=== PATIENT | male | born 1940 | race Caucasian/White ===

== ENCOUNTER 2019-06-24 10:58 | Day surgery (SDC) | payer MEDICARE, SELFPAY ==
--- NOTE | 2019-06-23 17:00 | PCM.HP.BLA ---
History and Physical Date of Admission: 06/24/19 [place] Yousif Jr 1940 ? ? REFERRING PHYSICIAN: Dustin Romeo (Cn* ? CHIEF COMPLAINT: Consult (Consult Inguinal hernia) ? HPI: The patient is a 78 year old male presents with complaint of right groin pain. He has a known right inguinal hernia for years. It has been uncomfortable for the past several months. However, his family has noted increasing complaint of pain in the past several days. He was seen in the urgent care clinic and referred to this office. Patient denies nausea/emesis. He does urination problems, able to urinate, however has frequency and urgency. He was prescribed flomax in past but never obtained prescription. Patient's states that he had a left inguinal hernia repair in the 70s. Patient is a poor historian and non compliant (was scheduled for colonoscopy but did not follow through, has elevated PSA but did not follow up with urology) and much of his past medical history was obtained via telephone from his and daughter. ? ? PAST MEDICAL HISTORY COPD - quit smoking years ago, also a pipe smoker Prostatism Elevated PSA ? ? PAST SURGICAL HISTORY ? INGUINAL HERNIA REPAIR HX Left 1969 ? Hernia repair ? REMV CATARACT EXTRACAP,INSERT LENS Left 07/11/2016 ? Cataract Extraction with Toric IOL ? ? Current Outpatient Medications ? tamsulosin ER (FLOMAX) 0.4 mg Take 1 capsule by mouth once daily. ? tiotropium (SPIRIVA) 18 mcg inhalation capsule Inhale 1 capsule as instructed once daily. ? Calcium-Cholecalciferol, D3, (CALCIUM 500 WITH D) 500 mg(1,250mg) -400 unit per tablet Take 1 tablet by mouth once daily. ? ? ALLERGIES: Patient has no known allergies. ? PERSONAL HISTORY: Social History Tobacco Use ? Smoking status: Former Smoker ? ? Types: Cigars ? ? Last attempt to quit: 04/21/1969 ? ? Years since quittin.2 ? Smokeless tobacco: Current User ? ? Types: Chew Substance Use Topics ? Alcohol use: No ? Drug use: No ? FAMILY HISTORY ? No Ocular Disease Father ? ? No Ocular Disease Mother ? ? No Ocular Disease Sister ? ? No Ocular Disease Brother ? ? Cancer Brother ? ? No Ocular Disease Maternal Grandmother ? ? No Ocular Disease Maternal Grandfather ? ? No Ocular Disease Paternal Grandmother ? ? No Ocular Disease Paternal Grandfather ? ? No Ocular Disease Other ? ? ? REVIEW OF SYSTEMS: General - denies fevers, 20 # weight loss noted by Cardiovascular - denies chest pain, denies history of [place] Pulmonary - denies shortness of breath, denies coughing up blood Gastrointestinal - see HPI, complaint of abdominal pain mostly lower related to hernia, denies emesis, no previous colonoscopy Neurological - denies seizures Genitourinary - see HPI, wears depends for dribbling Hematological - denies spontaneous/prolonged bleeding Skin - denies nonhealing skin wounds Musculoskeletal - has some back pain, hospitalized in past for back traction Endocrine - denies diabetes, no thyroid problems Psychological ? denies hallucinations ? PHYSICAL EXAMINATION: General: The patient is 78 year old male, well nourished, well hydrated in no acute distress. The patient is oriented to time, place, and person. VITALS: Ht: 6' Wt: 154# BP 138/89 RR 16 HR 82 Head ? Normocephalic. EOM intact with sclera clear and no icterus noted. Wearing glasses. Mouth with mucus membranes moist. Neck - supple with no jugular venous distention noted. Trachea is midline. No carotid bruits noted. No masses noted. Lungs ? normal breath sounds in all lung roberts. No rales/rhonchi/wheezing noted. No labored breathing noted, such as retractions. No cough heard. Heart ? normal S1 and S2 auscultated. No rubs/clicks/murmurs noted. Regular rate. .Abdomen ? soft and benign. Normal bowel sounds. Extremities ? no calf tenderness noted. No pitting edema noted. Genitalia ? normal male phallus, testes in normal anatomical position, right inguinal hernia - not reducible and tender, left inguinal hernia - reducible Skin ? normal skin integrity. Neurological ? normal gait, no focal deficits noted. Psych ? calm and appropriate ? ? IMPRESSION: right inguinal hernia - not reducible ? PLAN: I have discussed the above with the patient (and with daughter [phone] and via telephone) I have offered right inguinal hernia repair with use of mesh. I have explained the procedure to the patient. I have counseled the patient as to the risks of the procedure, including but not limited to: infection, bleeding, injury to any blood vessels/nerves, scar tissue, injury to the spermatic cord and/or testicle, injury to bowel/bladder, injury to the groin nerves causing chronic groin pain, recurrence of hernia, wound infections, complications of anesthesia, etc. ? the patient understands. The patient wishes to proceed. Will be done at [facility] as per patient's wishes. Schedule for tomorrow. Will start patient on Flomax, to avoid urinary retention after surgery. Since left inguinal hernia is non tender and reducible, will defer repair. I have answered all questions to the patient?s satisfaction and the patient has no further questions. . Diagnoses: (K40.30) Irreducible right inguinal hernia (primary encounter diagnosis) (R10.31) Right groin pain (K40.90) Reducible left inguinal hernia (N40.0) Prostate hypertrophy Return to Clinic: The patient is instructed to follow-up with me after the procedure. ?
[2019-06-24] VITALS (9 sets, daily range): BP systolic 87–129; BP diastolic 47–72; PULSE 71–82; RESP 16–20; TEMP 36.6–37.2; O2SAT 93–99; BMI 19.2
--- NOTE | 2019-06-24 11:27 | EKG12_ITS ---
Test Reason : PRE OP Blood Pressure : / mmHG Vent. Rate : 082 BPM Atrial Rate : 082 BPM P-R Int : 226 ms QRS Dur : 086 ms QT Int : 370 ms P-R-T Axes : 067 -23 055 degrees QTc Int : 432 ms Sinus rhythm with 1st degree A-V block Inferior infarct , age undetermined Abnormal ECG No previous ECGs available Confirmed by BETH SOLOMON ([id number]), industrial editor BYRON NICHOLAS ([id number]) on 06/25/2019 7:51:23 AM Referred By: Maliha Galvan Confirmed By:BETH SOLOMON
[2019-06-24] MEDS: Lactated Ringers 1,000 ML 75 ML IV ×2 (12:51→16:30)
--- NOTE | 2019-06-24 13:00 | HERN_PTH ---
PATIENT: CHINTAN SEPULVEDA LOC: [facility] – [place] U#:[id number] AGE/SX: 78/M ROOM: RE06/24/[address]: Dr. Maliha Galvan MD : 1940 BED: DIS: 06/24/2019 SPEC #: [id number] RECD: 06/25/19 08:52 STATUS: THAO SPIKE #: [id number] ALEE: 06/24/19 13:[address]: Maliha Galvan DEPT: SURGICAL PATHOLOGY RECD BY: Ta Ramirez ENTERED: 06/25/19 10:14 SP TYPE: Hernia OTHR DR: No Primary Care Phys Tissues: HERNIA Procedures: Surgery Specimen Level II HEADER OPERATION: Inguinal hernia with mesh PRE-OP DIAGNOSIS: Right inguinal hernia, not reducible TISSUE SUBMITTED: Incarcerated right inguinal hernia sac MICROSCOPIC DIAGNOSIS Soft tissue of right inguinal region, excision: Hernia sac with fibrosis and mild chronic inflammation. Mature adipose tissue with hemorrhage consistent with incarcerated hernia contents. AM:vanessa 06/26/19 MICROSCOPIC DESCRIPTION Slides are reviewed. GROSS DESCRIPTION Received in fixative is one container labeled with the patient's name and designated right hernia sac. The specimen consists of two irregular fragments of pink-rios and yellow tissue that in aggregate measure 7 x 5 x 1 cm. Serial sections do not reveal mass lesions. Cathode Ray Tube Assembler sections are submitted in one cassette. / AM:vanessa 06/25/19 TC:5 CPT: 07490
[2019-06-24] MEDS: Cefazolin 2 GM in 0.9% Normal Saline 100 ML IV (14:12)
[2019-06-24] MEDS: Bupivacaine 0.25% 30 ML Vial (14:29)
--- NOTE | 2019-06-24 16:09 | PCM.OPRPT ---
Report of Operation Date of Procedure: 06/24/19 Pre-Operative Diagnosis: incarcerated right inguinal hernia Post-Operative Diagnosis: same as above Surgery/Procedure Performed:: incarcerated right inguinal hernia repair Description of Surgical Findings:: incarcerated right inguinal hernia with omentum, large right hydrocoele Type of Anesthesia:: Local MAC Anesthesiologist: Meghan Claire Specimen's removed: hydrocoele sac and indirect inguinal hernia sac and incarcerated omentum Estimated Blood Loss (mL): 20 ml Fluids Replaced: 900 ml Description of Procedure: After informed consent was obtained, the patient was brought to the Operating Room. Appropriate time out protocol was followed. He was then placed in the supine position. The patient was then placed under anesthesia. The right groin area and lower torso and genitalia were then prepped with a sterile surgical skin preparation. Sterile surgical drapes were placed. This skin and subcutaneous tissues were then widely infiltrated with the local anesthetic. A skin incision was then made with a 15 blade scalpel over the hernia site in a transverse oblique fashion and carried down to the subcutaneous tissues using sharp dissection. Any hemorrhage was adequately controlled with electrocautery. Division of the tissues along the incision line continued down to the external oblique fascia was identified. It was then divided along its fibers using sharp dissection carefully avoiding any injury to any blood vessels/nerves. The spermatic cord was then isolated using blunt dissection. There was a large direct hernia defected noted in Hasselbach's triangle, and patient also had a large indirect inguinal hernia sac with hydrocoele. This was reduced. The sac was opened. There was blue discolored fatty tissue noted, this was resected. The hernia sac was also largely resected and the hydrocoele sac was opened. The proximal portion of the indirect sac was sutured closed with 3-0 vicryl suture. The hydrocoele sac was left open and the inside tissue was cauterized with electrocautery. The tissues were bluntly from the spermatic cord. This dissection took some time as there were dense adhesions all throughout. The repair of the hernia was then done in the Viola fashion. The confluence of the internal oblique and transversalis fascia was sutured to Keaton's ligament using interrupted 0 prolene suture. This was done from the pubic tubercle to the level of overlying the femoral vessels and the internal ring was re-created and just large enough for the tip of my finger. The spermatic cord was then replaced in its proper anatomical position. The external oblique fascia was then reapproximated over the spermatic cord to close the roof of the inguinal canal with a running 3-0 vicryl suture. Fito's fascia was reapproximated with interrupted 3-0 vicryl sutures. The skin incision was reapproximated with a running 4-0 Monocryl suture. Cavilon and steristrips were placed to reinforce the skin closure and a sterile opsite dressing was applied. The patient was brought from to the Recovery Room in stable condition. - Complications none noted - Admit VTE Documentation VTE Present on Admission: Yes VTE Mechan Device Prophylaxis: SCD's
--- NOTE | 2019-06-24 16:40 | PCM.DC.HER ---
Discharge Diet: No Restrictions - drink plenty of fluids Discharge Activity: Return to Normal Activity, May not drive while taking narcotic pain medications. Lifting Restrictions: no lifting greater than 10 pounds for 6-8 weeks Call your doctor if your incision/area has: Continuous Slow Oozing, Foul Smelling Discharge Call your doctor if you observe: Fever of 101 or Higher Additional Dressing/Incision Instructions:: Leave dressing in place. May get wet in shower. Do not soak - no tub baths/swimming. Apply ice packs to area for comfort as often as tolerated Additional Instructions: Due to the hernia being present for years, there will be a lot of swelling in the area after this surgery. Recommend ice packs to the area for comfort and place in the area as long as tolerated (this will also help with pain) Recommended pain medication regimen - take 650 mg acetaminophen (Tylenol), then in 3-4 hours take 600 mg ibuprofen (Motrin), then in 3-4 hours take 650 mg acetaminophen, then in 3-4 hours take 600 mg ibuprofen, and so on for the next 2-3 days take the prescribed narcotic pain medication for pain beyond that which is controlled by the acetaminophen and/or ibuprofen and at night to help you sleep Rather than sitting, it would be more comfortable for you to recline in a Lazy-boy type chair with your legs elevated You will have swelling of your scrotum and also a lot of bruising - this will be normal With scrotal swelling, reclining with your legs elevated, you can place a towel across the upper thighs and rest your scrotum on top of the towel - this will help the fluid in your scrotum return back to your torso Allergies/Adverse Reactions: Allergies No Known Allergies Allergy (Verified 06/24/19 11:11) Medications to take at Discharge Aspirin [[place]hel Aspirin EC] 81 mg PO DAILY 06/24/19 Eye Cap 1 tab PO DAILY 06/24/19 Hydrocodone/Acetaminophen [[place] 5-325 Tablet] 1 each PO Q8H PRN PRN 5 Days #15 tablet 06/24/19 Tamsulosin HCl [Flomax] 0.4 mg PO DAILY 06/24/19 The following prescriptions were given: Hydrocodone/Acetaminophen [[place] 5-325 Tablet] 1 each PO Q8H PRN PRN 5 Days #15 tablet PRN Reason: Pain Score 4-10/10 Transmission Status: Sent to [id number] Primary Care Physician: Care Physician,No Primary [Primary Care Provider] - Test Results: Test results from this visit will be discussed in further detail at your follow-up appointment, if applicable. Please Follow Up With: Maliha Galvan MD - When: we will contact you to set up a televisit appointment
== END 2019-06-24 17:30 | disposition home or self-care (01) ==
LOC: SDC 11:02 → AC 11:05
PROVIDERS: Referring Provider Surgery; Visit Provider Surgery
PROC: (CPT 49507; principal; 2019-06-24 12:45)
DX: K40.30 Unilateral inguinal hernia, with obstruction, without gangrene, not specified as recurrent (principal); N40.0 Benign prostatic hyperplasia without lower urinary tract symptoms; I44.0 Atrioventricular block, first degree; J44.9 Chronic obstructive pulmonary disease, unspecified; F17.220 Nicotine dependence, chewing tobacco, uncomplicated; Z91.19 Patient's noncompliance with other medical treatment and regimen
CPT/HCPCS: 49507; 88302; 93005; J7120; J2405

== ENCOUNTER 2021-07-19 14:27 | Emergency (ER) | payer MEDICARE, SELFPAY ==
[2021-07-19 14:28] VITALS: BP 181/90; PULSE 85; RESP 13; TEMP 36.4; O2SAT 97; BMI 18.3
--- NOTE | 2021-07-19 14:46 | EX.ED.DYSGE1 ---
HPI History of Present Illness Chief Complaint: Head Injury Informant: patient Onset/Context/Timing Onset: Today Context: Sudden Onset Timing: Continuous Quality: Dull and aching Location: Neck and bilateral feet Worsened by: Movement Relieved by: Nothing Narrative Narrative: Patient presents with syncopal episode and head injury that occurred today. Patient states he felt lightheaded prior to the syncopal episode. Patient states he fell forward and hit his head. Patient complains of pain in the right side of his neck as well. Patient states it is worse with certain movements. Patient denies any paresthesias or weakness. Patient also complains of pain in both feet. Patient denies any other injuries. Patient denies any palpitations. Patient denies any chest pain. PFSH PFSH Home Medications Eye Cap 1 tab PO DAILY 06/24/19 [History Last Taken Unknown] aspirin 81 mg PO DAILY 06/24/19 [History Last Taken 06/23/19 08:00] tamsulosin 0.4 mg PO DAILY 06/24/19 [History Last Taken Unknown] Allergy/AdvReac Type Severity Reaction Status Date / Time No Known Allergies Allergy Verified 07/19/21 14:35 Surgical History Hx of inguinal herniorrhaphy Social History Smoking Status: Never smoker ROS ROS ED Constitutional Constitutional ED: Reports chills, fever(s) and subjective Eyes Eyes: Reports blurry vision and diplopia ENT ENT ED: Denies rhinorrhea or sore throat Cardiovascular Cardiovascular: Denies chest pain or palpitations Respiratory/Chest Respiratory/Chest: Reports dyspnea; Denies cough Gastrointestinal Gastrointestinal: Denies nausea or vomiting Genitourinary Genitourinary ED: Reports dysuria; Denies hematuria Musculoskeletal Musculoskeletal: Reports neck pain; Denies back pain Integumentary Denies abscess or rash Neurologic Neurologic: Denies headache(s) or weakness Allergic/Immunologic Allergic/Immunologic ED: Denies mouth swelling or urticaria EXAM Physical Exam Const Vital Signs: 07/19/21 14:28 07/19/21 14:37 07/19/21 15:10 Temperature 97.6 F L Temperature Source Temporal Pulse Rate 85 83 Pulse Rate [Lying] Pulse Rate [Sitting (for 1 minute prior to obtaining)] Pulse Rate [Standing (for 1 minute prior to obtaining)] Respiratory Rate 13 18 Respiratory Effort Normal Non-Labored Respiratory Pattern Normal Blood Pressure 181/90 H 158/86 H Blood Pressure [Lying] Blood Pressure [Sitting (for 1 minute prior to obtaining)] Blood Pressure [Standing (for 1 minute prior to obtaining)] Blood Pressure Mean 120 110 Blood Pressure Mean [Lying] Blood Pressure Mean [Sitting (for 1 minute prior to obtaining)] Blood Pressure Mean [Standing (for 1 minute prior to obtaining)] Pulse Ox 97 100 Oxygen Delivery Method Room Air Room Air 07/19/21 15:41 Temperature Temperature Source Pulse Rate Pulse Rate [Lying] 87 Pulse Rate [Sitting (for 1 minute prior to obtaining)] 99 Pulse Rate [Standing (for 1 minute prior to obtaining)] 118 H Respiratory Rate Respiratory Effort Respiratory Pattern Blood Pressure Blood Pressure [Lying] 148/87 H Blood Pressure [Sitting (for 1 minute prior to obtaining)] 170/97 H Blood Pressure [Standing (for 1 minute prior to obtaining)] 192/125 H Blood Pressure Mean Blood Pressure Mean [Lying] 107 Blood Pressure Mean [Sitting (for 1 minute prior to obtaining)] 121 Blood Pressure Mean [Standing (for 1 minute prior to obtaining)] 147 Pulse Ox Oxygen Delivery Method Positive well nourished and well developed General Appearance ED: well developed and NAD HEENT Reports moist mucous membranes Neck supple and no JVD Neck Narrative: There is areas of the right cervical paraspinal muscles. There is no midline tenderness. There is no bony crepitance or step-off. General: tenderness Resp normal respiratory effort and clear to auscultation bilaterally Cardio regular rate, regular rhythm and no murmurs GI normal to inspection, nondistended, normoactive bowel sounds and non-tender Palpation: soft Extremity normal to inspection General Extremety ED: Negative for edema or tenderness General Extremity: Negative for edema Neuro oriented x3, CN's II-XII intact bilaterally and no sensory deficits noted Sensorium / Orientation: alert Motor Exam: strength 5/5 throughout Psych mental status grossly normal Skin no rashes or lesions noted MDM MDM MDM Narrative Medical decision making narrative: EKG was obtained. On my interpretation it shows normal sinus rhythm with a rate of 100. There is a first-degree AV block with a CA interval of 218 ms. QRS interval was normal. QTc interval was normal. There is left axis deviation at -58. There are no acute ST or T wave changes. CBC was within normal limits. Comprehensive metabolic profile was normal. High-sensitivity troponin was normal. CT scan of the brain was obtained. There is no acute intracranial abnormality. This was interpreted by the radiologist and reviewed by myself. CT scan of the cervical spine was obtained. There is no acute fracture or spondylolisthesis. There are some degenerative changes noted. This was also interpreted by the radiologist and reviewed by myself. Orthostatic vital signs were obtained. Patient did get tachycardic with standing. Patient was given IV fluids. Patient was advised of his findings. Patient was instructed to follow-up with his primary care physician in 5 to 7 days. Patient understood and was agreeable with the plan. All questions were answered. Lab Data Labs: Laboratory Results - last 24 hr 07/19/21 07/19/21 15:00 15:00 WBC 4.4 RBC 4.52 L Hgb 14.0 Hct 40.8 MCV 90.3 MCH 31.0 MCHC 34.3 RDW Std Deviation 39.7 RDW Coeff of Vee 11.9 Plt Count 205 MPV 10.1 Immature Gran % (Auto) 0.200 Neut % (Auto) 63.9 Lymph % (Auto) 23.4 [place] % (Auto) 8.6 Eos % (Auto) 3.0 Baso % (Auto) 0.9 Absolute Neuts (auto) 2.8 Absolute Lymphs (auto) 1.03 Nucleated RBC % 0 Sodium 142 Potassium 4.0 Chloride 107 Carbon Dioxide 29.0 Anion Gap 6 BUN 31 H Creatinine 1.01 Estim Creat Clear Calc 49.82 Est GFR (MDRD) Af Amer 91 Est GFR (MDRD) Non-Af 75 BUN/Creatinine Ratio 30.7 H Glucose 105 Calcium 9.1 Total Bilirubin 1.00 AST 20 ALT 21 Alkaline Phosphatase 79 Troponin I High Sens 7 Total Protein 7.3 Albumin 3.9 Globulin 3.4 Albumin/Globulin Ratio 1.1 Radiography Diagnostic Testing: Clinical Impression(s) from Imaging Studies Brain CT 07/19/21 14:53 IMPRESSION: No evidence of acute intracranial pathology is seen. Electronically Signed: Davide Becerril MD at 15:42 EDT , Cervical Spine CT 07/19/21 14:55 IMPRESSION: Degenerative changes of the cervical spine, no evidence of acute osseous abnormality is seen. Electronically Signed: Davide Becerril MD at 15:47 EDT , EKG Initial EKG: Interpretation: Sinus Rhythm (100 with first-degree AV block), No Acute Injury Pattern, LAFB and Non-Specific ST Changes Prior EKG tracings: available for review Prior: Unchanged (06/24/2019) Discharge Plan Triage Chief Complaint: Head Injury ED Provider: Elton Nguyen Dx/Rx/DC Orders Clinical Impression: Syncope, Closed head injury, Acute cervical myofascial strain Instructions: ED Head Injury (Adult), ED Fainting, Uncertain Cause Prescriptions: No Action aspirin 81 MG tablet,delayed release (DR/EC) 81 mg PO DAILY RF: 0 tamsulosin 0.4 MG capsule 0.4 mg PO DAILY RF: 0 Eye Cap 1 tab PO DAILY RF: 0 Primary Care Provider: Care Physician,No Primary Referrals: Can De MD [STAFF PHYSICIAN] - 5-7 Days Care Physician,No Primary [Primary Care Provider] - Disposition Disposition: Home, Self Care
--- NOTE | 2021-07-19 14:53 | CT_ITS ---
INDICATION: Syncope EXAMINATION: CT BRAIN - CT Head or Brain W/O Contrast Injection TECHNIQUE: Multiple axial images were obtained of the head without intravenous contrast. A radiation dose optimization technique was used for this scan. IV Contrast dosage and agent: None. COMPARISON: None FINDINGS: BRAIN PARENCHYMA: No intra- or extra-axial hemorrhage. No evidence of acute infarct. No intracranial mass or mass effect. There is preservation of the pavon/white matter interface. Posterior fossa structures are unremarkable. CSF SPACES: Appropriate for age. No hydrocephalus. Basal cisterns are patent. CALVARIUM, SKULL BASE, PARANASAL SINUSES AND MASTOID AIR CELLS: Clear. No discrete lytic or blastic abnormalities. ORBITS: Both globes, extraocular muscles, optic nerves and retrobulbar fat appear unremarkable. ASPECTS Score for Acute Strokes: 10 CT/Brain/Head without Contrast IMPRESSION: No evidence of acute intracranial pathology is seen. Electronically Signed: Davide Becerril MD at 15:42 EDT ,
--- NOTE | 2021-07-19 14:54 | EKG12_ITS ---
Test Reason : HEAD INJURY Blood Pressure : / mmHG Vent. Rate : 100 BPM Atrial Rate : 100 BPM P-R Int : 218 ms QRS Dur : 112 ms QT Int : 348 ms P-R-T Axes : 078 -58 014 degrees QTc Int : 448 ms Sinus rhythm with 1st degree A-V block Left anterior fascicular block Leftward axis Incomplete right bundle branch block Abnormal ECG Confirmed by TUAN HOWE, RICHY ([id number]), web content editor ISA MAI ([id number]) on 07/24/2021 11:42:39 AM Referred By: REAL Confirmed By:RICHY DICKERSON MD
--- NOTE | 2021-07-19 14:55 | CT_ITS ---
INDICATION: Injury/Pain EXAMINATION: CT CERVICAL SPINE - CT Spine Cervical W/O Contrast Injection TECHNIQUE: Helically acquired images were obtained of the cervical spine. 2D reformatted images were reviewed. A radiation dose optimization technique was used for this scan. IV Contrast dosage and agent: None. COMPARISON: None. FINDINGS: Mild lordosis of the columns of the cervical spine is visualized. Grade 1 retrolisthesis of C3 over C4 and to a lesser extent C4 over C5 and C5 over C6. Decreased intervertebral disc had visualized most prominent at C3-C4, C4-5 and to lesser extent C5-C6 and C6-C7. Multilevel degenerative disc osteophyte complex, uncovertebral disease and hypertrophic changes in the facet joints is seen. C3-C4 demonstrates moderate narrowing of bilateral neuroforamina. C4-C5 Severe narrowing of the right C4-5 neural foramina, moderate narrowing of the left neuroforamina. C5-C6 demonstrates moderate narrowing of the right and severe narrowing of the left neuroforamina. C6-C7 demonstrates mild/moderate narrowing of the right neural foramina and severe narrowing of the left neuroforamina. C7-T1 demonstrates severe degenerative changes with moderate narrowing of the left neuroforamina No prevertebral soft tissue swelling. There is no cervical adenopathy. Limited evaluation of the upper lung roberts demonstrates the biapical pleural reaction. CT/Spine Cervical without Contras IMPRESSION: Degenerative changes of the cervical spine, no evidence of acute osseous abnormality is seen. Electronically Signed: Davide Becerril MD at 15:47 EDT Reading Location ID and State: [facility] / [place] Tel , Service support ,
[2021-07-19 15:10] VITALS: BP 158/86; PULSE 83; RESP 18; O2SAT 100
[2021-07-19 15:12] LABS: Absolute Lymphocyte Count 1.03 X10^3/uL (0.83-4.51); Absolute Neutrophil Count 2.8 X10^3/uL (2.0-7.7); Basophil# 0.04 X10^3/uL; Basophil% 0.9 % (0-1); Eosinophil# 0.13 X10^3/uL; Hematocrit 40.8 % (40-54); Lymphocyte # 1.03 X10^3/ul (0.83-4.51); Lymphocyte % 23.4 % (19-41); Mean Corp Hgb Conc 34.3 g/dL (32-36); Mean Corpuscular Volume 90.3 fL (80-94); Mean Platelet Vol. 10.1 fl (6.2-12.0); Monocyte# 0.38 X10^3/uL; Monocyte% 8.6 % (0-10); NRBC Flagged by Analyzer 0 % (0-5); Neutrophil # 2.81 X10^3/uL (2.7-7.7); Neutrophil % 63.9 % (47-70); Platelet Count 205 K/mm3 (150-450); RBC Distribution Width CV 11.9 % (11.6-14.6); RBC Distribution Width SD 39.7 fl (35.1-43.9); Red Blood Count 4.52 M/mm3 (4.6-6.2); White Blood Count 4.4 K/mm3 (4.4-11.0)
[2021-07-19 15:39] LABS: ALB/GLOB Ratio 1.1 RATIO (0.9-2.4); AST(SGOT) 20 U/L (15-37); Alanine Aminotransfer ALT/SGPT 21 U/L (16-61); Albumin, Serum 3.9 g/dL (3.2-5.0); Alkaline Phosphatase 79 U/L (45-117); Anion Gap 6 (5-15); BUN 31 mg/dL (7-18); BUN/Creat Ratio 30.7 RATIO (10-20); Calcium,Total 9.1 mg/dL (8.5-10.1); Chloride 107 mmol/L (98-107); Creatinine, Serum 1.01 mg/dL (0.70-1.30); EST Glomerular Filtration Rate 75 mL/min (>60); Est Glom Filt Rate - Afr Amer 91 mL/min (>60); Estimated Creatinine Clearance 49.82 ml/min; Globulin 3.4 g/dL (2.2-4.2); Glucose 105 mg/dL (74-106); Protein, Total 7.3 g/dL (6.4-8.2); Sodium Level 142 mmol/L (136-145); Troponin-I HS 7 pg/mL (3.0-78.0)
[2021-07-19 15:41] VITALS: BP 148/87; BP 170/97; BP 192/125; PULSE 118; PULSE 87; PULSE 99
--- NOTE | 2021-07-19 15:43 | CM.ED ---
Social Work Consult: No PCP Referral source: Self referral due to above. This social studies department chair met with patient in room. Introduced self and social studies department chair role. Patient agreeable to speak with this social studies department chair. Patient confirms to not have a PCP. Patient is agreeable to this social studies department chair providing patient with list of PCP's that are local to patient geographical region. Patient states to have had a PCP a few years ago but that this PCP retired and I never got another one. Patient states to be able to take care of self in the home and to have no concerns on returning to the community. No further services requested or indicated. Vito FINE, FRANCESCO
[2021-07-19] MEDS: 0.9% Normal Saline 1,000 ML 1000 ML IV (16:02)
[2021-07-19 16:30] VITALS: BP 154/89; PULSE 85; RESP 16; O2SAT 100
== END 2021-07-19 17:28 | disposition home or self-care (01) ==
PROVIDERS: Emergency Provider Emergency Medicine; Visit Provider Emergency Medicine
DX: S16.1XXA Strain of muscle, fascia and tendon at neck level, initial encounter (principal); I44.0 Atrioventricular block, first degree; W19.XXXA Unspecified fall, initial encounter; R55 Syncope and collapse
CPT/HCPCS: 70450; 72125; 80053; 84484; 85025; 93005; 96360; 99285; J7030; A4216

== ENCOUNTER → 2021-08-11 | Outpatient (CLI) | payer MEDICARE, SELFPAY ==
--- NOTE | 2021-08-11 10:50 | ART_ITS ---
Reason For Study: Cyanosis Procedure A bilateral lower extremity continuous wave Doppler with analog waveform analysis and ankle brachial indexes. Left Segmental Pressures Left brachial= 159mmHg. Left posterior tibial artery = >254mmHg. Left dorsalis pedis artery = >254mmHg. Left digit = 163 mmHg. The left dorsalis pedis waveforms are triphasic. The left posterior tibial artery waveforms are triphasic. Right Segmental Pressures Right brachial= 161mmHg. Right posterior tibial artery = 190mmHg. Right dorsalis pedis artery = 199mmHg. Right digit = 169 mmHg. The right dorsalis pedis waveforms are triphasic. The right posterior tibial artery waveforms are triphasic. Indices The right ankle brachial index by the dorsalis pedis is 1.24. The right ankle brachial index by the posterior tibial artery is 1.18. The left ankle brachial index by the dorsalis pedis is N/C. The left ankle brachial index by the posterior tibial artery is N/C. VL/Ankle Brachial Index Interpretation Summary Triphasic Doppler waveforms are noted at ankle level bilaterally. Pulse-volume recordings appear satisfactory at ankle level bilaterally. The resting right ankle-brachial index is normal. The resting left ankle-brachial index could not be determined due to the non-compre ssibility of the vasculature at ankle level on the left. Digital-brachial indices are normal donna aterally. There is evidence of arterial calcification at ankle level on the left. There i s no evidence of significant arterial occlusive disease in the lower extremities bilaterally. Ordering Physician: Can De Performed By: Anup Flores
== END | disposition home or self-care (01) ==
LOC: CVS 10:34
PROVIDERS: Visit Provider Family Medicine
DX: R23.0 Cyanosis (principal); I70.202 Unspecified atherosclerosis of native arteries of extremities, left leg; R39.15 Urgency of urination
CPT/HCPCS: 36415; 84153; 93922

== ENCOUNTER → 2021-10-19 | Outpatient (CLI) | payer MEDICARE, SELFPAY ==
[2021-10-19 10:34] LABS: Hematocrit 40.3 % (40-54); Hemoglobin 13.5 g/dL (13.0-16.5); Mean Corp Hgb Conc 33.5 g/dL (32-36); Mean Corpuscular Hgb 30.3 pg (27.0-32.0); Mean Corpuscular Volume 90.4 fL (80-94); Mean Platelet Vol. 10.4 fl (6.2-12.0); Platelet Count 226 K/mm3 (150-450); RBC Distribution Width CV 12.2 % (11.6-14.6); RBC Distribution Width SD 40.3 fl (35.1-43.9); Red Blood Count 4.46 M/mm3 (4.6-6.2); White Blood Count 4.3 K/mm3 (4.4-11.0)
[2021-10-19 11:22] LABS: Anion Gap 6 (5-15); BUN 15 mg/dL (7-18); BUN/Creat Ratio 17.5 RATIO (10-20); Calcium,Total 9.4 mg/dL (8.5-10.1); Chloride 104 mmol/L (98-107); Creatinine, Serum 0.86 mg/dL (0.70-1.30); EST Glomerular Filtration Rate 91 mL/min (>60); Est Glom Filt Rate - Afr Amer 110 mL/min (>60); Glucose 87 mg/dL (74-106); Potassium 3.9 mmol/L (3.5-5.1); Sodium Level 140 mmol/L (136-145)
[2021-10-21 08:19] LABS: PSA, Free 1.42 ng/mL; PSA, Total 4.3 ng/mL (0.0-4.0)
== END | disposition home or self-care (01) ==
PROVIDERS: PCP Family Medicine; Referring Provider Surgery; Visit Provider Surgery
DX: Z01.812 Encounter for preprocedural laboratory examination (principal); J44.9 Chronic obstructive pulmonary disease, unspecified; N40.0 Benign prostatic hyperplasia without lower urinary tract symptoms
CPT/HCPCS: 36415; 80048; 84153; 85027

== ENCOUNTER → 2021-10-25 | Outpatient (CLI) | payer MEDICARE, SELFPAY ==
--- NOTE | 2021-10-25 07:43 | EKG12_ITS ---
Test Reason : PREOP Blood Pressure : / mmHG Vent. Rate : 072 BPM Atrial Rate : 072 BPM P-R Int : 216 ms QRS Dur : 088 ms QT Int : 392 ms P-R-T Axes : 058 -38 067 degrees QTc Int : 429 ms Sinus rhythm with 1st degree A-V block Left axis deviation Low voltage QRS (Limb Leads) Inferior infarct , age undetermined Anterior IL, age undetermined Abnormal ECG Confirmed by TUAN HOWE, RICHY ([id number]), editorial intern ISA MAI ([id number]) on 10/26/2021 12:52:20 PM Referred By: Anup Cruz Confirmed By:RICHY DICKERSON MD
--- NOTE | 2021-10-25 07:43 | CT_ITS ---
STUDY: CT ABDOMEN AND PELVIS WITH CONTRAST REASON FOR EXAM: Male, 81 years old. Hernia, complicated-INGUINAL LEFT RADIATION DOSAGE (If Supplied By Facility): CTDIvol = ( 17.36 ) mGy, DLP = ( 438.71 ) mGycm TECHNIQUE: Transaxial images were obtained from the dome of the diaphragm to the symphysis pubis with oral contrast. Oral and amp;amp; IV Readi-CAT and amp;amp; 100mL Isovue-300 was administered. Sagittal and coronal images were reconstructed. Individualized dose optimization techniques were used for this CT. COMPARISON: None. FINDINGS: Linear atelectasis and/or scarring at the left lung base. Coronary artery calcification. Normal liver. Normal gallbladder and extrahepatic biliary system. Normal spleen. Normal pancreas. Normal bilateral adrenal glands. There is a 2.7 cm cyst in the posterior lateral aspect of the right kidney. 1 cm cyst in the anterior midportion of the right kidney. Normal left kidney. Normal visualized stomach. Normal small intestine. There are multiple colonic diverticula consistent with diverticulosis. The appendix is visualized and appears normal. There is diffuse atherosclerotic calcification of the abdominal aorta and its major visceral branches, without a demonstrated aneurysm. Normal inferior vena cava. There is borderline retroperitoneal lymphadenopathy with enlarged nodes no greater than 10mm in the short axis diameter. Distended urinary bladder. Mild degree of diffuse prostatic enlargement with indentation at the bladder base. The prostate measures 4.6 cm x 6.2 cm. It is of heterogeneous density. There is a moderate size left inguinal hernia containing fat and vessels. Normal abdominal wall. There are diffuse degenerative changes of the visualized lumbar spine. CT/Abdomen/Pelvis WITH Contrast IMPRESSION: Right renal cysts. Heterogeneous enlargement of the prostate with indentation of the bladder base. Distended urinary bladder. Thickened urinary bladder wall. Moderate size left inguinal hernia containing fat and blood vessels. Electronically Signed: Gage Quinones MD at 14:50 EDT ,
--- NOTE | 2021-10-25 08:24 | RAD_ITS ---
STUDY: X-RAY CHEST REASON FOR EXAM: Male, 81 years old. Preop testing TECHNIQUE: PA and lateral views of the chest. COMPARISON: March 16, 2014 chest x-ray FINDINGS: The lungs are clear and expanded. There is no demonstrated pleural abnormality. Normal size heart. Normal mediastinum and vasyl. Normal visualized pulmonary arteries. There is atherosclerotic tortuosity of the aortic arch and descending thoracic aorta. There are diffuse degenerative changes of the visualized thoracic spine. Normal visualized ribs, clavicles, and shoulders. There is no demonstrated abnormality of the visualized soft tissue structures of the upper abdomen. RAD/Chest PA and Lateral IMPRESSION: No demonstrated acute cardiopulmonary process. Electronically Signed: Kayce Can MD at 5:35 EDT ,
== END | disposition home or self-care (01) ==
PROVIDERS: PCP Family Medicine; Referring Provider Surgery; Visit Provider Surgery
DX: Z01.810 Encounter for preprocedural cardiovascular examination (principal); K40.90 Unilateral inguinal hernia, without obstruction or gangrene, not specified as recurrent
CPT/HCPCS: 71046; 74177; 93005; Q9967

== ENCOUNTER → 2021-10-27 | Outpatient (CLI) | payer MEDICARE, SELFPAY | END | disposition home or self-care (01) | PROVIDERS: PCP Family Medicine; Referring Provider Surgery; Visit Provider Surgery | DX: K92.1 Melena (principal) | CPT/HCPCS: 82274 ==

== ENCOUNTER → 2021-11-06 | Outpatient (CLI) | payer MEDICARE, SELFPAY | END | disposition home or self-care (01) | LOC: LABSPEC 12:01 | PROVIDERS: PCP Family Medicine; Referring Provider Family Medicine; Visit Provider Family Medicine | DX: R35.0 Frequency of micturition (principal) | CPT/HCPCS: 87086; 87088 ==

== ENCOUNTER → 2021-11-17 | Outpatient (CLI) | payer MEDICARE, SELFPAY ==
--- NOTE | 2021-11-17 06:01 | ECHOCS_ITS ---
Reason For Study: Murmur Procedure This was a 2D Doppler, Color Flow transthoracic echocardiogram. The study was technically difficult. Contrast injection was performed. Exam performed in department. Left Ventricle Normal LV size. Left ventricular systolic function is hyperdynamic. The estimated ejection fraction is 75 %. No evidence for diastolic dysfunction. No regional wall motion abnormalities noted. Right Ventricle Normal RV size. Normal systolic function. Atria Normal left atrium. Normal right atrium. No doppler evidence for ASD. Mitral Valve There is no mitral annular calcification. Normal mitral valve. Trivial mitral valve insufficiency. Tricuspid Valve Normal tricuspid valve. Trivial tricuspid valve insufficiency. Right ventricular systolic pressure estimated to be 33 mmHg. Aortic Valve Trisinus/trileaflet aortic valve. Moderate diffuse aortic valve calcification. Aortic valve sclerosis/mild aortic valve stenosis. Pulmonic Valve The pulmonic valve is not well visualized. Great Vessels The aortic root is not well visualized. Pericardium/Pleural Trivial pericardial effusion. There are no echocardiographic indications of cardiac tamponade. Medication 20 gauge I.V. with prn adaptor inserted into right arm. Diluted definity 1ml given slow IV push to enhance endocardial definition. MMode/2D Measurements & Calculations LVIDd: 3.1 cm IVSd: 1.2 cm LVOT diam: 2.0 cm LVIDs: 2.0 cm LVPWd: 0.86 cm RVDd: 3.0 cm FS: 37.8 % LVOT area: 3.1 cm2 ACS: 0.89 cm LAV(MOD-bp): 56.4 ml LVAd ap4: 27.4 cm2 LAV(MOD-bp) Indexed: 31.1 ml/m2 LVLd ap4: 8.7 cm LAV(MOD-sp2): 61.8 ml EDV(MOD-sp4): 69.0 ml LAV(MOD-sp4): 45.9 ml EDV(sp4-el): 72.7 ml LVAs ap4: 12.2 cm2 LVLs ap4: 7.7 cm ESV(MOD-sp4): 15.7 ml ESV(sp4-el): 16.5 ml EF(MOD-sp4): 77.3 % EF(sp4-el): 77.3 % SV(MOD-sp4): 53.3 ml SV(sp4-el): 56.2 ml Aortic Valve Planimetry: 1.2 cm2 LA A4 area: 16.8 cm2 RA A4 area: 17.5 cm2 Doppler Measurements & Calculations MV E max miguel: 54.8 cm/sec Lat Peak E' Miguel: 5.6 cm/sec Med Peak E' Miguel: 5.3 cm/sec MV A max miguel: 122.5 cm/sec E/E' lat: 9.8 E/E' med: 10.4 MV E/A: 0.45 MV V2 max: 228.3 cm/sec MV P1/2t max miguel: 108.4 cm/sec Ao V2 max: 247.6 cm/sec MV max P.8 mmHg MV P1/2t: 82.3 msec Ao max P.5 mmHg MV V2 mean: 116.3 cm/sec Ao V2 mean: 169.9 cm/sec MV mean P.7 mmHg MV dec slope: 385.9 cm/sec2 Ao mean P.0 mmHg MV V2 VTI: 35.6 cm MVA(P1/2t): 2.7 cm2 Ao V2 VTI: 50.7 cm MVA(VTI): 3.5 cm2 MOE(I,D): 2.5 cm2 MOE(V,D): 2.2 cm2 LV V1 max: 177.0 cm/sec SV(LVOT): 125.7 ml PA V2 max: 109.7 cm/sec LV V1 max P.5 mmHg PA V2 mean: 76.2 cm/sec LV V1 mean P.5 mmHg LV V1 mean: 139.0 cm/sec LV V1 VTI: 41.2 cm TR max miguel: 275.7 cm/sec TR max P.4 mmHg ECHO/Echo Complete W/ Contrast Interpretation Summary The study was technically difficult. Contrast injection was performed. Left ventricular systolic function is hyperdynamic. The estimated ejection fraction is 75 %. Trivial mitral valve insufficiency. Trivial tricuspid valve insufficiency. Aortic valve sclerosis/mild aortic valve stenosis Trivial pericardial effusion. There are no echocardiographic indications of cardiac tamponade. Right ventricular systolic pressure estimated to be 33 mmHg. No evidence for diastolic dysfunction. Comment: Late peaking spectral Doppler pattern near the LVOT area approaching 3 m/s (peak gradient 36 mmHg) appearing compatible with a hyperdynamic state. Ordering Physician: Can Robert Referring Physician: Carmen Alvarez Performed By: Angus Carvajal RCS
--- NOTE | 2021-11-17 08:37 | STRESSREP_ITS ---
Stress Test Report Date: 11-17-2021 Procedure: Pharmacologic stress nuclear imaging study Indications: Dyspnea on exertion; cardiac murmur; abnormal ECG; preoperative cardiovascular evaluation Consent: Per the patient Procedure: The patient underwent pharmacologic (Regadenoson 0.4mg ) evaluation with a peak heart rate of 93 beats per minute (67%predicted maximal heart rate) and a peak blood pressure of 140/98 mmHg. The baseline ECG demonstrated normal sinus rhythm; right bundle branch block. The peak pharmacologic ECG demonstrated no obvious ECG change. There was a rare PVC during recovery. There was no complaint of chest discomfort during pharmacologic infusion or recovery. The examination was discontinued secondary to completion of protocol. Impression: 1. Pharmacologic (Regadenoson) evaluation 2. Peak pharmacologic ECG with continued right bundle branch block with no obvious ECG changes. 3. There was a rare PVC during recovery. 4. Nuclear images pending Myocardial perfusion imaging study: Technique: The patient was injected with 10.9 millicuries of technetium 99m Cardiolite and subsequently rest SPECT Cardiolite nuclear imaging was obtained in the horizontal long, vertical long, and short axis views. The patient underwent pharmacologic (Regadenoson) evaluation with a peak heart rate of 93 beats per minute (67% percent predicted maximal heart rate) and a peak blood pressure of 140/98 mmHg. The patient was injected with 33.6 millicuries of technetium 99m Cardiolite and subsequently stress SPECT Cardiolite nuclear imaging was obtained in the horizontal long, vertical long, and short axis views. A gated Cardiolite study at peak stress was obtained. Interpretation: Rest and stress SPECT Cardiolite nuclear imaging status post realignment, normalization, and attenuation correction demonstrate relative uniform tracer uptake and myocardial perfusion appearing within normal limits. There is end systolic thickening and brightening. The gated Cardiolite study demonstrates myocardial thickening and inward wall motion. The reported LVEF is 89%. Impression: 1. Rest and stress SPECT Cardiolite nuclear imaging demonstrate relative uniform tracer uptake and myocardial perfusion appearing within normal limits. 2. The gated Cardiolite study reports an LVEF of 89%. This note was generated with [employer] software. It may contain incorrect words, spelling, and punctuation that were not noted in checking the note before signing.
== END | disposition home or self-care (01) ==
PROVIDERS: PCP Family Medicine; Referring Provider Internal Medicine Cardiovascular Disease; Visit Provider Internal Medicine Cardiovascular Disease
DX: Z01.810 Encounter for preprocedural cardiovascular examination (principal); R94.31 Abnormal electrocardiogram [ECG] [EKG]; R55 Syncope and collapse; R01.1 Cardiac murmur, unspecified; I10 Essential (primary) hypertension
CPT/HCPCS: 78452; 93017; 93306; A9500; Q9957; A4216; C8929; J2785

== ENCOUNTER 2022-02-19 12:39 | Outpatient (CLI) | payer MEDICARE, SELFPAY ==
[2022-02-28 07:07] LABS: Hematocrit 40.9 % (40-54); Hemoglobin 13.3 g/dL (13.0-16.5); Mean Corp Hgb Conc 32.5 g/dL (32-36); Mean Corpuscular Hgb 29.8 pg (27.0-32.0); Mean Corpuscular Volume 91.7 fL (80-94); Mean Platelet Vol. 9.6 fl (6.2-12.0); Platelet Count 248 K/mm3 (150-450); RBC Distribution Width CV 12.8 % (11.6-14.6); RBC Distribution Width SD 43.3 fl (35.1-43.9); Red Blood Count 4.46 M/mm3 (4.6-6.2)
[2022-02-28 07:33] LABS: Anion Gap 3 (5-15); BUN 23 mg/dL (7-18); BUN/Creat Ratio 26.1 RATIO (10-20); Calcium,Total 10.3 mg/dL (8.5-10.1); Chloride 103 mmol/L (98-107); Creatinine, Serum 0.88 mg/dL (0.70-1.30); EST Glomerular Filtration Rate 88 mL/min (>60); Est Glom Filt Rate - Afr Amer 107 mL/min (>60); Glucose 105 mg/dL (74-106); Potassium 4.1 mmol/L (3.5-5.1); Sodium Level 139 mmol/L (136-145)
[2022-03-01 07:03] VITALS: BP 152/93; PULSE 90; RESP 18; TEMP 37.1; O2SAT 98
[2022-03-01] MEDS: Lactated Ringers 1,000 ML 15 ML IV (07:03)
== END 2022-02-19 23:59 | disposition home or self-care (01) ==
LOC: PAT 03-19 12:39
PROVIDERS: Anesthesiology; PCP Family Medicine; Referring Provider Surgery; Visit Provider Surgery
DX: Z01.812 Encounter for preprocedural laboratory examination (principal)
CPT/HCPCS: 36415; 80048; 85027; J7120

== ENCOUNTER 2022-03-30 08:15 | Outpatient (RCR) | payer MEDICARE, SELFPAY ==
[2022-03-06 08:09] VITALS: BP 176/94; PULSE 78; RESP 18; TEMP 35.7; BMI 20.7
--- NOTE | 2022-03-06 16:55 | HP.PCM_ITS ---
History of Present Illness Date of Service: 03/06/22 Chief Complaint: Ulceration, left posterior calf History of Wound: This is an 81-year-old male with a longstanding history of swelling and edema in his lower extremities. He has been referred for evaluation regarding an ulceration on his left posterior calf. According the patient, the ulceration has been present for approximately 3 weeks. The patient admits to a lack of activity. He sits idly a great deal of each day. Furthermore, he sleeps in a recliner with his legs in a dependent position. He indicates that his lack of activity is due to a balance disturbance. He denies a history of thrombophlebitis. A noninvasive lower extremity arterial study was performed on August 11, 2021, which revealed the presence of atherosclerosis, but no evidence of significant arterial occlusive disease. [facility] Medical History Ambulates with cane Atherosclerosis of arteries Cardiology follow-up encounter Trejo phlebectatica paraplantaris Dependent edema Difficulty chewing Essential hypertension History of echocardiogram History of edema History of irregular heartbeat History of stress test Hypertension Inactivity Left inguinal hernia Left leg swelling Leg edema, left Leg edema, right Non-pressure chronic ulcer of left calf with fat layer exposed Non-smoker Prostate disease Right leg swelling Wears dentures Wears glasses Home Medications aspirin 81 mg tablet,delayed release (Adult Low Dose Aspirin) 81 mg PO DAILY 12/26/21 [History Last Taken 02/28/22] omega-3 fatty acids 1,000 mg capsule (Super [place]-3) 1,000 mg PO DAILY 12/26/21 [History Last Taken 02/28/22] Allergy/AdvReac Type Severity Reaction Status Date / Time No Known Allergies Allergy Verified 01/17/22 13:55 Surgical History History of cataract extraction History of right inguinal hernia repair Hx of inguinal herniorrhaphy S/P cataract extraction S/P inguinal hernia repair Social History Smoking Status: Former smoker alcohol intake: never substance use type: does not use caffeine: Yes Type: tea Vital Signs Vital Signs Vital Signs: 03/06/22 08:09 Temperature 96.3 F L Temperature Source Temporal Pulse Rate 78 Respiratory Rate 18 Blood Pressure 176/94 H Blood Pressure Mean 121 Blood Pressure Source Monitor Blood Pressure Position Sitting Blood Pressure Location Right Arm Oxygen Delivery Method Room Air Weight Weight: 140 lb Body Mass Index (BMI) 20.7 Physical Exam Const alert, oriented x3, no apparent distress, average body habitus and well nourished Constitutional Narrative: The patient is of relatively normal body habitus. General Appearance: cooperative, comfortable and well developed Orientation / Consciousness: awake, oriented to person, oriented to place and oriented to time HEENT normocephalic and head/scalp atraumatic Head and Scalp: normal to inspection, normocephalic and atraumatic External Ear: external ears normal Eyes PERRL and EOMs intact bilaterally General Eye: normal appearance of both eyes Resp normal respiratory effort, normal air movement, no retractions and no use of accessory muscles Effort and Inspection: able to speak in complete sentences Extremity no calf tenderness General Extremity: Negative for clubbing or cyanosis Skin Wound Narrative: Swelling and edema are noted in the patient's lower extremities bilaterally. Mild erythema is noted in the left gaiter area, appearing to be inflammatory in nature rather than infectious. Several small, clustered, superficial excoriations are noted on the left pretibial area. An ulceration is noted on th e left posterior calf, just above the ankle, which appears to represent a recent blister, which has unroofed spontaneously. There is no sign of infection or cellulitis. Dimensions are documented elsewhere. There is a moderate amount of bioburden. Trejo phlebectasia Is noted about the left ankle. Neuro oriented x3, CN's II-XII intact bilaterally and moves all extremities Sensorium / Orientation: awake, alert, oriented to person, oriented to place and oriented to time Psych Appearance: grossly normal and appropriate Attitude: calm Activity / Motor Behavior: appropriate eye contact Speech: normal speech Mood & Affect: euthymic mood Thought Process: normal thought process Thought Content: normal thought content Attention / Concentration: attention grossly intact Debridement Note Debridement Note Wound debrided: Distal, left posterior calf Laterality: Left Type of Debridement: Excisional debridement Anesthesia Used: 5% Lidocaine Gel Depth: Down to and including healthy tissue and in the subcutaneous layer Percentage of wound debrided: 100 Instrument Used: 5mm curette Tissue Removed: Bioburden and sloughed epithelium Severity: Fat Layer Exposed Amount of bleeding with debridement: Mild Bleeding Controlled with: Compression and gauze Patient tolerated procedure: Patient tolerated procedure well Post-Debridement Measurements and Additional Note: Post-Debridement Measurements/Treatment - Nurse 1 - General Ulcer Assessment Start: 03/06/22 08:09 Freq: Status: Active Protocol: MARY JANE Activity Type Activity Date Activity User E-sign Co-sign Detail Recorded Client Recorded Date Recorded By Document 03/06/22 08:09 [id number] 03/06/22 08:22 03/06/22 08:09 - Today's Visit Information Type of service Initial Visit Arrival Mode Ambulatory,Cane Transfer Assistance None Accompanied by son Patient Identification Verified (Name & Yes ) Patient Requires Transmission-Based No Precautions Safety Precautions Fall Prevention Height and Weight Height 5 ft 9 in Weight 140 lb Weight in Pounds 140.0 lbs Body Mass Index (BMI) 20.7 BMI Classification Normal BSA - Charan 1.78 Vital Signs Temperature (97.8 F-99.1 F) 96.3 F L Temperature Source Temporal Pulse Rate (60-100) 78 Pulse Location Monitor Respiratory Rate (12-18) 18 Respiratory rate source Observation Oxygen Delivery Method Room Air Blood Pressure (90/60-120/80) 176/94 H Blood Pressure Mean 121 Source Monitor Position Sitting Blood Pressure Location Right Arm History Since Last Visit- (Skip if this is Patient's initial visit) Left Footwear Regular Shoe Right Footwear Regular Shoe Pain Scale: 0-10 Numeric Is Patient Pain Free? Yes Lower Extremity Assessment/ Foot Assessment/ Toe Nail Assessment Right -Posterior Tibial Palpable No -Posterior Tibial Doppler Inaudible -Dorsalis Pedis Palpable No -Dorsalis Pedis Doppler Inaudible -Extremity Color Hemosiderin -Hair Growth on Legs No -Hair Growth on Toes No -Temperature of Extremity Cold -Capillary Refill Greater than 3 Seconds -Dependent Rubor No -Lipodermatosclerosis No -Other Deformity No -Prior Foot Ulcer No -Charcot Joint No -Prior Amputation No -Thick Yes -Discolored Yes -Deformed Yes -Improper Length & Hygeine Yes Left -Posterior Tibial Palpable No -Posterior Tibial Doppler Monophasic -Dorsalis Pedis Palpable No -Dorsalis Pedis Doppler Monophasic -Extremity Color Hyperpigmented -Hair Growth on Legs No -Hair Growth on Toes No -Temperature of Extremity Cold -Capillary Refill Greater than 3 Seconds -Dependent Rubor No -Lipodermatosclerosis No -Other Deformity No -Prior Foot Ulcer No -Charcot Joint No -Prior Amputation No -Thick Yes -Discolored Yes -Deformed Yes -Improper Length & Hygeine Yes Neuropathy Assessment Feet - Top Side and Bottom <Entered> (a) Communication Assessment Preferred language Khmer Cross 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 Saw 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 Required No Able to Read Yes Able to Write Yes Communication Tools None Caregiver Communication Skills No Impairment Impairment Right Hearing Abillity Hard of Hearing Left Hearing Abillity Hard of Hearing Visual Assistive Devices Glasses Teaching Assessment Smoking Status Former smoker Functional Assessment Assistive Device With Patient Yes List Device(s) with Patient cane Culture/Buddhism/Supervisor Malted Milk Cultural/Buddhism Needs that may affect Yes Treatment Plan Would you allow our hospital continuous improvement facilitator to Yes meet you for the purpose of spiritual/ emotional support? Supervisor Malted Milk to contact place of judaism Yes (a) 1 - + WC - Nurse 1 - General Ulcer Measurement Start: 03/06/22 08:09 Freq: Status: Active Protocol: Activity Type Activity Date Activity User E-sign Co-sign Detail Recorded Client Recorded Date Recorded By Document 03/06/22 08:09 [id number] 03/06/22 08:22 03/06/22 08:09 Wound Center Nurse 1 #1 Left posterior LE -Combined with other wound No -Current Size (cm) - Length 2.8 -Current Size (cm) - Width 4.0 -Current Size (cm) - Depth 0.1 -Total Square Cm 11.20 -Date of Last Picture (Recall this 03/06/22 field) -Photo Taken Yes -Epithelialization None Present -Tunneling No -Undermining/Tunneling No -Circular Undermining No -Wound Margin Flat & Intact -Granulation Amt Large (67-100%) -Granulation Quality Marrowbone -Slough/Fibrin Yes -Necrosis Amt Small (1-33%) -Necrotic Tissue Type Adherent Slough -Structure Exposed N/A -Texture (Yun-wound Skin Appearance) Assessed, Localized Edema ,Scarring -Moisture (Yun-wound Skin Appearance) Assessed,Dry/ Scaly -Color (Yun-wound Skin Appearance) Assessed, Hemosiderin Staining -Temperature (Yun-wound Skin No Abnormality Appearance) (Pt Warm) -Tenderness on Palpation (Yun-wound No Skin Appearance) -Ulcer Cleansing Rinsed/ Irrigated with Saline -Foul Odor after Cleansing No -Anesthetic Used 5% Lidocaine Gel Lower Limb Edema Present Yes Right Calf (cm) 35.0 Right Ankle (cm) 26.0 Left Calf (cm) 36.0 Left Ankle (cm) 28.0 MISA - Nurse 2 - General Ulcer CM Notes Start: 03/06/22 08:09 Freq: Status: Active Protocol: Activity Type Activity Date Activity User E-sign Co-sign Detail Recorded Client Recorded Date Recorded By Document 03/06/22 12:16 PL [id number] 03/06/22 12:18 PL 03/06/22 12:16 Wound Center Nurse 2 #1 Left posterior LE -Time 08:34 -Correct Patient Yes -Correct Side, Site, Position Yes -Correct Procedure Yes -Procedure Performed Yes -Type of Procedure Debridement -Clinical Debridement Subcutaneous -Tissue Removed Subcutaneous -Post Debridement (cm) - Length 2.8 -Post Debridement (cm) - Width 4.0 -Post Debridement (cm) - Depth 0.1 -Total Square (Post) (cm) 11.20 -Area of Debridement (cm) - Length 2.8 -Area of Debridement (cm) - Width 4.0 -Total Square (Area) (cm) 11.20 -Tunneling No -Undermining/Tunneling No -Circular Undermining No -Wound/Ulcer Outcome Not Healed -Ulcer Cleansing Rinsed/ Irrigated with Saline -Foul Odor after Cleansing No -Bioengineered Tissue No -Bleeding Controlled with Pressure -Treatment Response Procedure Tolerated Well -Debridement - Subq, 1st 20sq cm Yes Pain Scale: 0-10 Numeric Is Patient Pain Free? Yes - Nurse 3 - General Ulcer D/C NN Start: 03/06/22 08:09 Freq: Status: Active Protocol: Activity Type Activity Date Activity User E-sign Co-sign Detail Recorded Client Recorded Date Recorded By Document 03/06/22 08:49 MW [id number] 03/06/22 08:50 MW 03/06/22 08:49 Wound Care Nurse 3 #1 Left posterior LE -Ulcer Cleansing Rinsed/ Irrigated with Saline -Foul Odor after Cleansing No -Negative Pressure Wound Therapy N/A -Primary Dressing Applied Promogran -Other Covering unna boot -Promogran 1 Right -Lotion applied to leg before No compression wrap -Tubular Bandage Single Layer -Size of Tubigrip Used Size D -Size D ($) 1 Left -Lotion applied to leg before No compression wrap -Multi-Layered Wrap Application Unna Boot - Left ($) Treatment Response Procedure Tolerated Well Pain Scale: 0-10 Numeric Is Patient Pain Free? Yes Teaching: Wound Center Dressing Your Wound -Person Taught Patient -Teaching Method Discussion -Response to teaching Verbalize understanding WC - Visit Discharge Discharge Condition Stable Ambulatory Status Ambulatory,Cane Transportation Private Auto Accompanied by son Medication Reconcilliation completed & No provided to patient/care provider Clinical Summary of Care Provided Yes Notes: Dressing and Unna boot applied per Lon Gustafson LPN Assessment/Plan Assessment/Plan (1) Non-pressure chronic ulcer of left calf with fat layer exposed: CODE(S): L97.222 - Non-pressure chronic ulcer of left calf with fat layer exposed (2) Dependent edema: CODE(S): R60.9 - Edema, unspecified (3) Leg edema, left: CODE(S): R60.0 - Localized edema (4) Leg edema, right: CODE(S): R60.0 - Localized edema (5) Left leg swelling: CODE(S): M79.89 - Other specified soft tissue disorders (6) Right leg swelling: CODE(S): M79.89 - Other specified soft tissue disorders (7) Atherosclerosis of arteries: CODE(S): I70.90 - Unspecified atherosclerosis (8) Wound of lower extremity: CODE(S): S81.809A - Unspecified open wound, unspecified lower leg, initial encounter (9) COPD (chronic obstructive pulmonary disease): CODE(S): J44.9 - Chronic obstructive pulmonary disease, unspecified (10) Gout: CODE(S): M10.9 - Gout, unspecified (11) Hemorrhoids: CODE(S): K64.9 - Unspecified hemorrhoids (12) Cardiac murmur: CODE(S): R01.1 - Cardiac murmur, unspecified (13) BPH (benign prostatic hyperplasia): CODE(S): N40.0 - Benign prostatic hyperplasia without lower urinary tract symptoms (14) Essential hypertension: CODE(S): I10 - Essential (primary) hypertension (15) History of right inguinal hernia repair: CODE(S): Z98.890 - Other specified postprocedural states; Z87.19 - Personal history of other diseases of the digestive system (16) Left inguinal hernia: CODE(S): K40.90 - Unilateral inguinal hernia, without obstruction or gangrene, not specified as recurrent (17) Inactivity: CODE(S): Z72.3 - Lack of physical exercise (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 He presents with an ulceration on the left distal posterior calf, appearing to represent a blister, which has spontaneously unroofed. Based upon the patient's habits and lifestyle, it appears as though the swelling and edema and presenting manifestations are due to the patient's lifestyle and habits. He is idle most of each day, with very little activity. He also sleeps in a recliner, with his lower extremities in a dependent position. The patient has been advised to elevate his lower extremities is much as possible. This is to be accomplished both during nighttime and daytime hours. He has been encouraged to sleep on a flat mattress, with legs level with his heart, or higher. Leg elevation to heart level, or higher, has been encouraged during daytime hours as well. Prolonged idle sitting has been discouraged. Activity has been encouraged. We are to implement the use of Tubigrip's in the right lower extremity, of 20 to 30 mmHg compression. These will be worn during daytime hours. They will be donned in the morning, and doffed at bedtime. We are to implement the use of an Unna boot to the left lower extremity, which will be applied today, and changed twice weekly. Patient is to return in 1 week for reassessment. Nutritional optimization has been recommended. Total time: 55 minutes
[2022-03-09 08:11] VITALS: BP 136/77; PULSE 82; RESP 18; TEMP 36.4; BMI 20.7
[2022-03-13 08:16] VITALS: BP 154/112; PULSE 80; RESP 16; TEMP 35.7; BMI 20.7
--- NOTE | 2022-03-13 12:18 | PCM.WC.HP ---
History of Present Illness Date of Service: 03/13/22 Chief Complaint: Ulceration, left posterior calf History of Wound: This is an 81-year-old male with a longstanding history of swelling and edema in his lower extremities. He was referred for evaluation regarding an ulceration on his left posterior calf. According the patient, the ulceration has been present for approximately 3 weeks. The patient admits to a lack of activity. He sits idly a great deal of each day. Furthermore, he sleeps in a recliner with his legs in a dependent position. He indicates that his lack of activity is due to a balance disturbance. He denies a history of thrombophlebitis. A noninvasive lower extremity arterial study was performed on August 11, 2021, which revealed the presence of atherosclerosis, but no evidence of significant arterial occlusive disease. [facility] Medical History Ambulates with cane Atherosclerosis of arteries Cardiology follow-up encounter Trejo phlebectatica paraplantaris Dependent edema Difficulty chewing Essential hypertension History of echocardiogram History of edema History of irregular heartbeat History of stress test Hypertension Inactivity Left inguinal hernia Left leg swelling Leg edema, left Leg edema, right Non-pressure chronic ulcer of left calf with fat layer exposed Non-smoker Prostate disease Right leg swelling Wears dentures Wears glasses Home Medications aspirin 81 mg tablet,delayed release (Adult Low Dose Aspirin) 81 mg PO DAILY 12/26/21 [History Last Taken 02/28/22] omega-3 fatty acids 1,000 mg capsule (Super [place]-3) 1,000 mg PO DAILY 12/26/21 [History Last Taken 02/28/22] Allergy/AdvReac Type Severity Reaction Status Date / Time No Known Allergies Allergy Verified 01/17/22 13:55 Surgical History History of cataract extraction History of right inguinal hernia repair Hx of inguinal herniorrhaphy S/P cataract extraction S/P inguinal hernia repair Social History Smoking Status: Former smoker alcohol intake: never substance use type: does not use caffeine: Yes Type: tea Vital Signs Vital Signs Vital Signs: 03/13/22 08:16 Temperature 96.2 F L Temperature Source Temporal Pulse Rate 80 Respiratory Rate 16 Blood Pressure 154/112 H Blood Pressure Mean 126 Blood Pressure Source Monitor Blood Pressure Position Sitting Blood Pressure Location Left Arm Weight Weight: 140 lb Body Mass Index (BMI) 20.7 Physical Exam Const alert, oriented x3, no apparent distress, average body habitus and well nourished Constitutional Narrative: The patient is of relatively normal body habitus. General Appearance: cooperative, comfortable and well developed Orientation / Consciousness: awake, oriented to person, oriented to place and oriented to time HEENT normocephalic and head/scalp atraumatic Head and Scalp: normal to inspection, normocephalic and atraumatic External Ear: external ears normal Eyes PERRL and EOMs intact bilaterally General Eye: normal appearance of both eyes Resp normal respiratory effort, normal air movement, no retractions and no use of accessory muscles Effort and Inspection: able to speak in complete sentences Extremity no calf tenderness General Extremity: Negative for clubbing or cyanosis Skin Wound Narrative: Swelling and edema are noted in the patient's lower extremities bilaterally, though improving. Mild erythema is noted in the left gaiter area, appearing to be inflammatory in nature rather than infectious. An ulceration is noted on the left posterior calf, just above the ankle, which appears to represent a recent blister, which has unroofed spontaneously. There is no sign of infection or cellulitis. Dimensions are documented elsewhere. It appears smaller in size than noted last week. There is a moderate amount of bioburden. Trejo phlebectatica Is noted about the left ankle. Neuro oriented x3, CN's II-XII intact bilaterally and moves all extremities Sensorium / Orientation: awake, alert, oriented to person, oriented to place and oriented to time Psych Appearance: grossly normal and appropriate Attitude: calm Activity / Motor Behavior: appropriate eye contact Speech: normal speech Mood & Affect: euthymic mood Thought Process: normal thought process Thought Content: normal thought content Attention / Concentration: attention grossly intact Debridement Note Debridement Note Wound debrided: Distal, left posterior calf Laterality: Left Type of Debridement: Excisional debridement Anesthesia Used: 5% Lidocaine Gel Depth: Down to and including healthy tissue and in the subcutaneous layer Percentage of wound debrided: 100 Instrument Used: 5mm curette Tissue Removed: Bioburden and sloughed epithelium Severity: Fat Layer Exposed Amount of bleeding with debridement: Mild Bleeding Controlled with: Compression and gauze Patient tolerated procedure: Patient tolerated procedure well Post-Debridement Measurements and Additional Note: Post-Debridement Measurements/Treatment WC - Nurse 1 - General Ulcer Assessment Start: 03/06/22 08:09 Freq: Status: Active Protocol: MARY JANE Activity Type Activity Date Activity User E-sign Co-sign Detail Recorded Client Recorded Date Recorded By Document 03/06/22 08:09 MW [id number] 03/06/22 08:22 MW Document 03/09/22 08:11 DL [id number] 03/09/22 08:27 DL Document 03/13/22 08:16 ML [id number] 03/13/22 08:21 ML 03/06/22 03/09/22 03/13/22 08:09 08:11 08:16 WC - Today's Visit Information Type of service Initial Visit Nurse-only Follow-up Visit Visit (Physician/[employer]PER[employer] ) Arrival Mode Ambulatory,Cane Ambulatory Ambulatory,Cane Transfer Assistance None None None Accompanied by son Patient Identification Verified (Name & Yes Yes Yes ) Patient Requires Transmission-Based No No No Precautions Safety Precautions Fall Prevention NA Height and Weight Height 5 ft 9 in Weight 140 lb Weight in Pounds 140.0 lbs Body Mass Index (BMI) 20.7 20.7 20.7 BMI Classification Normal Normal Normal BSA - Charan 1.78 Vital Signs Temperature (97.8 F-99.1 F) 96.3 F L 97.5 F L 96.2 F L Temperature Source Temporal Temporal Temporal Pulse Rate (60-100) 78 82 80 Pulse Location Monitor Monitor Monitor Respiratory Rate (12-18) 18 18 16 Respiratory rate source Observation Observation Observation Oxygen Delivery Method Room Air Blood Pressure (90/60-120/80) 176/94 H 136/77 H 154/112 H Blood Pressure Mean 121 96 126 Source Monitor Monitor Monitor Position Sitting Sitting Blood Pressure Location Right Arm Left Arm History Since Last Visit- (Skip if this is Patient's initial visit) Have you changed medications since your No No last visit? Any new allergies or adverse reactions No No Had a fall/change in ADL's that may No No increase risk of falls Signs or symptoms of abuse and/or No No neglect since last visit Have you been in the hospital since your No No last visit? Has dressing in place as prescribed Yes Yes Has compression in place as prescribed Yes Yes Has offloadiing in place as prescribed N/A N/A Experienced any changes in pain level or Yes No management Left Footwear Regular Shoe Regular Shoe Right Footwear Regular Shoe Regular Shoe Pain Scale: 0-10 Numeric Is Patient Pain Free? Yes Yes Yes Lower Extremity Assessment/ Foot Assessment/ Toe Nail Assessment Right -Posterior Tibial Palpable No -Posterior Tibial Doppler Inaudible -Dorsalis Pedis Palpable No -Dorsalis Pedis Doppler Inaudible -Extremity Color Hemosiderin -Hair Growth on Legs No -Hair Growth on Toes No -Temperature of Extremity Cold -Capillary Refill Greater than 3 Seconds -Dependent Rubor No -Lipodermatosclerosis No -Other Deformity No -Prior Foot Ulcer No -Charcot Joint No -Prior Amputation No -Thick Yes -Discolored Yes -Deformed Yes -Improper Length & Hygeine Yes Left -Posterior Tibial Palpable No -Posterior Tibial Doppler Monophasic -Dorsalis Pedis Palpable No -Dorsalis Pedis Doppler Monophasic -Extremity Color Hyperpigmented -Hair Growth on Legs No -Hair Growth on Toes No -Temperature of Extremity Cold -Capillary Refill Greater than 3 Seconds -Dependent Rubor No -Lipodermatosclerosis No -Other Deformity No -Prior Foot Ulcer No -Charcot Joint No -Prior Amputation No -Thick Yes -Discolored Yes -Deformed Yes -Improper Length & Hygeine Yes Neuropathy Assessment Feet - Top Side and Bottom <Entered> (a) Communication Assessment Preferred language Wolof Almond Blancher Operator Required No Able to Read Yes Able to Write Yes Communication Tools None Caregiver Communication Skills No Impairment Impairment Right Hearing Abillity Hard of Hearing Left Hearing Abillity Hard of Hearing Visual Assistive Devices Glasses Teaching Assessment Smoking Status Former smoker Functional Assessment Assistive Device With Patient Yes List Device(s) with Patient cane Culture/Mormonism/Air Saw Operator Cultural/Mormonism Needs that may affect Yes Treatment Plan Would you allow our hospital electrophysiology nurse practitioner to Yes meet you for the purpose of spiritual/ emotional support? Air Saw Operator to contact place of anabaptism Yes (a) 1 - + WC - Nurse 1 - General Ulcer Measurement Start: 03/06/22 08:09 Freq: Status: Active Protocol: Activity Type Activity Date Activity User E-sign Co-sign Detail Recorded Client Recorded Date Recorded By Document 03/06/22 08:09 [id number] 03/06/22 08:22 MW Document 03/09/22 08:11 DL [id number] 03/09/22 08:27 DL Document 03/13/22 08:16 ML [id number] 03/13/22 08:21 ML 03/06/22 03/09/22 03/13/22 08:09 08:11 08:16 Wound Center Nurse 1 #1 Left posterior LE -Combined with other wound No -Current Size (cm) - Length 2.8 2.2 -Current Size (cm) - Width 4.0 2 -Current Size (cm) - Depth 0.1 0.1 -Total Square Cm 11.20 4.4 -Date of Last Picture (Recall this 03/06/22 field) -Photo Taken Yes No -Epithelialization None Present -Tunneling No -Undermining/Tunneling No -Circular Undermining No -Exudate Amt Small Medium -Exudate Type Serosanguineous Serosanguineous -Wound Margin Flat & Intact Distinct, Distinct, Outline Outline Attached Attached -Granulation Amt Large (67-100%) Large (67-100%) Medium (34-66%) -Granulation Quality [place] -Slough/Fibrin Yes Yes -Necrosis Amt Small (1-33%) Small (1-33%) Medium (34-66%) -Necrotic Tissue Type Adherent Slough Adherent Slough Adherent Slough -Structure Exposed N/A -Texture (Yun-wound Skin Appearance) Assessed, Scarring Assessed Localized Edema ,Scarring -Moisture (Yun-wound Skin Appearance) Assessed,Dry/ No Abnormality Assessed Scaly -Color (Yun-wound Skin Appearance) Assessed, Hemosiderin Assessed Hemosiderin Staining Staining -Temperature (Yun-wound Skin No Abnormality No Abnormality No Abnormality Appearance) (Pt Warm) (Pt Warm) (Pt Warm) -Tenderness on Palpation (Yun-wound No No No Skin Appearance) -Ulcer Cleansing Rinsed/ Soap and Water Soap and Water Irrigated with Saline -Foul Odor after Cleansing No No -Anesthetic Used 5% Lidocaine 5% Lidocaine Gel Gel Lower Limb Edema Present Yes Right Calf (cm) 35.0 Right Ankle (cm) 26.0 Left Calf (cm) 36.0 36 Left Ankle (cm) 28.0 25 WC - Nurse 2 - General Ulcer CM Notes Start: 03/06/22 08:09 Freq: Status: Active Protocol: Activity Type Activity Date Activity User E-sign Co-sign Detail Recorded Client Recorded Date Recorded By Document 03/06/22 12:16 PL [id number] 03/06/22 12:18 PL Document 03/13/22 11:26 PL [id number] 03/13/22 11:27 PL 03/06/22 03/13/22 12:16 11:26 Wound Center Nurse 2 #1 Left posterior LE -Time 08:34 08:34 -Correct Patient Yes Yes -Correct Side, Site, Position Yes Yes -Correct Procedure Yes Yes -Procedure Performed Yes Yes -Type of Procedure Debridement Debridement -Clinical Debridement Subcutaneous Subcutaneous -Tissue Removed Subcutaneous Subcutaneous -Post Debridement (cm) - Length 2.8 2.2 -Post Debridement (cm) - Width 4.0 2.0 -Post Debridement (cm) - Depth 0.1 0.1 -Total Square (Post) (cm) 11.20 4.40 -Area of Debridement (cm) - Length 2.8 2.2 -Area of Debridement (cm) - Width 4.0 2.0 -Total Square (Area) (cm) 11.20 4.40 -Tunneling No No -Undermining/Tunneling No No -Circular Undermining No No -Wound/Ulcer Outcome Not Healed Not Healed -Ulcer Cleansing Rinsed/ Rinsed/ Irrigated with Irrigated with Saline Saline -Foul Odor after Cleansing No No -Bioengineered Tissue No No -Bleeding Controlled with Pressure Pressure -Treatment Response Procedure Procedure Tolerated Well Tolerated Well -Debridement - Subq, 1st 20sq cm Yes Yes Pain Scale: 0-10 Numeric Is Patient Pain Free? Yes Yes WC - Nurse 3 - General Ulcer D/C NN Start: 03/06/22 08:09 Freq: Status: Active Protocol: Activity Type Activity Date Activity User E-sign Co-sign Detail Recorded Client Recorded Date Recorded By Document 03/06/22 08:49 MW [id number] 03/06/22 08:50 MW Document 03/09/22 08:11 DL [id number] 03/09/22 08:27 DL Document 03/13/22 09:19 AK [id number] 03/13/22 09:21 AK 03/06/22 03/09/22 03/13/22 08:49 08:11 09:19 Wound Care Nurse 3 #1 Left posterior LE -Ulcer Cleansing Rinsed/ Soap and Water Rinsed/ Irrigated with Irrigated with Saline Saline -Foul Odor after Cleansing No No No -Negative Pressure Wound Therapy N/A N/A -Primary Dressing Applied Promogran Promogran -Other Dressing promogran/ unna boot -Other Covering unna boot -Promogran 1 1 Right -Lotion applied to leg before No compression wrap -Tubular Bandage Single Layer -Size of Tubigrip Used Size D -Size D ($) 1 Left -Lotion applied to leg before No No compression wrap -Multi-Layered Wrap Application Unna Boot - Unna Boot - Multi-Layer Left ($) Left ($) Comp - Left ($) Treatment Response Procedure Procedure Tolerated Well Tolerated Well Vital Signs Temperature (97.8 F-99.1 F) 97.5 F L Temperature Source Temporal Pulse Rate (60-100) 82 Pulse Location Monitor Respiratory Rate (12-18) 18 Respiratory rate source Observation Blood Pressure (90/60-120/80) 136/77 H Blood Pressure Mean 96 Source Monitor Pain Scale: 0-10 Numeric Is Patient Pain Free? Yes Yes Yes Teaching: Wound Center Dressing Your Wound -Person Taught Patient -Teaching Method Discussion -Response to teaching Verbalize understanding WC - Visit Discharge Discharge Condition Stable Stable Ambulatory Status Ambulatory,Cane Ambulatory,Cane Ambulatory,Cane Transportation Private Auto Private Auto Private Auto Accompanied by son family Medication Reconcilliation completed & No Yes provided to patient/care provider Clinical Summary of Care Provided Yes Yes Notes: Dressing and Unna boot applied per Lon Gustafson LPN Assessment/Plan Assessment/Plan (1) Non-pressure chronic ulcer of left calf with fat layer exposed: CODE(S): L97.222 - Non-pressure chronic ulcer of left calf with fat layer exposed (2) Dependent edema: CODE(S): R60.9 - Edema, unspecified (3) Leg edema, left: CODE(S): R60.0 - Localized edema (4) Leg edema, right: CODE(S): R60.0 - Localized edema (5) Left leg swelling: CODE(S): M79.89 - Other specified soft tissue disorders (6) Right leg swelling: CODE(S): M79.89 - Other specified soft tissue disorders (7) Atherosclerosis of arteries: CODE(S): I70.90 - Unspecified atherosclerosis (8) Wound of lower extremity: CODE(S): S81.809A - Unspecified open wound, unspecified lower leg, initial encounter (9) COPD (chronic obstructive pulmonary disease): CODE(S): J44.9 - Chronic obstructive pulmonary disease, unspecified (10) Gout: CODE(S): M10.9 - Gout, unspecified (11) Hemorrhoids: CODE(S): K64.9 - Unspecified hemorrhoids (12) Cardiac murmur: CODE(S): R01.1 - Cardiac murmur, unspecified (13) BPH (benign prostatic hyperplasia): CODE(S): N40.0 - Benign prostatic hyperplasia without lower urinary tract symptoms (14) Essential hypertension: CODE(S): I10 - Essential (primary) hypertension (15) History of right inguinal hernia repair: CODE(S): Z98.890 - Other specified postprocedural states; Z87.19 - Personal history of other diseases of the digestive system (16) Left inguinal hernia: CODE(S): K40.90 - Unilateral inguinal hernia, without obstruction or gangrene, not specified as recurrent (17) Inactivity: CODE(S): Z72.3 - Lack of physical exercise (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 He presented with an ulceration on the left distal posterior calf, appearing to represent a blister, which had spontaneously unroofed. Based upon the patient's habits and lifestyle, it appears as though the swelling and edema and presenting manifestations were due to the patient's lifestyle and habits. He is idle most of each day, with very little activity. He also sleeps in a recliner, with his lower extremities in a dependent position. The patient has been advised to elevate his lower extremities is much as possible. This is to be accomplished both during nighttime and daytime hours. He has been encouraged to sleep on a flat mattress, with legs level with his heart, or higher. Leg elevation to heart level, or higher, has been encouraged during daytime hours as well. Prolonged idle sitting has been discouraged. Activity has been encouraged. We are to implement the use of Tubigrip's in the right lower extremity, of 20 to 30 mmHg compression. These will be worn during daytime hours. They will be donned in the morning, and doffed at bedtime. We are to implement the use of Promogran topically to the ulceration on the left distal, posterior calf, with a 3M 2-layer compression wrap applied topically, and changed twice weekly. The patient is to return in 1 week for reassessment. Nutritional optimization has been recommended. Total time: 28 minutes
[2022-03-16 08:24] VITALS: BP 146/80; PULSE 73; RESP 18; TEMP 36.3; BMI 20.7
[2022-03-20 08:17] VITALS: BP 156/84; PULSE 78; TEMP 35.7; BMI 20.7
--- NOTE | 2022-03-20 18:31 | HP.PCM_ITS ---
History of Present Illness Date of Service: 03/20/22 Chief Complaint: Ulceration, left posterior calf History of Wound: This is an 81-year-old male with a longstanding history of swelling and edema in his lower extremities. He was referred for evaluation regarding an ulceration on his left posterior calf. According the patient, the ulceration has been present for approximately 3 weeks. The patient admits to a lack of activity. He sits idly a great deal of each day. Furthermore, he sleeps in a recliner with his legs in a dependent position. He indicates that his lack of activity is due to a balance disturbance. He denies a history of thrombophlebitis. A noninvasive lower extremity arterial study was performed on August 11, 2021, which revealed the presence of atherosclerosis, but no evidence of significant arterial occlusive disease. [facility] Medical History Ambulates with cane Atherosclerosis of arteries Cardiology follow-up encounter Trejo phlebectatica paraplantaris Dependent edema Difficulty chewing Essential hypertension History of echocardiogram History of edema History of irregular heartbeat History of stress test Hypertension Inactivity Left inguinal hernia Left leg swelling Leg edema, left Leg edema, right Non-pressure chronic ulcer of left calf with fat layer exposed Non-smoker Prostate disease Right leg swelling Wears dentures Wears glasses Home Medications aspirin 81 mg tablet,delayed release (Adult Low Dose Aspirin) 81 mg PO DAILY 12/26/21 [History Last Taken 02/28/22] omega-3 fatty acids 1,000 mg capsule (Super Chadwick-3) 1,000 mg PO DAILY 12/26/21 [History Last Taken 02/28/22] Allergy/AdvReac Type Severity Reaction Status Date / Time No Known Allergies Allergy Verified 01/17/22 13:55 Surgical History History of cataract extraction History of right inguinal hernia repair Hx of inguinal herniorrhaphy S/P cataract extraction S/P inguinal hernia repair Social History Smoking Status: Former smoker alcohol intake: never substance use type: does not use caffeine: Yes Type: tea Vital Signs Vital Signs Vital Signs: 03/20/22 08:17 Temperature 96.2 F L Temperature Source Temporal Pulse Rate 78 Blood Pressure 156/84 H Blood Pressure Mean 108 Blood Pressure Source Monitor Weight Weight: 140 lb Body Mass Index (BMI) 20.7 Physical Exam Const alert, oriented x3, no apparent distress, average body habitus and well nourished Constitutional Narrative: The patient is of relatively normal body habitus. General Appearance: cooperative, comfortable and well developed Orientation / Consciousness: awake, oriented to person, oriented to place and oriented to time HEENT normocephalic and head/scalp atraumatic Head and Scalp: normal to inspection, normocephalic and atraumatic External Ear: external ears normal Eyes PERRL and EOMs intact bilaterally General Eye: normal appearance of both eyes Resp normal respiratory effort, normal air movement, no retractions and no use of accessory muscles Effort and Inspection: able to speak in complete sentences Extremity no calf tenderness General Extremity: Negative for clubbing or cyanosis Skin Wound Narrative: An ulceration is noted on the left posterior calf, just above the ankle, which appears to represent a recent blister, which has unroofed spontaneously. There is no sign of infection or cellulitis. Dimensions are documented elsewhere. It appears smaller in size than noted last week. There is a moderate amount of bioburden. Trejo phlebectatica Is noted about the left ankle. No significant swelling is noted in the left lower extremity, an improvement over prior weeks. Neuro oriented x3, CN's II-XII intact bilaterally, moves all extremities and no focal motor deficits Sensorium / Orientation: awake, alert, oriented to person, oriented to place and oriented to time Psych Appearance: grossly normal and appropriate Attitude: calm Activity / Motor Behavior: appropriate eye contact Speech: normal speech Mood & Affect: euthymic mood Thought Process: normal thought process Thought Content: normal thought content Attention / Concentration: attention grossly intact Debridement Note Debridement Note Wound debrided: Distal, left posterior calf Laterality: Left Type of Debridement: Excisional debridement Anesthesia Used: 5% Lidocaine Gel Depth: Down to and including healthy tissue and in the subcutaneous layer Percentage of wound debrided: 100 Instrument Used: 5mm curette Tissue Removed: Bioburden and sloughed epithelium Severity: Fat Layer Exposed Amount of bleeding with debridement: Mild Bleeding Controlled with: Compression and gauze Patient tolerated procedure: Patient tolerated procedure well Post-Debridement Measurements and Additional Note: Post-Debridement Measurements/Treatment WC - Nurse 1 - General Ulcer Assessment Start: 03/06/22 08:09 Freq: Status: Active Protocol: WC.LOWEXT Activity Type Activity Date Activity User E-sign Co-sign Detail Recorded Client Recorded Date Recorded By Document 03/06/22 08:09 MW [id number] 03/06/22 08:22 MW Document 03/09/22 08:11 DL [id number] 03/09/22 08:27 DL Document 03/13/22 08:16 ML [id number] 03/13/22 08:21 ML Document 03/16/22 08:24 DL [id number] 03/16/22 08:27 DL Document 03/20/22 08:17 AK [id number] 03/20/22 08:23 AK 03/06/22 03/09/22 03/13/22 08:09 08:11 08:16 WC - Today's Visit Information Type of service Initial Visit Nurse-only Follow-up Visit Visit (Physician/HYDRAULIC PLUMBER HELPER ) Arrival Mode Ambulatory,Cane Ambulatory Ambulatory,Cane Transfer Assistance None None None Accompanied by son Patient Identification Verified (Name & Yes Yes Yes ) Patient Requires Transmission-Based No No No Precautions Safety Precautions Fall Prevention NA Height and Weight Height 5 ft 9 in Weight 140 lb Weight in Pounds 140.0 lbs Body Mass Index (BMI) 20.7 20.7 20.7 BMI Classification Normal Normal Normal BSA - Charan 1.78 Vital Signs Temperature (97.8 F-99.1 F) 96.3 F L 97.5 F L 96.2 F L Temperature Source Temporal Temporal Temporal Pulse Rate (60-100) 78 82 80 Pulse Location Monitor Monitor Monitor Respiratory Rate (12-18) 18 18 16 Respiratory rate source Observation Observation Observation Oxygen Delivery Method Room Air Blood Pressure (90/60-120/80) 176/94 H 136/77 H 154/112 H Blood Pressure Mean 121 96 126 Source Monitor Monitor Monitor Position Sitting Sitting Blood Pressure Location Right Arm Left Arm History Since Last Visit- (Skip if this is Patient's initial visit) Have you changed medications since your No No last visit? Any new allergies or adverse reactions No No Had a fall/change in ADL's that may No No increase risk of falls Signs or symptoms of abuse and/or No No neglect since last visit Have you been in the hospital since your No No last visit? Has dressing in place as prescribed Yes Yes Has compression in place as prescribed Yes Yes Has offloadiing in place as prescribed N/A N/A Experienced any changes in pain level or Yes No management Left Footwear Regular Shoe Regular Shoe Right Footwear Regular Shoe Regular Shoe Pain Scale: 0-10 Numeric Is Patient Pain Free? Yes Yes Yes Lower Extremity Assessment/ Foot Assessment/ Toe Nail Assessment Right -Posterior Tibial Palpable No -Posterior Tibial Doppler Inaudible -Dorsalis Pedis Palpable No -Dorsalis Pedis Doppler Inaudible -Extremity Color Hemosiderin -Hair Growth on Legs No -Hair Growth on Toes No -Temperature of Extremity Cold -Capillary Refill Greater than 3 Seconds -Dependent Rubor No -Lipodermatosclerosis No -Other Deformity No -Prior Foot Ulcer No -Charcot Joint No -Prior Amputation No -Thick Yes -Discolored Yes -Deformed Yes -Improper Length & Hygeine Yes Left -Posterior Tibial Palpable No -Posterior Tibial Doppler Monophasic -Dorsalis Pedis Palpable No -Dorsalis Pedis Doppler Monophasic -Extremity Color Hyperpigmented -Hair Growth on Legs No -Hair Growth on Toes No -Temperature of Extremity Cold -Capillary Refill Greater than 3 Seconds -Dependent Rubor No -Lipodermatosclerosis No -Other Deformity No -Prior Foot Ulcer No -Charcot Joint No -Prior Amputation No -Thick Yes -Discolored Yes -Deformed Yes -Improper Length & Hygeine Yes Neuropathy Assessment Feet - Top Side and Bottom <Entered> (a) Communication Assessment Preferred language [place] Ostrich Farmer Required No Able to Read Yes Able to Write Yes Communication Tools None Caregiver Communication Skills No Impairment Impairment Right Hearing Abillity Hard of Hearing Left Hearing Abillity Hard of Hearing Visual Assistive Devices Glasses Teaching Assessment Smoking Status Former smoker Functional Assessment Assistive Device With Patient Yes List Device(s) with Patient cane Culture/Confucianism/Weather Strip Installer Cultural/Confucianism Needs that may affect Yes Treatment Plan Would you allow our hospital drill runner helper to Yes meet you for the purpose of spiritual/ emotional support? Weather Strip Installer to contact place of confucianist Yes 03/16/22 03/20/22 08:24 08:17 WC - Today's Visit Information Type of service Nurse-only Follow-up Visit Visit (Physician/HYDRAULIC PLUMBER HELPER ) Arrival Mode Ambulatory Ambulatory,Cane Transfer Assistance None Accompanied by Patient Identification Verified (Name & Yes Yes ) Patient Requires Transmission-Based No No Precautions Safety Precautions Height and Weight Height Weight Weight in Pounds Body Mass Index (BMI) 20.7 20.7 BMI Classification Normal Normal BSA - Charan Vital Signs Temperature (97.8 F-99.1 F) 97.4 F L 96.2 F L Temperature Source Temporal Temporal Pulse Rate (60-100) 73 78 Pulse Location Apical Monitor Respiratory Rate (12-18) 18 Respiratory rate source Observation Oxygen Delivery Method Blood Pressure (90/60-120/80) 146/80 H 156/84 H Blood Pressure Mean 102 108 Source Monitor Monitor Position Blood Pressure Location History Since Last Visit- (Skip if this is Patient's initial visit) Have you changed medications since your No No last visit? Any new allergies or adverse reactions No No Had a fall/change in ADL's that may No No increase risk of falls Signs or symptoms of abuse and/or No No neglect since last visit Have you been in the hospital since your No No last visit? Has dressing in place as prescribed Yes Yes Has compression in place as prescribed Yes Yes Has offloadiing in place as prescribed N/A N/A Experienced any changes in pain level or No No management Left Footwear Regular Shoe Right Footwear Regular Shoe Pain Scale: 0-10 Numeric Is Patient Pain Free? Yes Yes Lower Extremity Assessment/ Foot Assessment/ Toe Nail Assessment Right -Posterior Tibial Palpable -Posterior Tibial Doppler -Dorsalis Pedis Palpable -Dorsalis Pedis Doppler -Extremity Color -Hair Growth on Legs -Hair Growth on Toes -Temperature of Extremity -Capillary Refill -Dependent Rubor -Lipodermatosclerosis -Other Deformity -Prior Foot Ulcer -Charcot Joint -Prior Amputation -Thick -Discolored -Deformed -Improper Length & Hygeine Left -Posterior Tibial Palpable -Posterior Tibial Doppler -Dorsalis Pedis Palpable -Dorsalis Pedis Doppler -Extremity Color -Hair Growth on Legs -Hair Growth on Toes -Temperature of Extremity -Capillary Refill -Dependent Rubor -Lipodermatosclerosis -Other Deformity -Prior Foot Ulcer -Charcot Joint -Prior Amputation -Thick -Discolored -Deformed -Improper Length & Hygeine Neuropathy Assessment Feet - Top Side and Bottom Communication Assessment Preferred speech language pathology assistant Required Able to Read Able to Write Communication Tools Caregiver Communication Skills Impairment Right Hearing Abillity Left Hearing Abillity Visual Assistive Devices Teaching Assessment Smoking Status Functional Assessment Assistive Device With Patient List Device(s) with Patient Culture/Confucianism/Weather Strip Installer Cultural/Confucianism Needs that may affect Treatment Plan Would you allow our hospital drill runner helper to meet you for the purpose of spiritual/ emotional support? Weather Strip Installer to contact place of confucianist (a) 1 - + WC - Nurse 1 - General Ulcer Measurement Start: 03/06/22 08:09 Freq: Status: Active Protocol: Activity Type Activity Date Activity User E-sign Co-sign Detail Recorded Client Recorded Date Recorded By Document 03/06/22 08:09 MW [id number] 03/06/22 08:22 MW Document 03/09/22 08:11 DL [id number] 03/09/22 08:27 DL Document 03/13/22 08:16 ML [id number] 03/13/22 08:21 ML Document 03/16/22 08:24 DL [id number] 03/16/22 08:27 DL Document 03/20/22 08:17 AK [id number] 03/20/22 08:23 AK 03/06/22 03/09/22 03/13/22 08:09 08:11 08:16 Wound Center Nurse 1 #1 Left posterior LE -Combined with other wound No -Current Size (cm) - Length 2.8 2.2 -Current Size (cm) - Width 4.0 2 -Current Size (cm) - Depth 0.1 0.1 -Total Square Cm 11.20 4.4 -Date of Last Picture (Recall this 03/06/22 field) -Photo Taken Yes No -Epithelialization None Present -Tunneling No -Undermining/Tunneling No -Circular Undermining No -Change in Wound Grade/Stage -Exudate Amt Small Medium -Exudate Type Serosanguineous Serosanguineous -Wound Margin Flat & Intact Distinct, Distinct, Outline Outline Attached Attached -Granulation Amt Large (67-100%) Large (67-100%) Medium (34-66%) -Granulation Quality [place] -Slough/Fibrin Yes Yes -Necrosis Amt Small (1-33%) Small (1-33%) Medium (34-66%) -Necrotic Tissue Type Adherent Slough Adherent Slough Adherent Slough -Structure Exposed N/A -Texture (Yun-wound Skin Appearance) Assessed, Scarring Assessed Localized Edema ,Scarring -Moisture (Yun-wound Skin Appearance) Assessed,Dry/ No Abnormality Assessed Scaly -Color (Yun-wound Skin Appearance) Assessed, Hemosiderin Assessed Hemosiderin Staining Staining -Temperature (Yun-wound Skin No Abnormality No Abnormality No Abnormality Appearance) (Pt Warm) (Pt Warm) (Pt Warm) -Tenderness on Palpation (Yun-wound No No No Skin Appearance) -Ulcer Cleansing Rinsed/ Soap and Water Soap and Water Irrigated with Saline -Foul Odor after Cleansing No No -Anesthetic Used 5% Lidocaine 5% Lidocaine Gel Gel Lower Limb Edema Present Yes Right Calf (cm) 35.0 Right Ankle (cm) 26.0 Left Calf (cm) 36.0 36 Left Ankle (cm) 28.0 25 03/16/22 03/20/22 08:24 08:17 Wound Center Nurse 1 #1 Left posterior LE -Combined with other wound No -Current Size (cm) - Length 2.8 -Current Size (cm) - Width 2.5 -Current Size (cm) - Depth 0.1 -Total Square Cm 7.00 -Date of Last Picture (Recall this 03/20/22 field) -Photo Taken No Yes -Epithelialization -Tunneling No -Undermining/Tunneling No -Circular Undermining No -Change in Wound Grade/Stage No -Exudate Amt Small Medium -Exudate Type Serosanguineous Serosanguineous -Wound Margin Distinct, Distinct, Outline Outline Attached Attached -Granulation Amt Large (67-100%) Large (67-100%) -Granulation Quality Pale,[place] Red -Slough/Fibrin Yes -Necrosis Amt Small (1-33%) Medium (34-66%) -Necrotic Tissue Type Adherent Slough Adherent Slough -Structure Exposed N/A -Texture (Yun-wound Skin Appearance) Scarring No Abnormality, Assessed -Moisture (Yun-wound Skin Appearance) No Abnormality No Abnormality, Assessed -Color (Yun-wound Skin Appearance) Assessed No Abnormality, Assessed -Temperature (Yun-wound Skin No Abnormality No Abnormality Appearance) (Pt Warm) (Pt Warm) -Tenderness on Palpation (Yun-wound No No Skin Appearance) -Ulcer Cleansing Soap and Water Soap and Water -Foul Odor after Cleansing No No -Anesthetic Used 5% Lidocaine Gel Lower Limb Edema Present Right Calf (cm) Right Ankle (cm) Left Calf (cm) 33 33.5 Left Ankle (cm) 23.3 23 - Nurse 2 - General Ulcer CM Notes Start: 03/06/22 08:09 Freq: Status: Active Protocol: Activity Type Activity Date Activity User E-sign Co-sign Detail Recorded Client Recorded Date Recorded By Document 03/06/22 12:16 PL [id number] 03/06/22 12:18 PL Document 03/13/22 11:26 PL [id number] 03/13/22 11:27 PL Document 03/20/22 11:57 PL [id number] 03/20/22 11:59 PL 03/06/22 03/13/22 03/20/22 12:16 11:26 11:57 Wound Center Nurse 2 #1 Left posterior LE -Time 08:34 08:34 08:31 -Correct Patient Yes Yes Yes -Correct Side, Site, Position Yes Yes Yes -Correct Procedure Yes Yes Yes -Procedure Performed Yes Yes Yes -Type of Procedure Debridement Debridement Debridement -Clinical Debridement Subcutaneous Subcutaneous Subcutaneous -Tissue Removed Subcutaneous Subcutaneous Subcutaneous -Post Debridement (cm) - Length 2.8 2.2 2.2 -Post Debridement (cm) - Width 4.0 2.0 2.0 -Post Debridement (cm) - Depth 0.1 0.1 0.1 -Total Square (Post) (cm) 11.20 4.40 4.40 -Area of Debridement (cm) - Length 2.8 2.2 2.2 -Area of Debridement (cm) - Width 4.0 2.0 2.0 -Total Square (Area) (cm) 11.20 4.40 4.40 -Tunneling No No No -Undermining/Tunneling No No No -Circular Undermining No No No -Wound/Ulcer Outcome Not Healed Not Healed Not Healed -Ulcer Cleansing Rinsed/ Rinsed/ Rinsed/ Irrigated with Irrigated with Irrigated with Saline Saline Saline -Foul Odor after Cleansing No No No -Bioengineered Tissue No No No -Bleeding Controlled with Pressure Pressure Pressure -Treatment Response Procedure Procedure Procedure Tolerated Well Tolerated Well Tolerated Well -Debridement - Subq, 1st 20sq cm Yes Yes Yes Pain Scale: 0-10 Numeric Is Patient Pain Free? Yes Yes Yes - Nurse 3 - General Ulcer D/C NN Start: 03/06/22 08:09 Freq: Status: Active Protocol: Activity Type Activity Date Activity User E-sign Co-sign Detail Recorded Client Recorded Date Recorded By Document 03/06/22 08:49 MW [id number] 03/06/22 08:50 MW Document 03/09/22 08:11 DL [id number] 03/09/22 08:27 DL Document 03/13/22 09:19 AK [id number] 03/13/22 09:21 AK Document 03/16/22 08:24 DL [id number] 03/16/22 08:27 DL Document 03/20/22 08:48 AK [id number] 03/20/22 08:49 AK 03/06/22 03/09/22 03/13/22 08:49 08:11 09:19 Wound Care Nurse 3 #1 Left posterior LE -Ulcer Cleansing Rinsed/ Soap and Water Rinsed/ Irrigated with Irrigated with Saline Saline -Foul Odor after Cleansing No No No -Negative Pressure Wound Therapy N/A N/A -Primary Dressing Applied Promogran Promogran -Other Dressing promogran/ unna boot -Primary Dressing Covered/Secured with -Other Covering unna boot -Promogran 1 1 Right -Lotion applied to leg before No compression wrap -Tubular Bandage Single Layer -Size of Tubigrip Used Size D -Size D ($) 1 Left -Lotion applied to leg before No No compression wrap -Multi-Layered Wrap Application Unna Boot - Unna Boot - Multi-Layer Left ($) Left ($) Comp - Left ($) Treatment Response Procedure Procedure Tolerated Well Tolerated Well Vital Signs Temperature (97.8 F-99.1 F) 97.5 F L Temperature Source Temporal Pulse Rate (60-100) 82 Pulse Location Monitor Respiratory Rate (12-18) 18 Respiratory rate source Observation Blood Pressure (90/60-120/80) 136/77 H Blood Pressure Mean 96 Source Monitor Pain Scale: 0-10 Numeric Is Patient Pain Free? Yes Yes Yes Teaching: Wound Center Dressing Your Wound -Person Taught Patient -Teaching Method Discussion -Response to teaching Verbalize understanding WC - Visit Discharge Discharge Condition Stable Stable Ambulatory Status Ambulatory,Cane Ambulatory,Cane Ambulatory,Cane Transportation Private Auto Private Auto Private Auto Accompanied by son Medication Reconcilliation completed & No Yes provided to patient/care provider Clinical Summary of Care Provided Yes Yes Notes: Dressing and Unna boot applied per Lon Gustafson LPN 03/16/22 03/20/22 08:24 08:48 Wound Care Nurse 3 #1 Left posterior LE -Ulcer Cleansing Soap and Water Rinsed/ Irrigated with Saline -Foul Odor after Cleansing No No -Negative Pressure Wound Therapy N/A -Primary Dressing Applied Promogran -Other Dressing promogran -Primary Dressing Covered/Secured with Dry Gauze Dry Gauze -Other Covering -Promogran 1 Right -Lotion applied to leg before compression wrap -Tubular Bandage -Size of Tubigrip Used -Size D ($) Left -Lotion applied to leg before No compression wrap -Multi-Layered Wrap Application Multi-Layer Multi-Layer Comp - Left ($) Comp - Left ($) Treatment Response Procedure Tolerated Well Vital Signs Temperature (97.8 F-99.1 F) 97.4 F L Temperature Source Temporal Pulse Rate (60-100) 73 Pulse Location Apical Respiratory Rate (12-18) 18 Respiratory rate source Observation Blood Pressure (90/60-120/80) 146/80 H Blood Pressure Mean 102 Source Monitor Pain Scale: 0-10 Numeric Is Patient Pain Free? Yes Yes Teaching: Wound Center Dressing Your Wound -Person Taught -Teaching Method -Response to teaching WC - Visit Discharge Discharge Condition Stable Stable Ambulatory Status Ambulatory,Cane Ambulatory,Cane Transportation Private Auto Private Auto Accompanied by son destiny Medication Reconcilliation completed & Yes provided to patient/care provider Clinical Summary of Care Provided Yes Notes: Assessment/Plan Assessment/Plan (1) Non-pressure chronic ulcer of left calf with fat layer exposed: CODE(S): L97.222 - Non-pressure chronic ulcer of left calf with fat layer exposed (2) Dependent edema: CODE(S): R60.9 - Edema, unspecified (3) Leg edema, left: CODE(S): R60.0 - Localized edema (4) Leg edema, right: CODE(S): R60.0 - Localized edema (5) Left leg swelling: CODE(S): M79.89 - Other specified soft tissue disorders (6) Right leg swelling: CODE(S): M79.89 - Other specified soft tissue disorders (7) Atherosclerosis of arteries: CODE(S): I70.90 - Unspecified atherosclerosis (8) Wound of lower extremity: CODE(S): S81.809A - Unspecified open wound, unspecified lower leg, initial encounter (9) COPD (chronic obstructive pulmonary disease): CODE(S): J44.9 - Chronic obstructive pulmonary disease, unspecified (10) Gout: CODE(S): M10.9 - Gout, unspecified (11) Hemorrhoids: CODE(S): K64.9 - Unspecified hemorrhoids (12) Cardiac murmur: CODE(S): R01.1 - Cardiac murmur, unspecified (13) BPH (benign prostatic hyperplasia): CODE(S): N40.0 - Benign prostatic hyperplasia without lower urinary tract symptoms (14) Essential hypertension: CODE(S): I10 - Essential (primary) hypertension (15) History of right inguinal hernia repair: CODE(S): Z98.890 - Other specified postprocedural states; Z87.19 - Perso nal history of other diseases of the digestive system (16) Left inguinal hernia: CODE(S): K40.90 - Unilateral inguinal hernia, without obstruction or gangrene, not specified as recurrent (17) Inactivity: CODE(S): Z72.3 - Lack of physical exercise (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 He presented with an ulceration on the left distal posterior calf, appearing to represent a blister, which had spontaneously unroofed. Based upon the patient's habits and lifestyle, it appears as though the swelling and edema and presenting manifestations were due to the patient's lifestyle and habits. He is idle most of each day, with very little activity. He also sleeps in a recliner, with his lower extremities in a dependent position. The patient has been advised to elevate his lower extremities as much as possible. This is to be accomplished both during nighttime and daytime hours. He has been encouraged to sleep on a flat mattress, with legs level with his heart, or higher. Leg elevation to heart level, or higher, has been encouraged during daytime hours as well. Prolonged idle sitting has been discouraged. Activity has been encouraged. We are to continue the use of Tubigrip's in the right lower extremity, of 20 to 30 mmHg compression. These will be worn during daytime hours. They will be donned in the morning, and doffed at bedtime. We are to implement the use of Promogran topically to the ulceration on the left distal, posterior calf, with a 3M 2-layer compression wrap applied topically, and changed twice weekly. The patient is to return in 2 weeks for reassessment. Nutritional optimization has been recommended. Total time: 26 minutes
[2022-03-27 08:13] VITALS: BP 164/82; PULSE 78; RESP 20; TEMP 36.1; BMI 20.7
[2022-03-30 09:00] VITALS: BP 134/75; PULSE 72; TEMP 35.5; BMI 20.7
== END 2022-03-31 23:59 | disposition home or self-care (01) ==
LOC: WC 08:15
PROVIDERS: PCP Family Medicine; Visit Provider Surgery
DX: L97.222 Non-pressure chronic ulcer of left calf with fat layer exposed (principal); J44.9 Chronic obstructive pulmonary disease, unspecified; N40.0 Benign prostatic hyperplasia without lower urinary tract symptoms; R60.0 Localized edema; I83.92 Asymptomatic varicose veins of left lower extremity; I70.90 Unspecified atherosclerosis; I10 Essential (primary) hypertension; K40.90 Unilateral inguinal hernia, without obstruction or gangrene, not specified as recurrent; M10.9 Gout, unspecified; R01.1 Cardiac murmur, unspecified; M79.89 Other specified soft tissue disorders; K64.9 Unspecified hemorrhoids; Z79.82 Long term (current) use of aspirin; Z79.899 Other long term (current) drug therapy; Z87.891 Personal history of nicotine dependence
CPT/HCPCS: 11042; 29580; 29581; 99213; G0463

== ENCOUNTER 2022-05-01 08:15 | Outpatient (RCR) | payer MEDICARE, SELFPAY ==
[2022-04-01 00:36] VITALS: BP 134/75; PULSE 72; RESP 20; TEMP 35.5; BMI 20.7
[2022-04-03 08:06] VITALS: BP 139/68; PULSE 84; RESP 16; TEMP 35.9; BMI 20.7
--- NOTE | 2022-04-03 09:44 | PCM.WC.HP ---
History of Present Illness Date of Service: 04/03/22 Chief Complaint: Ulceration, left posterior calf History of Wound: This is an 81-year-old male with a longstanding history of swelling and edema in his lower extremities. He was referred for evaluation regarding an ulceration on his left posterior calf. According the patient, the ulceration had been present for approximately 3 weeks. The patient admits to a lack of activity. He sits idly a great deal of each day. Furthermore, he sleeps in a recliner with his legs in a dependent position. He indicates that his lack of activity is due to a balance disturbance. He denies a history of thrombophlebitis. A noninvasive lower extremity arterial study was performed on August 11, 2021, which revealed the presence of atherosclerosis, but no evidence of significant arterial occlusive disease. [facility] Medical History Ambulates with cane Atherosclerosis of arteries Cardiology follow-up encounter Trejo phlebectatica paraplantaris Dependent edema Difficulty chewing Essential hypertension History of echocardiogram History of edema History of irregular heartbeat History of stress test Hypertension Inactivity Left inguinal hernia Left leg swelling Leg edema, left Leg edema, right Non-pressure chronic ulcer of left calf with fat layer exposed Non-smoker Prostate disease Right leg swelling Wears dentures Wears glasses Home Medications aspirin 81 mg tablet,delayed release (Adult Low Dose Aspirin) 81 mg PO DAILY 12/26/21 [History Last Taken 02/28/22] omega-3 fatty acids 1,000 mg capsule (Super [place]-3) 1,000 mg PO DAILY 12/26/21 [History Last Taken 02/28/22] Allergy/AdvReac Type Severity Reaction Status Date / Time No Known Allergies Allergy Verified 01/17/22 13:55 Surgical History History of cataract extraction History of right inguinal hernia repair Hx of inguinal herniorrhaphy S/P cataract extraction S/P inguinal hernia repair Social History Smoking Status: Former smoker alcohol intake: never substance use type: does not use caffeine: Yes Type: tea Vital Signs Vital Signs Vital Signs: 04/03/22 08:06 Temperature 96.7 F L Temperature Source Temporal Pulse Rate 84 Respiratory Rate 16 Blood Pressure 139/68 H Blood Pressure Mean 91 Blood Pressure Source Monitor Blood Pressure Position Sitting Blood Pressure Location Left Arm Oxygen Delivery Method Room Air Weight Weight: 140 lb Body Mass Index (BMI) 20.7 Physical Exam Const alert, oriented x3, no apparent distress, average body habitus and well nourished Constitutional Narrative: The patient is of relatively normal body habitus. General Appearance: cooperative, comfortable, well kempt and well developed Orientation / Consciousness: awake, oriented to person, oriented to place and oriented to time HEENT normocephalic and head/scalp atraumatic Head and Scalp: normal to inspection, normocephalic and atraumatic External Ear: external ears normal Eyes PERRL and EOMs intact bilaterally General Eye: normal appearance of both eyes Resp normal respiratory effort, normal air movement, no retractions and no use of accessory muscles Effort and Inspection: able to speak in complete sentences Extremity no calf tenderness General Extremity: Negative for clubbing or cyanosis Skin Wound Narrative: An ulceration is noted on the left posterior calf, just above the ankle, which appears to represent a recent blister, which has unroofed spontaneously. There is no sign of infection or cellulitis. Dimensions are documented elsewhere. It appears smaller in size than noted previously. There is a small amount of bioburden. Trejo phlebectatica Is noted about the left ankle. No significant swelling is noted in the left lower extremity, an improvement over prior weeks. Neuro oriented x3, CN's II-XII intact bilaterally, moves all extremities and no focal motor deficits Sensorium / Orientation: awake, alert, oriented to person, oriented to place and oriented to time Psych Appearance: grossly normal and appropriate Attitude: calm Activity / Motor Behavior: appropriate eye contact Speech: normal speech Mood & Affect: euthymic mood Thought Process: normal thought process Thought Content: normal thought content Attention / Concentration: attention grossly intact Debridement Note Debridement Note Wound debrided: Distal, left posterior calf Laterality: Left Type of Debridement: Excisional debridement Anesthesia Used: 5% Lidocaine Gel Depth: Down to and including healthy tissue and in the subcutaneous layer Percentage of wound debrided: 100 Instrument Used: 5mm curette Tissue Removed: Bioburden and sloughed epithelium Severity: Fat Layer Exposed Amount of bleeding with debridement: Mild Bleeding Controlled with: Compression and gauze Patient tolerated procedure: Patient tolerated procedure well Post-Debridement Measurements and Additional Note: Post-Debridement Measurements/Treatment MISA - Nurse 1 - General Ulcer Assessment Start: 04/03/22 08:06 Freq: Status: Active Protocol: MARY JANE Activity Type Activity Date Activity User E-sign Co-sign Detail Recorded Client Recorded Date Recorded By Document 04/03/22 08:06 [id number] 04/03/22 08:08 MW 04/03/22 08:06 WC - Today's Visit Information Type of service 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 ) Arrival Mode Ambulatory Transfer Assistance None Accompanied by son Patient Identification Verified (Name & Yes ) Patient Requires Transmission-Based No Precautions Height and Weight Body Mass Index (BMI) 20.7 BMI Classification Normal Vital Signs Temperature (97.8 F-99.1 F) 96.7 F L Temperature Source Temporal Pulse Rate (60-100) 84 Pulse Location Monitor Respiratory Rate (12-18) 16 Respiratory rate source Observation Oxygen Delivery Method Room Air Blood Pressure (90/60-120/80) 139/68 H Blood Pressure Mean 91 Source Monitor Position Sitting Blood Pressure Location Left Arm History Since Last Visit- (Skip if this is Patient's initial visit) Have you changed medications since your No last visit? Any new allergies or adverse reactions No Had a fall/change in ADL's that may No increase risk of falls Signs or symptoms of abuse and/or No neglect since last visit Have you been in the hospital since your No last visit? Has dressing in place as prescribed Yes Has compression in place as prescribed Yes Has offloadiing in place as prescribed N/A Experienced any changes in pain level or No management Left Footwear Regular Shoe Right Footwear Regular Shoe Pain Scale: 0-10 Numeric Is Patient Pain Free? Yes - Nurse 1 - General Ulcer Measurement Start: 04/03/22 08:06 Freq: Status: Active Protocol: Activity Type Activity Date Activity User E-sign Co-sign Detail Recorded Client Recorded Date Recorded By Document 04/03/22 08:06 MW [id number] 04/03/22 08:08 MW 04/03/22 08:06 Wound Center Nurse 1 #1 Left posterior LE -Combined with other wound No -Current Size (cm) - Length 1.5 -Current Size (cm) - Width 1.0 -Current Size (cm) - Depth 0.1 -Total Square Cm 1.50 -Date of Last Picture (Recall this 04/03/22 field) -Photo Taken Yes -Epithelialization None Present -Tunneling No -Undermining/Tunneling No -Circular Undermining No -Exudate Amt Small -Exudate Type Serosanguineous -Wound Margin Flat & Intact -Granulation Amt Large (67-100%) -Granulation Quality [place] -Slough/Fibrin No -Necrotic Tissue Type Adherent Slough -Structure Exposed N/A -Texture (Yun-wound Skin Appearance) Assessed, Localized Edema -Moisture (Yun-wound Skin Appearance) Assessed,Dry/ Scaly -Color (Yun-wound Skin Appearance) Assessed, Ecchymosis, Hemosiderin Staining -Tenderness on Palpation (Yun-wound No Skin Appearance) -Ulcer Cleansing Soap and Water -Foul Odor after Cleansing No -Anesthetic Used 5% Lidocaine Gel Lower Limb Edema Present Yes Left Calf (cm) 32.5 Left Ankle (cm) 22.5 WC - Nurse 3 - General Ulcer D/C NN Start: 04/03/22 08:06 Freq: Status: Active Protocol: Activity Type Activity Date Activity User E-sign Co-sign Detail Recorded Client Recorded Date Recorded By Document 04/03/22 08:47 MW [id number] 04/03/22 08:49 MW 04/03/22 08:47 Wound Care Nurse 3 #1 Left posterior LE -Ulcer Cleansing Rinsed/ Irrigated with Saline -Foul Odor after Cleansing No -Negative Pressure Wound Therapy N/A -Primary Dressing Applied NonAdherent Contact Layer -Other Dressing promogran -Primary Dressing Covered/Secured with Dry Gauze Right -Lotion applied to leg before No compression wrap -Tubular Bandage Single Layer -Size of Tubigrip Used Size D -Size D ($) 1 Left -Lotion applied to leg before No compression wrap -Multi-Layered Wrap Application Multi-Layer Comp - Left ($) Treatment Response Procedure Tolerated Well Pain Scale: 0-10 Numeric Is Patient Pain Free? Yes Teaching: Wound Center Dressing Your Wound -Person Taught Patient,Family -Teaching Method Discussion, Demonstration -Response to teaching Verbalize understanding WC - Visit Discharge Discharge Condition Stable Ambulatory Status Ambulatory Transportation Private Auto Accompanied by son Medication Reconcilliation completed & No provided to patient/care provider Clinical Summary of Care Provided Yes Notes: Dressing applied per Kassidy Gustafson LPN Assessment/Plan Assessment/Plan (1) Non-pressure chronic ulcer of left calf with fat layer exposed: CODE(S): L97.222 - Non-pressure chronic ulcer of left calf with fat layer exposed (2) Dependent edema: CODE(S): R60.9 - Edema, unspecified (3) Leg edema, left: CODE(S): R60.0 - Localized edema (4) Leg edema, right: CODE(S): R60.0 - Localized edema (5) Left leg swelling: CODE(S): M79.89 - Other specified soft tissue disorders (6) Right leg swelling: CODE(S): M79.89 - Other specified soft tissue disorders (7) Atherosclerosis of arteries: CODE(S): I70.90 - Unspecified atherosclerosis (8) Wound of lower extremity: CODE(S): S81.809A - Unspecified open wound, unspecified lower leg, initial encounter (9) COPD (chronic obstructive pulmonary disease): CODE(S): J44.9 - Chronic obstructive pulmonary disease, unspecified (10) Gout: CODE(S): M10.9 - Gout, unspecified (11) Hemorrhoids: CODE(S): K64.9 - Unspecified hemorrhoids (12) Cardiac murmur: CODE(S): R01.1 - Cardiac murmur, unspecified (13) BPH (benign prostatic hyperplasia): CODE(S): N40.0 - Benign prostatic hyperplasia without lower urinary tract symptoms (14) Essential hypertension: CODE(S): I10 - Essential (primary) hypertension (15) History of right inguinal hernia repair: CODE(S): Z98.890 - Other specified postprocedural states; Z87.19 - Personal history of other diseases of the digestive system (16) Left inguinal hernia: CODE(S): K40.90 - Unilateral inguinal hernia, without obstruction or gangrene, not specified as recurrent (17) Inactivity: CODE(S): Z72.3 - Lack of physical exercise (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 He presented with an ulceration on the left distal posterior calf, appearing to represent a blister, which had spontaneously unroofed. Based upon the patient's habits and lifestyle, it appears as though the swelling and edema and presenting manifestations were due to the patient's lifestyle and habits. He is idle most of each day, with very little activity. He also sleeps in a recliner, with his lower extremities in a dependent position. The patient has been advised to elevate his lower extremities as much as possible. This is to be accomplished both during nighttime and daytime hours. He has been encouraged to sleep on a flat mattress, with legs level with his heart, or higher. Leg elevation to heart level, or higher, has been encouraged during daytime hours as well. Prolonged idle sitting has been discouraged. Activity has been encouraged. We are to continue the use of Tubigrip's in the right lower extremity, of 20 to 30 mmHg compression. These will be worn during daytime hours. They will be donned in the morning, and doffed at bedtime. We are to continue the use of Promogran topically to the ulceration on the left distal, posterior calf, with a 3M 2-layer compression wrap applied topically, and changed twice weekly. There has been continued improvement over the last several weeks. The patient is to return in 1 week for reassessment. Nutritional optimization has been recommended. Total time: 28 minutes
[2022-04-06 08:27] VITALS: BP 134/75; PULSE 82; RESP 18; TEMP 36.3; BMI 20.7
[2022-04-10 14:47] VITALS: BP 144/75; PULSE 78; RESP 16; TEMP 36.1; BMI 20.7
--- NOTE | 2022-04-10 15:55 | HP.PCM_ITS ---
History of Present Illness Date of Service: 04/10/22 Chief Complaint: Ulceration, left posterior calf History of Wound: This is an 81-year-old male with a longstanding history of swelling and edema in his lower extremities. He was referred for evaluation regarding an ulceration on his left posterior calf. According the patient, the ulceration had been present for approximately 3 weeks. The patient admits to a lack of activity. He sits idly a great deal of each day. Furthermore, he sleeps in a recliner with his legs in a dependent position. He indicates that his lack of activity is due to a balance disturbance. He denies a history of thrombophlebitis. A noninvasive lower extremity arterial study was performed on August 11, 2021, which revealed the presence of atherosclerosis, but no evidence of significant arterial occlusive disease. [facility] Medical History Ambulates with cane Atherosclerosis of arteries Cardiology follow-up encounter Trejo phlebectatica paraplantaris Dependent edema Difficulty chewing Essential hypertension History of echocardiogram History of edema History of irregular heartbeat History of stress test Hypertension Inactivity Left inguinal hernia Left leg swelling Leg edema, left Leg edema, right Non-pressure chronic ulcer of left calf with fat layer exposed Non-smoker Prostate disease Right leg swelling Wears dentures Wears glasses Home Medications aspirin 81 mg tablet,delayed release (Adult Low Dose Aspirin) 81 mg PO DAILY 12/26/21 [History Last Taken 02/28/22] omega-3 fatty acids 1,000 mg capsule (Super [place]-3) 1,000 mg PO DAILY 12/26/21 [History Last Taken 02/28/22] Allergy/AdvReac Type Severity Reaction Status Date / Time No Known Allergies Allergy Verified 01/17/22 13:55 Surgical History History of cataract extraction History of right inguinal hernia repair Hx of inguinal herniorrhaphy S/P cataract extraction S/P inguinal hernia repair Social History Smoking Status: Former smoker alcohol intake: never substance use type: does not use caffeine: Yes Type: tea Vital Signs Vital Signs Vital Signs: 04/10/22 14:47 Temperature 97 F L Temperature Source Temporal Pulse Rate 78 Respiratory Rate 16 Blood Pressure 144/75 H Blood Pressure Mean 98 Blood Pressure Source Monitor Blood Pressure Position Sitting Blood Pressure Location Left Arm Weight Weight: 140 lb Body Mass Index (BMI) 20.7 Physical Exam Const alert, oriented x3, no apparent distress, average body habitus and well nourished Constitutional Narrative: The patient is of relatively normal body habitus. General Appearance: cooperative, comfortable, well kempt and well developed Orientation / Consciousness: awake, oriented to person, oriented to place and oriented to time HEENT normocephalic and head/scalp atraumatic Head and Scalp: normal to inspection, normocephalic and atraumatic External Ear: external ears normal Eyes PERRL and EOMs intact bilaterally General Eye: normal appearance of both eyes Resp normal respiratory effort, normal air movement, no retractions and no use of accessory muscles Effort and Inspection: able to speak in complete sentences Extremity no calf tenderness General Extremity: Negative for clubbing or cyanosis Skin Wound Narrative: An ulceration is noted on the left posterior calf, just above the ankle, which appears to represent a recent blister, which has unroofed spontaneously. There is no sign of infection or cellulitis. Dimensions are documented elsewhere. It appears smaller in size than noted previously. There is a small amount of bioburden. Trejo phlebectatica Is noted about the left ankle. No significant swelling is noted in the left lower extremity, an improvement over prior weeks. Neuro oriented x3, CN's II-XII intact bilaterally, moves all extremities and no focal motor deficits Sensorium / Orientation: awake, alert, oriented to person, oriented to place and oriented to time Psych Appearance: grossly normal and appropriate Attitude: calm Activity / Motor Behavior: appropriate eye contact Speech: normal speech Mood & Affect: euthymic mood Thought Process: normal thought process Thought Content: normal thought content Attention / Concentration: attention grossly intact Debridement Note Debridement Note Wound debrided: Distal, left posterior calf Laterality: Left Type of Debridement: Excisional debridement Anesthesia Used: 5% Lidocaine Gel Depth: Down to and including healthy tissue and in the subcutaneous layer Percentage of wound debrided: 100 Instrument Used: 5mm curette Tissue Removed: Bioburden and sloughed epithelium Severity: Fat Layer Exposed Amount of bleeding with debridement: Mild Bleeding Controlled with: Compression and gauze Patient tolerated procedure: Patient tolerated procedure well Post-Debridement Measurements and Additional Note: Post-Debridement Measurements/Treatment WC - Nurse 1 - General Ulcer Assessment Start: 04/03/22 08:06 Freq: Status: Active Protocol: MARY JANE Activity Type Activity Date Activity User E-sign Co-sign Detail Recorded Client Recorded Date Recorded By Document 04/03/22 08:06 MW [id number] 04/03/22 08:08 MW Document 04/06/22 08:27 DL [id number] 04/06/22 08:29 DL Edit Result 04/06/22 08:27 DL (1) [id number] 04/06/22 08:31 DL Document 04/10/22 14:47 AK [id number] 04/10/22 14:50 AK (1) Pulse Rate (60-100) => 82 Pulse Location => Monitor Blood Pressure (90/60-120/80) => 134/75 H Blood Pressure Mean => 94 Source => Monitor 04/03/22 04/06/22 04/10/22 08:06 08:27 14:47 - Today's Visit Information Type of service Follow-up Visit Nurse-only Follow-up Visit (Physician/LIGHTING SPECIALIST Visit (Physician/LIGHTING SPECIALIST ) ) Arrival Mode Ambulatory Ambulatory Cane Transfer Assistance None None None Accompanied by son Patient Identification Verified (Name & Yes Yes Yes ) Patient Requires Transmission-Based No No No Precautions Safety Precautions NA NA Height and Weight Body Mass Index (BMI) 20.7 20.7 20.7 BMI Classification Normal Normal Normal Vital Signs Temperature (97.8 F-99.1 F) 96.7 F L 97.3 F L 97 F L Temperature Source Temporal Temporal Temporal Pulse Rate (60-100) 84 82 78 Pulse Location Monitor Monitor Monitor Respiratory Rate (12-18) 16 18 16 Respiratory rate source Observation Observation Observation Oxygen Delivery Method Room Air Blood Pressure (90/60-120/80) 139/68 H 134/75 H 144/75 H Blood Pressure Mean 91 94 98 Source Monitor Monitor Monitor Position Sitting Sitting Blood Pressure Location Left Arm Left Arm History Since Last Visit- (Skip if this is Patient's initial visit) Have you changed medications since your No No No last visit? Any new allergies or adverse reactions No No No Had a fall/change in ADL's that may No No No increase risk of falls Signs or symptoms of abuse and/or No No No neglect since last visit Have you been in the hospital since your No No No last visit? Has dressing in place as prescribed Yes Yes Yes Has compression in place as prescribed Yes Yes N/A Has offloadiing in place as prescribed N/A N/A Experienced any changes in pain level or No No No management Left Footwear Regular Shoe Regular Shoe Regular Shoe Right Footwear Regular Shoe Regular Shoe Regular Shoe Pain Scale: 0-10 Numeric Is Patient Pain Free? Yes Yes Yes WC - Nurse 1 - General Ulcer Measurement Start: 04/03/22 08:06 Freq: Status: Active Protocol: Activity Type Activity Date Activity User E-sign Co-sign Detail Recorded Client Recorded Date Recorded By Document 04/03/22 08:06 MW [id number] 04/03/22 08:08 MW Document 04/06/22 08:27 DL [id number] 04/06/22 08:29 DL Edit Result 04/06/22 08:27 DL (1) [id number] 04/06/22 08:31 DL Document 04/10/22 14:47 AK [id number] 04/10/22 14:50 AK (1) Left Calf (cm) => 32.5 Left Ankle (cm) => 22 04/03/22 04/06/22 04/10/22 08:06 08:27 14:47 Wound Center Nurse 1 #1 Left posterior LE -Combined with other wound No -Current Size (cm) - Length 1.5 1 -Current Size (cm) - Width 1.0 0.8 -Current Size (cm) - Depth 0.1 0.1 -Total Square Cm 1.50 0.8 -Date of Last Picture (Recall this 04/03/22 field) -Photo Taken Yes No -Epithelialization None Present Large 67-100% -Tunneling No -Undermining/Tunneling No -Circular Undermining No -Exudate Amt Small Small None Present -Exudate Type Serosanguineous Serous -Wound Margin Flat & Intact Distinct, Outline Attached -Granulation Amt Large (67-100%) Large (67-100%) Large (67-100%) -Granulation Quality [place] Red -Slough/Fibrin No No -Necrosis Amt None Present (0 None Present (0 %) %) -Necrotic Tissue Type Adherent Slough -Structure Exposed N/A N/A -Texture (Yun-wound Skin Appearance) Assessed, Scarring Assessed Localized Edema -Moisture (Yun-wound Skin Appearance) Assessed,Dry/ Dry/Scaly Assessed Scaly -Color (Yun-wound Skin Appearance) Assessed, No Abnormality Assessed Ecchymosis, Hemosiderin Staining -Temperature (Yun-wound Skin No Abnormality No Abnormality Appearance) (Pt Warm) (Pt Warm) -Tenderness on Palpation (Yun-wound No No Skin Appearance) -Ulcer Cleansing Soap and Water Soap and Water Soap and Water -Foul Odor after Cleansing No No No -Anesthetic Used 5% Lidocaine 5% Lidocaine Gel Gel Lower Limb Edema Present Yes Left Calf (cm) 32.5 32.5 33.5 Left Ankle (cm) 22.5 22 23 WC - Nurse 2 - General Ulcer CM Notes Start: 04/03/22 08:06 Freq: Status: Active Protocol: Activity Type Activity Date Activity User E-sign Co-sign Detail Recorded Client Recorded Date Recorded By Document 04/03/22 12:26 PL [id number] 04/03/22 12:27 PL Document 04/10/22 15:20 PL [id number] 04/10/22 15:21 PL 04/03/22 04/10/22 12:26 15:20 Wound Center Nurse 2 #1 Left posterior LE -Time 08:30 14:54 -Correct Patient Yes Yes -Correct Side, Site, Position Yes Yes -Correct Procedure Yes Yes -Procedure Performed Yes Yes -Type of Procedure Debridement Debridement -Clinical Debridement Subcutaneous Subcutaneous -Tissue Removed Subcutaneous Subcutaneous -Post Debridement (cm) - Length 1.5 1.0 -Post Debridement (cm) - Width 1.0 0.8 -Post Debridement (cm) - Depth 0.1 0.1 -Total Square (Post) (cm) 1.50 0.80 -Area of Debridement (cm) - Length 1.5 1.0 -Area of Debridement (cm) - Width 1.0 0.8 -Total Square (Area) (cm) 1.50 0.80 -Tunneling No No -Undermining/Tunneling No No -Circular Undermining No No -Wound/Ulcer Outcome Not Healed Not Healed -Ulcer Cleansing Rinsed/ Rinsed/ Irrigated with Irrigated with Saline Saline -Foul Odor after Cleansing No No -Bioengineered Tissue No No -Bleeding Controlled with Pressure -Treatment Response Procedure Tolerated Well -Debridement - Subq, 1st 20sq cm Yes Yes Pain Scale: 0-10 Numeric Is Patient Pain Free? Yes Yes WC - Nurse 3 - General Ulcer D/C NN Start: 04/03/22 08:06 Freq: Status: Active Protocol: Activity Type Activity Date Activity User E-sign Co-sign Detail Recorded Client Recorded Date Recorded By Document 04/03/22 08:47 MW [id number] 04/03/22 08:49 MW Document 04/06/22 08:27 DL [id number] 04/06/22 08:29 DL Edit Result 04/06/22 08:27 DL (1) [id number] 04/06/22 08:31 DL Document 04/10/22 15:08 AK [id number] 04/10/22 15:10 AK (1) Pulse Rate (60-100) => 82 Pulse Location => Monitor Blood Pressure (90/60-120/80) => 134/75 H Blood Pressure Mean => 94 Source => Monitor 04/03/22 04/06/22 04/10/22 08:47 08:27 15:08 Wound Care Nurse 3 #1 Left posterior LE -Ulcer Cleansing Rinsed/ Rinsed/ Irrigated with Irrigated with Saline Saline -Foul Odor after Cleansing No No -Negative Pressure Wound Therapy N/A N/A -Primary Dressing Applied NonAdherent NonAdherent Contact Layer Contact Layer, Promogran -Other Dressing promogran -Primary Dressing Covered/Secured with Dry Gauze -Promogran 0 Right -Lotion applied to leg before No compression wrap -Tubular Bandage Single Layer -Size of Tubigrip Used Size D -Size D ($) 1 Left -Lotion applied to leg before No No compression wrap -Multi-Layered Wrap Application Multi-Layer Multi-Layer Multi-Layer Comp - Left ($) Comp - Left ($) Comp - Left ($) Treatment Response Procedure Procedure Tolerated Well Tolerated Well Vital Signs Temperature (97.8 F-99.1 F) 97.3 F L Temperature Source Temporal Pulse Rate (60-100) 82 Pulse Location Monitor Respiratory Rate (12-18) 18 Respiratory rate source Observation Blood Pressure (90/60-120/80) 134/75 H Blood Pressure Mean 94 Source Monitor Pain Scale: 0-10 Numeric Is Patient Pain Free? Yes Yes Yes Teaching: Wound Center Dressing Your Wound -Person Taught Patient,Family -Teaching Method Discussion, Demonstration -Response to teaching Verbalize understanding WC - Visit Discharge Discharge Condition Stable Stable Stable Ambulatory Status Ambulatory Ambulatory,Cane Ambulatory Transportation Private Auto Private Auto Private Auto Accompanied by son son Medication Reconcilliation completed & No Yes provided to patient/care provider Clinical Summary of Care Provided Yes Yes Notes: Dressing applied per Kassidy Gustafson LPN Assessment/Plan Assessment/Plan (1) Non-pressure chronic ulcer of left calf with fat layer exposed: CODE(S): L97.222 - Non-pressure chronic ulcer of left calf with fat layer exposed (2) Dependent edema: CODE(S): R60.9 - Edema, unspecified (3) Leg edema, left: CODE(S): R60.0 - Localized edema (4) Leg edema, right: CODE(S): R60.0 - Localized edema (5) Left leg swelling: CODE(S): M79.89 - Other specified soft tissue disorders (6) Right leg swelling: CODE(S): M79.89 - Other specified soft tissue disorders (7) Atherosclerosis of arteries: CODE(S): I70.90 - Unspecified atherosclerosis (8) Wound of lower extremity: CODE(S): S81.809A - Unspecified open wound, unspecified lower leg, initial encounter (9) COPD (chronic obstructive pulmonary disease): CODE(S): J44.9 - Chronic obstructive pulmonary disease, unspecified (10) Gout: CODE(S): M10.9 - Gout, unspecified (11) Hemorrhoids: CODE(S): K64.9 - Unspecified hemorrhoids (12) Cardiac murmur: CODE(S): R01.1 - Cardiac murmur, unspecified (13) BPH (benign prostatic hyperplasia): CODE(S): N40.0 - Benign prostatic hyperplasia without lower urinary tract symptoms (14) Essential hypertension: CODE(S): I10 - Essential (primary) hypertension (15) History of right inguinal hernia repair: CODE(S): Z98.890 - Other specified postprocedural states; Z87.19 - Personal history of other diseases of the digestive system (16) Left inguinal hernia: CODE(S): K40.90 - Unilateral inguinal hernia, without obstruction or gangrene, not specified as recurrent (17) Inactivity: CODE(S): Z72.3 - Lack of physical exercise (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 He presented with an ulceration on the left distal posterior calf, appearing to represent a blister, which had spontaneously unroofed. Based upon the patient's habits and lifestyle, it appears as though the swelling and edema and presenting manifestations were due to the patient's lifestyle and habits. He is idle most of each day, with very little activity. He also sleeps in a recliner, with his lower extremities in a dependent position. The patient has been advised to elevate his lower extremities as much as possible. This is to be accomplished both during nighttime and daytime hours. He has been encouraged to sleep on a flat mattress, with legs level with his heart, or higher. Leg elevation to heart level, or higher, has been encouraged during daytime hours as well. Prolonged idle sitting has been discouraged. Activity has been encouraged. We are to continue the use of Tubigrip's in the right lower extremity, of 20 to 30 mmHg compression. These will be worn during daytime hours. They will be donned in the morning, and doffed at bedtime. We are to continue the use of Promogran topically to the ulceration on the left distal, posterior calf, with a 3M 2-layer compression wrap applied topically, and changed twice weekly. There has been continued improvement over the last several weeks. The patient is to return in 1 week for reassessment. Nutritional optimization has been recommended. Total time: 26 minutes
[2022-04-17 08:32] VITALS: BP 111/68; PULSE 79; TEMP 36.6; BMI 20.7
--- NOTE | 2022-04-17 13:12 | HP.PCM_ITS ---
History of Present Illness Date of Service: 04/17/22 Chief Complaint: Ulceration, left posterior calf History of Wound: This is an 81-year-old male with a longstanding history of swelling and edema in his lower extremities. He was referred for evaluation regarding an ulceration on his left posterior calf. According the patient, the ulceration had been present for approximately 3 weeks. The patient admits to a lack of activity. He sits idly a great deal of each day. Furthermore, he sleeps in a recliner with his legs in a dependent position. He indicates that his lack of activity is due to a balance disturbance. He denies a history of thrombophlebitis. A noninvasive lower extremity arterial study was performed on August 11, 2021, which revealed the presence of atherosclerosis, but no evidence of significant arterial occlusive disease. [facility] Medical History Ambulates with cane Atherosclerosis of arteries Cardiology follow-up encounter Trejo phlebectatica paraplantaris Dependent edema Difficulty chewing Essential hypertension History of echocardiogram History of edema History of irregular heartbeat History of stress test Hypertension Inactivity Left inguinal hernia Left leg swelling Leg edema, left Leg edema, right Non-pressure chronic ulcer of left calf with fat layer exposed Non-smoker Prostate disease Right leg swelling Wears dentures Wears glasses Home Medications aspirin 81 mg tablet,delayed release (Adult Low Dose Aspirin) 81 mg PO DAILY 12/26/21 [History Last Taken 02/28/22] omega-3 fatty acids 1,000 mg capsule (Super [place]-3) 1,000 mg PO DAILY 12/26/21 [History Last Taken 02/28/22] Allergy/AdvReac Type Severity Reaction Status Date / Time No Known Allergies Allergy Verified 01/17/22 13:55 Surgical History History of cataract extraction History of right inguinal hernia repair Hx of inguinal herniorrhaphy S/P cataract extraction S/P inguinal hernia repair Social History Smoking Status: Former smoker alcohol intake: never substance use type: does not use caffeine: Yes Type: tea Vital Signs Vital Signs Vital Signs: 04/17/22 08:32 Temperature 97.9 F Temperature Source Temporal Pulse Rate 79 Blood Pressure 111/68 Blood Pressure Mean 82 Blood Pressure Source Monitor Weight Weight: 140 lb Body Mass Index (BMI) 20.7 Physical Exam Const alert, oriented x3, no apparent distress, average body habitus and well nourished Constitutional Narrative: The patient is of relatively normal body habitus. General Appearance: cooperative, comfortable, well kempt and well developed Orientation / Consciousness: awake, oriented to person, oriented to place and oriented to time HEENT normocephalic and head/scalp atraumatic Head and Scalp: normal to inspection, normocephalic and atraumatic External Ear: external ears normal Eyes PERRL and EOMs intact bilaterally General Eye: normal appearance of both eyes Resp normal respiratory effort, normal air movement, no retractions and no use of accessory muscles Effort and Inspection: able to speak in complete sentences Extremity no calf tenderness General Extremity: Negative for clubbing or cyanosis Skin Wound Narrative: An ulceration is noted on the left posterior calf, just above the ankle, which appears to represent a recent blister, which has unroofed spontaneously. There is no sign of infection or cellulitis. Dimensions are documented elsewhere. It appears smaller in size than noted previously. In recent weeks, there has been a progressive decrease in the size of the ulceration. At this juncture, the ulceration appears to be nearly healed. Trejo phlebectatica Is noted about the left ankle. No significant swelling is noted in the left lower extremity. Neuro oriented x3, CN's II-XII intact bilaterally, moves all extremities and no focal motor deficits Sensorium / Orientation: awake, alert, oriented to person, oriented to place and oriented to time Psych Appearance: grossly normal and appropriate Attitude: calm Activity / Motor Behavior: appropriate eye contact Speech: normal speech Mood & Affect: euthymic mood Thought Process: normal thought process Thought Content: normal thought content Attention / Concentration: attention grossly intact Debridement Note Debridement Note No debridement was completed: No debridement was completed today (The left posterior calf ulceration is nearly completely healed.) Post-Debridement Measurements and Additional Note: Post-Debridement Measurements/Treatment MISA - Nurse 1 - General Ulcer Assessment Start: 04/03/22 08:06 Freq: Status: Active Protocol: MARY JANE Activity Type Activity Date Activity User E-sign Co-sign Detail Recorded Client Recorded Date Recorded By Document 04/03/22 08:06 MW [id number] 04/03/22 08:08 MW Document 04/06/22 08:27 DL [id number] 04/06/22 08:29 DL Edit Result 04/06/22 08:27 DL (1) [id number] 04/06/22 08:31 DL Document 04/10/22 14:47 AK [id number] 04/10/22 14:50 AK Document 04/17/22 08:32 AK [id number] 04/17/22 08:35 AK (1) Pulse Rate (60-100) => 82 Pulse Location => Monitor Blood Pressure (90/60-120/80) => 134/75 H Blood Pressure Mean => 94 Source => Monitor 04/03/22 04/06/22 04/10/22 08:06 08:27 14:47 WC - Today's Visit Information Type of service Follow-up Visit Nurse-only Follow-up Visit (Physician/SCIENCE INTERPRETER Visit (Physician/SCIENCE INTERPRETER ) ) Arrival Mode Ambulatory Ambulatory Cane Transfer Assistance None None None Accompanied by son Patient Identification Verified (Name & Yes Yes Yes ) Patient Requires Transmission-Based No No No Precautions Safety Precautions NA NA Height and Weight Body Mass Index (BMI) 20.7 20.7 20.7 BMI Classification Normal Normal Normal Vital Signs Temperature (97.8 F-99.1 F) 96.7 F L 97.3 F L 97 F L Temperature Source Temporal Temporal Temporal Pulse Rate (60-100) 84 82 78 Pulse Location Monitor Monitor Monitor Respiratory Rate (12-18) 16 18 16 Respiratory rate source Observation Observation Observation Oxygen Delivery Method Room Air Blood Pressure (90/60-120/80) 139/68 H 134/75 H 144/75 H Blood Pressure Mean 91 94 98 Source Monitor Monitor Monitor Position Sitting Sitting Blood Pressure Location Left Arm Left Arm History Since Last Visit- (Skip if this is Patient's initial visit) Have you changed medications since your No No No last visit? Any new allergies or adverse reactions No No No Had a fall/change in ADL's that may No No No increase risk of falls Signs or symptoms of abuse and/or No No No neglect since last visit Have you been in the hospital since your No No No last visit? Has dressing in place as prescribed Yes Yes Yes Has compression in place as prescribed Yes Yes N/A Has offloadiing in place as prescribed N/A N/A Experienced any changes in pain level or No No No management Left Footwear Regular Shoe Regular Shoe Regular Shoe Right Footwear Regular Shoe Regular Shoe Regular Shoe Pain Scale: 0-10 Numeric Is Patient Pain Free? Yes Yes Yes 04/17/22 08:32 WC - Today's Visit Information Type of service Follow-up Visit (Physician/SCIENCE INTERPRETER ) Arrival Mode Ambulatory,Cane Transfer Assistance Accompanied by Patient Identification Verified (Name & Yes ) Patient Requires Transmission-Based No Precautions Safety Precautions Height and Weight Body Mass Index (BMI) 20.7 BMI Classification Normal Vital Signs Temperature (97.8 F-99.1 F) 97.9 F Temperature Source Temporal Pulse Rate (60-100) 79 Pulse Location Monitor Respiratory Rate (12-18) Respiratory rate source Oxygen Delivery Method Blood Pressure (90/60-120/80) 111/68 Blood Pressure Mean 82 Source Monitor Position Blood Pressure Location History Since Last Visit- (Skip if this is Patient's initial visit) Have you changed medications since your No last visit? Any new allergies or adverse reactions No Had a fall/change in ADL's that may No increase risk of falls Signs or symptoms of abuse and/or No neglect since last visit Have you been in the hospital since your No last visit? Has dressing in place as prescribed Yes Has compression in place as prescribed N/A Has offloadiing in place as prescribed N/A Experienced any changes in pain level or No management Left Footwear Regular Shoe Right Footwear Regular Shoe Pain Scale: 0-10 Numeric Is Patient Pain Free? Yes - Nurse 1 - General Ulcer Measurement Start: 04/03/22 08:06 Freq: Status: Active Protocol: Activity Type Activity Date Activity User E-sign Co-sign Detail Recorded Client Recorded Date Recorded By Document 04/03/22 08:06 MW [id number] 04/03/22 08:08 MW Document 04/06/22 08:27 DL [id number] 04/06/22 08:29 DL Edit Result 04/06/22 08:27 DL (1) [id number] 04/06/22 08:31 DL Document 04/10/22 14:47 AK [id number] 04/10/22 14:50 AK Document 04/17/22 08:32 AK [id number] 04/17/22 08:35 AK (1) Left Calf (cm) => 32.5 Left Ankle (cm) => 22 04/03/22 04/06/22 04/10/22 08:06 08:27 14:47 Wound Center Nurse 1 #1 Left posterior LE -Combined with other wound No -Current Size (cm) - Length 1.5 1 -Current Size (cm) - Width 1.0 0.8 -Current Size (cm) - Depth 0.1 0.1 -Total Square Cm 1.50 0.8 -Date of Last Picture (Recall this 04/03/22 field) -Photo Taken Yes No -Epithelialization None Present Large 67-100% -Tunneling No -Undermining/Tunneling No -Circular Undermining No -Change in Wound Grade/Stage -Exudate Amt Small Small None Present -Exudate Type Serosanguineous Serous -Wound Margin Flat & Intact Distinct, Outline Attached -Granulation Amt Large (67-100%) Large (67-100%) Large (67-100%) -Granulation Quality [place] Red -Slough/Fibrin No No -Necrosis Amt None Present (0 None Present (0 %) %) -Necrotic Tissue Type Adherent Slough -Structure Exposed N/A N/A -Texture (Yun-wound Skin Appearance) Assessed, Scarring Assessed Localized Edema -Moisture (Yun-wound Skin Appearance) Assessed,Dry/ Dry/Scaly Assessed Scaly -Color (Yun-wound Skin Appearance) Assessed, No Abnormality Assessed Ecchymosis, Hemosiderin Staining -Temperature (Yun-wound Skin No Abnormality No Abnormality Appearance) (Pt Warm) (Pt Warm) -Tenderness on Palpation (Yun-wound No No Skin Appearance) -Ulcer Cleansing Soap and Water Soap and Water Soap and Water -Foul Odor after Cleansing No No No -Anesthetic Used 5% Lidocaine 5% Lidocaine Gel Gel Lower Limb Edema Present Yes Left Calf (cm) 32.5 32.5 33.5 Left Ankle (cm) 22.5 22 23 04/17/22 08:32 Wound Center Nurse 1 #1 Left posterior LE -Combined with other wound No -Current Size (cm) - Length 0.1 -Current Size (cm) - Width 0.1 -Current Size (cm) - Depth 0.1 -Total Square Cm 0.01 -Date of Last Picture (Recall this 04/17/22 field) -Photo Taken Yes -Epithelialization -Tunneling No -Undermining/Tunneling No -Circular Undermining No -Change in Wound Grade/Stage No -Exudate Amt None Present -Exudate Type -Wound Margin -Granulation Amt None Present (0 %) -Granulation Quality N/A -Slough/Fibrin No -Necrosis Amt None Present (0 %) -Necrotic Tissue Type -Structure Exposed N/A -Texture (Yun-wound Skin Appearance) No Abnormality, Assessed -Moisture (Yun-wound Skin Appearance) No Abnormality, Assessed -Color (Yun-wound Skin Appearance) No Abnormality, Assessed -Temperature (Yun-wound Skin No Abnormality Appearance) (Pt Warm) -Tenderness on Palpation (Ynu-wound No Skin Appearance) -Ulcer Cleansing Rinsed/ Irrigated with Saline -Foul Odor after Cleansing No -Anesthetic Used 5% Lidocaine Gel Lower Limb Edema Present Left Calf (cm) Left Ankle (cm) WC - Nurse 2 - General Ulcer CM Notes Start: 04/03/22 08:06 Freq: Status: Active Protocol: Activity Type Activity Date Activity User E-sign Co-sign Detail Recorded Client Recorded Date Recorded By Document 04/03/22 12:26 PL [id number] 04/03/22 12:27 PL Document 04/10/22 15:20 PL [id number] 04/10/22 15:21 PL 04/03/22 04/10/22 12:26 15:20 Wound Center Nurse 2 #1 Left posterior LE -Time 08:30 14:54 -Correct Patient Yes Yes -Correct Side, Site, Position Yes Yes -Correct Procedure Yes Yes -Procedure Performed Yes Yes -Type of Procedure Debridement Debridement -Clinical Debridement Subcutaneous Subcutaneous -Tissue Removed Subcutaneous Subcutaneous -Post Debridement (cm) - Length 1.5 1.0 -Post Debridement (cm) - Width 1.0 0.8 -Post Debridement (cm) - Depth 0.1 0.1 -Total Square (Post) (cm) 1.50 0.80 -Area of Debridement (cm) - Length 1.5 1.0 -Area of Debridement (cm) - Width 1.0 0.8 -Total Square (Area) (cm) 1.50 0.80 -Tunneling No No -Undermining/Tunneling No No -Circular Undermining No No -Wound/Ulcer Outcome Not Healed Not Healed -Ulcer Cleansing Rinsed/ Rinsed/ Irrigated with Irrigated with Saline Saline -Foul Odor after Cleansing No No -Bioengineered Tissue No No -Bleeding Controlled with Pressure -Treatment Response Procedure Tolerated Well -Debridement - Subq, 1st 20sq cm Yes Yes Pain Scale: 0-10 Numeric Is Patient Pain Free? Yes Yes WC - Nurse 3 - General Ulcer D/C NN Start: 04/03/22 08:06 Freq: Status: Active Protocol: Activity Type Activity Date Activity User E-sign Co-sign Detail Recorded Client Recorded Date Recorded By Document 04/03/22 08:47 MW [id number] 04/03/22 08:49 MW Document 04/06/22 08:27 DL [id number] 04/06/22 08:29 DL Edit Result 04/06/22 08:27 DL (1) [id number] 04/06/22 08:31 DL Document 04/10/22 15:08 AK [id number] 04/10/22 15:10 AK Document 04/17/22 09:06 AK [id number] 04/17/22 09:07 AK (1) Pulse Rate (60-100) => 82 Pulse Location => Monitor Blood Pressure (90/60-120/80) => 134/75 H Blood Pressure Mean => 94 Source => Monitor 04/03/22 04/06/22 04/10/22 08:47 08:27 15:08 Wound Care Nurse 3 #1 Left posterior LE -Ulcer Cleansing Rinsed/ Rinsed/ Irrigated with Irrigated with Saline Saline -Foul Odor after Cleansing No No -Negative Pressure Wound Therapy N/A N/A -Primary Dressing Applied NonAdherent NonAdherent Contact Layer Contact Layer, Promogran -Other Dressing promogran -Primary Dressing Covered/Secured with Dry Gauze -Promogran 0 Right -Lotion applied to leg before No compression wrap -Tubular Bandage Single Layer -Size of Tubigrip Used Size D -Size D ($) 1 Left -Lotion applied to leg before No No compression wrap -Multi-Layered Wrap Application Multi-Layer Multi-Layer Multi-Layer Comp - Left ($) Comp - Left ($) Comp - Left ($) -Tubular Bandage -Size of Tubigrip Used -Size D ($) Treatment Response Procedure Procedure Tolerated Well Tolerated Well Vital Signs Temperature (97.8 F-99.1 F) 97.3 F L Temperature Source Temporal Pulse Rate (60-100) 82 Pulse Location Monitor Respiratory Rate (12-18) 18 Respiratory rate source Observation Blood Pressure (90/60-120/80) 134/75 H Blood Pressure Mean 94 Source Monitor Pain Scale: 0-10 Numeric Is Patient Pain Free? Yes Yes Yes Teaching: Wound Center Dressing Your Wound -Person Taught Patient,Family -Teaching Method Discussion, Demonstration -Response to teaching Verbalize understanding WC - Visit Discharge Discharge Condition Stable Stable Stable Ambulatory Status Ambulatory Ambulatory,Cane Ambulatory Transportation Private Auto Private Auto Private Auto Accompanied by son son Medication Reconcilliation completed & No Yes provided to patient/care provider Clinical Summary of Care Provided Yes Yes Notes: Dressing applied per Kassidy Gustafson LPN 04/17/22 09:06 Wound Care Nurse 3 #1 Left posterior LE -Ulcer Cleansing Rinsed/ Irrigated with Saline -Foul Odor after Cleansing No -Negative Pressure Wound Therapy N/A -Primary Dressing Applied C Hydrogel ($) -Other Dressing -Primary Dressing Covered/Secured with Dry Gauze, Secured with Tape -Promogran Right -Lotion applied to leg before compression wrap -Tubular Bandage -Size of Tubigrip Used -Size D ($) Left -Lotion applied to leg before No compression wrap -Multi-Layered Wrap Application -Tubular Bandage Single Layer -Size of Tubigrip Used Size D -Size D ($) 1 Treatment Response Vital Signs Temperature (97.8 F-99.1 F) Temperature Source Pulse Rate (60-100) Pulse Location Respiratory Rate (12-18) Respiratory rate source Blood Pressure (90/60-120/80) Blood Pressure Mean Source Pain Scale: 0-10 Numeric Is Patient Pain Free? Yes Teaching: Wound Center Dressing Your Wound -Person Taught -Teaching Method -Response to teaching WC - Visit Discharge Discharge Condition Stable Ambulatory Status Ambulatory Transportation Private Auto Accompanied by son Medication Reconcilliation completed & Yes provided to patient/care provider Clinical Summary of Care Provided Yes Notes: Assessment/Plan Assessment/Plan (1) Non-pressure chronic ulcer of left calf with fat layer exposed: CODE(S): L97.222 - Non-pressure chronic ulcer of left calf with fat layer exposed (2) Dependent edema: CODE(S): R60.9 - Edema, unspecified (3) Leg edema, left: CODE(S): R60.0 - Localized edema (4) Leg edema, right: CODE(S): R60.0 - Localized edema (5) Left leg swelling: CODE(S): M79.89 - Other specified soft tissue disorders (6) Right leg swelling: CODE(S): M79.89 - Other specified soft tissue disorders (7) Atherosclerosis of arteries: CODE(S): I70.90 - Unspecified atherosclerosis (8) Wound of lower extremity: CODE(S): S81.809A - Unspecified open wound, unspecified lower leg, initial encounter (9) COPD (chronic obstructive pulmonary disease): CODE(S): J44.9 - Chronic obstructive pulmonary disease, unspecified (10) Gout: CODE(S): M10.9 - Gout, unspecified (11) Hemorrhoids: CODE(S): K64.9 - Unspecified hemorrhoids (12) Cardiac murmur: CODE(S): R01.1 - Cardiac murmur, unspecified (13) BPH (benign prostatic hyperplasia): CODE(S): N40.0 - Benign prostatic hyperplasia without lower urinary tract symptoms (14) Essential hypertension: CODE(S): I10 - Essential (primary) hypertension (15) History of right inguinal hernia repair: CODE(S): Z98.890 - Other specified postprocedural states; Z87.19 - Personal history of other diseases of the digestive system (16) Left inguinal hernia: CODE(S): K40.90 - Unilateral inguinal hernia, without obstruction or gangrene, not specified as recurrent (17) Inactivity: CODE(S): Z72.3 - Lack of physical exercise (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 He presented with an ulceration on the left distal posterior calf, appearing to represent a blister, which had spontaneously unroofed. Based upon the patient's habits and lifestyle, it appears as though the swelling and edema and presenting manifestations were due to the patient's lifestyle and habits. He is idle most of each day, with very little activity. He also sleeps in a recliner, with his lower extremities in a dependent position. The patient has been advised to elevate his lower extremities as much as possible. This is to be accomplished both during nighttime and daytime hours. He has been encouraged to sleep on a flat mattress, with legs level with his heart, or higher. Leg e levation to heart level, or higher, has been encouraged during daytime hours as well. Prolonged idle sitting has been discouraged. Activity has been encouraged. We are to utilize collagen hydrogel topically to the ulceration on the left posterior calf, which is now nearly healed. Tubigrip's are to be provided to the patient for daily use bilaterally. Patient has been provided a prescription for graduated compression stockings of 10 to 15 mmHg compression, which he is to obtain at a local medical supply store. Once obtained, he is to wear these daily from morning until bedtime. The patient is to return in 2 weeks for reassessment. It is anticipated that his ulceration will be healed at that juncture. There has been continued improvement over the last several weeks. Nutritional optimization has been recommended. Total time: 28 minutes
[2022-05-01 08:09] VITALS: BP 149/80; PULSE 78; RESP 20; TEMP 36.4; BMI 20.7
--- NOTE | 2022-05-01 13:53 | PCM.WC.HP ---
History of Present Illness Date of Service: 05/01/22 Chief Complaint: Ulceration, left posterior calf History of Wound: This is an 81-year-old male with a longstanding history of swelling and edema in his lower extremities. He was referred for evaluation regarding an ulceration on his left posterior calf. According the patient, the ulceration had been present for approximately 3 weeks. The patient admits to a lack of activity. He sits idly a great deal of each day. Furthermore, he sleeps in a recliner with his legs in a dependent position. He indicates that his lack of activity is due to a balance disturbance. He denies a history of thrombophlebitis. A noninvasive lower extremity arterial study was performed on August 11, 2021, which revealed the presence of atherosclerosis, but no evidence of significant arterial occlusive disease. [facility] Medical History Ambulates with cane Atherosclerosis of arteries Cardiology follow-up encounter Trejo phlebectatica paraplantaris Dependent edema Difficulty chewing Essential hypertension History of echocardiogram History of edema History of irregular heartbeat History of stress test Hypertension Inactivity Left inguinal hernia Left leg swelling Leg edema, left Leg edema, right Non-pressure chronic ulcer of left calf with fat layer exposed Non-smoker Prostate disease Right leg swelling Wears dentures Wears glasses Home Medications aspirin 81 mg tablet,delayed release (Adult Low Dose Aspirin) 81 mg PO DAILY 12/26/21 [History Last Taken 02/28/22] omega-3 fatty acids 1,000 mg capsule (Super Meno-3) 1,000 mg PO DAILY 12/26/21 [History Last Taken 02/28/22] Allergy/AdvReac Type Severity Reaction Status Date / Time No Known Allergies Allergy Verified 01/17/22 13:55 Surgical History History of cataract extraction History of right inguinal hernia repair Hx of inguinal herniorrhaphy S/P cataract extraction S/P inguinal hernia repair Social History Smoking Status: Former smoker alcohol intake: never substance use type: does not use caffeine: Yes Type: tea Vital Signs Vital Signs Vital Signs: 05/01/22 08:09 Temperature 97.5 F L Temperature Source Temporal Pulse Rate 78 Respiratory Rate 20 H Blood Pressure 149/80 H Blood Pressure Mean 103 Blood Pressure Source Monitor Weight Weight: 140 lb Body Mass Index (BMI) 20.7 Physical Exam Const alert, oriented x3, no apparent distress, average body habitus and well nourished Constitutional Narrative: The patient is of relatively normal body habitus. General Appearance: cooperative, comfortable, well kempt and well developed Orientation / Consciousness: awake, oriented to person, oriented to place and oriented to time HEENT normocephalic and head/scalp atraumatic Head and Scalp: normal to inspection, normocephalic and atraumatic External Ear: external ears normal Eyes PERRL and EOMs intact bilaterally General Eye: normal appearance of both eyes Resp normal respiratory effort, normal air movement, no retractions and no use of accessory muscles Effort and Inspection: able to speak in complete sentences Extremity no calf tenderness General Extremity: Negative for clubbing or cyanosis Skin Wound Narrative: The ulceration for which the patient initially presented now appears to be completely healed. However, within the last week, a new blister has appeared on the left posterior calf, which is rather large in size. Upon evaluation today, the blister is intact. There is no sign of infection or cellulitis. Trejo phlebectatica Is noted about the left ankle. Mild swelling is noted in the left lower extremity. Neuro oriented x3, CN's II-XII intact bilaterally, moves all extremities and no focal motor deficits Sensorium / Orientation: awake, alert, oriented to person, oriented to place and oriented to time Psych Appearance: grossly normal and appropriate Attitude: calm Activity / Motor Behavior: appropriate eye contact Speech: normal speech Mood & Affect: euthymic mood Thought Process: normal thought process Thought Content: normal thought content Attention / Concentration: attention grossly intact Debridement Note Debridement Note No debridement was completed: No debridement was completed today (There are no open wounds or ulcerations. An intact blister is noted on the left posterior calf.) Post-Debridement Measurements and Additional Note: Post-Debridement Measurements/Treatment WC - Nurse 1 - General Ulcer Assessment Start: 04/03/22 08:06 Freq: Status: Active Protocol: MARY JANE Activity Type Activity Date Activity User E-sign Co-sign Detail Recorded Client Recorded Date Recorded By Document 04/03/22 08:06 [id number] 04/03/22 08:08 MW Document 04/06/22 08:27 DL [id number] 04/06/22 08:29 DL Edit Result 04/06/22 08:27 DL (1) [id number] 04/06/22 08:31 DL Document 04/10/22 14:47 AK [id number] 04/10/22 14:50 AK Document 04/17/22 08:32 AK [id number] 04/17/22 08:35 AK Document 05/01/22 08:09 DL [id number] 05/01/22 08:15 DL (1) Pulse Rate (60-100) => 82 Pulse Location => Monitor Blood Pressure (90/60-120/80) => 134/75 H Blood Pressure Mean => 94 Source => Monitor 04/03/22 04/06/22 04/10/22 08:06 08:27 14:47 WC - Today's Visit Information Type of service Follow-up Visit Nurse-only Follow-up Visit (Physician/[employer] Visit (Physician/[employer] ) ) Arrival Mode Ambulatory Ambulatory Cane Transfer Assistance None None None Accompanied by son Patient Identification Verified (Name & Yes Yes Yes ) Patient Requires Transmission-Based No No No Precautions Safety Precautions NA NA Height and Weight Body Mass Index (BMI) 20.7 20.7 20.7 BMI Classification Normal Normal Normal Vital Signs Temperature (97.8 F-99.1 F) 96.7 F L 97.3 F L 97 F L Temperature Source Temporal Temporal Temporal Pulse Rate (60-100) 84 82 78 Pulse Location Monitor Monitor Monitor Respiratory Rate (12-18) 16 18 16 Respiratory rate source Observation Observation Observation Oxygen Delivery Method Room Air Blood Pressure (90/60-120/80) 139/68 H 134/75 H 144/75 H Blood Pressure Mean 91 94 98 Source Monitor Monitor Monitor Position Sitting Sitting Blood Pressure Location Left Arm Left Arm History Since Last Visit- (Skip if this is Patient's initial visit) Have you changed medications since your No No No last visit? Any new allergies or adverse reactions No No No Had a fall/change in ADL's that may No No No increase risk of falls Signs or symptoms of abuse and/or No No No neglect since last visit Have you been in the hospital since your No No No last visit? Has dressing in place as prescribed Yes Yes Yes Has compression in place as prescribed Yes Yes N/A Has offloadiing in place as prescribed N/A N/A Experienced any changes in pain level or No No No management Left Footwear Regular Shoe Regular Shoe Regular Shoe Right Footwear Regular Shoe Regular Shoe Regular Shoe Pain Scale: 0-10 Numeric Is Patient Pain Free? Yes Yes Yes 04/17/22 05/01/22 08:32 08:09 - Today's Visit Information Type of service Follow-up Visit Follow-up Visit (Physician/[employer] (Physician/[employer] ) ) Arrival Mode Ambulatory,Cane Ambulatory Transfer Assistance None Accompanied by Patient Identification Verified (Name & Yes Yes ) Patient Requires Transmission-Based No No Precautions Safety Precautions Height and Weight Body Mass Index (BMI) 20.7 20.7 BMI Classification Normal Normal Vital Signs Temperature (97.8 F-99.1 F) 97.9 F 97.5 F L Temperature Source Temporal Temporal Pulse Rate (60-100) 79 78 Pulse Location Monitor Monitor Respiratory Rate (12-18) 20 H Respiratory rate source Observation Oxygen Delivery Method Blood Pressure (90/60-120/80) 111/68 149/80 H Blood Pressure Mean 82 103 Source Monitor Monitor Position Blood Pressure Location History Since Last Visit- (Skip if this is Patient's initial visit) Have you changed medications since your No No last visit? Any new allergies or adverse reactions No No Had a fall/change in ADL's that may No No increase risk of falls Signs or symptoms of abuse and/or No No neglect since last visit Have you been in the hospital since your No No last visit? Has dressing in place as prescribed Yes Yes Has compression in place as prescribed N/A Yes Has offloadiing in place as prescribed N/A N/A Experienced any changes in pain level or No No management Left Footwear Regular Shoe Right Footwear Regular Shoe Pain Scale: 0-10 Numeric Is Patient Pain Free? Yes Yes - Nurse 1 - General Ulcer Measurement Start: 04/03/22 08:06 Freq: Status: Active Protocol: Activity Type Activity Date Activity User E-sign Co-sign Detail Recorded Client Recorded Date Recorded By Document 04/03/22 08:06 KIM [id number] 04/03/22 08:08 MW Document 04/06/22 08:27 DL [id number] 04/06/22 08:29 DL Edit Result 04/06/22 08:27 DL (1) [id number] 04/06/22 08:31 DL Document 04/10/22 14:47 AK [id number] 04/10/22 14:50 AK Document 04/17/22 08:32 AK [id number] 04/17/22 08:35 AK Document 05/01/22 08:09 DL [id number] 05/01/22 08:15 DL (1) Left Calf (cm) => 32.5 Left Ankle (cm) => 22 04/03/22 04/06/22 04/10/22 08:06 08:27 14:47 Wound Center Nurse 1 #1 Left posterior LE -Combined with other wound No -Current Size (cm) - Length 1.5 1 -Current Size (cm) - Width 1.0 0.8 -Current Size (cm) - Depth 0.1 0.1 -Total Square Cm 1.50 0.8 -Date of Last Picture (Recall this 04/03/22 field) -Photo Taken Yes No -Epithelialization None Present Large 67-100% -Tunneling No -Undermining/Tunneling No -Circular Undermining No -Change in Wound Grade/Stage -Exudate Amt Small Small None Present -Exudate Type Serosanguineous Serous -Wound Margin Flat & Intact Distinct, Outline Attached -Granulation Amt Large (67-100%) Large (67-100%) Large (67-100%) -Granulation Quality [place] Red -Slough/Fibrin No No -Necrosis Amt None Present (0 None Present (0 %) %) -Necrotic Tissue Type Adherent Slough -Structure Exposed N/A N/A -Texture (Yun-wound Skin Appearance) Assessed, Scarring Assessed Localized Edema -Moisture (Yun-wound Skin Appearance) Assessed,Dry/ Dry/Scaly Assessed Scaly -Color (Yun-wound Skin Appearance) Assessed, No Abnormality Assessed Ecchymosis, Hemosiderin Staining -Temperature (Yun-wound Skin No Abnormality No Abnormality Appearance) (Pt Warm) (Pt Warm) -Tenderness on Palpation (Yun-wound No No Skin Appearance) -Ulcer Cleansing Soap and Water Soap and Water Soap and Water -Foul Odor after Cleansing No No No -Anesthetic Used 5% Lidocaine 5% Lidocaine Gel Gel Lower Limb Edema Present Yes Left Calf (cm) 32.5 32.5 33.5 Left Ankle (cm) 22.5 22 23 04/17/22 05/01/22 08:32 08:09 Wound Center Nurse 1 #1 Left posterior LE -Combined with other wound No No -Current Size (cm) - Length 0.1 0.1 -Current Size (cm) - Width 0.1 0.1 -Current Size (cm) - Depth 0.1 0.1 -Total Square Cm 0.01 0.01 -Date of Last Picture (Recall this 04/17/22 05/01/22 field) -Photo Taken Yes Yes -Epithelialization Large 67-100% -Tunneling No No -Undermining/Tunneling No No -Circular Undermining No No -Change in Wound Grade/Stage No -Exudate Amt None Present -Exudate Type -Wound Margin -Granulation Amt None Present (0 %) -Granulation Quality N/A -Slough/Fibrin No -Necrosis Amt None Present (0 %) -Necrotic Tissue Type -Structure Exposed N/A -Texture (Yun-wound Skin Appearance) No Abnormality, Assessed, Assessed Scarring -Moisture (Yun-wound Skin Appearance) No Abnormality, Assessed,Dry/ Assessed Scaly -Color (Yun-wound Skin Appearance) No Abnormality, Assessed Assessed -Temperature (Yun-wound Skin No Abnormality No Abnormality Appearance) (Pt Warm) (Pt Warm) -Tenderness on Palpation (Yun-wound No No Skin Appearance) -Ulcer Cleansing Rinsed/ Rinsed/ Irrigated with Irrigated with Saline Saline -Foul Odor after Cleansing No No -Anesthetic Used 5% Lidocaine Gel Lower Limb Edema Present Yes Left Calf (cm) 31.5 Left Ankle (cm) 22.5 WC - Nurse 2 - General Ulcer CM Notes Start: 04/03/22 08:06 Freq: Status: Active Protocol: Activity Type Activity Date Activity User E-sign Co-sign Detail Recorded Client Recorded Date Recorded By Document 04/03/22 12:26 PL [id number] 04/03/22 12:27 PL Document 04/10/22 15:20 PL [id number] 04/10/22 15:21 PL Document 05/01/22 08:29 MW [id number] 05/01/22 08:32 MW 04/03/22 04/10/22 05/01/22 12:26 15:20 08:29 Wound Center Nurse 2 #1 Left posterior LE -Time 08:30 14:54 08:29 -Correct Patient Yes Yes Yes -Correct Side, Site, Position Yes Yes Yes -Correct Procedure Yes Yes Yes -Procedure Performed Yes Yes -Type of Procedure Debridement -Type of Procedure Debridement Debridement -Clinical Debridement Subcutaneous Subcutaneous -Tissue Removed Subcutaneous Subcutaneous -Post Debridement (cm) - Length 1.5 1.0 0 -Post Debridement (cm) - Width 1.0 0.8 0 -Post Debridement (cm) - Depth 0.1 0.1 0 -Total Square (Post) (cm) 1.50 0.80 0 -Area of Debridement (cm) - Length 1.5 1.0 -Area of Debridement (cm) - Width 1.0 0.8 -Total Square (Area) (cm) 1.50 0.80 -Tunneling No No No -Undermining/Tunneling No No No -Circular Undermining No No No -Wound/Ulcer Outcome Not Healed Not Healed Not Healed -Ulcer Cleansing Rinsed/ Rinsed/ Rinsed/ Irrigated with Irrigated with Irrigated with Saline Saline Saline -Foul Odor after Cleansing No No No -Bioengineered Tissue No No No -Bleeding Controlled with Pressure -Treatment Response Procedure Procedure Tolerated Well Tolerated Well -Offloading No -Debridement - Subq, 1st 20sq cm Yes Yes #2 left posterior LE blister -Time 08:31 -Correct Patient Yes -Correct Side, Site, Position Yes -Correct Procedure Yes -Procedure Performed No -Tunneling No -Undermining/Tunneling No -Circular Undermining No -Wound/Ulcer Outcome Not Healed -Ulcer Cleansing Not Cleansed -Foul Odor after Cleansing No -Bioengineered Tissue No -Bleeding Controlled with NA -Offloading No Pain Scale: 0-10 Numeric Is Patient Pain Free? Yes Yes Yes WC - Nurse 3 - General Ulcer D/C NN Start: 04/03/22 08:06 Freq: Status: Active Protocol: Activity Type Activity Date Activity User E-sign Co-sign Detail Recorded Client Recorded Date Recorded By Document 04/03/22 08:47 MW [id number] 04/03/22 08:49 MW Document 04/06/22 08:27 DL [id number] 04/06/22 08:29 DL Edit Result 04/06/22 08:27 DL (1) [id number] 04/06/22 08:31 DL Document 04/10/22 15:08 AK [id number] 04/10/22 15:10 AK Document 04/17/22 09:06 AK [id number] 04/17/22 09:07 AK Document 05/01/22 08:35 BMF [id number] 05/01/22 08:38 BMF (1) Pulse Rate (60-100) => 82 Pulse Location => Monitor Blood Pressure (90/60-120/80) => 134/75 H Blood Pressure Mean => 94 Source => Monitor 04/03/22 04/06/22 04/10/22 08:47 08:27 15:08 Wound Care Center Nurse 3 #1 Left posterior LE -Ulcer Cleansing Rinsed/ Rinsed/ Irrigated with Irrigated with Saline Saline -Foul Odor after Cleansing No No -Negative Pressure Wound Therapy N/A N/A -Primary Dressing Applied NonAdherent NonAdherent Contact Layer Contact Layer, Promogran -Other Dressing promogran -Primary Dressing Covered/Secured with Dry Gauze -Promogran 0 #2 left posterior LE blister -Ulcer Cleansing -Foul Odor after Cleansing -Primary Dressing Applied -Other Dressing -Primary Dressing Covered/Secured with Right -Lotion applied to leg before No compression wrap -Tubular Bandage Single Layer -Size of Tubigrip Used Size D -Size D ($) 1 Left -Lotion applied to leg before No No compression wrap -Multi-Layered Wrap Application Multi-Layer Multi-Layer Multi-Layer Comp - Left ($) Comp - Left ($) Comp - Left ($) -Tubular Bandage -Size of Tubigrip Used -Size D ($) Treatment Response Procedure Procedure Tolerated Well Tolerated Well Vital Signs Temperature (97.8 F-99.1 F) 97.3 F L Temperature Source Temporal Pulse Rate (60-100) 82 Pulse Location Monitor Respiratory Rate (12-18) 18 Respiratory rate source Observation Blood Pressure (90/60-120/80) 134/75 H Blood Pressure Mean 94 Source Monitor Pain Scale: 0-10 Numeric Is Patient Pain Free? Yes Yes Yes Teaching: Wound Center Dressing Your Wound -Person Taught Patient,Family -Teaching Method Discussion, Demonstration -Response to teaching Verbalize understanding WC - Visit Discharge Discharge Condition Stable Stable Stable Ambulatory Status Ambulatory Ambulatory,Cane Ambulatory Transportation Private Auto Private Auto Private Auto Accompanied by son son Medication Reconcilliation completed & No Yes provided to patient/care provider Clinical Summary of Care Provided Yes Yes Notes: Dressing applied per Kassidy Gustafson [employer] 04/17/22 05/01/22 09:06 08:35 Wound Care Center Nurse 3 #1 Left posterior LE -Ulcer Cleansing Rinsed/ Irrigated with Saline -Foul Odor after Cleansing No -Negative Pressure Wound Therapy N/A -Primary Dressing Applied C Hydrogel ($) -Other Dressing -Primary Dressing Covered/Secured with Dry Gauze, Secured with Tape -Promogran #2 left posterior LE blister -Ulcer Cleansing Rinsed/ Irrigated with Saline -Foul Odor after Cleansing No -Primary Dressing Applied NonAdherent Contact Layer -Other Dressing drsg per dl quarryman -Primary Dressing Covered/Secured with Dry Gauze & Roll Gauze, Secured with Tape Right -Lotion applied to leg before compression wrap -Tubular Bandage -Size of Tubigrip Used -Size D ($) Left -Lotion applied to leg before No compression wrap -Multi-Layered Wrap Application -Tubular Bandage Single Layer Single Layer -Size of Tubigrip Used Size D Size D -Size D ($) 1 1 Treatment Response Procedure Tolerated Well Vital Signs Temperature (97.8 F-99.1 F) Temperature Source Pulse Rate (60-100) Pulse Location Respiratory Rate (12-18) Respiratory rate source Blood Pressure (90/60-120/80) Blood Pressure Mean Source Pain Scale: 0-10 Numeric Is Patient Pain Free? Yes Yes Teaching: Wound Center Dressing Your Wound -Person Taught -Teaching Method -Response to teaching WC - Visit Discharge Discharge Condition Stable Stable Ambulatory Status Ambulatory Ambulatory Transportation Private Auto Private Auto Accompanied by son son Medication Reconcilliation completed & Yes provided to patient/care provider Clinical Summary of Care Provided Yes Notes: Assessment/Plan Assessment/Plan (1) Non-pressure chronic ulcer of left calf with fat layer exposed: CODE(S): L97.222 - Non-pressure chronic ulcer of left calf with fat layer exposed (2) Dependent edema: CODE(S): R60.9 - Edema, unspecified (3) Leg edema, left: CODE(S): R60.0 - Localized edema (4) Leg edema, right: CODE(S): R60.0 - Localized edema (5) Left leg swelling: CODE(S): M79.89 - Other specified soft tissue disorders (6) Right leg swelling: CODE(S): M79.89 - Other specified soft tissue disorders (7) Atherosclerosis of arteries: CODE(S): I70.90 - Unspecified atherosclerosis (8) Wound of lower extremity: CODE(S): S81.809A - Unspecified open wound, unspecified lower leg, initial encounter (9) COPD (chronic obstructive pulmonary disease): CODE(S): J44.9 - Chronic obstructive pulmonary disease, unspecified (10) Gout: CODE(S): M10.9 - Gout, unspecified (11) Hemorrhoids: CODE(S): K64.9 - Unspecified hemorrhoids (12) Cardiac murmur: CODE(S): R01.1 - Cardiac murmur, unspecified (13) BPH (benign prostatic hyperplasia): CODE(S): N40.0 - Benign prostatic hyperplasia without lower urinary tract symptoms (14) Essential hypertension: CODE(S): I10 - Essential (primary) hypertension (15) History of right inguinal hernia repair: CODE(S): Z98.890 - Other specified postprocedural states; Z87.19 - Personal history of other diseases of the digestive system (16) Left inguinal hernia: CODE(S): K40.90 - Unilateral inguinal hernia, without obstruction or gangrene, not specified as recurrent (17) Inactivity: CODE(S): Z72.3 - Lack of physical exercise (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 He presented with an ulceration on the left distal posterior calf, appearing to represent a blister, which had spontaneously unroofed. Based upon the patient's habits and lifestyle, it appears as though the swelling and edema and presenting manifestations were due to the patient's lifestyle and habits. He is idle most of each day, with very little activity. He also sleeps in a recliner, with his lower extremities in a dependent position. The patient has been advised to elevate his lower extremities as much as possible. This is to be accomplished both during nighttime and daytime hours. He has been encouraged to sleep on a flat mattress, with legs level with his heart, or higher. Leg elevation to heart level, or higher, has been encouraged during daytime hours as well. Prolonged idle sitting has been discouraged. Activity has been encouraged. The original ulcer for which the patient initially presented is now completely healed. However, the patient presented today with a new blister on the left posterior calf, which is currently intact. There is also noted to be slight swelling and edema in his left lower extremity. The intact blister has been left undisturbed. It will ultimately unroofed spontaneously. Once this occurs, the patient has been instructed to apply collagen hydrogel topically. He is to continue with leg elevation, avoidance of idle standing and sitting, and the use of Tubigrip's to the lower extremities for compression. Patient is to return in 1 week, where it is anticipated that it will be necessary to debride the residual epidermis which currently covers the intact blister. A decision will then be made as to the appropriate means of management of the unroofed blister until epithelialization occurs. Tubigrip's have been provided to the patient for daily use bilaterally. The patient has been provided a prescription for graduated compression stockings of 10 to 15 mmHg compression, which he is to obtain at a local medical supply store. Once obtained, he is to wear these daily from morning until bedtime. The patient is to return in 1 week for reassessment. Nutritional optimization has been recommended. Total time: 26 minutes
== END 2022-05-01 23:59 | disposition home or self-care (01) ==
LOC: WC 08:15
PROVIDERS: PCP Family Medicine; Visit Provider Surgery
DX: L97.222 Non-pressure chronic ulcer of left calf with fat layer exposed (principal); J44.9 Chronic obstructive pulmonary disease, unspecified; R09.89 Other specified symptoms and signs involving the circulatory and respiratory systems; I70.90 Unspecified atherosclerosis; M79.89 Other specified soft tissue disorders; R60.0 Localized edema; I10 Essential (primary) hypertension; N40.0 Benign prostatic hyperplasia without lower urinary tract symptoms; M10.9 Gout, unspecified; K64.9 Unspecified hemorrhoids; Z79.82 Long term (current) use of aspirin; Z87.891 Personal history of nicotine dependence
CPT/HCPCS: 11042; 29581; 99213; G0463

== ENCOUNTER 2022-05-08 08:12 | Outpatient (RCR) | payer MEDICARE, SELFPAY ==
[2022-05-02 00:35] VITALS: BP 149/80; PULSE 78; RESP 20; TEMP 36.4; BMI 20.7
[2022-05-08 08:07] VITALS: BP 150/79; PULSE 81; RESP 18; TEMP 35.7; BMI 20.7
--- NOTE | 2022-05-08 11:44 | PCM.WC.HP ---
History of Present Illness Date of Service: 05/08/22 Chief Complaint: Ulceration, left posterior calf History of Wound: This is an 81-year-old male with a longstanding history of swelling and edema in his lower extremities. He was referred for evaluation regarding an ulceration on his left posterior calf. According the patient, the ulceration had been present for approximately 3 weeks. The patient admits to a lack of activity. He sits idly a great deal of each day. Furthermore, he sleeps in a recliner with his legs in a dependent position. He indicates that his lack of activity is due to a balance disturbance. He denies a history of thrombophlebitis. A noninvasive lower extremity arterial study was performed on August 11, 2021, which revealed the presence of atherosclerosis, but no evidence of significant arterial occlusive disease. [facility] Medical History Ambulates with cane Atherosclerosis of arteries Cardiology follow-up encounter Trejo phlebectatica paraplantaris Dependent edema Difficulty chewing Essential hypertension History of echocardiogram History of edema History of irregular heartbeat History of stress test Hypertension Inactivity Left inguinal hernia Left leg swelling Leg edema, left Leg edema, right Non-pressure chronic ulcer of left calf with fat layer exposed Non-smoker Prostate disease Right leg swelling Wears dentures Wears glasses Home Medications aspirin 81 mg tablet,delayed release (Adult Low Dose Aspirin) 81 mg PO DAILY 12/26/21 [History Last Taken 02/28/22] omega-3 fatty acids 1,000 mg capsule (Super [place]-3) 1,000 mg PO DAILY 12/26/21 [History Last Taken 02/28/22] Allergy/AdvReac Type Severity Reaction Status Date / Time No Known Allergies Allergy Verified 01/17/22 13:55 Surgical History History of cataract extraction History of right inguinal hernia repair Hx of inguinal herniorrhaphy S/P cataract extraction S/P inguinal hernia repair Social History Smoking Status: Former smoker alcohol intake: never substance use type: does not use caffeine: Yes Type: tea Vital Signs Vital Signs Vital Signs: 05/08/22 08:07 Temperature 96.2 F L Temperature Source Temporal Pulse Rate 81 Respiratory Rate 18 Blood Pressure 150/79 H Blood Pressure Mean 102 Blood Pressure Source Monitor Weight Weight: 140 lb Body Mass Index (BMI) 20.7 Physical Exam Const alert, oriented x3, no apparent distress and average body habitus Constitutional Narrative: The patient is of relatively normal body habitus. General Appearance: cooperative, comfortable, well kempt and well developed Orientation / Consciousness: awake, oriented to person, oriented to place and oriented to time HEENT normocephalic and head/scalp atraumatic Head and Scalp: normal to inspection, normocephalic and atraumatic External Ear: external ears normal Eyes PERRL and EOMs intact bilaterally General Eye: normal appearance of both eyes Resp normal respiratory effort, normal air movement, no retractions and no use of accessory muscles Effort and Inspection: able to speak in complete sentences Extremity no calf tenderness General Extremity: Negative for clubbing or cyanosis Skin Wound Narrative: The ulceration for which the patient initially presented remains completely healed. However, a new blister appeared on the left posterior calf, which was rather large in size. Upon evaluation today, the blister spontaneously unroofed, and is now completely healed. There are no open ulcerations in the left lower extremity, all of which have now completely healed and epithelialized. Trejo phlebectatica is noted about the left ankle. No significant swelling or edema are noted in the lower extremities. Neuro oriented x3, CN's II-XII intact bilaterally, moves all extremities and no focal motor deficits Sensorium / Orientation: awake, alert, oriented to person, oriented to place and oriented to time Psych Appearance: grossly normal and appropriate Attitude: calm Activity / Motor Behavior: appropriate eye contact Speech: normal speech Mood & Affect: euthymic mood Thought Process: normal thought process Thought Content: normal thought content Attention / Concentration: attention grossly intact Debridement Note Debridement Note No debridement was completed: No debridement was completed today (There are no open wounds or ulcerations in the patient's left lower extremity.) Post-Debridement Measurements and Additional Note: Post-Debridement Measurements/Treatment WC - Nurse 1 - General Ulcer Assessment Start: 05/08/22 08:06 Freq: Status: Active Protocol: MARY JANE Activity Type Activity Date Activity User E-sign Co-sign Detail Recorded Client Recorded Date Recorded By Document 05/08/22 08:07 MATTHEW [id number] 05/08/22 08:13 MATTHEW 05/08/22 08:07 WC - Today's Visit Information Type of service Follow-up Visit (Physician/[employer]OR ) Arrival Mode Ambulatory Transfer Assistance None Patient Identification Verified (Name & Yes ) Patient Requires Transmission-Based No Precautions Height and Weight Body Mass Index (BMI) 20.7 BMI Classification Normal Vital Signs Temperature (97.8 F-99.1 F) 96.2 F L Temperature Source Temporal Pulse Rate (60-100) 81 [address]ulse [address] Monitor Respiratory Rate (12-18) 18 Respiratory rate source Observation Blood Pressure (90/60-120/80) 150/79 H Blood Pressure Mean 102 Source Monitor History Since Last Visit- (Skip if this is Patient's initial visit) Have you changed medications since your No last visit? Any new allergies or adverse reactions No Had a fall/change in ADL's that may No increase risk of falls Signs or symptoms of abuse and/or No neglect since last visit Have you been in the hospital since your No last visit? Has dressing in place as prescribed Yes Has compression in place as prescribed Yes Has offloadiing in place as prescribed N/A Pain Scale: 0-10 Numeric Is Patient Pain Free? Yes - Nurse 1 - General Ulcer Measurement Start: 05/08/22 08:06 Freq: Status: Active Protocol: Activity Type Activity Date Activity User E-sign Co-sign Detail Recorded Client Recorded Date Recorded By Document 05/08/22 08:07 MATTHEW [id number] 05/08/22 08:13 MATTHEW 05/08/22 08:07 Wound Center Nurse 1 #2 left posterior LE blister -Current Size (cm) - Length 0 -Current Size (cm) - Width 0 -Current Size (cm) - Depth 0 -Total Square Cm 0 -Photo Taken Yes -Exudate Amt None Present -Wound Margin Indistinct, Non -Visible -Granulation Amt Large (67-100%) -Granulation Quality [place] -Necrosis Amt None Present (0 %) -Structure Exposed N/A -Texture (Yun-wound Skin Appearance) Scarring -Moisture (Yun-wound Skin Appearance) Dry/Scaly -Color (Yun-wound Skin Appearance) Hemosiderin Staining -Temperature (Yun-wound Skin No Abnormality Appearance) (Pt Warm) -Tenderness on Palpation (Yun-wound No Skin Appearance) -Ulcer Cleansing Soap and Water -Foul Odor after Cleansing No Right Calf (cm) 30.5 Right Ankle (cm) 20.3 Left Calf (cm) 31 Left Ankle (cm) 21.1 WC - Nurse 2 - General Ulcer CM Notes Start: 05/08/22 08:06 Freq: Status: Active Protocol: Activity Type Activity Date Activity User E-sign Co-sign Detail Recorded Client Recorded Date Recorded By Document 05/08/22 08:28 MW [id number] 05/08/22 08:31 MW 05/08/22 08:28 Wound Center Nurse 2 #2 left posterior LE blister -Time 08:30 -Correct Patient Yes -Correct Side, Site, Position Yes -Correct Procedure Yes -Procedure Performed No -Post Debridement (cm) - Length 0 -Post Debridement (cm) - Width 0 -Post Debridement (cm) - Depth 0 -Total Square (Post) (cm) 0 -Wound/Ulcer Outcome Healed- Epithelialized Pain Scale: 0-10 Numeric Is Patient Pain Free? Yes WC - Nurse 3 - General Ulcer D/C NN Start: 05/08/22 08:06 Freq: Status: Active Protocol: Activity Type Activity Date Activity User E-sign Co-sign Detail Recorded Client Recorded Date Recorded By Document 05/08/22 08:32 MW [id number] 05/08/22 08:33 MW Document 05/08/22 08:55 DL [id number] 05/08/22 08:56 DL 05/08/22 05/08/22 08:32 08:55 Wound Care Center Nurse 3 Right -Lotion applied to leg before No compression wrap -Tubular Bandage Single Layer Single Layer -Size of Tubigrip Used Size D Size D -Size D ($) 1 1 Left -Tubular Bandage Single Layer Single Layer -Size of Tubigrip Used Size D Size D -Size D ($) 1 1 Treatment Response Procedure Tolerated Well Pain Scale: 0-10 Numeric Is Patient Pain Free? Yes Yes Teaching: Wound Center Control Swelling with Leg Elevation -Person Taught Patient -Teaching Method Discussion -Response to teaching Verbalize understanding Discharge Instructions -Person Taught Patient -Teaching Method Discussion -Response to teaching Verbalize understanding WC - Visit Discharge Discharge Condition Stable Stable Ambulatory Status Ambulatory Ambulatory Transportation Private Auto Private Auto Accompanied by lucia Medication Reconcilliation completed & No provided to patient/care provider Clinical Summary of Care Provided Yes Notes: healed, discharged. Assessment/Plan Assessment/Plan (1) Non-pressure chronic ulcer of left calf with fat layer exposed: CODE(S): L97.222 - Non-pressure chronic ulcer of left calf with fat layer exposed (2) Dependent edema: CODE(S): R60.9 - Edema, unspecified (3) Leg edema, left: CODE(S): R60.0 - Localized edema (4) Leg edema, right: CODE(S): R60.0 - Localized edema (5) Left leg swelling: CODE(S): M79.89 - Other specified soft tissue disorders (6) Right leg swelling: CODE(S): M79.89 - Other specified soft tissue disorders (7) Atherosclerosis of arteries: CODE(S): I70.90 - Unspecified atherosclerosis (8) Wound of lower extremity: CODE(S): S81.809A - Unspecified open wound, unspecified lower leg, initial encounter (9) COPD (chronic obstructive pulmonary disease): CODE(S): J44.9 - Chronic obstructive pulmonary disease, unspecified (10) Gout: CODE(S): M10.9 - Gout, unspecified (11) Hemorrhoids: CODE(S): K64.9 - Unspecified hemorrhoids (12) Cardiac murmur: CODE(S): R01.1 - Cardiac murmur, unspecified (13) BPH (benign prostatic hyperplasia): CODE(S): N40.0 - Benign prostatic hyperplasia without lower urinary tract symptoms (14) Essential hypertension: CODE(S): I10 - Essential (primary) hypertension (15) History of right inguinal hernia repair: CODE(S): Z98.890 - Other specified postprocedural states; Z87.19 - Personal history of other diseases of the digestive system (16) Left inguinal hernia: CODE(S): K40.90 - Unilateral inguinal hernia, without obstruction or gangrene, not specified as recurrent (17) Inactivity: CODE(S): Z72.3 - Lack of physical exercise (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 He presented with an ulceration on the left distal posterior calf, appearing to represent a blister, which had spontaneously unroofed. Based upon the patient's habits and lifestyle, it appears as though the swelling and edema and presenting manifestations were due to the patient's lifestyle and habits. He is idle most of each day, with very little activity. He also sleeps in a recliner, with his lower extremities in a dependent position. The patient has been advised to elevate his lower extremities as much as possible. This is to be accomplished both during nighttime and daytime hours. He has been encouraged to sleep on a flat mattress, with legs level with his heart, or higher. Leg elevation to heart level, or higher, has been encouraged during daytime hours as well. Prolonged idle sitting has been discouraged. Activity has been encouraged. All ulcerations of the left lower extremity appear to be completely healed at this time. In addition, the swelling and edema in the patient's lower extremities appears to be well controlled. The patient is to continue with leg elevation, avoidance of idle standing and sitting, and compression to the lower extremities. The patient has been provided a prescription for graduated compression stockings of 10 to 15 mmHg compression, which he is to obtain at a local medical supply store. Once obtained, he is to wear these daily from morning until bedtime. The patient is to be discharged, will follow up henceforth on an as-needed basis. Total time: 25 minutes
== END 2022-05-29 11:03 | disposition home or self-care (01) ==
LOC: WC 08:12
PROVIDERS: PCP Family Medicine; Visit Provider Surgery
DX: Z09 Encounter for follow-up examination after completed treatment for conditions other than malignant neoplasm (principal); Z79.82 Long term (current) use of aspirin; R60.0 Localized edema; Z87.891 Personal history of nicotine dependence; I10 Essential (primary) hypertension
CPT/HCPCS: 99213; G0463

== ENCOUNTER 2024-02-04 09:51 | Inpatient (IN) | payer MEDICARE, SELFPAY ==
[2024-02-04] VITALS (9 sets, daily range): BP systolic 95–182; BP diastolic 57–97; PULSE 72–83; RESP 12–22; TEMP 36.4–36.7; O2SAT 96–100; BMI 18.3; BMI 16.9
--- NOTE | 2024-02-04 10:27 | CT_ITS ---
STUDY: CT ABDOMEN AND PELVIS WITHOUT CONTRAST REASON FOR EXAM: Male, 83 years old. Back pain. RADIATION DOSAGE (If Supplied By Facility): CTDIvol = ( 6.04 ) mGy, DLP = ( 291.44 ) mGycm TECHNIQUE: Transaxial images were obtained from the dome of the diaphragm to the symphysis pubis without oral contrast, and without intravenous contrast. Sagittal and coronal images were reconstructed. Individualized dose optimization techniques were used for this CT. COMPARISON: Comparison is made with prior study of October 25, 2021. FINDINGS: Small left pleural effusion with left basilar atelectasis and/or early infiltrate. Mild right basilar atelectasis. Coronary artery calcification. Normal liver. Normal gallbladder and extrahepatic biliary system. Normal spleen. Normal pancreas. Normal bilateral adrenal glands. Moderate degree of bilateral hydronephrosis and hydroureter. There is a 2.9 cm cyst in the posterior lower midportion of the right kidney. Nonspecific bilateral perinephric stranding worse on the right side. Normal visualized stomach. Normal small intestine. Normal colon. The appendix is visualized and appears normal. There is diffuse atherosclerotic calcification of the abdominal aorta and its major visceral branches, without a demonstrated aneurysm. Normal inferior vena cava. Normal retroperitoneum. There is a marked degree of a distention of the urinary bladder. Tiny calcifications are seen at the base of the bladder on the right side. Questionable recently passed stones. Prostatic enlargement with indentation at the bladder base worse on the left side. The prostate measures 5.6 cm x 4.7 cm. There is a left-sided inguinal hernia containing adipose tissue. There are diffuse degenerative changes of the visualized lumbar spine. Heterogeneous appearance of the bony structures. Questionable metastatic disease. CT/Abdomen/Pelvis without Cont IMPRESSION: Bilateral hydronephrosis and hydroureter. Marked degree of the bladder distention. Enlarged heterogeneous prostate with indentation at the bladder base worse on the left side. Left inguinal hernia. Heterogeneous appearance of the bony structures. Metastatic disease should be ruled out. Electronically Signed: Gage Quinones MD at 12:15 EST ,
--- NOTE | 2024-02-04 10:28 | ED.VIS.GI ---
HPI HPI - GI History of Present Illness Chief Complaint: Abd Pain Narrative Narrative: 83-year-old male past medical history/surgical history of remote hernia [place] years ago presents with abdominal pain that he has had for the last few weeks. He denies any fevers or chills, but feels cold, no nausea or vomiting. He occasionally gets diarrhea. His pain is worse when he lays back and when he sits forward as well. No other exacerbating or alleviating factors. No problems with urination. He states that the pain was so bad today that he decided to come to the hospital, although his pain has been going on for weeks. [facility] Medical History (Updated 02/04/24 @ 14:32 by Albaro Paiz MD) Anxiety Former smoker Non-pressure chronic ulcer of left calf with fat layer exposed Atherosclerosis of arteries Dependent edema Leg edema, right Leg edema, left Right leg swelling Left leg swelling Trejo phlebectatica paraplantaris Inactivity Left inguinal hernia Wears glasses Wears dentures Ambulates with cane Prostate disease Difficulty chewing Non-smoker History of edema History of irregular heartbeat Cardiology follow-up encounter History of echocardiogram History of stress test Essential hypertension Hypertension Home Medications ?Medication ?Instructions ?Recorded ?Last Taken ?Type aspirin 81 mg tablet,delayed 81 mg PO DAILY 12/26/21 02/28/22 History release (Adult Low Dose Aspirin) omega-3 fatty acids 1,000 mg 1,000 mg PO DAILY 12/26/21 02/28/22 History capsule (Super [place]-3) Allergy/AdvReac Type Severity Reaction Status Date / Time No Known Allergies Allergy Verified 02/04/24 09:59 Surgical History History of cataract extraction History of right inguinal hernia repair S/P inguinal hernia repair S/P cataract extraction Hx of inguinal herniorrhaphy Social History Smoking Status: Former smoker alcohol intake: never substance use type: does not use caffeine: Yes Type: tea ROS ROS ED ROS Narrative Constitutional: No fever, no chills. HEENT: No sore throat. No neck pain. No loss of vision. No rhinorrhea. Cardiovascular: No chest pain. No palpitations. No pedal edema. Respiratory: No cough, no shortness of breath. Abdominal: Positive diffuse abdominal pain. No nausea. No vomiting. Occasional diarrhea. Genitourinary: No dysuria. No hematuria. Musculoskeletal: No myalgias. No arthralgias. Neurologic: No headaches. No dizziness. No lightheadedness. Skin: No rash. No change in color. EXAM Physical Exam Narrative Exam Narrative: Afebrile. Vital signs noted. Nontoxic-appearing. Positive cachexia. Cardiovascular examination reveals a regular rate and rhythm. Lungs are clear to auscultation bilaterally anteriorly without wheezing or accessory muscle use. Abdomen is soft with voluntary guarding diffusely, especially in the left lower quadrant. Positive bowel sounds. Neurological examination shows him to be awake, alert, and oriented. Bilateral lower extremity pedal edema noted with dry flaky skin on feet bilaterally. Const Vital Signs: 02/04/24 09:52 02/04/24 10:51 02/04/24 11:00 Temperature 98.0 F Temperature Source Oral Pulse Rate 80 77 77 Respiratory Rate 18 18 18 Blood Pressure 182/97 H 182/91 H 180/88 H Blood Pressure Mean 125 121 118 Pulse Ox 98 96 96 Oxygen Delivery Method Room Air 02/04/24 12:00 02/04/24 13:00 02/04/24 14:01 Temperature 97.6 F L Temperature Source Pulse Rate 82 78 83 Respiratory Rate 16 16 22 H Blood Pressure 131/73 H 128/70 H 131/73 H Blood Pressure Mean 92 89 92 Pulse Ox 99 99 97 Oxygen Delivery Method MDM MDM MDM Narrative Medical decision making narrative: Differential diagnosis includes but not limited to partial bowel obstruction versus colitis versus diverticulitis versus pancreatitis versus ischemic colitis. Patient administered morphine 2 mg intravenously and Zofran 4 mg intravenously for analgesia as well as a bolus of IV fluids. I do feel that he requires CT imaging as well as basic laboratory work. I reviewed his laboratory work and he has normal white count of 7.8, hemoglobin 14.3, hematocrit 42.2, platelet count normal at 338. BUN is elevated at 45 with creatinine 3.01. When compared to prior labs from 2021, he had a normal creatinine of 0.8. Glucose is elevated at 149 but he has normal anion gap of 11. Lactic acid is also elevated at 2.7 which may be secondary to more dehydration than sepsis. On my initial review of the CT of the abdomen and pelvis, he had a severely distended bladder. Bladder scan was performed by RN and he has over a liter of urine noted. Retana catheter was inserted. Repeat examination shows his abdomen to remain soft currently after Retana catheter placement and he feels improved. I reviewed the radiology report of the CT of the abdomen and pelvis and it comments on bilateral hydronephrosis and enlarged bladder with bilateral's nonspecific stranding right greater than left. It also commented on heterogeneous appearance of the bony structures with concern for metastatic disease. RN informed me that patient had open sores in the groin area when she inserted the Retana catheter that patient had been putting Band-Aids on and 4 x 4's because he states they intermittently bleed. He does admit to having occasional incontinence. In discussion with the patient and his son, patient does live alone and it was not felt that he is able to take care of himself. Given his acute kidney injury as well as urinary retention and lactic acidosis, I will discuss patient with the hospitalist for admission and place case management consult. Patient was discussed with Dr. Trujillo. Disposition is admit to the general medical floor in stable condition. History & Record Review Discussion w/independent historian: Patient and Family Lab Data Attestation: I reviewed the patient's lab results. Labs: Laboratory Results - last 24 hr 02/04/24 02/04/24 10:00 12:20 WBC 7.8 RBC 4.61 Hgb 14.3 Hct 42.2 MCV 91.5 MCH 31.0 MCHC 33.9 RDW Std Deviation 43.4 RDW Coeff of Vee 12.9 Plt Count 338 MPV 9.9 Immature Gran % (Auto) 0.300 Neut % (Auto) 87.9 H Lymph % (Auto) 5.2 L [place] % (Auto) 6.3 Eos % (Auto) 0.0 Baso % (Auto) 0.3 Absolute Neuts (auto) 6.8 Absolute Lymphs (auto) 0.40 L Nucleated RBC % 0 Sodium 138 Potassium 4.4 Chloride 100 Carbon Dioxide 27.0 Anion Gap 11 BUN 45 H Creatinine 3.01 H Estim Creat Clear Calc 14.57 Est GFR (MDRD) Af Amer 26 L Est GFR (MDRD) Non-Af 21 L BUN/Creatinine Ratio 15.0 Glucose 149 H Lactic Acid 2.7 H* Calcium 9.3 Total Bilirubin 1.10 H AST 20 ALT 14 L Alkaline Phosphatase 120 H Total Protein 8.0 Albumin 3.8 Globulin 4.2 Albumin/Globulin Ratio 0.9 Lipase 30 Urine Color Yellow Urine Clarity Clear Urine pH 6.5 Ur Specific [place] 1.010 Urine Protein 15 H Urine Glucose (UA) Normal Urine Ketones Negative Urine Occult Blood 50 H Urine Nitrite Negative Urine Bilirubin Negative Urine Urobilinogen Normal Ur Leukocyte Esterase Negative Urine RBC 0-5 SEEN Urine WBC 0 SEEN Ur Squamous Epith Cells 0 SEEN Urine Bacteria 0 SEEN Urine Mucus 0 SEEN Radiography Diagnostic Testing: Clinical Impression(s) from Imaging Studies Abdomen/Pelvis CT 02/04/24 10:27 IMPRESSION: Bilateral hydronephrosis and hydroureter. Marked degree of the bladder distention. Enlarged heterogeneous prostate with indentation at the bladder base worse on the left side. Left inguinal hernia. Heterogeneous appearance of the bony structures. Metastatic disease should be ruled out. Electronically Signed: Gage Quinones MD at 12:15 EST Reading Location ID and State: [facility] / [place] , Service support , Discharge Plan Dx/Rx/DC Orders Clinical Impression: Acute kidney injury, Acute urinary retention, Acute lactic acidosis Disposition Disposition: Acute Care Hospital [facility] Discharge Date/Time: 02/04/24 15:15
[2024-02-04] MEDS: Ondansetron 4 MG/2 ML Vial IV (10:44)
[2024-02-04] MEDS: 0.9% Normal Saline (1000mL) 1,000 ML 999 ML IV (10:45)
[2024-02-04] MEDS: Morphine 2 MG/ML Syringe IV (10:45)
[2024-02-04 10:54] LABS: Absolute Neutrophil Count 6.8 X10^3/uL (2.0-7.7); Basophil# 0.02 X10^3/uL; Basophil% 0.3 % (0-1); Hematocrit 42.2 % (40-54); Hemoglobin 14.3 g/dL (13.0-16.5); Lymphocyte % 5.2 % (19-41); Mean Corp Hgb Conc 33.9 g/dL (32-36); Mean Corpuscular Volume 91.5 fL (80-94); Mean Platelet Vol. 9.9 fl (6.2-12.0); Monocyte# 0.49 X10^3/uL; Monocyte% 6.3 % (0-10); NRBC Flagged by Analyzer 0 % (0-5); Neutrophil # 6.83 X10^3/uL (2.7-7.7); Neutrophil % 87.9 % (47-70); POSITIVE DIFFERENTIAL YES; Platelet Count 338 K/mm3 (150-450); RBC Distribution Width CV 12.9 % (11.6-14.6); RBC Distribution Width SD 43.4 fl (35.1-43.9); Red Blood Count 4.61 M/mm3 (4.6-6.2); White Blood Count 7.8 K/mm3 (4.4-11.0)
[2024-02-04 11:14] LABS: ALB/GLOB Ratio 0.9 RATIO (0.9-2.4); AST(SGOT) 20 U/L (15-37); Alanine Aminotransfer ALT/SGPT 14 U/L (16-61); Albumin, Serum 3.8 g/dL (3.2-5.0); Alkaline Phosphatase 120 U/L (45-117); Anion Gap 11 (5-15); BUN 45 mg/dL (7-18); Calcium,Total 9.3 mg/dL (8.5-10.1); Chloride 100 mmol/L (98-107); Creatinine, Serum 3.01 mg/dL (0.70-1.30); EST Glomerular Filtration Rate 21 mL/min (>60); Est Glom Filt Rate - Afr Amer 26 mL/min (>60); Estimated Creatinine Clearance 14.57 ml/min; Globulin 4.2 g/dL (2.2-4.2); Glucose 149 mg/dL (74-106); Lipase 30 U/L (13-75); Potassium 4.4 mmol/L (3.5-5.1); Sodium Level 138 mmol/L (136-145)
[2024-02-04 11:55] LABS: Lactic Acid 2.7 mmol/L (0.4-1.9)
[2024-02-04] MEDS: Morphine 4 MG/ML Syringe IV (12:17)
[2024-02-04 12:27] LABS: Bacteria 0 SEEN /hpf (None Seen); Mucous, Urine 0 SEEN /hpf (<or=2+); Squamous Epithelial Cells - UA 0 SEEN /hpf (0-5); White Blood Cells 0 SEEN /hpf (0-5)
[2024-02-04 12:28] LABS: Color, Urine Yellow (Yellow); Glucose, Dipstick Normal (Normal); Ketone-Dipstick Negative (Negative); Leukocyte Esterase-Dipstick Negative /ul (Negative); Nitrite-Dipstick Negative (Negative); Occult Blood-Urine 50 /ul (Negative); Protein-Dipstick 15 mg/dl (Negative); Urine Bilirubin Dipstick Negative (Negative); Urine Clarity Clear (Clear); Urine Urobilinogen Normal (Normal); Urine pH 6.5 (5.0 - 8.0)
[2024-02-04 12:39] LABS: Red Blood Cells-Urine 0-5 SEEN /hpf (0-5)
--- NOTE | 2024-02-04 14:02 | HP.PCM.HOS_ITS ---
HPI - General General Date of Admission: 02/04/24 Date of Service: 02/04/24 Chief Complaint: Abdominal pain HPI Narrative CHINTAN SEPULVEDA, is a 83 M with history of hyper tension and lower extremity ulcers following with Dr. Purvis presented [facility] ED 02/04/2024 with abdominal pain for several weeks but today became unbearable. In the ED he is found to have an NATALEE and CT revealed significant urinary bladder distention with hydronephrosis and hydroureter, patient had Retana placed with significant improvement in symptoms. Hospitalist contacted for admission. Patient evaluated with son at bedside, patient has been having this pain for several weeks and is progressed gradually over that same period of time to the point where it has become almost unbearable, does note difficulty with urination and that he has been unable to make it to the bathroom for weeks so he has had urinary incontinence. Abdominal pain is resolved with placement of Retana catheter. Patient reports he often alternates between hot and cold however no noted fever, does have some chronic ulcers in lower extremities and follows with Dr. Purvis on an outpatient basis, legs had been healing however over the past couple weeks have worsened specifically a sore on the right lower extremity that is draining and some increased erythema on the left lower extremity. Patient endorses occasional diarrhea but has no presently noted complaints with that. Denies any other new or acute complaints. [facility] Medical History Non-pressure chronic ulcer of left calf with fat layer exposed Atherosclerosis of arteries Dependent edema Leg edema, right Leg edema, left Right leg swelling Left leg swelling Trejo phlebectatica paraplantaris Inactivity Left inguinal hernia Wears glasses Wears dentures Ambulates with cane Prostate disease Difficulty chewing Non-smoker History of edema History of irregular heartbeat Cardiology follow-up encounter History of echocardiogram History of stress test Essential hypertension Hypertension Home Medications ?Medication ?Instructions ?Recorded ?Last Taken ?Type aspirin 81 mg tablet,delayed 81 mg PO DAILY 12/26/21 02/28/22 History release (Adult Low Dose Aspirin) omega-3 fatty acids 1,000 mg 1,000 mg PO DAILY 12/26/21 02/28/22 History capsule (Super [place]-3) Allergy/AdvReac Type Severity Reaction Status Date / Time No Known Allergies Allergy Verified 02/04/24 09:59 Surgical History History of cataract extraction History of right inguinal hernia repair S/P inguinal hernia repair S/P cataract extraction Hx of inguinal herniorrhaphy Social History Smoking Status: Former smoker alcohol intake: never substance use type: does not use caffeine: Yes Type: tea ROS ROS Narrative General: Alternates between hot and cold HENT: denies stuffy nose, denies sore throat EYES: Denies changes in vision Resp: Denies cough, denies shortness of breath Cardiac: Denies chest pain GI: Occasional diarrhea, abdominal pain resolved denies nausea/vomiting : Had been having difficulty urinating and began to have urinary incontinence Extremity: Denies swelling but does have lower extremity ulcers with a worsening ulcer in the right lower extremity and some worsening erythema in the left lower extremity MSK: Little bit of generalized weakness Neuro: Denies any numbness/tingling Heme: Denies any bleeding or bruising Skin: Like lesions as above Psychiatric: No complaints voiced Vital Signs Vital Signs Vital Signs: 02/04/24 09:52 02/04/24 10:51 02/04/24 11:00 Temperature 98.0 F Temperature Source Oral Pulse Rate 80 77 77 Respiratory Rate 18 18 18 Blood Pressure 182/97 H 182/91 H 180/88 H Blood Pressure Mean 125 121 118 Pulse Ox 98 96 96 Oxygen Delivery Method Room Air 02/04/24 12:00 02/04/24 13:00 02/04/24 14:01 Temperature 97.6 F L Temperature Source Pulse Rate 82 78 83 Respiratory Rate 16 16 22 H Blood Pressure 131/73 H 128/70 H 131/73 H Blood Pressure Mean 92 89 92 Pulse Ox 99 99 97 Oxygen Delivery Method Weight Weight: 56.4 kg Body Mass Index (BMI) 18.3 Physical Exam Narrative General: Alert, no apparent distress HEENT: Atraumatic, normocephalic Eyes: Anicteric, normal conjunctiva, extraocular movements grossly intact Neck: Supple Respiratory: Clear to auscultation bilaterally, normal respiratory effort Cardiovascular: Regular rate and rhythm GI: Soft, nontender, nondistended Extremities: Some acute and chronic changes in both lower extremities Musculoskeletal: Moving all extremities Neuro: No overt focal neurological deficits Skin: Lesion on right lower extremity on the medial side with drainage noted on sheet, left lower extremity with erythema on the medial portion of the leg and chronic changes elsewhere Psych: Cooperative Results Lab / Micro Data 02/04/24 10:00 02/04/24 10:00 Labs: Laboratory Results - last 24 hr 02/04/24 10:00: WBC 7.8, RBC 4.61, Hgb 14.3, Hct 42.2, MCV 91.5, MCH 31.0, MCHC 33.9, RDW Std Deviation 43.4, RDW Coeff of Vee 12.9, Plt Count 338, MPV 9.9, Immature Gran % (Auto) 0.300, Neut % (Auto) 87.9 H, Lymph % (Auto) 5.2 L, [place] % (Auto) 6.3, Eos % (Auto) 0.0, Baso % (Auto) 0.3, Absolute Neuts (auto) 6.8, A bsolute Lymphs (auto) 0.40 L, Nucleated RBC % 0, Sodium 138, Potassium 4.4, Chloride 100, Carbon Dioxide 27.0, Anion Gap 11, BUN 45 H, Creatinine 3.01 H, Estim Creat Clear Calc 14.57, Est GFR (MDRD) Af Amer 26 L, Est GFR (MDRD) Non-Af 21 L, BUN/Creatinine Ratio 15.0, Glucose 149 H, Lactic Acid 2.7 H*, Calcium 9.3, Total Bilirubin 1.10 H, AST 20, ALT 14 L, Alkaline Phosphatase 120 H, Total Protein 8.0, Albumin 3.8, Globulin 4.2, Albumin/Globulin Ratio 0.9, Lipase 30 02/04/24 12:20: Urine Color Yellow, Urine Clarity Clear, Urine pH 6.5, Ur Specific [place] 1.010, Urine Protein 15 H, Urine Glucose (UA) Normal, Urine Ketones Negative, Urine Occult Blood 50 H, Urine Nitrite Negative, Urine Bilirubin Negative, Urine Urobilinogen Normal, Ur Leukocyte Esterase Negative, Urine RBC 0-5 SEEN, Urine WBC 0 SEEN, Ur Squamous Epith Cells 0 SEEN, Urine Bacteria 0 SEEN, Urine Mucus 0 SEEN Imaging Radiology Impression Abdomen/Pelvis CT 02/04/24 10:27 IMPRESSION: Bilateral hydronephrosis and hydroureter. Marked degree of the bladder distention. Enlarged heterogeneous prostate with indentation at the bladder base worse on the left side. Left inguinal hernia. Heterogeneous appearance of the bony structures. Metastatic disease should be ruled out. Electronically Signed: Gage Quinones MD at 12:15 EST , Assessment & Plan Assessment/Plan (1) Urinary retention: PLAN: Plan # NATALEE with bilateral hydronephrosis and hydroureter suspect postobstructive secondary to significant urinary retention -Given the significance of patient's urinary retention do suspect that this is likely postobstructive, patient's pain is resolved with placement of Retana catheter -IV fluids, repeat in a.m., can consider nephrology consult if further worsening -Avoid nephrotoxic agents -I's and O's # Urinary retention suspect secondary to enlarged prostate -May be secondary to BPH given prostate was noted to be enlarged on CT scan -Status post Retana catheter placement -Start tamsulosin -I's and O's -Maintain Retana catheter -Inpatient versus outpatient urology consult pending progress # Right lower extremity lesion and left lower extremity cellulitis -Patient follows with Dr. Sanabria on an outpatient basis -Does have left lower extremity cellulitis and a right lower extremity lesion with drainage -Begin antibiotics -Will obtain culture of wound -Wound care # Wounds around groin -Secondary to urinary incontinence -Retana placed -Local wound care -Case management consult # Heterogenous appearance of bony structures -Seen on CT scan and recommended metastatic disease should be ruled out -Patient and patient's family member at bedside informed of finding, ultimately will need to discuss how aggressive they would like to be -Will check PSA given the prostate enlargement and heterogenous appearance of the structures #DVT ppx: Heparin subcu Jennifer Trujillo MD Charges/Coding Visit Charges Inpatient E&M: 07590 Init Hosp L2
[2024-02-04 14:50] LABS: Reflex Lactate? Y
[2024-02-04] MEDS: Ampicillin/Sulbactam 3 GM in 0.9% Normal Saline (100mL MB+) 100 ML IV ×2 (14:50→20:48)
[2024-02-04 15:56] LABS: Lactic Acid 1.9 mmol/L (0.4-1.9)
[2024-02-04] MEDS: 0.9% Normal Saline (1000mL) 1,000 ML 75 ML IV (16:50)
[2024-02-04] MEDS: Tamsulosin HCl 0.4 MG Capsule PO (16:51)
--- NOTE | 2024-02-04 19:36 | CASEMGMT ---
Care Management Face to Face with patient for initial transition planning/care coordination assessment while patient still in the ED.? This commercial insurance underwriter and LEN Burrows introduced selves and roles at [facility]. Patient lying in bed, alert and oriented. Patient willing to participate in assessment and is able to answer all questions appropriately.? Care providers, pharmacy, and demographics verified. Patient's son, Chad, in room during assessment and patient gave permission to talk in front of his son. Admitting Diagnosis: urinary retention Other diagnosis history: Non-pressure chronic ulcer of left calf with fat layer exposed, Atherosclerosis of arteries, hypertension, lower extremity ulcers PCP: Dr. Siena Santana ([facility]) Specialists: Dr. Sanabria, supervisor stitching department. Preferred Pharmacy: [facility] Insurance: Medicare Part A and B Prescription Benefit:?Patient denied Living Will/HPOA: Patient reports having these and his son, Chad, will plan to bring them in. LNOK: Son, Chad, who was in the ED with him. Daughter, Renita. Both live locally. Grandson, Delvis Yousif who [place], but works in [place]. His passed 2 years ago. Living Arrangements: patient lives by himself. There are two steps to get in the home and then everything is on the first floor. Transportation: patient does not drive, so his son Chad drives him. When needed, his grandson Delvis also drives him. DME/HHC: shower chair, suction cup grab bars that fall off at times, blood pressure cuff, rollator, walking stick Community Resources: none Patient goals: Patient wishes to discharge home, but he understands that SNF may be needed pending PT/OT evals. Patient reports he has never done any rehab before. His son, Chad, would like [facility] as taking care of patient's daily needs is becoming challenging. Patient is a , but he [facility] partially due to not having a current ID. Patient would like a medical alert button and resources for meals in home. Patient reports being lonely after his passed two years ago, so [facility] was mentioned as a potential resource. Patient may benefit from a [facility] referral as well. RN CM/SW to follow for discharge planning needs that may arise. Handoff to Acute SW/RN CM team. Disposition Plan: possible SNF for rehab pending PT/OT evals once medically ready. Laya Live, GLOBAL CLINICAL LEADER, DEFENSIVE LINE COACH
[2024-02-04] MEDS: Heparin Injection (Vial) 5,000 UNIT/ML VIAL 5000 UNIT SC (20:48)
[2024-02-04] MEDS: MELATONIN 3 MG TABLET PO (20:50)
[2024-02-05] VITALS (9 sets, daily range): BP systolic 77–102; BP diastolic 45–62; PULSE 70–86; RESP 14–16; TEMP 36.4–36.9; O2SAT 93–96
[2024-02-05] MEDS: 0.9% Normal Saline (500mL Bag) 500 ML 999 ML IV ×2 (05:10→07:15)
[2024-02-05 05:27] LABS: Absolute Lymphocyte Count 0.77 X10^3/uL (0.83-4.51); Absolute Neutrophil Count 3.9 X10^3/uL (2.0-7.7); Basophil# 0.01 X10^3/uL; Basophil% 0.2 % (0-1); Eosinophil# 0.03 X10^3/uL; Eosinophils% 0.6 % (0-5); Hematocrit 31.3 % (40-54); Hemoglobin 10.1 g/dL (13.0-16.5); Lymphocyte # 0.77 X10^3/ul (0.83-4.51); Lymphocyte % 14.3 % (19-41); Mean Corp Hgb Conc 32.3 g/dL (32-36); Mean Corpuscular Hgb 29.6 pg (27.0-32.0); Mean Corpuscular Volume 91.8 fL (80-94); Monocyte# 0.68 X10^3/uL; Monocyte% 12.6 % (0-10); NRBC Flagged by Analyzer 0 % (0-5); Neutrophil # 3.88 X10^3/uL (2.7-7.7); Neutrophil % 71.9 % (47-70); Platelet Count 238 K/mm3 (150-450); RBC Distribution Width CV 12.9 % (11.6-14.6); RBC Distribution Width SD 43.4 fl (35.1-43.9); Red Blood Count 3.41 M/mm3 (4.6-6.2); White Blood Count 5.4 K/mm3 (4.4-11.0)
[2024-02-05] MEDS: 0.9% Normal Saline (1000mL) 1,000 ML 75 ML IV (05:59)
[2024-02-05 06:03] LABS: Anion Gap 4 (5-15); BUN 36 mg/dL (7-18); BUN/Creat Ratio 31.6 RATIO (10-20); Chloride 110 mmol/L (98-107); Creatinine, Serum 1.14 mg/dL (0.70-1.30); EST Glomerular Filtration Rate 65 mL/min (>60); Est Glom Filt Rate - Afr Amer 79 mL/min (>60); Estimated Creatinine Clearance 35.48 ml/min; Glucose 151 mg/dL (74-106); Potassium 3.8 mmol/L (3.5-5.1); Sodium Level 142 mmol/L (136-145)
[2024-02-05 08:32] LABS: PSA,Total- Diagnostic 2.38 ng/mL (0.0-4.0)
[2024-02-05] MEDS: Ampicillin/Sulbactam 3 GM in 0.9% Normal Saline (100mL MB+) 100 ML IV ×2 (10:46→22:33)
--- NOTE | 2024-02-05 10:50 | WOUNDNOTE ---
wound photo: right lower leg
--- NOTE | 2024-02-05 10:51 | WOUNDNOTE ---
wound photo: right lower leg
--- NOTE | 2024-02-05 10:51 | WOUNDNOTE ---
wound photo: left lower leg
--- NOTE | 2024-02-05 14:53 | PN_ITS ---
Subjective Subjective Patient seen and examined. He had no active complaints. He was admitted with a complaint of abdominal pain and found to have obstructive NATALEE. CT of the abdomen showed hydronephrosis and hydroureter. Retana catheter in place and he is having hematuria. He still admits to hematuria. He says he has been told he has prostate problems. He denied any fever or chills. Review of systems otherwise negative. Objective Data Objective Data Vital Signs: Vital Signs Temp Pulse Resp BP Pulse Ox O2 Del Method 97.5 F L 86 16 102/62 93 Room Air 02/05/24 12:46 02/05/24 12:46 02/05/24 12:46 02/05/24 12:46 02/05/24 12:46 02/05/24 13:00 Oxygen Delivery Method Room Air Weight: 114 lb 10.246 oz Body Mass Index (BMI) 16.9 Intake & Output: Intake and Output for Last 24 Hours 02/03/24 02/04/24 02/05/24 23:59 23:59 23:59 Intake Total 1594 / 1719 2463.25 / 2463.25 Output Total 1600 / 2200 700 / 700 Balance -6 / -481 1763.25 / 1763.25 Lab / Micro Data 02/05/24 04:50 02/05/24 04:50 Labs: Laboratory Results - last 24 hr 02/04/24 15:10: Lactic Acid 1.9 02/05/24 04:50: WBC 5.4, RBC 3.41 L, Hgb 10.1 L, Hct 31.3 L, MCV 91.8, MCH 29.6, MCHC 32.3, RDW Std Deviation 43.4, RDW Coeff of Vee 12.9, Plt Count 238, MPV 10.0, Immature Gran % (Auto) 0.400, Neut % (Auto) 71.9 H, Lymph % (Auto) 14.3 L, [place] % (Auto) 12.6 H, Eos % (Auto) 0.6, Baso % (Auto) 0.2, Absolute Neuts (auto) 3.9, Absolute Lymphs (auto) 0.77 L, Nucleated RBC % 0, Sodium 142, Potassium 3.8, Chloride 110 H, Carbon Dioxide 27.0, Anion Gap 4 L, BUN 36 H, Creatinine 1.14, Estim Creat Clear Calc 35.48, Est GFR (MDRD) Af Amer 79, Est GFR (MDRD) Non-Af 65, BUN/Creatinine Ratio 31.6 H, Glucose 151 H, Calcium 8.0 L, Total PSA 2.38 Physical Exam Const alert, oriented x3 and no apparent distress Constitutional Narrative: frail, weak General Appearance: cooperative HEENT normocephalic, head/scalp atraumatic and moist oral mucous membranes Eyes PERRL and EOMs intact bilaterally Neck no lymphadenopathy, supple and no JVD Lymph Lymphatic: no lymphadenopathy noted Resp normal respiratory effort, normal air movement and clear to auscultation bilaterally Cardio regular rate, regular rhythm, S1 normal heart sound, S2 normal heart sound and no murmurs GI normal to inspection, nondistended, normoactive bowel sounds, soft to palpation, non-tender and non-distended Extremity normal capillary refill Extremity Narrative: has superficial ulcerations on lower extremities, from krause to mid ankle. Skin Skin Narrative: as under extremity Neuro CN's II-XII intact bilaterally, no focal motor deficits and no sensory deficits noted Motor Exam: strength 5/5 throughout and general weakness Psych thought process normal and cooperative Appearance: appropriate Assessment & Plan Assessment/Plan (1) Acute kidney injury: (2) Acute urinary retention: (3) Wound of lower extremity: PLAN: Plan #NATALEE * Creatinine was 3.01 on admission and is now down to 1.14. * CT of the abdomen and pelvis on admission showed bilateral hydronephrosis and hydroureter with marked degree of bladder distention and enlarged heterogeneous prostate with indentation of the bladder base worse on the left side and heterogeneous appearance of the bony structures with metastatic disease to be ruled out. * PSA is however only 2.38. * Consult urology. #Hematuria * Patient still having hematuria. Hemoglobin is 10.1 today. Was 14.3 yesterday. His baseline is between 13 and 14. * Continue hydration with IV fluids and consult to urology. * Prostate was enlarged on the CAT scan. Started on Flomax. * #Chronic Lower extremity wounds * Patient follows at wound care. Consult wound nurse. * Patient started on antibiotics-IV Unasyn # COPD: Not in exacerbation. Breathing treatments bronchodilators. DVT prophylaxis: Hold heparin due to hematuria. SCDs. Charges/Coding Visit Charges Inpatient E&M: 17150 Subs Hosp L2
--- NOTE | 2024-02-05 15:10 | DCINST_ITS ---
Discharge Instructions Diet Discharge Diet: No restrictions Activity Discharge Activity: Return to Normal Activity and May Not Drive (while taking narcotic pain medications.) Dressing / Incision Call your doctor if you observe: Fever of 101 or Higher Catheter: Retana to leg bag and Retana to large bag Drain: [place] Follow Up Care Please Follow Up With: Matthew Stapleton MD When: Call [phone] for an appointment Test Results: Test results from this visit will be discussed in further detail at your follow- up appointment, if applicable. Discharge Plan Admission Admit Date/Time: 02/04/24 14:02 Attending Provider: Roula Marvin Primary Care Provider: Siena Santana Consulting Providers: Jennifer Trujillo; Matthew Stapleton Discharge Orders/Prescriptions Prescriptions: No Action aspirin [Adult Low Dose Aspirin] 81 mg tablet,delayed release (DR/EC) 81 mg PO DAILY omega-3 fatty acids [Super [place]-3] 1,000 mg capsule 1,000 mg PO DAILY Referrals / Follow Up: Siena Santana MD [Primary Care Provider] -
--- NOTE | 2024-02-05 15:10 | CON.PCM.UR_ITS ---
Assessment & Plan Assessment/Plan (1) Acute urinary retention: PLAN: Home with Retana catheter follow-up in my office to consider TURP (2) Acute kidney injury: (3) Urinary retention: HPI Consult Data Date of Consult: 02/05/24 HPI Narrative Reason for Consultation: Urinary retention HPI Narrative: CHINTAN SEPULVEDA, is a 83 M who presents to the hospital with severe abdominal pain and bilateral hydronephrosis he had a Retana catheter placed which revealed a significant mount of urine and now his pain is much better he also has a inguinal hernia on the left side which has been bothering him. Comes in today and I saw the patient in consultation and has no history of prior retention of urine does have a history of BPH have been to having difficulty with urination for quite some time. He will have to go home with a Retana catheter and follow- up in my office for outpatient evaluation I think he most likely will have to get him set up for surgery for his prostate problem with a [facility] Medical History Anxiety Former smoker Non-pressure chronic ulcer of left calf with fat layer exposed Atherosclerosis of arteries Dependent edema Leg edema, right Leg edema, left Right leg swelling Left leg swelling Trejo phlebectatica paraplantaris Inactivity Left inguinal hernia Wears glasses Wears dentures Ambulates with cane Prostate disease Difficulty chewing Non-smoker History of edema History of irregular heartbeat Cardiology follow-up encounter History of echocardiogram History of stress test Essential hypertension Hypertension Home Medications ?Medication ?Instructions ?Recorded ?Last Taken ?Type aspirin 81 mg tablet,delayed 81 mg PO DAILY 12/26/21 02/28/22 History release (Adult Low Dose Aspirin) omega-3 fatty acids 1,000 mg 1,000 mg PO DAILY 12/26/21 02/28/22 History capsule (Super [place]-3) Allergy/AdvReac Type Severity Reaction Status Date / Time No Known Allergies Allergy Verified 02/04/24 09:59 Surgical History History of cataract extraction History of right inguinal hernia repair S/P inguinal hernia repair S/P cataract extraction Hx of inguinal herniorrhaphy Social History Smoking Status: Former smoker alcohol intake: never substance use type: does not use caffeine: Yes Type: tea ROS Constitutional Constitutional: Denies chills, fever(s) or malaise Eyes Eyes: Denies blurry vision or change in vision ENT HEENT: Reports none Cardiovascular Cardiovascular: Denies chest pain or palpitations Respiratory/Chest Respiratory/Chest: Denies cough or shortness of breath with exertion Gastrointestinal Gastrointestinal: Denies abdominal pain, constipation or diarrhea Musculoskeletal Musculoskeletal: Denies back pain, joint stiffness or joint swelling Integumentary Integumentary: Denies dry skin, jaundice, lesions or rash Neurologic Neurologic: Denies confusion, syncope or weakness Psychiatric Psychiatric: Reports none; Denies anxiety or depression Endocrine Endocrinology: Denies excessive sweating, fatigue or flushing Hematologic/Lymphatic Hematologic/Lymphatic: Denies anemia, easy bleeding or easy bruising Physical Exam Const alert and oriented x3 General Appearance: cooperative HEENT normocephalic and head/scalp atraumatic Eyes PERRL and EOMs intact bilaterally Neck supple, no JVD and no carotid bruits Resp normal respiratory effort, normal air movement and clear to auscultation bilaterally Cardio regular rate and no murmurs GI normal to inspection, nondistended, normoactive bowel sounds and soft to palpation Extremity normal capillary refill General Extremity: no tenderness to palpation of joints or extremities; Negative for edema Skin no rashes or lesions noted and no wounds General Skin Exam: no breakdown Neuro CN's II-XII intact bilaterally Psych affect normal Appearance: appropriate Medical Records Data Attestation: I reviewed the patient's medical records Lab / Micro Data 02/05/24 04:50 02/05/24 04:50 Labs: Laboratory Results - last 24 hr 02/04/24 15:10: Lactic Acid 1.9 02/05/24 04:50: WBC 5.4, RBC 3.41 L, Hgb 10.1 L, Hct 31.3 L, MCV 91.8, MCH 29.6, MCHC 32.3, RDW Std Deviation 43.4, RDW Coeff of Vee 12.9, Plt Count 238, MPV 10.0, Immature Gran % (Auto) 0.400, Neut % (Auto) 71.9 H, Lymph % (Auto) 14.3 L, [place] % (Auto) 12.6 H, Eos % (Auto) 0.6, Baso % (Auto) 0.2, Absolute Neuts (auto) 3.9, Absolute Lymphs (auto) 0.77 L, Nucleated RBC % 0, Sodium 142, Potassium 3.8, Chloride 110 H, Carbon Dioxide 27.0, Anion Gap 4 L, BUN 36 H, Creatinine 1.14, Estim Creat Clear Calc 35.48, Est GFR (MDRD) Af Amer 79, Est GFR (MDRD) Non-Af 65, BUN/Creatinine Ratio 31.6 H, Glucose 151 H, Calcium 8.0 L, Total PSA 2.38
--- NOTE | 2024-02-05 16:05 | CASEMGMT ---
SW spoke with patient, his son, and daughter in law per their request. They were asking about home health. SW explained right now therapy is recommending patient go somewhere short term for rehab. Everyone was agreeable to this plan. The asked about [facility]. SW told them SW can make a referral. SW will also bring back a list for them as well in case TCU cannot take him. A list of nursing home facility providers including quality and resource use data and consistent with patient?s preferred geographic region, medical needs, and insurance network were provided from the [facility].? Wilda Mccallum MID WIFEJacques ESCALONA
[2024-02-05] MEDS: 0.9% Normal Saline (1000mL) 1,000 ML 999 ML IV (18:01)
[2024-02-05] MEDS: Tamsulosin HCl 0.4 MG Capsule PO (18:01)
[2024-02-05 18:41] LABS: Hematocrit 32.1 % (40-54); Hemoglobin 10.5 g/dL (13.0-16.5)
[2024-02-05] MEDS: 0.9% Normal Saline (1000mL) 1,000 ML 150 ML IV (19:33)
[2024-02-05] MEDS: MELATONIN 3 MG TABLET PO (22:33)
[2024-02-06] MEDS: 0.9% Normal Saline (1000mL) 1,000 ML 150 ML IV (03:10)
[2024-02-06 03:11] VITALS: BP 95/60; PULSE 82; RESP 16; TEMP 36.8; O2SAT 94
--- NOTE | 2024-02-06 09:35 | CASEMGMT ---
SW met with patient and his son. Patient triggered SDAZ consult for transportation. SW introduced self and role at [facility]. Patient's son states he is often the person that has to take patient's to appts and he is not always available. SW provided them with transportation resources, home delivered meals information, medical alert button information, and [facility] information. SW went over all of the information with both. They thanked LEN for the information. Wilda Mccallum MSW IQRA
[2024-02-06 09:55] VITALS: BP 114/64; PULSE 82; RESP 16; TEMP 36.4; O2SAT 96
--- NOTE | 2024-02-06 11:15 | PCM.DC ---
Discharge Instructions Diet Discharge Diet: No restrictions Activity Discharge Activity: Return to Normal Activity Weight Bearing Status: Weight bearing as tolerated Dressing / Incision Call your doctor if you observe: Fever of 101 or Higher Catheter: Retana to leg bag and Retana to large bag Drain: [place] Follow Up Care Please Follow Up With: Matthew Stapleton MD When: IN 2 WEEKS Test Results: Test results from this visit will be discussed in further detail at your follow-up appointment, if applicable. Discharge Plan Admission Admit Date/Time: 02/04/24 14:02 Primary Reason for Your Visit: Postobstructive NATALEE Attending Provider: Carlos Luciano Primary Care Provider: Siena Santana Consulting Providers: Jennifer Trujillo; Matthew Stapleton; Roula Marvin Discharge Orders/Prescriptions Prescriptions: New acetaminophen 325 mg Tablet 650 mg PO Q6H PRN PRN (Reason: Pain 1-10 Or Fever >100.7) Qty: 0 0RF sennosides-docusate sodium [Stimulant Laxative Plus] 8.6-50 mg Tablet 2 tab PO BID PRN PRN (Reason: Constipation) Qty: 0 0RF tamsulosin 0.4 mg Capsule 0.4 mg PO DAILY@1730 Qty: 0 0RF Continued aspirin [Adult Low Dose Aspirin] 81 mg tablet,delayed release (DR/EC) 81 mg PO DAILY omega-3 fatty acids [Super [place]-3] 1,000 mg capsule 1,000 mg PO DAILY Referrals / Follow Up: Siena Santana MD [Primary Care Provider] - Disposition Disposition (needs filled in before D/C Order can be placed): Inpatient Rehab Unit/Facility
--- NOTE | 2024-02-06 11:47 | DS.PCM_ITS ---
Providers Date of Admission: 02/04/24 Date of Discharge: 02/06/24 Primary Care Physician: Siena Santana MD Consultations 02/04/24 15:42 Consult: Onc/Wound/lpn or medical assistant Routine Comment: Reason for Consult:: RLE wound, groin wounds 02/05/24 08:30 Consult: Urology Routine Consulting Provider: Matthew Stapleton Reason for Consult: natalee, hematuria EMERGENT Consult: No MD Notified: Yes Date Notified: 02/05/24 Time Notified: 08:31 Method of Notification: Text Comments:: dr graham said she would notify Daya of consult Reason For Visit: NATALEE Diagnosis Discharge Diagnosis (1) Acute urinary retention: Status: Acute Code(s): R33.8 - Other retention of urine (2) Acute kidney injury: Status: Acute Code(s): N17.9 - Acute kidney failure, unspecified (3) Urinary retention: Status: Acute Code(s): R33.9 - Retention of urine, unspecified Plan 83-year-old gentleman was admitted with abdominal pain for several weeks and found to have NATALEE with significant bladder distention with hydronephrosis and hydronephrosis on CT scan. #NATALEE, postobstructive most likely from BPH * Creatinine was 3.01 on admission and is now down to 1.14. * CT of the abdomen and pelvis on admission showed bilateral hydronephrosis and hydroureter with marked degree of bladder distention and enlarged heterogeneous prostate with indentation of the bladder base worse on the left side and heterogeneous appearance of the bony structures with metastatic disease to be ruled out. * PSA is however only 2.38. * Patient was seen by urologist and advised to discharge home with Retana catheter and follow-up in the urology office. #Hematuria * Patient still having hematuria. Hemoglobin is 10.1 today. Was 14.3 yesterday. His baseline is between 13 and 14. * Continue hydration with IV fluids and consult to urology. * Prostate was enlarged on the CAT scan. Started on Flomax. * #Chronic Lower extremity wounds * Patient follows at wound care. Consult wound nurse. * Patient started on antibiotics-IV Unasyn, empirically. 02/05: Urine culture shows showed mixed gram-positive negative organism. UA was also benign WBC 0, squamous epithelium 0, bacteria 0 LE negative. Therefore, UTI ruled out. Antibiotic discontinued # COPD: Not in exacerbation. Breathing treatments bronchodilators. DVT prophylaxis: Hold heparin due to hematuria. SCDs. mixed gram-positive and negative organisms. Microbiology Past 72 Hours 02/05/24 08:50 Wound - Leg, Right Gram Stain - Final 02/05/24 08:50 Wound - Leg, Right Wound Culture - Preliminary Mixed Gram Pos & Gram Neg Org Laboratory Results 02/05/24 18:05: Hgb 10.5 L, Hct 32.1 L, Blood Type B POSITIVE, Antibody Screen NEGATIVE Medications at Discharge Home Medications aspirin 81 mg tablet,delayed release (Adult Low Dose Aspirin) 81 mg PO DAILY [facility] 12/26/21 omega-3 fatty acids 1,000 mg capsule (Super [place]-3) 1,000 mg PO DAILY supplement 12/26/21 acetaminophen 325 mg tablet 650 mg (2 x 325 mg) PO Q6H PRN PRN Pain 1-10 Or Fever >100.7 #0 tabs 02/06/24 sennosides 8.6 mg-docusate sodium 50 mg tablet (Stimulant Laxative Plus) 2 tab PO BID PRN PRN Constipation #0 tabs 02/06/24 tamsulosin 0.4 mg capsule 0.4 mg PO DAILY@1730 #0 caps 02/06/24 Physical Exam Narrative Seen and examined. Patient is doing well with Retana catheter. Does not have abdominal pain. Wants to go home. Physical exam General: Alert, Oriented x3, Cooperative HEENT: Atraumatic, PERRLA, EOMI, Normocephalic Oral: No Gingival or Mucosal Lesions/ Ulcerations Neck: Supple, No JVD, Negative Carotid Bruits Chest wall/Lungs: Air entry diminished in bilateral lung bases. No crepitation/rhonchi Cardiovascular: Regular rate, Regular Rhythm, Normal S1, Normal S2, No M/G/R Abdomen: Bowel Sounds Present, Soft, Non Tender, Non-Distended : Retana catheter, yellowish urine in the bag. No dysuria. No renal angle tenderness. No suprapubic tenderness. Extremities: No edema, Capillary Refill Less than 3 Seconds Skin: Chronic ulcer, ulcer in RLE and some erythema and thin skin in LLE. Musculoskeletal: No Tenderness to Palpation of Joints or Extremities Neurological: Cranial nerves II-XII grossly intact, DTR 2+/4. No acute focal neurological deficit. Psych/Mental Status: Normal Affect, Appropriate. Weight / BMI Weight Weight: 114 lb 10.246 oz Body Mass Index (BMI) 16.9 ABG / Lab / Microbiology Data 02/05/24 18:05 02/05/24 04:50 Laboratory: Laboratory Results - last 24 hr 02/05/24 18:05: Hgb 10.5 L, Hct 32.1 L, Blood Type B POSITIVE, Antibody Screen NEGATIVE Microbiology: Microbiology 02/05/24 08:50 Wound - Leg, Right Gram Stain - Final 02/05/24 08:50 Wound - Leg, Right Wound Culture - Preliminary Mixed Gram Pos & Gram Neg Org D/C Instructions Discharge Diet: No restrictions Weight Bearing Status: Weight bearing as tolerated Call your doctor if you observe: Fever of 101 or Higher Catheter: Retana to leg bag and Retana to large bag Drain: Ovid Please Follow Up With: Matthew Stapleton MD When: IN 2 WEEKS Meaningful Use Info Meaningful Use Meaningful Use Diagnoses (Choose all that apply): None applicable Ischemic Stroke Statin Dosing Therapy Reference: STATIN DOSE THERAPY REFERENCE: * Patients > 75 years receive moderate or high dose statin therapy. * Patients 75 years or YOUNGER should receive HIGH intensity statin dose unless contraindicated. You will be required to document reason for non-treatment if statin daily dose does not meet guidelines. HIGH DOSE STATIN THERAPY DAILY Atorvastatin > than or = to 40 mg Rosuvastatin > than or = to 20 mg Amlodipine + Atorvastatin > than or = to 2.5/40 mg Ezetimibe + Simvastatin 10/80 mg Simvastatin 80mg Discharge Plan Admission Admit Date/Time: 02/04/24 14:02 Primary Reason for Your Visit: Postobstructive NATALEE Attending Provider: Carlos Luciano Primary Care Provider: Siena Santana Consulting Providers: Jennifer Trujillo; Matthew Stapleton; Roula Graham Instructions Additional Instructions / Restrictions: Follow-up in wound center for ulcer on the legs Discharge Orders/Prescriptions Prescriptions: New acetaminophen 325 mg Tablet 650 mg PO Q6H PRN PRN (Reason: Pain 1-10 Or Fever >100.7) Qty: 0 0RF sennosides-docusate sodium [Stimulant Laxative Plus] 8.6-50 mg Tablet 2 tab PO BID PRN PRN (Reason: Constipation) Qty: 0 0RF tamsulosin 0.4 mg Capsule 0.4 mg PO DAILY@1730 Qty: 0 0RF Continued aspirin [Adult Low Dose Aspirin] 81 mg tablet,delayed release (DR/EC) 81 mg PO DAILY omega-3 fatty acids [Super Hosston-3] 1,000 mg capsule 1,000 mg PO DAILY Referrals / Follow Up: Siena Santana MD [Primary Care Provider] - Matthew Stapleton MD [Med Staff - Active Staff] - Within 2 Weeks (Postobstructive NATALEE resolved. Bilateral hydronephrosis hydroureter. Discharged with Retana catheter.) Disposition Disposition (needs filled in before D/C Order can be placed): Inpatient Rehab Unit/Facility Charges/Coding Visit Charges Inpatient E&M: 64578 Disch Hosp >30min
[2024-02-06] MEDS: Ampicillin/Sulbactam 3 GM in 0.9% Normal Saline (100mL MB+) 100 ML IV (11:48)
--- NOTE | 2024-02-06 11:54 | PHA.DC_ITS ---
Pharmacy [place] [facility] Reconciliation Pharmacy Service has performed discharge medication reconciliation for this patient. The patient's discharge medication list was reviewed for discrepancies and discrepancies were resolved. Medications at Discharge Home Medications aspirin 81 mg tablet,delayed release (Adult Low Dose Aspirin) 81 mg PO DAILY [facility] 12/26/21 omega-3 fatty acids 1,000 mg capsule (Super [place]-3) 1,000 mg PO DAILY supplement 12/26/21 acetaminophen 325 mg tablet 650 mg (2 x 325 mg) PO Q6H PRN PRN Pain 1-10 Or Fever >100.7 #0 tabs 02/06/24 sennosides 8.6 mg-docusate sodium 50 mg tablet (Stimulant Laxative Plus) 2 tab PO BID PRN PRN Constipation #0 tabs 02/06/24 tamsulosin 0.4 mg capsule 0.4 mg PO DAILY@1730 #0 caps 02/06/24
--- NOTE | 2024-02-06 12:07 | CASEMGMT ---
U does not have any beds, but [facility] will accept patient. SW spoke with patient and let him know about the Rehab Unit. Patient was agreeable as he wanted to stay at [facility]. SW told patient SW will call his son and let him know the plan. SW called patient's son Chad and updated him on the d/c plan. LEN explained that the Rehab Unit is on the 4th floor via central elevators. Chad was in agreement and thanked LEN for the update. Chad asked that SW call him when patient is being physically moved to the Rehab Unit. LEN updated RN. Plan: d/c to [facility]. Wilda ESCALONA
--- NOTE | 2024-02-06 15:16 | CASEMGMT ---
LEN called patient's son Chad and let him know patient was taking over to the Rehab Unit. Chad thanked LEN for the update. Wilda ESCALONA
[2024-02-07 02:08] LABS: PSA, Total 2.7 ng/mL (0.0-4.0)
== END 2024-02-06 14:40 | DRG 683 ==
LOC: ED 11:00 → PCU 14:28
PROVIDERS: Student in an Organized Health Care Education/Training Program; Admitting Provider Internal Medicine; Emergency Provider Emergency Medicine; PCP Family Medicine; Visit Provider Internal Medicine
DX: N17.9 Acute kidney failure, unspecified (principal); E87.21 Acute metabolic acidosis; L97.911 Non-pressure chronic ulcer of unspecified part of right lower leg limited to breakdown of skin; L97.921 Non-pressure chronic ulcer of unspecified part of left lower leg limited to breakdown of skin; L03.116 Cellulitis of left lower limb; N13.8 Other obstructive and reflux uropathy; N13.4 Hydroureter; Z68.1 Body mass index [BMI] 19.9 or less, adult; I10 Essential (primary) hypertension; Z87.891 Personal history of nicotine dependence; Z79.82 Long term (current) use of aspirin; N13.1 Hydronephrosis with ureteral stricture, not elsewhere classified; N40.1 Benign prostatic hyperplasia with lower urinary tract symptoms; R33.8 Other retention of urine; N42.9 Disorder of prostate, unspecified; R63.6 Underweight
CPT/HCPCS: 36415; 51702; 74176; 80048; 80053; 81001; 83605; 83690; 84153; 85014; 85018; 85025; 86850; 86900; 86901; 87070; 87077; 87186; 87205; 97116; 97162; 97165; 97530; 97535; 97802; 99285; J7030; J7040; A4216; J0295; J2405

== ENCOUNTER 2024-02-06 15:05 | Inpatient (IN) | payer MEDICARE, SELFPAY ==
[2024-02-06 15:36] VITALS: BP 154/68; PULSE 87; RESP 17; TEMP 36.3; O2SAT 99; BMI 19.8
[2024-02-06] MEDS: Tamsulosin HCl 0.4 MG Capsule PO (17:10)
[2024-02-06] MEDS: Ensure Plus High Protein 120 ML LIQUID PO (17:10)
[2024-02-06 18:00] VITALS: BP 133/71; PULSE 85; RESP 16; TEMP 36.6; O2SAT 96
[2024-02-06] MEDS: Senna/Docusate Sodium 1 Tablet 2 TABLET PO (20:32)
[2024-02-06] MEDS: Heparin Injection (Vial) 5,000 UNIT/ML VIAL 5000 UNIT SC (20:32)
[2024-02-06 20:43] VITALS: PULSE 100
[2024-02-07] MEDS: Acetaminophen 325 MG Tablet 650 MG PO (02:44)
--- NOTE | 2024-02-07 02:55 | NURSING ---
Pt awake most of evening/night. Pt noted to be restless and confused, taking gown off, and pulling at catheter tubing. Pt able to state name, birthday, and today's date correctly, but [place] even [place] explaining that he is @ [facility]. Pt repositioned, given snacks/fluids, and hygiene care. Pt settles for a short time and then becomes restless again. Pt currently watching TV, eating yogurt, and singing/talking to self. Bed exit alarm on and call light in reach.
[2024-02-07 05:46] VITALS: BMI 20.2
[2024-02-07 06:13] LABS: Absolute Lymphocyte Count 1.32 X10^3/uL (0.83-4.51); Absolute Neutrophil Count 2.6 X10^3/uL (2.0-7.7); Basophil# 0.04 X10^3/uL; Basophil% 0.8 % (0-1); Eosinophil# 0.23 X10^3/uL; Eosinophils% 4.8 % (0-5); Hemoglobin 10.5 g/dL (13.0-16.5); Lymphocyte # 1.32 X10^3/ul (0.83-4.51); Lymphocyte % 27.3 % (19-41); Mean Corp Hgb Conc 32.8 g/dL (32-36); Mean Corpuscular Volume 91.4 fL (80-94); Mean Platelet Vol. 9.4 fl (6.2-12.0); Monocyte# 0.61 X10^3/uL; Monocyte% 12.6 % (0-10); NRBC Flagged by Analyzer 0 % (0-5); Neutrophil # 2.62 X10^3/uL (2.7-7.7); Neutrophil % 54.1 % (47-70); Platelet Count 224 K/mm3 (150-450); RBC Distribution Width CV 12.8 % (11.6-14.6); RBC Distribution Width SD 42.8 fl (35.1-43.9); White Blood Count 4.8 K/mm3 (4.4-11.0)
[2024-02-07 06:18] VITALS: BP 96/49; PULSE 87; RESP 16; TEMP 36.9; O2SAT 96
[2024-02-07 06:51] LABS: ALB/GLOB Ratio 0.8 RATIO (0.9-2.4); AST(SGOT) 19 U/L (15-37); Alanine Aminotransfer ALT/SGPT 8 U/L (16-61); Albumin, Serum 2.2 g/dL (3.2-5.0); Alkaline Phosphatase 78 U/L (45-117); Anion Gap 2 (5-15); BUN 14 mg/dL (7-18); BUN/Creat Ratio 23.3 RATIO (10-20); Calcium,Total 7.4 mg/dL (8.5-10.1); Chloride 112 mmol/L (98-107); EST Glomerular Filtration Rate 136 mL/min (>60); Est Glom Filt Rate - Afr Amer 164 mL/min (>60); Estimated Creatinine Clearance 60.42 ml/min; Globulin 2.8 g/dL (2.2-4.2); Glucose 121 mg/dL (74-106); Phosphorus 1.7 mg/dL (2.5-4.9); Potassium 3.5 mmol/L (3.5-5.1); Sodium Level 140 mmol/L (136-145)
[2024-02-07] MEDS: Ensure Plus High Protein 120 ML LIQUID PO ×3 (07:31→17:34)
[2024-02-07] MEDS: Senna/Docusate Sodium 1 Tablet 2 TABLET PO ×2 (09:18→22:10)
[2024-02-07] MEDS: Heparin Injection (Vial) 5,000 UNIT/ML VIAL 5000 UNIT SC ×2 (09:18→22:06)
[2024-02-07] MEDS: Omega-3 Acid Ethyl Esters 1 GM Capsule PO (09:18)
--- NOTE | 2024-02-07 10:50 | PCM.HP.STD ---
[facility] - [facility] Date of Admission: 02/06/24 Chief Complaint: Debility due to NATALEE due to obstructive uropathy. HPI Narrative WASHINGTON SEPULVEDA, is a 83 YO M with a PMH of HTN, venous stasis ulcers of the LE's and prostate disease M who presented to the ED at [facility] onj 02/04/24 c/o severe abdominal pain which had been present for a few weeks but it was getting worse. In the ED he was diagnosed with NATALEE (creat was 3.1) due to obstructive uropathy. CT scan of the abdomen and pelvis showed a marked degree of distention of the urinary bladder, prostatic enlargement with indentation at the bladder base and a moderate degree of bilateral hydronephrosis and hydroureter. There was a 2.9 cm cyst in the posterior lower midportion of the right kidney. Visualization of the lumbar spine show diffuse degenerative changes with a heterogeneous appearance of the bones suspicious for metastatic disease. The abdominal pain resolved with placement of a Retana catheter. He was admitted to the hospitalist service. A total PSA was checked and was normal at 2.7. While in the hospital he was seen in consultation by Dr. Stapleton from urology who recommended discharging with a Retana catheter in place and follow-up in his office as an outpatient for a voiding trial and possible TURP. He was transferred to the acute inpt rehab unit at [facility] on 02/06/24 for 3 hours of therapy daily to strengthen/rehabilitate so that he can return home. All lab drawn this morning was personally reviewed. The white blood cell count is 4.8 with an unremarkable differential/no left shift. Hemoglobin is low at 10.5 and platelets are within normal limits. The MCV, MCH and RDW are all normal. Potassium is borderline low at 3.5. BUN is 14 which is down from 45 at admission and the creatinine is 0.6 today which is down from 3.1 at admission. Phosphorus is low at 1.7 and magnesium is normal at 2. LFTs are unremarkable. Review of the CT scan of the abdomen and pelvis shows infiltrates/atelectasis in the left base with a small left pleural effusion. Washington tells me that he lives alone. He tells me that he cooks for himself. When I asked him what he cooks all he could come up with is potatoes. He tells me that he has 2 children.....Chad and Weston. Chad is listed as his son on the contacts and Weston as grandson. Chad lives in [place] and Weston in [place]. He tells me that he does not walk much. He mostly sits in a chair. He has been seen in the wound care center in 2021 and 2022 for wounds on the posterior calves from sitting in a chair/recliner with legs dependent most of the time. He has chronic BL LE edema.......more likely than not related to venous insufficiency wit no compression. He has arteriosclerosis but, the last arterial studies he had 2 years ago showed triphasic wave forms. Could not get an ABD on the left because the vessels could not be compressed. ABD was > 1 on the R. The ED documentation states that the patients son talked with the ER doc and it was confirmed that Washington lives alone and the son did not feel that his dad was able to care for himself. He had been incontinent of urine and stool at times. He had sores on the groin per the nurse in the ED and had bandaids on the areas. I suspect that he was incontinent of urine and too weak to get up and clean himself. The grain broker and market operator did not feel that he has evidence of malnutrition but, he has temporal muscle wasting and he tells me that he has lost a lot of wt. ST did a BCAT today and he only scored 29/50. X-rays of the thoracic spine done today shows osteopenia with increased kyphosis and mild thoracic spondylosis with anterior wedge compression deformity of T12 which is age-indeterminate. X-ray of the lumbosacral spine shows osteopenia with diffuse moderate lower thoracic and lumbosacral spondylosis. Chest x-ray showed hyperinflation with diffuse mild interstitial pattern most marked at the bases. There are bilateral pleural effusions, left greater than right. There was no R pleural effusion at admission......only Left. Possible pulmonary edema. [facility] Medical History (Updated 02/07/24 @ 16:[address] Randi Belle DO) Nicotine dependence, chewing tobacco, in remission Recurrent left inguinal hernia History of right bundle branch block Mild aortic stenosis by prior echocardiogram Syncope Abnormal electrocardiogram Preoperative cardiovascular examination Anxiety Former smoker Atherosclerosis of arteries Trejo phlebectatica paraplantaris Left inguinal hernia Wears glasses Wears dentures Ambulates with cane Prostate disease Difficulty chewing Non-smoker History of edema History of irregular heartbeat Cardiology follow-up encounter History of echocardiogram History of stress test Essential hypertension Hypertension Home Medications ?Medication ?Instructions ?Recorded ?Last Taken ?Type aspirin 81 mg tablet,delayed 81 mg PO DAILY heart health 12/26/21 02/06/24 History release (Adult Low Dose Aspirin) omega-3 fatty acids 1,000 mg 1,000 mg PO DAILY supplement 12/26/21 02/06/24 History capsule (Super [place]-3) acetaminophen 325 mg tablet 650 mg (2 x 325 mg) PO Q6H PRN PRN 02/06/24 02/06/24 Rx Pain 1-10 Or Fever >100.7 #0 tabs sennosides 8.6 mg-docusate sodium 2 tab PO BID PRN PRN Constipation 02/06/24 Unknown Rx 50 mg tablet (Stimulant Laxative #0 tabs Plus) tamsulosin 0.4 mg capsule 0.4 mg PO DAILY@1730 prostate #0 02/06/24 02/05/24 Rx caps Allergy/AdvReac Type Severity Reaction Status Date / Time No Known Allergies Allergy Verified 02/04/24 09:59 Family History unable to obtain Surgical History (Updated 02/07/24 @ 12:[address] Randi Belle, DO) History of cataract extraction S/P inguinal hernia repair Hx of inguinal herniorrhaphy Social History Smoking Status: Former smoker alcohol intake: never substance use type: does not use caffeine: Yes Type: tea ROS Review of Systems ROS Unobtainable: other Details: Possibly having visual hallucinations at night.......saw ticks on his scrotum.....also tells me that the floor in the room was moving. Admits to having problems with memory. Constitutional Constitutional: Reports change in weight, weight loss and other Details: He c/o having alternating chills and sweats. ; Denies anorexia, chills, fatigue, fever(s), night sweats or weakness Eyes Eyes: Denies blurry vision, change in vision, eye pain or loss of vision ENT HEENT: Reports abnormal hearing, dysphagia and hearing loss; Denies dizziness, headache(s), nasal congestion or sore throat Cardiovascular Cardiovascular: Reports other Details: felt SOB today and points to the R chest. ; Denies chest pain, dyspnea on exertion, edema, lightheadedness, orthopnea, palpitations, paroxysmal nocturnal dyspnea or syncope Respiratory/Chest Respiratory/Chest: Reports dyspnea; Denies cough, shortness of breath at rest, shortness of breath with exertion or wheezing Gastrointestinal Gastrointestinal: Reports diarrhea and other Details: Appetite is good and he is eating 75 to 100% of his meals. ; Denies abdominal pain, constipation, dyspepsia, hematemesis, hematochezia, nausea or vomiting Genitourinary Genitourinary: Reports nocturia, urinary frequency, urinary hesitancy, urinary incontinence, urinary urgency and other; Denies dysuria or hematuria Musculoskeletal Musculoskeletal: Reports back pain; Denies joint pain, joint swelling or neck pain Neurologic Neurologic: Reports disequilibrium; Denies confusion, dizziness, focal weakness, headache(s), paresthesias, seizures or tremor(s) Psychiatric Psychiatric: Denies anxiety, depression, homicidal ideation or suicidal ideation Endocrine Endocrinology: Denies change in body appearance, polydipsia or polyuria Hematologic/Lymphatic Hematologic/Lymphatic: Denies easy bleeding, easy bruising or lymphadenopathy Allergic/Immunologic Allergic/Immunologic: Denies rhinitis, eczemia or asthma Vital Signs Vital Signs Vital Signs: 02/06/24 15:36 02/06/24 15:36 02/06/24 18:00 Temperature 97.3 F L 98 F Temperature Source Temporal Temporal Pulse Rate 87 85 Pulse Strength Respiratory Rate 17 16 Respiratory Effort Normal Non-Labored Respiratory Depth Normal Respiratory Pattern Normal Blood Pressure 154/68 H 133/71 H Blood Pressure Mean 96 91 Blood Pressure Source Monitor Monitor Blood Pressure Position Semi-Fowlers Semi-Fowlers Blood Pressure Location Left Arm Left Arm Pulse Ox 99 96 Oxygen Delivery Method Room Air Room Air Room Air 02/06/24 20:43 02/06/24 20:43 02/07/24 06:18 Temperature 98.5 F Temperature Source Temporal Pulse Rate 100 87 Pulse Strength Normal (2+) Respiratory Rate 16 Respiratory Effort Respiratory Depth Respiratory Pattern Blood Pressure 96/49 L Blood Pressure Mean 64 Blood Pressure Source Monitor Blood Pressure Position Semi-Fowlers Blood Pressure Location Left Arm Pulse Ox 96 Oxygen Delivery Method Room Air 02/07/24 09:25 Temperature Temperature Source Pulse Rate Pulse Strength Normal (2+) Respiratory Rate Respiratory Effort Respiratory Depth Respiratory Pattern Blood Pressure Blood Pressure Mean Blood Pressure Source Blood Pressure Position Blood Pressure Location Pulse Ox Oxygen Delivery Method Weight Weight: 137 lb Body Mass Index (BMI) 20.2 Physical Exam Const alert Constitutional Narrative: He is oriented to person, place, year and Month. He could tell me that Desi is the president again. He is [place] and I have to speak loudly and repeat myself. He is pleasant and cooperative. HEENT HEENT Narrative: He is edentulous. MM are mildly dry. No lesions of the buccal mucosa. Posterior pharynx was without exudate. There were no masses noted in the mouth. He had no cervical adenopathy. The neck was flexible. Carotids have brisk upstroke and good pulse volume bilaterally. The trachea was midline. He had no rhinorrhea. Extraocular muscles are intact and both pupils are responsive to light. There was no scleral icterus, no discharge from the eyes and no conjunctival injection. There was no mattering of the eyelashes. The head was atraumatic. He is hard of hearing. He has temporal muscle wasting. Chest Chest: symmetrical chest wall rise Resp normal respiratory effort and normal air movement Resp Narrative: He has egophony in the left base posteriorly. No crackles, no wheezes, no tachypnea, no conversational dyspnea. Effort and Inspection: able to speak in complete sentences Cardio regular rate, regular rhythm, S1 normal heart sound, S2 normal heart sound, no murmurs, no rub and no gallops GI no masses GI Narrative: The abdomen was flat and soft to palpation. Bowel sounds were hyperactive. No guarding with palpation. No hepatosplenomegaly. No abdominal bruits. No dilatation of the abdominal aorta. Bladder / Kidney Exam: catheter in place urethral (The urine in the Retana bag and tubing is pale yellow and clear.) Back/Spine Back/Spine Narrative: There is a stage I decub over the mid thoracic vertebrae. It is painful to touch. Extremity Extremity Narrative: Pitting edema of both LE's. The DP pulses are 2+ BL. Both feet are cool to he touch, L>R. The skin over the LE's is very dry and there is desquamation present. The skin over the distal 1/3 of both legs posteriorly is dusky........but, no cyanosis of the toes. There is skin breakdown over the posterior distal 1/3 of the left posterior calf. There is no purulent DC and no odor. These are most consistent with decubitus ulcers due to sitting in a chair/recliner without moving his legs. He also has venous insufficiency. General Extremity: Negative for calf tenderness Neuro oriented x3, CN's II-XII intact bilaterally, moves all extremities and no focal motor deficits Neuro Narrative: He has severe generalized weakness. He required assistance to go from sitting to standing and he had a retrolean with standing. He needed directions on how to stand/pivot with a walker. No tremors. No masked facies. Psych cooperative, denies homicidal ideation and denies suicidal ideation Psych Narrative: Needs a lot of cuing to move. He is calm and pleasant. He makes eye contact with me. He seemed to be having visual hallucinations last night. Gets more confused in the evening. Does not seem anxious or afraid. He is talkative. Results Lab / Micro Data 02/07/24 06:06 02/07/24 06:06 Labs: Laboratory Results - last 24 hr 02/07/24 06:06: WBC 4.8, RBC 3.50 L, Hgb 10.5 L, Hct 32.0 L, MCV 91.4, MCH 30.0, MCHC 32.8, RDW Std Deviation 42.8, RDW Coeff of Vee 12.8, Plt Count 224, MPV 9.4, Immature Gran % (Auto) 0.400, Neut % (Auto) 54.1, Lymph % (Auto) 27.3, Gillespie % (Auto) 12.6 H, Eos % (Auto) 4.8, Baso % (Auto) 0.8, Absolute Neuts (auto) 2.6, Absolute Lymphs (auto) 1.32, Nucleated RBC % 0, Sodium 140, Potassium 3.5, Chloride 112 H, Carbon Dioxide 27.0, Anion Gap 2 L, BUN 14, Creatinine 0.60 L, Estim Creat Clear Calc 60.42, Est GFR (MDRD) Af Amer 164, Est GFR (MDRD) Non-Af 136, BUN/Creatinine Ratio 23.3 H, Glucose 121 H, Calcium 7.4 L, Phosphorus 1.7 L, Magnesium 2.0, Total Bilirubin 0.40, AST 19, ALT 8 L, Alkaline Phosphatase 78, Total Protein 5.0 L, Albumin 2.2 L, Globulin 2.8, Albumin/Globulin Ratio 0.8 L Assessment & Plan Assessment/Plan (1) Physical debility: (2) Acute kidney injury: (3) Acute urinary retention: (4) BPH w urinary obs/LUTS: (5) Presence of indwelling Retana catheter: (6) Generalized weakness: (7) Cognitive dysfunction: PLAN: Only scored 29/50 on a BCAT (8) Decubitus ulcer, stage II: QUALIFIERS: Laterality: right Pressure injury location: calf Qualified Code(s): L89.892 - Pressure ulcer of other site, stage 2 (9) Stage I decubitus ulcer and pressure area: QUALIFIERS: Pressure injury location: back, unspecified location Qualified Code(s): L89.101 - Pressure ulcer of unspecified part of back, stage 1 (10) Bilateral pleural effusion: (11) Hypophosphatemia: (12) Hypocalcemia: (13) Mild aortic stenosis by prior echocardiogram: PLAN: TTE in 2021. Hyperdynamic LV at that time (14) Normochromic normocytic anemia: (15) COPD (chronic obstructive pulmonary disease): QUALIFIERS: COPD type: unspecified COPD Qualified Code(s): J44.9 - Chronic obstructive pulmonary disease, unspecified PLAN: Per chest XRAY - hyperinflation. (16) Atherosclerosis of arteries: (17) Essential hypertension: (18) Osteopenia determined by x-ray: (19) Compression fracture of T12 vertebra: QUALIFIERS: Encounter type: subsequent encounter PLAN: Plan PLAN PT for gait stability OT for ADL's ST for evaluation Analgesics as needed Bowel protocol Fall precautions Assess for Anxiety/Depression GI prophylaxis -not necessary at this time. Patient denies history of peptic ulcer disease and also denies nausea/vomiting/abdominal pain/heartburn. DVT prophylaxis with heparin AM lab including CMP, CBC, Mag and Phos - personally reviewed. PTH, TSH, CEA, hemoglobin A1c Hemoccult stool PA and lateral chest x-ray Speech therapy evaluation for cognitive deficits Check orthostatic vital signs (they were negative) Plain x-rays of the lumbosacral and thoracic spine Supplement phosphorus Recheck lab on Saturday Discussed with social sciences department chair. I do not feel this gentleman should be living by himself and I do not feel he is able to care for himself. Will need to get family involved. Needs a DEXA as an outpatient and likely needs to start on treatment for osteoporosis. Start a calcium and vitamin D supplement. Check a vitamin D level Charges/Coding Visit Charges Inpatient E&M: 49973 Init Hosp L3
[2024-02-07 12:04] VITALS: BP 121/89; BP 134/76; BP 139/69; PULSE 89; PULSE 96
--- NOTE | 2024-02-07 12:27 | RAD_ITS ---
STUDY: X-RAY CHEST REASON FOR EXAM: Male, 83 years old. Shortness of breath. TECHNIQUE: Frontal and lateral views of the chest. COMPARISON: October 25, 2021 FINDINGS: Hyperinflation with interval development of diffuse mild interstitial pattern most marked at the bases. Bilateral pleural effusions, left greater than right. Stable cardiomegaly. Normal mediastinum and vasyl. Normal visualized pulmonary arteries. Aortic tortuosity with calcification unchanged. Diffuse thoracic spondylosis unchanged. Normal visualized ribs, clavicles, and shoulders. No abnormality of the visualized soft tissue structures of the upper abdomen. RAD/Chest PA and Lateral IMPRESSION: Cardiomegaly with interval development of findings most compatible with mild interstitial edema/congestive failure. Follow-up chest imaging to resolution recommended. Electronically Signed: Gian Chaves MD at 13:43 EST ,
--- NOTE | 2024-02-07 12:43 | RAD_ITS ---
STUDY: X-RAY - THORACIC SPINE REASON FOR EXAM: Male, 83 years old. Back pain TECHNIQUE: [place] view(s) of the thoracic spine were obtained. COMPARISON: None. FINDINGS: Osteopenia. Increased kyphosis. Intervertebral disc space narrowing diffusely most marked in the lower thoracic spine with osteophytes most marked in the lower thoracic region. Anterior wedge compression deformity of T12, age indeterminate. Vascular calcification. RAD/Thoracic Spine 3 Views IMPRESSION: Osteopenia with increased kyphosis and mild thoracic spondylosis with anterior wedge compression deformity of T12, age indeterminant. Electronically Signed: Gian Chaves MD at 13:41 EST ,
--- NOTE | 2024-02-07 12:43 | RAD_ITS ---
STUDY: X-RAY - LUMBAR SPINE REASON FOR EXAM: Male, 83 years old. Back pain. TECHNIQUE: 3 view(s) of the lumbar spine were obtained. COMPARISON: None FINDINGS: Osteopenia. Normal lumbar lordosis. Mild rotatory dextroscoliosis. Diffuse moderate lower thoracic and lumbosacral facet sclerosis. Diffuse intervertebral disc space narrowing most marked in the lower thoracic region. Osteophytes most marked in the lower thoracic region, L1-L2, L2-L3 and L5-S1. Vascular calcification. Calcifications projected over the right renal outline which may represent nephrocalcinosis. RAD/Lumbar Spine 2 or 3 Views IMPRESSION: Osteopenia with diffuse moderate lower thoracic and lumbosacral spondylosis as described. Electronically Signed: Gian Chaves MD at 13:44 EST ,
[2024-02-07 13:01] LABS: Vitamin B12 573 pg/mL (211-911)
[2024-02-07 13:29] LABS: Hemoglobin A1c 5.5 % (3.8-5.6)
[2024-02-07] MEDS: Na Biphos/Potassium Phosphate PACKET 1 PACKET PO ×2 (14:30→22:09)
[2024-02-07 17:22] LABS: BNP,B-Type NATRIURETIC PEPTIDE 524.7 pg/mL (0-100)
[2024-02-07] MEDS: Tamsulosin HCl 0.4 MG Capsule PO (17:34)
--- NOTE | 2024-02-07 17:35 | PCM.RU.PYE ---
Admission Information Primary Diagnosis:: Debility due to generalized weakness. Status Changes from Prescreening?: No changes Identified Actual Problem List:: Skin Intergrity, Pain, ALteration in Cmfrt, Cognitve Impr/Memory Loss, Bowel, Incontinence, Mobility Impaired, Self Care Deficit, Know.Dfct/Disease Process, Know.Dfct of Medicaitons and Alteration-Leisure Activ. Potential Problem List:: DVT, Bleeding, Infection, UTI, Aspiration, Falls, Skin Integrity and Depression Risk of Complications DVT: - (Heparin 5000 units SQ every 12 hours, mobilization and MEY wraps to the LE's) Bleeding: Monitor Lab Values, Nursing to Teach Precautions for anti-coagulation therapy., Wound, if applicable, to be assessed every shift. and Stroke patients assessed for lethargy or change in status. Infection: Clinical Staff to Monitor for S/S of infection: and S/S of infection include fever, redness, warmth, etc. Urinary Tract Infection: Monitor for frequency, burning, discomfort, or incontinence. and Nursing will obtain urine sample for urinalysis and C&S when ordered. Aspiration: Clinical staff will monitor for coughing, drooling, congestion., Speech will evaluate swallowing and dsyphasia. and Nursing will monitor patient swallowing during meals. Falls: Patient will be evaluated for Fall Precautions and Patient will be placed on Fall Precautions as indicated per protocol. Skin Breakdown: Nursing will assess skin daily using assessment tool. and Nursing will place on Skin Breakdown Precautions as indicated. Pain: Clinical staff will assess patient's pain level per protocol., Medications will be given, if needed, and the pain level reassessed. and Other methods: Massage, distraction, decrease stimulus, etc. used PRN. Plan of Care Patient requires physician specializing in physical medicine and rehab oversight to provide close medical supervision of rehab issues including: Pain Management, Sleep Problems, Bowel and Bladder, Medical and co-morbidity Management, DVT prophylaxis, Rehabilitation Leadership and Coordination of treatment team Patient needs Physical Therapy: For a minimum of 1 hour and At least 5 out of 7 days Patient needs Physical Therapy to improve:: Mobility, Strengthening, Transfers, Stretching, ROM, Endurance, Stairs, Gait and Balance Patient needs Occupational Therapy: For a minimum of 1 hour and At least 5 out of 7 days Patient needs Occupational Therapy to improve ADL's incl.: Eating, Grooming, Bathing, Dressing, Toileting, Toilet transfers, Community Reintegration, Higher functioning activities, Household tasks, Adaptive Equipment, Splinting and Other activities as determined Patient requires speech therapy: For a minimum of 1 hour and At least 5 out of 7 days Patient requires speech therapy for: Swallowing, Cognition, Language Skills and Compensatory Strategies Patient requires 24 Rehabilitation Nursing for: Pain Issues, Identifying and preventing risk factors, Monitoring and reporting current medical conditions, Assisting with ambulation, transfer, and all ADL's, Teaching patients about disease process and medications, Family teaching, Providing safe environment, Bowel and Bladder Issues, Skin integrity and Medication Management Patient needs Out Of School Hours Care Worker/ Case Management for: Discharge Planning, Arranging Home Equipment or Services and Family Interventions Patient needs Dietary and Nutrition Services for: Adequate Nutrition, Nutritional Supplements and Nutritional Education Goals Goals Patient will remain: free from falls Patient will perform eating at: MOD I level of assist. Patient will perform bed mobility at: MOD I level of assist. Patient will complete transfers from bed to chair at: MOD I level of assist. Patient will ambulate: - (350 feet with least restrictive device on uneven surfaces to allow him to return home and ambulate to/from the barn.) Patient will complete upper body dressing at: MOD I level of assist. Patient will complete lower body dressing at: - (Supervision with adaptive equipment as needed) Patient will complete toilet transfer at: - (Supervision) Patient will complete toileting at: - (Supervision) Patient will perform bathing at: MOD I level of assist. (He will be independent with upper body bathing and supervision with lower body bathing with adaptive equipment as needed) Patient will perform Tub/Shower transfer at: - (Supervision with adaptive equipment as needed as needed) Patient will complete grooming at: - (Supervision while standing at the sink) Patient will complete home management skills at: - (Supervision) Patient will achieve: 12 stairs (With 2 handrails, descending backwards, at standby assist to allow access to his basement.) and - Patient will have pain level of: of 3 or less Patient's skin will: remain intact and free from infection. Patient will receive: adequate nutrition. Discharge Planning Estimated Length of stay (days): 21 Anticipated D/C Destination: TBD
[2024-02-07 18:00] VITALS: BP 157/80; PULSE 87; RESP 15; TEMP 36.6; O2SAT 97
[2024-02-07] MEDS: Magnesium Hydroxide 30 ML UDC PO (18:16)
[2024-02-07 18:52] LABS: Vitamin D,25 Hydroxy 12.3 ng/mL
[2024-02-07 19:42] LABS: PTHIN 116.1 pg/mL (18.4-80.1)
[2024-02-07] MEDS: Petrolatum,White 5 GM PACKET 1 APPLIC TOPICAL (22:10)
[2024-02-07] MEDS: 0.9% Saline Lock 10 ML Syringe IV (22:14)
[2024-02-08 05:50] VITALS: BP 111/51; PULSE 92; RESP 15; TEMP 37.2; O2SAT 92; BMI 19.3
[2024-02-08] MEDS: Na Biphos/Potassium Phosphate PACKET 1 PACKET PO ×3 (05:55→20:44)
[2024-02-08] MEDS: Cholecalciferol (VIT D3) 25 MCG TABLET (1,000 UNITS) 50 MCG PO (08:10)
[2024-02-08] MEDS: Ensure Plus High Protein 120 ML LIQUID PO ×2 (08:10→12:35)
[2024-02-08] MEDS: Heparin Injection (Vial) 5,000 UNIT/ML VIAL 5000 UNIT SC ×2 (08:11→20:41)
[2024-02-08] MEDS: Omega-3 Acid Ethyl Esters 1 GM Capsule PO (08:11)
[2024-02-08 17:49] VITALS: BP 106/56; PULSE 92; RESP 16; TEMP 37.3; O2SAT 96
[2024-02-08] MEDS: Tamsulosin HCl 0.4 MG Capsule PO (18:18)
[2024-02-08] MEDS: 0.9% Saline Lock 10 ML Syringe IV ×2 (18:21→20:46)
[2024-02-08] MEDS: Petrolatum 33% Tube 1 APPLIC TOPICAL (20:41)
[2024-02-09] MEDS: Na Biphos/Potassium Phosphate PACKET 1 PACKET PO ×3 (05:13→21:16)
[2024-02-09 06:00] VITALS: BP 112/60; PULSE 96; RESP 16; TEMP 37; O2SAT 94; BMI 19.3
[2024-02-09 08:09] LABS: Carcinoembryonic Antigen 3.7 ng/mL (0.0-4.7)
[2024-02-09] MEDS: Omega-3 Acid Ethyl Esters 1 GM Capsule PO (08:10)
[2024-02-09] MEDS: Heparin Injection (Vial) 5,000 UNIT/ML VIAL 5000 UNIT SC ×2 (08:10→21:14)
[2024-02-09] MEDS: Cholecalciferol (VIT D3) 25 MCG TABLET (1,000 UNITS) 50 MCG PO (08:10)
[2024-02-09] MEDS: Senna/Docusate Sodium 1 Tablet 2 TABLET PO ×2 (08:10→21:14)
[2024-02-09] MEDS: Ensure Plus High Protein 120 ML LIQUID PO ×3 (08:10→17:04)
[2024-02-09] MEDS: Menthol/Lanolin/Calamine/Znox 113 GM Tube 1 APPLIC TOPICAL ×2 (14:27→21:14)
[2024-02-09] MEDS: Tamsulosin HCl 0.4 MG Capsule PO (17:04)
[2024-02-09 18:00] VITALS: BP 97/53; PULSE 96; RESP 18; TEMP 36.2; O2SAT 98
[2024-02-09] MEDS: Petrolatum 33% Tube 1 APPLIC TOPICAL (21:15)
[2024-02-10 06:00] VITALS: BP 101/57; PULSE 92; RESP 16; TEMP 36.7; O2SAT 99; BMI 18.9
[2024-02-10 06:01] LABS: Hemoglobin 10.3 g/dL (13.0-16.5); Mean Corp Hgb Conc 33.2 g/dL (32-36); Mean Corpuscular Hgb 30.6 pg (27.0-32.0); Mean Platelet Vol. 9.5 fl (6.2-12.0); Platelet Count 262 K/mm3 (150-450); RBC Distribution Width CV 13.3 % (11.6-14.6); RBC Distribution Width SD 44.2 fl (35.1-43.9); Red Blood Count 3.37 M/mm3 (4.6-6.2); White Blood Count 4.9 K/mm3 (4.4-11.0)
[2024-02-10] MEDS: Menthol/Lanolin/Calamine/Znox 113 GM Tube 1 APPLIC TOPICAL ×3 (06:26→21:22)
[2024-02-10] MEDS: Na Biphos/Potassium Phosphate PACKET 1 PACKET PO (06:26)
[2024-02-10 06:27] LABS: Anion Gap 2 (5-15); BUN 24 mg/dL (7-18); BUN/Creat Ratio 37.5 RATIO (10-20); Calcium,Total 8.3 mg/dL (8.5-10.1); Chloride 107 mmol/L (98-107); Creatinine, Serum 0.64 mg/dL (0.70-1.30); EST Glomerular Filtration Rate 127 mL/min (>60); Est Glom Filt Rate - Afr Amer 153 mL/min (>60); Estimated Creatinine Clearance 57.95 ml/min; Glucose 98 mg/dL (74-106); Phosphorus 2.6 mg/dL (2.5-4.9); Potassium 4.4 mmol/L (3.5-5.1); Sodium Level 140 mmol/L (136-145)
[2024-02-10] MEDS: 0.9% Saline Lock 10 ML Syringe IV (06:45)
[2024-02-10] MEDS: Cholecalciferol (VIT D3) 25 MCG TABLET (1,000 UNITS) 50 MCG PO (08:54)
[2024-02-10] MEDS: Senna/Docusate Sodium 1 Tablet 2 TABLET PO ×2 (08:54→21:29)
[2024-02-10] MEDS: Heparin Injection (Vial) 5,000 UNIT/ML VIAL 5000 UNIT SC ×2 (08:55→21:29)
[2024-02-10] MEDS: Omega-3 Acid Ethyl Esters 1 GM Capsule PO (08:55)
[2024-02-10] MEDS: Ensure Plus High Protein 120 ML LIQUID PO ×3 (08:55→16:36)
--- NOTE | 2024-02-10 10:59 | PCM.PROGNOTE ---
Subjective Subjective Washington was seen on team rounds today. Afebrile VSS -blood pressures since Saturday have ranged from 97/53 to 111/51. Heart rate is ranged from 92-96. Orthostatics were negative on Saturday. Orthostatics are positive today. Maintaining appropriate oxygen saturation on RA Oral intake - FOOD good FLUIDS has been in negative fluid balance since Saturday. Weight is down approximately 6 pounds since Saturday? Weights have been erratic. He is not on a diuretic. Postobstructive diuresis? Discussed with nursing - no problems that need addressed Reviewed the THERAPY notes Medication list reviewed. All lab drawn this morning was personally reviewed. The white blood cell count is within normal limits. Hemoglobin is stable at 10.3 and platelets are within normal limits. Sodium is 140 and the potassium is 4.4. The BUN is 24, up from 14 on Saturday. Creatinine is 0.64 which is stable. Phosphorus is now normal at 2.6 following supplementation. Wean denies lightheadedness but tells me that he got tired with therapy today. He feels kind of weak. He denies cephalgia, chest pain, shortness of breath, cough, nausea/vomiting/abdominal pain, suprapubic pain and calf pain. Urine in the Retana bag and tubing is clear but is franklin in color. I had the chance to talk with Chad, Washington's son today on rounds. He tells me that Washington has lost a ot of weight. He tells me that Washington won't eat at home because the food has trans fat or some other thing that upsets his stomach. He has been eating everything he is given since being on rehab. He has no N/V/abd pain. He has also had a lack of motivation at home and sits most of the time. Chad has been taking care of the finances and Washington was on no prescription medications prior to this visit to the hospital. He has been having visual hallucinations for the past couple weeks but, prior to that no hallucinations. Te4hy have noticed that his memory has been impaired for a while now. Objective Data Objective Data Vital Signs: Vital Signs Temp Pulse Resp BP Pulse Ox O2 Del Method 98.1 F 92 16 101/57 L 99 Room Air 02/10/24 06:00 02/10/24 06:00 02/10/24 06:00 02/10/24 06:00 02/10/24 06:00 02/10/24 06:00 Oxygen Delivery Method Room Air Weight: 128 lb 4.8 oz Body Mass Index (BMI) 18.9 Intake & Output: Intake and Output for Last 24 Hours 02/08/24 02/09/24 02/10/24 23:59 23:59 23:59 Intake Total 1200 / 1200 1840 / 2440 1200 / 1200 Output Total 1250 / 1250 2850 / 4050 1999 Balance -50 / -50 -1010 / -1610 -800 / -800 Lab / Micro Data 02/10/24 05:34 02/10/24 05:34 Labs: Laboratory Results - last 24 hr 02/10/24 05:34: WBC 4.9, RBC 3.37 L, Hgb 10.3 L, Hct 31.0 L, MCV 92.0, MCH 30.6, MCHC 33.2, RDW Std Deviation 44.2 H, RDW Coeff of Vee 13.3, Plt Count 262, MPV 9.5, Sodium 140, Potassium 4.4, Chloride 107, Carbon Dioxide 30.0, Anion Gap 2 L, BUN 24 H, Creatinine 0.64 L, Estim Creat Clear Calc 57.95, Est GFR (MDRD) Af Amer 153, Est GFR (MDRD) Non-Af 127, BUN/Creatinine Ratio 37.5 H, Glucose 98, Calcium 8.3 L, Phosphorus 2.6 Micro: Microbiology 02/07/24 20:24 Stool Stool Occult Blood (ARNULFO) - Final Physical Exam Const alert Constitutional Narrative: He is oriented to person, place, year and Month. He could tell me that [place] is the president again. He is [place] and I have to speak loudly and repeat myself. He is pleasant and cooperative. HEENT Mouth: dry mucous membranes Resp normal respiratory effort and normal air movement Resp Narrative: Breath sounds in the bases are better today. Effort and Inspection: able to speak in complete sentences Cardio regular rate, regular rhythm, no murmurs, no rub and no gallops GI GI Narrative: The abdomen is flat, soft, nondistended, nontender to palpation. Bowel sounds are present in all quadrants and are not quite as hyperactive as they were on Saturday. Extremity Extremity Narrative: He has mild pitting edema of the ankles only today with no pretibial pitting edema. Eliud wrap's are in place. He sits with his legs dependent most of the time. Skin Rashes: no rashes Neuro oriented x3, CN's II-XII intact bilaterally, moves all extremities and no focal motor deficits Psych cooperative, denies homicidal ideation and denies suicidal ideation Psych Narrative: He is calm, pleasant, talkative and appropriate with me. Assessment & Plan Assessment/Plan (1) Physical debility: (2) Acute kidney injury: (3) Acute urinary retention: (4) BPH w urinary obs/LUTS: (5) Presence of indwelling Retana catheter: (6) Generalized weakness: (7) Cognitive dysfunction: (8) Decubitus ulcer, stage II: QUALIFIERS: Laterality: right Pressure injury location: calf Qualified Code(s): L89.892 - Pressure ulcer of other site, stage 2 (9) Stage I decubitus ulcer and pressure area: QUALIFIERS: Pressure injury location: back, unspecified location Qualified Code(s): L89.101 - Pressure ulcer of unspecified part of back, stage 1 (10) Bilateral pleural effusion: (11) Hypophosphatemia: (12) Hypocalcemia: (13) Orthostatic hypotension: (14) Postobstructive diuresis: (15) Dehydration: (16) Visual hallucinations: PLAN: He had this for a few weeks prior to hospitalization and he had some the night of admission to rehab but, these seem to have resolved and they may have been due to Acute encephalopathy due to ARF. PLAN: Plan 1. Continue therapy 2. Check orthostatic vital signs today-they were positive for orthostatic hypotension. 3. Normal saline at 75 cc/h x 1 L today. Continue to encourage increased water intake. 4. Recheck orthostatics in the a.m. 5. Hold Flomax today 6. Recheck a BMP in the a.m. 7. SW will look into meals on wheels and getting him some assistance at DC at home. She talked with Chad about possible assisted living, medicaid application, plans for DC. [place] said on rounds that he just wants someone to visit with him and he may thrive in assisted living where he will have socialization. Charges/Coding Visit Charges Inpatient E&M: 55670 Subs Hosp L2
[2024-02-10 11:05] VITALS: BP 117/60; BP 93/48; BP 99/44; PULSE 101; PULSE 105
--- NOTE | 2024-02-10 12:44 | CASEMGMT ---
Addendum entered by Lyric Fraser 02/11/24 16:26: Direction Home made contact with son to schedule the assessment for Care Coordination. Addendum entered by Lyric Fraesr 02/11/24 13:52: SW placed referral for Care Coordination through website. Addendum entered by Lyric Fraser 02/10/24 16:29: Referral sent to [facility], with outcome: He would be eligible for [facility] Medicaid and some financial assistance (and LTC) Rep to follow up with son on qualifications and spend down. SW will continue to follow. Addendum entered by Lyric Fraser 02/10/24 16:05: Addendum: At Team meeting, SW also educated to researching secondary insurance companies or part D as pt will be discharged home with medications, and for [facility] copay coverage. SW had nursing provide printed med list of current medications to assist son in research for insurance companies. SW directed son to Medicare.gov as it is currently open enrollment. Son also provided this worker with dtzeny Maravilla's, contact information. SW updated in chart. -- SW received Medicare days - 16 days with DC 02/21. SW phoned son to update him on [facility] days and will ReTeam next week to review pt's progress and DC plans. Son appreciative. Will continue to follow. Original Note: Social Work IDT met with patient and son for Team meeting. Discussed patient's progress in PT/OT/ST/SN. Educated to Medicare benefit and will notify pt and son of [facility] days once given. Pt lived at home alone prior, but dtr lives on the same property. Pt assisting in caring for dtr's farm animals. SW inquired to son about he and sister's involvement and son's perspective on how pt was managing at home alone. Son explained he has no clue what his sister does but she does manage a farm two houses down from pt. Son explained he works full-time, does pt's grocery shopping, finances, and transportation. Son stated pt was not taking any medication prior, thus not needing to manage any meds. Son explained pt would not eat any of the food son bought him. Pt confirmed, explained his stomach would always hurt after eating foods with a lot of trans fats, and he would usually only eat a baked potato for dinner. Son is aware of pt's malnutrition and spending his days and nights in his recliner chair causing the pressure ulcers. Son is in agreement pt needs additional care, outside of the son, to return home safely. SW discussed resources such as [facility], medical alert, [place], private duty SOLAR SALES REPRESENTATIVE AND ASSESSOR, referral to [facility] Coordination [facility], and Medicaid eligibility, and provide printed information to son. SW to refer to [facility] if pt discharges home. Son provided pt's financial information and pt/son agreed to Medicaid referral. SW will assist with coordinating care and determining pt's DC plans. Son appreciative. SW will return to complete initial assessment. BABATUNDE MckinneyW
[2024-02-10] MEDS: 0.9% Normal Saline (1000mL) 1,000 ML 75 ML IV (13:20)
--- NOTE | 2024-02-10 15:49 | CHAPLAIN ---
Type of Pastoral Visit _x__ Initial Visit ___ Follow-up Visit ___ On-call Visit ___ General Patient Visit ___ Spiritual Assessment ___ Family Conference ___ Bereavement ___ Rapid Response ___ Code Blue ___ Other (describe below) Pastoral Care Referral From _x__ Patient ___ Family ___ Nurse ___ Physician ___ Vascular Radiologist ___ Centrifugal Spinner ___ Other (describe below) Sacrament/Intervention _x__ Active listening ___ Anointing ___ Rastafarian ___ Bereavement ___ Communion _x__ Courtney exploration ___ _x__ Life review _x__ Prayer ___ Reconciliation ___ Sacrament of Sick ___ Supportive presence ___ Wedding ___ Other (describe below) Pastoral Comments patient reviews his life and his family of origln and how they impact what we do and say; pt gives some life review; pt states his family is very important to him; pt is talkative and give life review and how he worked; pt would like more visits if possible
[2024-02-10 17:33] VITALS: BP 133/73; PULSE 99; RESP 16; TEMP 36.6; O2SAT 96
[2024-02-10] MEDS: Petrolatum 33% Tube 1 APPLIC TOPICAL (21:28)
[2024-02-10 22:00] VITALS: PULSE 99; RESP 16; O2SAT 96
[2024-02-11] MEDS: Menthol/Lanolin/Calamine/Znox 113 GM Tube 1 APPLIC TOPICAL ×2 (05:44→20:26)
[2024-02-11] MEDS: Calcium Carbonate 500 MG Tablet PO ×2 (05:44→16:25)
[2024-02-11 06:00] VITALS: BP 99/55; PULSE 82; RESP 16; TEMP 37.1; O2SAT 95; BMI 19.0
[2024-02-11 07:43] LABS: Anion Gap 3 (5-15); BUN 20 mg/dL (7-18); BUN/Creat Ratio 33.1 RATIO (10-20); Calcium,Total 8.3 mg/dL (8.5-10.1); Chloride 108 mmol/L (98-107); EST Glomerular Filtration Rate 135 mL/min (>60); Est Glom Filt Rate - Afr Amer 163 mL/min (>60); Estimated Creatinine Clearance 56.88 ml/min; Glucose 87 mg/dL (74-106); Potassium 4.2 mmol/L (3.5-5.1); Sodium Level 140 mmol/L (136-145)
[2024-02-11] MEDS: Omega-3 Acid Ethyl Esters 1 GM Capsule PO (09:12)
[2024-02-11] MEDS: Ensure Plus High Protein 120 ML LIQUID PO ×3 (09:12→16:25)
[2024-02-11] MEDS: Cholecalciferol (VIT D3) 25 MCG TABLET (1,000 UNITS) 50 MCG PO (09:13)
[2024-02-11] MEDS: Heparin Injection (Vial) 5,000 UNIT/ML VIAL 5000 UNIT SC ×2 (09:17→20:27)
--- NOTE | 2024-02-11 09:33 | PN_ITS ---
Subjective Subjective Afebrile VSS -blood pressure for the past 24 hours has ranged from 99/55 to 133/73. Heart rate is better today at 82. It was increased to high normal yesterday. Orthostatics are negative today. Maintaining appropriate oxygen saturation on RA Oral intake - FOOD good FLUIDS -despite 1 L of IV normal saline yesterday the fluid balance was still -850. Overnight he is +460. Nurses are constantly encouraging increased fluid intake. Weight today is up approximately 9 ounces since yesterday. Discussed with nursing - Large liquid stool today. Stool is heme negative. Reviewed the THERAPY notes - Medication list reviewed. All lab drawn this morning was personally reviewed. Sodium is stable at 140 and the potassium is normal at 4.2. The BUN is 20 with a stable creatinine of 0.6. Calcium corrected for hypoalbuminemia is within normal limits. No complaints today. Denies lightheadedness, palpitations, CP, SOB, cough. He is very talkative and seems to enjoy having company and someone to talk to. He is alone most of the time at home and is not really able to care for himself. Objective Data Objective Data Vital Signs: Vital Signs Temp Pulse Resp BP Pulse Ox O2 Del Method 98.7 F 82 16 99/55 L 95 Room Air 02/11/24 06:00 02/11/24 06:00 02/11/24 06:00 02/11/24 06:00 02/11/24 06:00 02/11/24 06:00 Oxygen Delivery Method Room Air Weight: 128 lb 15.527 oz Body Mass Index (BMI) 19.0 Intake & Output: Intake and Output for Last 24 Hours 02/09/24 02/10/24 02/11/24 23:59 23:59 23:59 Intake Total 1840 / 2440 1900 / 1900 1460 / 1460 Output Total 2850 / 4050 2750 / 2750 1000 / 1000 Balance -1010 / -1610 -850 / -850 460 / 460 Lab / Micro Data 02/10/24 05:34 02/11/24 06:45 Labs: Laboratory Results - last 24 hr 02/11/24 06:45: Sodium 140, Potassium 4.2, Chloride 108 H, Carbon Dioxide 29.0, Anion Gap 3 L, BUN 20 H, Creatinine 0.60 L, Estim Creat Clear Calc 56.88, Est GFR (MDRD) Af Amer 163, Est GFR (MDRD) Non-Af 135, BUN/Creatinine Ratio 33.1 H, Glucose 87, Calcium 8.3 L Micro: Microbiology 02/07/24 20:24 Stool Stool Occult Blood (ARNULFO) - Final Physical Exam Const alert HEENT HEENT Narrative: Temporal muscle wasting. severe generalized muscle weakness. Loss of subcutaneous fat. Has lost a lot of weight per family and he was not eating at home. He has pitting edema of the LE's wtih no hx of CHF, cirrhosis or Pulm HTN......I suspect it is related to malnutrition and low ablumin Mouth: dry mucous membranes Resp normal respiratory effort, normal air movement and clear to auscultation bilaterally Resp Narrative: Breath sounds in the bases are better today. they were dimninshed last week Effort and Inspection: able to speak in complete sentences Cardio regular rate, regular rhythm, no murmurs, no rub and no gallops Cardio Narrative: No ectopy GI no masses GI Narrative: The abdomen is flat, soft, nondistended, nontender to palpation. Bowel sounds are present in all quadrants and are not quite as hyperactive as they were on Saturday. Bladder / Kidney Exam: catheter in place urethral (The urine in the Retana bag and tubing is pale yellow and clear.) Extremity Extremity Narrative: He has mild pitting edema of the ankles only today with no pretibial pitting edema. Eliud wrap's are in place. He sits with his legs dependent most of the time. General Extremity: Negative for calf tenderness Skin Rashes: no rashes Neuro oriented x3, CN's II-XII intact bilaterally, moves all extremities and no focal motor deficits Psych cooperative, denies homicidal ideation and denies suicidal ideation Psych Narrative: He is calm, pleasant, talkative and appropriate with me. He has poor appetite and intake at home....family brings food but, he will not eat it. He has no motivations to get up and move and he sits most of the day. He feels lonely and wants to have someone to talk with. He was sitting in wet, dirty pants in a chair prior to admission because he was too weak to get up and use the toilet. He is severely weak with very poor exercise tolerance due to chronic deconditioning. Always willing to work with therapy. Very talkative with staff and good humor. Eating very well on rehab........I think he is very sad at home by himself and depressed. Assessment & Plan Assessment/Plan (1) Physical debility: (2) Acute kidney injury: PLAN: resolved with hydration and Retana I reviewed a CT of the abd and pelvis done in 2021 and the prostate was significantly enlarged at that time. (3) Acute urinary retention: PLAN: I suspect this has been chronic and just finally got to a point where he developed Hydroureter/hydronephrosis and went into renal failure (4) BPH w urinary obs/LUTS: (5) Presence of indwelling Retana catheter: (6) Generalized weakness: PLAN: severe (7) Cognitive dysfunction: (8) Decubitus ulcer, stage II: QUALIFIERS: Laterality: right Pressure injury location: calf Q ualified Code(s): L89.892 - Pressure ulcer of other site, stage 2 (9) Stage I decubitus ulcer and pressure area: QUALIFIERS: Pressure injury location: back, unspecified location Qualified Code(s): L89.101 - Pressure ulcer of unspecified part of back, stage 1 (10) Bilateral pleural effusion: (11) Hypophosphatemia: (12) Hypocalcemia: (13) Orthostatic hypotension: (14) Postobstructive diuresis: (15) Dehydration: (16) Visual hallucinations: PLAN: He had this for a few weeks prior to hospitalization and he had some the night of admission to rehab but, these seem to have resolved and they may have been due to Acute encephalopathy due to ARF. (17) Depression: QUALIFIERS: Depression Type: unspecified Qualified Code(s): F32.A - Depression, unspecified (18) Malnutrition: QUALIFIERS: Malnutrition type: protein-calorie malnutrition P rotein-calorie malnutrition severity: severe Qualified Code(s): E43 - Unspecified severe protein-calorie malnutrition PLAN: Plan 1. Continue therapy 2. Continue to hold Flomax 3. Continue to monitor daily weights and I&O closely. 4. Add Questran 4 GM BID to the drug regimen. Hold Senna. Tells me that he was having diarrhea/incontinence at home and he was not taking any stool softeners or laxatives.This could be due to chronic malnutrition. 5. I suspect that he is not going to be able to go home without 24/7 supervision. Will need to discuss plans for DC with Chad.......Family not able to provide 24/7 supervision. SW is addressing Medicaid application with family. Charges/Coding Visit Charges Inpatient E&M: 62507 Subs Hosp L1
[2024-02-11 09:38] VITALS: BP 102/57; BP 106/62; BP 99/55; PULSE 82; PULSE 92; PULSE 96
[2024-02-11 13:38] VITALS: O2SAT 96
[2024-02-11] MEDS: Cholestyramine/Sucrose 4 GM/PACKET PO (16:25)
[2024-02-11 17:45] VITALS: BP 84/47; PULSE 100; RESP 16; TEMP 37.1; O2SAT 97
[2024-02-11] MEDS: 0.9% Saline Lock 10 ML Syringe IV (20:25)
[2024-02-11] MEDS: Petrolatum 33% Tube 1 APPLIC TOPICAL (20:26)
[2024-02-11 22:00] VITALS: PULSE 100; RESP 16; O2SAT 97
[2024-02-12 05:04] VITALS: BMI 18.8
[2024-02-12 06:00] VITALS: BP 107/64; PULSE 80; RESP 16; TEMP 36.9; O2SAT 96
[2024-02-12] MEDS: Menthol/Lanolin/Calamine/Znox 113 GM Tube 1 APPLIC TOPICAL ×2 (06:50→22:22)
[2024-02-12] MEDS: Cholestyramine/Sucrose 4 GM/PACKET PO ×2 (06:54→16:20)
[2024-02-12] MEDS: Heparin Injection (Vial) 5,000 UNIT/ML VIAL 5000 UNIT SC ×2 (09:03→22:21)
[2024-02-12] MEDS: Calcium Carbonate 500 MG Tablet PO ×2 (09:03→16:20)
[2024-02-12] MEDS: Cholecalciferol (VIT D3) 25 MCG TABLET (1,000 UNITS) 50 MCG PO (09:03)
[2024-02-12] MEDS: Omega-3 Acid Ethyl Esters 1 GM Capsule PO (09:03)
[2024-02-12] MEDS: Ensure Plus High Protein 120 ML LIQUID PO ×3 (09:06→16:20)
[2024-02-12] MEDS: 0.9% Saline Lock 10 ML Syringe IV ×2 (09:10→13:59)
[2024-02-12] MEDS: 0.9% Normal Saline (1000mL) 1,000 ML 75 ML IV (13:59)
[2024-02-12] MEDS: NYSTATIN 500,000 UNIT/5 ML UDC 500000 UNIT PO ×2 (16:20→22:21)
[2024-02-12 17:37] VITALS: BP 97/49; PULSE 84; RESP 16; TEMP 36.8; O2SAT 98
[2024-02-12] MEDS: Petrolatum 33% Tube 1 APPLIC TOPICAL (22:22)
[2024-02-13] MEDS: 0.9% Normal Saline (1000mL) 1,000 ML 75 ML IV ×2 (02:32→16:04)
[2024-02-13] MEDS: 0.9% Saline Lock 10 ML Syringe IV ×2 (05:07→15:49)
[2024-02-13] MEDS: Cosyntropin 0.25 MG in 0.9% Normal Saline (Pres. free 4 ML 150 MG IV (05:07)
[2024-02-13] MEDS: Menthol/Lanolin/Calamine/Znox 113 GM Tube 1 APPLIC TOPICAL (05:17)
[2024-02-13 06:00] VITALS: BP 125/68; PULSE 81; RESP 17; TEMP 36.7; O2SAT 94; BMI 19.1
[2024-02-13] MEDS: Cholestyramine/Sucrose 4 GM/PACKET PO (06:15)
[2024-02-13 06:48] LABS: Anion Gap 1 (5-15); BUN 21 mg/dL (7-18); BUN/Creat Ratio 31.2 RATIO (10-20); Calcium,Total 8.5 mg/dL (8.5-10.1); Chloride 110 mmol/L (98-107); Creatinine, Serum 0.67 mg/dL (0.70-1.30); EST Glomerular Filtration Rate 120 mL/min (>60); Est Glom Filt Rate - Afr Amer 145 mL/min (>60); Estimated Creatinine Clearance 56.88 ml/min; Glucose 86 mg/dL (74-106); Potassium 4.5 mmol/L (3.5-5.1); Sodium Level 141 mmol/L (136-145)
[2024-02-13] MEDS: NYSTATIN 500,000 UNIT/5 ML UDC 500000 UNIT PO ×2 (07:28→13:01)
[2024-02-13] MEDS: Calcium Carbonate 500 MG Tablet PO (07:28)
[2024-02-13] MEDS: Omega-3 Acid Ethyl Esters 1 GM Capsule PO (07:28)
[2024-02-13] MEDS: Cholecalciferol (VIT D3) 25 MCG TABLET (1,000 UNITS) 50 MCG PO (07:29)
[2024-02-13] MEDS: Ensure Plus High Protein 120 ML LIQUID PO ×2 (07:29→11:03)
[2024-02-13] MEDS: Heparin Injection (Vial) 5,000 UNIT/ML VIAL 5000 UNIT SC (07:29)
--- NOTE | 2024-02-13 15:11 | PCM.PROGNOTE ---
Subjective Subjective Afebrile VSS -blood pressure over the past 24 hours has ranged from 97/49 to 125/68 today. This is better than it had been on 02/11/2024. Heart rate is within normal limits. Maintaining appropriate oxygen saturation on RA Oral intake - FOOD good FLUIDS continues to be in negative fluid balance despite IV normal saline and increased p.o. intake. That being said the weight today is 128 pounds and 15 ounces which is up approximately 1 pound since yesterday. Discussed with nursing - no problems that need addressed Reviewed the THERAPY notes Medication list reviewed. All lab drawn this morning was personally reviewed. Sodium is 141 and the potassium is 4.5. Serum bicarb is 30 and the BUN is 21 with a creatinine of 0. 6 7 which is within his baseline. Baseline cortisol was normal this morning and it did increase by greater than 10 following ACTH. [place] suddenly started c/o severe pain in the R groin this afternoon. The pain radiates into the scrotum and the R testicle. He has no pain in the thigh or the calf. He has aq known L inguinal hernia but, none in the R inguinal area on recent CT of the abd and pelvis. Objective Data Objective Data Vital Signs: Vital Signs Temp Pulse Resp BP Pulse Ox O2 Del Method 98.1 F 81 17 125/68 H 94 Room Air 02/13/24 06:00 02/13/24 06:00 02/13/24 06:00 02/13/24 06:00 02/13/24 06:00 02/13/24 06:00 Oxygen Delivery Method Room Air Weight: 128 lb 15.527 oz Body Mass Index (BMI) 19.1 Intake & Output: Intake and Output for Last 24 Hours 02/11/24 02/12/24 02/13/24 23:59 23:59 23:59 Intake Total 2019 1150 / 1150 1646.25 / 1646.25 Output Total 2049 2550 / 2550 2600 / 2600 Balance -30 / -30 -1400 / -1400 -953.75 / -953.75 Medical Nutrition Assessment Dietitian: Malnutrition Criteria Met Start: 02/11/24 13:44 Freq: Status: Active Protocol: Document 02/11/24 13:44 UT (Rec: 02/11/24 13:48 UT [id number]) Nutrition Malnutrition Evidence of Malnutrition Exists Yes Malnutrition (severe): Chronic Evidenced By Suboptimal Energy Intake ( Moderate),Physical Changes ( Severe) Intake Problem Increased Nutrient Needs (specify) Etiology (protein) for wound healing Signs/Symptoms BLE posterior lower leg stasis ulcers Status Active Problem Clinical Problem Chronic Disease or Condition Related Malnutrition Etiology related to chronic condition Signs/Symptoms severe temporal, clavicular, buccal, thigh, calf muscle and fat wasting. 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 Problem Recommendation Dietitian Recommendations/Changes Continue current diet order Continue Ensure PHP with medpass Order Sathish BID with breakfast and dinner to promote wound healing Lab / Micro Data 02/10/24 05:34 02/13/24 05:07 Labs: Laboratory Results - last 24 hr 02/13/24 05:07: Sodium 141, Potassium 4.5, Chloride 110 H, Carbon Dioxide 30.0, Anion Gap 1 L, BUN 21 H, Creatinine 0.67 L, Estim Creat Clear Calc 56.88, Est GFR (MDRD) Af Amer 145, Est GFR (MDRD) Non-Af 120, BUN/Creatinine Ratio 31.2 H, Glucose 86, Calcium 8.5, Cortisol 16.70 02/13/24 06:10: Cortisol 27.30 H Micro: Microbiology 02/07/24 20:24 Stool Stool Occult Blood (ARNULFO) - Final Physical Exam Const alert Constitutional Narrative: seems to be in pain and he is grimacing. Chest Chest: symmetrical chest wall rise Resp clear to auscultation bilaterally Resp Narrative: Breath sounds in the bases are better today. they were dimninshed last week Effort and Inspection: Negative for tachypneic or labored Cardio regular rate, regular rhythm and no gallops Cardio Narrative: No ectopy GI no masses GI Narrative: The abd is flat and BS's are present. there is a firm lump in the R inguinal area that is not reducible. He has a lot of pain with palpation. He also has pain with palpation of the R testes but there is no swelling in the scrotum and the R testicle is normal in size. In suspect he may have an incarcerated hernia. Bladder / Kidney Exam: catheter in place urethral (The urine in the Retana bag and tubing is pale yellow and clear.) Back/Spine Back/Spine Narrative: There is a stage I decub over the mid thoracic vertebrae. It is painful to touch. Extremity no calf tenderness Extremity Narrative: He has mild pitting edema of the ankles only today with no pretibial pitting edema. Eliud wrap's are in place. He sits with his legs dependent most of the time. General Extremity: Negative for edema Skin Rashes: no rashes Neuro oriented x3, CN's II-XII intact bilaterally, moves all extremities and no focal motor deficits Neuro Narrative: He has severe generalized weakness. He required assistance to go from sitting to standing and he had a retrolean with standing. He needed directions on how to stand/pivot with a walker. No tremors. No masked facies. Psych cooperative, denies homicidal ideation and denies suicidal ideation Psych Narrative: He is calm, pleasant, talkative and appropriate with me. He has poor appetite and intake at home....family brings food but, he will not eat it. He has no motivations to get up and move and he sits most of the day. He feels lonely and wants to have someone to talk with. He was sitting in wet, dirty pants in a chair prior to admission because he was too weak to get up and use the toilet. He is severely weak with very poor exercise tolerance due to chronic deconditioning. Always willing to work with therapy. Very talkative with staff and good humor. Eating very well on rehab........I think he is very sad at home by himself and depressed. Assessment & Plan Assessment/Plan (1) Recurrent inguinal hernia: (2) Severe groin pain: (3) Physical debility: (4) BPH w urinary obs/LUTS: (5) Presence of indwelling Retana catheter: (6) Generalized weakness: PLAN: severe (7) Cognitive dysfunction: (8) Decubitus ulcer, stage II: QUALIFIERS: Pressure injury location: calf Laterality: right Qualified Code(s): L89.892 - Pressure ulcer of other site, stage 2 (9) Stage I decubitus ulcer and pressure area: QUALIFIERS: Pressure injury location: back, unspecified location Qualified Code(s): L89.101 - Pressure ulcer of unspecified part of back, stage 1 (10) Orthostatic hypotension: (11) Postobstructive diuresis: (12) Dehydration: (13) Visual hallucinations: PLAN: He had this for a few weeks prior to hospitalization and he had some the night of admission to rehab but, these seem to have resolved and they may have been due to Acute encephalopathy due to ARF. (14) Depression: QUALIFIERS: Depression Type: unspecified Qualified Code(s): F32.A - Depression, unspecified (15) Malnutrition: QUALIFIERS: Malnutrition type: protein-calorie malnutrition Protein-calorie malnutrition severity: severe Qualified Code(s): E43 - Unspecified severe protein-calorie malnutrition PLAN: Plan 1. Continue Iv NS and make him NPO until he is seen by general surgery. 2. I spoke with Dr. Odonnell who is career information specialist for general surgery and he is going to see the pt in consult 3. Since he is NPO now and in severe pain will order MS 1 mg IV Q 4 H as needed for pain control......start low given age and severe debility.......will reassess how effective 1 mg is after he receives the first dose. 4. I will call his family with an update. Charges/Coding Visit Charges Inpatient E&M: 82069 Subs Hosp L2
[2024-02-13] MEDS: Morphine 2 MG/ML Syringe 1 MG IV (15:49)
--- NOTE | 2024-02-13 16:14 | PCM.DC.SUM ---
Providers Date of Admission: 02/06/24 Date of Discharge: 02/13/24 Primary Care Physician: Siena Santana MD Consultations 02/13/24 15:25 Consult: General Surgery Routine Consulting Provider: Wesley Odonnell Reason for Consult: suspected incarcerated R inguinal hernia EMERGENT Consult: Yes MD Notified: Yes Date Notified: 02/13/24 Time Notified: 15:26 Method of Notification: Verbal Reason For Visit: Debility/recurrent R inguinal hernia Diagnosis Discharge Diagnosis (1) Recurrent inguinal hernia: Status: Acute Code(s): K40.91 - Unilateral inguinal hernia, without obstruction or gangrene, recurrent Plan: Seen by Dr. Odonnell and going to surgery for repair 02/13/24. (2) Severe groin pain: Status: Acute Code(s): R10.30 - Lower abdominal pain, unspecified Plan: Due to R inguinal hernia (3) Physical debility: Status: Acute Code(s): R53.81 - Other malaise (4) BPH w urinary obs/LUTS: Status: Acute Code(s): N40.1 - Benign prostatic hyperplasia with lower urinary tract symptoms; N13.8 - Other obstructive and reflux uropathy (5) Presence of indwelling Retana catheter: Status: Acute Code(s): Z97.8 - Presence of other specified devices (6) Generalized weakness: Status: Acute Code(s): R53.1 - Weakness Plan: severe (7) Cognitive dysfunction: Status: Acute Code(s): F09 - Unspecified mental disorder due to known physiological condition (8) Decubitus ulcer, stage II: Status: Acute Code(s): L89.92 - Pressure ulcer of unspecified site, stage 2 Qualifiers: Pressure injury location: calf Laterality: right Qualified Code(s): L89.892 - Pressure ulcer of other site, stage 2 (9) Stage I decubitus ulcer and pressure area: Status: Acute Code(s): L89.91 - Pressure ulcer of unspecified site, stage 1 Qualifiers: Pressure injury location: back, unspecified location Qualified Code(s): L89.101 - Pressure ulcer of unspecified part of back, stage 1 (10) Orthostatic hypotension: Status: Acute Code(s): I95.1 - Orthostatic hypotension (11) Postobstructive diuresis: Status: Acute Code(s): R35.89 - Other polyuria (12) Dehydration: Status: Acute Code(s): E86.0 - Dehydration (13) Visual hallucinations: Status: Acute Code(s): R44.1 - Visual hallucinations Plan: He had this for a few weeks prior to hospitalization and he had some the night of admission to rehab but, these seem to have resolved and they may have been due to Acute encephalopathy due to ARF. (14) Depression: Status: Acute Code(s): F32.A - Depression, unspecified Qualifiers: Depression Type: unspecified Qualified Code(s): F32.A - Depression, unspecified (15) Malnutrition: Status: Acute Code(s): E46 - Unspecified protein-calorie malnutrition Qualifiers: Malnutrition type: protein-calorie malnutrition Protein-calorie malnutrition severity: severe Qualified Code(s): E43 - Unspecified severe protein-calorie malnutrition Plan DC for R inguinal hernia repair by Dr. Odonnell. Medications at Discharge Home Medications aspirin 81 mg tablet,delayed release (Adult Low Dose Aspirin) 81 mg PO DAILY heart health 12/26/21 omega-3 fatty acids 1,000 mg capsule (Super [place]-3) 1,000 mg PO DAILY supplement 12/26/21 acetaminophen 325 mg tablet 650 mg (2 x 325 mg) PO Q6H PRN PRN Pain 1-10 Or Fever >100.7 #0 tabs 02/06/24 sennosides 8.6 mg-docusate sodium 50 mg tablet (Stimulant Laxative Plus) 2 tab PO BID PRN PRN Constipation #0 tabs 02/06/24 tamsulosin 0.4 mg capsule 0.4 mg PO DAILY@1730 prostate #0 caps 02/06/24 Petrolatum 33% [Eucerin Eqivalent] 1 applic topical QHS ##0 02/13/24 calcium carbonate 500 mg (2.5 x 200 mg calcium (500 mg)) PO BIDCM #0 tabs 02/13/24 cholecalciferol (vitamin D3) 25 mcg (1,000 unit) tablet 50 mcg (2 x 25 mcg (1,000 unit)) PO DAILY #0 tabs 02/13/24 cholestyramine (with sugar) 4 gram powder for susp in a packet 1 ea PO BIDAC #0 ea 02/13/24 food supplemt, lactose-reduced 0.08 gram-1.5 kcal/mL oral liquid (Ensure Plus High Protein) 120 ml PO TIDCM #0 mL 02/13/24 morphine 2 mg/mL intravenous syringe 1 mg (0.5 mL) IV Q3H PRN PRN pain 1-10 1 day #0 mL 02/13/24 naloxone 0.4 mg/mL injection solution 0.4 mg IV X1 PRN RR <10, unresponsiveness #1 mL 02/13/24 nystatin 100,000 unit/mL oral suspension 500,000 unit (5 mL) PO 4X/DAY #0 mL 02/13/24 Hospital Course Summary of Care Provided Minutes Spent on Discharge: 40 Hospital Course: WASHINGTON SEPULVEDA, is a 83 YO M with a PMH of HTN, venous stasis ulcers of the LE's and prostate disease who presented to the ED at [facility] on 02/04/24 c/o severe abdominal pain which had been present for a few weeks but it was getting worse. In the ED he was diagnosed with NATALEE (creat was 3.1) due to obstructive uropathy. CT scan of the abdomen and pelvis showed a marked degree of distention of the urinary bladder, prostatic enlargement with indentation at the bladder base and a moderate degree of bilateral hydronephrosis and hydroureter. There was a 2.9 cm cyst in the posterior lower midportion of the right kidney. Visualization of the lumbar spine show diffuse degenerative changes with a heterogeneous appearance of the bones suspicious for metastatic disease. The abdominal pain resolved with placement of a Retana catheter. He was admitted to the hospitalist service. A total PSA was checked and was normal at 2.7. While in the hospital he was seen in consultation by Dr. Stapleton from urology who recommended discharging with a Retana catheter in place and follow-up in his office as an outpatient for a voiding trial and possible TURP. He was transferred to the acute inpt rehab unit at [facility] on 02/06/24 for 3 hours of therapy daily to strengthen/rehabilitate so that he can return home. On 02/13/24 in the afternoon [place] started c/o severe R groin pain. On physical exam he was noted to have a R inguinal hernia. there was a hard mass in the R inguinal area that was not reducible. It was very painful to touch and he had pain radiating into the R scrotum/R testicle. He was seen in consult by Dr. Odonnell who recommended surgery to repair. Permission was obtained from [place] and his sone Chad. [place] has cognitive dysfunction and some visual hallucinations. He was made NPO and IV fluids were continued. He was given 1 mg of MS IV and this helped make the pain tolerable. He was alert and able to talk with me following the MS. [place] is very deconditioned and malnourished. He is frail. I suspect he may need to stay in the acute side of the hospital for a few days but, we will take him back whenever Dr. Odonnell feels he is stable for DC. I updated his son Chad about the acute change in his condition and the need to proceed with surgery tonight. Physical Exam Const alert Constitutional Narrative: seems to be in pain and he is grimacing. Chest Chest: symmetrical chest wall rise Resp clear to auscultation bilaterally Resp Narrative: Breath sounds in the bases are better today. they were dimninshed last week Effort and Inspection: Negative for tachypneic or labored Cardio regular rate, regular rhythm and no gallops Cardio Narrative: No ectopy GI no masses GI Narrative: The abd is flat and BS's are present. there is a firm lump in the R inguinal area that is not reducible. He has a lot of pain with palpation. He also has pain with palpation of the R testes but there is no swelling in the scrotum and the R testicle is normal in size. In suspect he may have an incarcerated hernia. Bladder / Kidney Exam: catheter in place urethral (The urine in the Retana bag and tubing is pale yellow and clear.) Back/Spine Back/Spine Narrative: There is a stage I decub over the mid thoracic vertebrae. It is painful to touch. Extremity no calf tenderness Extremity Narrative: He has mild pitting edema of the ankles only today with no pretibial pitting edema. Eliud wrap's are in place. He sits with his legs dependent most of the time. General Extremity: Negative for edema Skin Rashes: no rashes Neuro oriented x3, CN's II-XII intact bilaterally, moves all extremities and no focal motor deficits Neuro Narrative: He has severe generalized weakness. He required assistance to go from sitting to standing and he had a retrolean with standing. He needed directions on how to stand/pivot with a walker. No tremors. No masked facies. Psych cooperative, denies homicidal ideation and denies suicidal ideation Psych Narrative: He is calm, pleasant, talkative and appropriate with me. He has poor appetite and intake at home....family brings food but, he will not eat it. He has no motivations to get up and move and he sits most of the day. He feels lonely and wants to have someone to talk with. He was sitting in wet, dirty pants in a chair prior to admission because he was too weak to get up and use the toilet. He is severely weak with very poor exercise tolerance due to chronic deconditioning. Always willing to work with therapy. Very talkative with staff and good humor. Eating very well on rehab........I think he is very sad at home by himself and depressed. Medical Records Data Medical Nutrition Assessment Dietitian: Malnutrition Criteria Met Start: 02/11/24 13:44 Freq: Status: Active Protocol: Document 02/11/24 13:44 PR (Rec: 02/11/24 13:48 PR [id number]) Nutrition Malnutrition Evidence of Malnutrition Exists Yes Malnutrition (severe): Chronic Evidenced By Suboptimal Energy Intake ( Moderate),Physical Changes ( Severe) Intake Problem Increased Nutrient Needs (specify) Etiology (protein) for wound healing Signs/Symptoms BLE posterior lower leg stasis ulcers Status Active Problem Clinical Problem Chronic Disease or Condition Related Malnutrition Etiology related to chronic condition Signs/Symptoms severe temporal, clavicular, buccal, thigh, calf muscle and fat wasting. 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 Recommendation Dietitian Recommendations/Changes Continue current diet order Continue Ensure PHP with medpass Order Sathish BID with breakfast and dinner to promote wound healing Weight / BMI Weight Weight: 128 lb 15.527 oz Body Mass Index (BMI) 19.1 ABG / Lab / Microbiology Data 02/10/24 05:34 02/13/24 05:07 Laboratory: Laboratory Results - last 24 hr 02/13/24 05:07: Sodium 141, Potassium 4.5, Chloride 110 H, Carbon Dioxide 30.0, Anion Gap 1 L, BUN 21 H, Creatinine 0.67 L, Estim Creat Clear Calc 56.88, Est GFR (MDRD) Af Amer 145, Est GFR (MDRD) Non-Af 120, BUN/Creatinine Ratio 31.2 H, Glucose 86, Calcium 8.5, Cortisol 16.70 02/13/24 06:10: Cortisol 27.30 H Microbiology: Microbiology 02/07/24 20:24 Stool Stool Occult Blood (ARNULFO) - Final Meaningful Use Info Meaningful Use Meaningful Use Diagnoses (Choose all that apply): None applicable Ischemic Stroke Statin Dosing Therapy Reference: STATIN DOSE THERAPY REFERENCE: * Patients > 75 years receive moderate or high dose statin therapy. * Patients 75 years or YOUNGER should receive HIGH intensity statin dose unless contraindicated. You will be required to document reason for non-treatment if statin daily dose does not meet guidelines. HIGH DOSE STATIN THERAPY DAILY Atorvastatin > than or = to 40 mg Rosuvastatin > than or = to 20 mg Amlodipine + Atorvastatin > than or = to 2.5/40 mg Ezetimibe + Simvastatin 10/80 mg Simvastatin 80mg Discharge Plan Admission Admit Date/Time: 02/06/24 15:05 Primary Reason for Your Visit: Debility due to generalized weakness/NATALEE/Hydronephrosis Attending Provider: Randi Belle Primary Care Provider: Siena Santana Consulting Providers: Wesley Odonnell Discharge Orders/Prescriptions Prescriptions: New calcium carbonate 200 mg calcium (500 mg) Tablet,Chewable 500 mg PO BIDCM Qty: 0 0RF cholestyramine (with sugar) 4 gram Powder In Packet 1 ea PO BIDAC Qty: 0 0RF cholecalciferol (vitamin D3) 25 mcg (1,000 unit) Tablet 50 mcg PO DAILY Qty: 0 0RF morphine 2 mg/mL Syringe 1 mg IV Q3H PRN PRN (Reason: pain 1-10) 1 Days Qty: 0 0RF Ensure Plus High Protein 0.08 gram-1.5 kcal/mL Liquid 120 ml PO TIDCM Qty: 0 0RF nystatin 100,000 unit/mL Suspension 500,000 unit PO 4X/DAY Qty: 0 0RF naloxone 0.4 mg/mL Solution 0.4 mg IV X1 PRN (Reason: RR <10, unresponsiveness) Qty: 1 0RF Petrolatum 33% [Eucerin Eqivalent] 1 applic topical QHS Qty: 0 0RF Held aspirin [Adult Low Dose Aspirin] 81 mg tablet,delayed release (DR/EC) 81 mg PO DAILY Hold Instructions: N.p.o. for surgery omega-3 fatty acids [Super [place]-3] 1,000 mg capsule 1,000 mg PO DAILY Hold Instructions: Patient n.p.o. for surgery acetaminophen 325 mg Tablet 650 mg PO Q6H PRN PRN (Reason: Pain 1-10 Or Fever >100.7) Qty: 0 0RF Hold Instructions: NPO for surgery sennosides-docusate sodium [Stimulant Laxative Plus] 8.6-50 mg Tablet 2 tab PO BID PRN PRN (Reason: Constipation) Qty: 0 0RF Hold Instructions: N.p.o. for surgery tamsulosin 0.4 mg Capsule 0.4 mg PO DAILY@1730 Qty: 0 0RF Hold Instructions: On hold for orthostatic hypotension Referrals / Follow Up: Siena Santana MD [Primary Care Provider] - Matthew Stapleton MD [Med Staff - Active Staff] - Disposition Disposition (needs filled in before D/C Order can be placed): Acute Care Hospital Charges/Coding Visit Charges Inpatient E&M: 96959 Disch Hosp >30min
--- NOTE | 2024-02-13 16:18 | EX.PCM.CON.S ---
Assessment & Plan Assessment/Plan (1) Severe groin pain: PLAN: Plan The patient is an 83-year-old male who is developed fairly intense right groin pain during his stay in the acute rehab facility. I am suspecting either an inguinal versus femoral hernia with incarceration. I am recommending surgical intervention by way of open hernia repair with possible mesh. This was discussed with the patient as well as with his son via telephone, and they wish to proceed. Surgery will occur this evening when an OR becomes available HPI Consult Data Date of Consult: 02/13/24 HPI Narrative Reason for Consultation: Incarcerated right groin hernia HPI Narrative: CHINTAN SEPULVEDA, is a 83 M who is currently admitted to the inpatient acute rehab facility at [facility] for issues related to acute kidney injury and bladder outlet obstruction. Patient has a known history of a left-sided recurrent inguinal hernia. However, this afternoon he developed more acute pain and acute swelling involving the right groin. According to the patient and staff, this is a new problem for him and so a surgical consult was obtained to evaluate for possible inguinal versus femoral hernia with strangulation or at least incarceration. Patient states pain started this afternoon he describes the pain is pretty bad. He is not a great historian [facility] Medical History (Updated 02/13/24 @ 15:[address] Randi Belle, DO) Nicotine dependence, chewing tobacco, in remission Recurrent left inguinal hernia History of right bundle branch block Mild aortic stenosis by prior echocardiogram Syncope Abnormal electrocardiogram Preoperative cardiovascular examination Anxiety Former smoker Atherosclerosis of arteries Trejo phlebectatica paraplantaris Left inguinal hernia Wears glasses Wears dentures Ambulates with cane Prostate disease Difficulty chewing Non-smoker History of edema History of irregular heartbeat Cardiology follow-up encounter History of echocardiogram History of stress test Essential hypertension Hypertension Home Medications ?Medication ?Instructions ?Recorded ?Last Taken ?Type aspirin 81 mg tablet,delayed 81 mg PO DAILY heart health 12/26/21 02/06/24 History release (Adult Low Dose Aspirin) omega-3 fatty acids 1,000 mg 1,000 mg PO DAILY supplement 12/26/21 02/06/24 History capsule (Super [place]-3) acetaminophen 325 mg tablet 650 mg (2 x 325 mg) PO Q6H PRN PRN 02/06/24 02/06/24 Rx Pain 1-10 Or Fever >100.7 #0 tabs sennosides 8.6 mg-docusate sodium 2 tab PO BID PRN PRN Constipation 02/06/24 Unknown Rx 50 mg tablet (Stimulant Laxative #0 tabs Plus) tamsulosin 0.4 mg capsule 0.4 mg PO DAILY@1730 prostate #0 02/06/24 02/05/24 Rx caps Petrolatum 33% [Eucerin Eqivalent] 1 applic topical QHS ##0 02/13/24 Unknown Rx calcium carbonate 500 mg (2.5 x 200 mg calcium (500 02/13/24 Unknown Rx mg)) PO BIDCM #0 tabs cholecalciferol (vitamin D3) 25 50 mcg (2 x 25 mcg (1,000 unit)) 02/13/24 Unknown Rx mcg (1,000 unit) tablet PO DAILY #0 tabs cholestyramine (with sugar) 4 gram 1 ea PO BIDAC #0 ea 02/13/24 Unknown Rx powder for susp in a packet food supplemt, lactose-reduced 120 ml PO TIDCM #0 mL 02/13/24 Unknown Rx 0.08 gram-1.5 kcal/mL oral liquid (Ensure Plus High Protein) mirtazapine 15 mg tablet (Remeron) 7.5 mg (1/2 x 15 mg) PO QHS #1 TAB 02/13/24 Unknown Rx morphine 2 mg/mL intravenous 1 mg (0.5 mL) IV Q3H PRN PRN pain 02/13/24 Unknown Rx syringe 1-10 1 day #0 mL naloxone 0.4 mg/mL injection 0.4 mg IV X1 PRN RR <10, 02/13/24 Unknown Rx solution unresponsiveness #1 mL nystatin 100,000 unit/mL oral 500,000 unit (5 mL) PO 4X/DAY #0 mL 02/13/24 Unknown Rx suspension Allergy/AdvReac Type Severity Reaction Status Date / Time No Known Allergies Allergy Verified 02/04/24 09:59 Family History unable to obtain Surgical History (Updated 02/07/24 @ 12:[address] Randi Belle, DO) History of cataract extraction S/P inguinal hernia repair Hx of inguinal herniorrhaphy Social History Smoking Status: Former smoker alcohol intake: never substance use type: does not use caffeine: Yes Type: tea ROS Review of Systems ROS Unobtainable: due to mental status Physical Exam Const alert and no apparent distress Narrative: Examination of the right groin reveals about a 3 cm raised mass just above the inguinal crease. This is somewhat lateral. I suspect probable incarcerated inguinal or femoral hernia. There is moderate tenderness to palpation. This is not readily reducible. Medical Records Data Medical Nutrition Assessment Dietitian: Malnutrition Criteria Met Start: 02/11/24 13:44 Freq: Status: Active Protocol: Document 02/11/24 13:44 AK (Rec: 02/11/24 13:48 AK [id number]) Nutrition Malnutrition Evidence of Malnutrition Exists Yes Malnutrition (severe): Chronic Evidenced By Suboptimal Energy Intake ( Moderate),Physical Changes ( Severe) Intake Problem Increased Nutrient Needs (specify) Etiology (protein) for wound healing Signs/Symptoms BLE posterior lower leg stasis ulcers Status Active Problem Clinical Problem Chronic Disease or Condition Related Malnutrition Etiology related to chronic condition Signs/Symptoms severe temporal, clavicular, buccal, thigh, calf muscle and fat wasting. Energy intake < 75% x >1 month TACO [employer]ER. Status Active Problem Recommendation Dietitian Recommendations/Changes Continue current diet order Continue Ensure PHP with medpass Order Sathish BID with breakfast and dinner to promote wound healing Lab / Micro Data 02/10/24 05:34 02/13/24 05:07 Labs: Laboratory Results - last 24 hr 02/13/24 05:07: Sodium 141, Potassium 4.5, Chloride 110 H, Carbon Dioxide 30.0, Anion Gap 1 L, BUN 21 H, Creatinine 0.67 L, Estim Creat Clear Calc 56.88, Est GFR (MDRD) Af Amer 145, Est GFR (MDRD) Non-Af 120, BUN/Creatinine Ratio 31.2 H, Glucose 86, Calcium 8.5, Cortisol 16.70 02/13/24 06:10: Cortisol 27.30 H Charges/Coding Visit Charges Inpatient E&M: 09724 Init Hosp L3
[2024-02-13 17:21] VITALS: BP 145/84; PULSE 90; RESP 18; TEMP 37.2; O2SAT 99
--- NOTE | 2024-02-13 18:21 | PRE.ANES_ITS ---
ASA Classification* ASA Classification ASA Classification: 3 Assessment & Plan Anesthesia* Anesthesia Assessment Anesthesia Assessment: Discussed sedation and/or anesthesia options, risks, benefits, and alternatives with patient/parents/legal guardian/POA. Questions invited. The patient/parents/legal guardian/POA seems to understand and agrees to proceed with anesthesia plan. Reviewed the physical assessment, medical history, allergy history and patient home medications list prior to surgery/procedure/anesthetic and documented any changes. Performed airway and anesthesia risk assessments. Anesthesia Type Anesthesia Type: General (RSI) Anesthesia Focused Assessment* Temperature: 99 F Pulse Rate: 90 Blood Pressure: 145/84 Respiratory Rate: 18 Pulse Ox: 99 Airway Assessment Mouth opens: >3 cm Mallampati Score: II Focused Labs Anesthesia Preop lab: CBC WBC 4.9 K/mm3 (4.4-11.0) 02/10/24 05:34 RBC 3.37 M/mm3 (4.6-6.2) L 02/10/24 05:34 Hgb 10.3 g/dL (13.0-16.5) L 02/10/24 05:34 Hct 31.0 % (40-54) L 02/10/24 05:34 Plt Count 262 K/mm3 (150-450) 02/10/24 05:34 CHEMISTRY Potassium 4.5 mmol/L (3.5-5.1) 02/13/24 05:07 Sodium 141 mmol/L (136-145) 02/13/24 05:07 Magnesium 2.0 mg/dL (1.6-2.6) 02/07/24 06:06 Phosphorus 2.6 mg/dL (2.5-4.9) 02/10/24 05:34 BUN 21 mg/dL (7-18) H 02/13/24 05:07 Creatinine 0.67 mg/dL (0.70-1.30) L 02/13/24 05:07 Glucose 86 mg/dL (74-106) 02/13/24 05:07 TSH 2.720 uIU/mL (0.358-3.740) 02/07/24 06:06 COAG Pre-Assessment Diagnosis/Proposed Procedure Planned Operative Procedure(s): Repair right Inguinal hernia, incarcerated Anesthesia History Anesthesia History - room inspector: Anesthesia History - room inspector Hx Hospitalization No 02/19/22 10:31 Any Problems With Anesthesia No 02/19/22 10:31 Cholinesterase deficiency No 02/19/22 10:31 You/Your Family Experience No 02/19/22 10:31 fever (hyperthermia) with Relationship Recent Exposure to Contagious No 03/01/22 07:03 Disease Does patient have nerve No 02/19/22 10:31 stimulator Patient instructed to have device shut off --Does patient have Pacemaker or ICD? When Was Last Pacemaker Check QUESTION #4 FULL TEXT: You/Your Family Experience fever (hyperthermia) with Anesthesia Last Oral Intake Last Oral intake: Last Oral Intake NPO since Meds taken in AM with sips of water? Meds patient instructed to take am of surgery PONV PONV - room inspector: PONV - room inspector Female HX of Motion Sickness HX of N/V After Surgery Non-Smoker Duration of Surgery greater than 60 minutes Number of Risk Factors PONV Score Height & Weight Height & Weight: Anesthesia: Height & Weight Height 5 ft 9 in 02/11/24 15:43 Weight: 58.5 kg 02/13/24 06:00 Body Mass Index (BMI) 19.1 02/13/24 06:00 Respiratory Assessment Respiratory Assessment - room inspector: Respiratory Tract Infection Hx - room inspector Hx Respiratory Tract Infection No 02/19/22 10:31 STOP Sleep Apnea STOP Sleep Apnea - room inspector: STOP Sleep Apnea - room inspector Hx Hypertension No 02/07/24 11:43 Hx Sleep Apnea No 02/06/24 15:55 CPAP BIPAP Do you snore loudly (louder No 02/06/24 15:55 than talking or can be heard Do you often feel tired/ No 02/06/24 15:55 fatigued/ sleepy during daytime? Has anyone observed you stop No 02/06/24 15:55 breathing during sleep? STOP Results Negative 02/06/24 15:55 QUESTION #5 FULL TEXT : Do you snore loudly (louder than talking or can be heard through closed doors)? Tobacco Use History Tobacco Use History - room inspector: Tobacco Use History - room inspector Tobacco Use Smoking Status Former smoker 02/06/24 15:55 Hx Tobacco Use No 02/06/24 15:55 Years Smoking Packs Smoked per Day Smoking Cessation Date was No - quit smoking greater 02/06/24 15:55 within the last 15 years than 15 years ago Hx Smoking Cessation Date Hx Smoking Cessation Counseling Hematologic Medial History Hematologic Hx - room inspector: Hematologic Medical Hx - pharmacy informaticist Hx of Blood Transfusion No 02/06/24 15:55 Hx of Transfusion in last 3 No 02/06/24 15:55 Months Date of Last Transfusion (if within last 3 months) Ever experience any problems No 02/06/24 15:55 with transfusion(s)? Specify any problems Hx of Preganancy in last 3 N/A 02/06/24 15:55 Months Nurse Filling Out Transfusion [facility] 02/06/24 15:55 & Questions: Date: 02/06/24 02/06/24 15:55 Time: 15:56 02/06/24 15:55 Patient unable to answer at this time (ie. confused, unrespo /Reproduction History /Reproductive History - room inspector: /Reproductive Hx- room inspector Hx Now Gestational Age (in weeks): EDC: Hx Hx Para Hx Section SAB PFSH Medical History Nicotine dependence, chewing tobacco, in remission Recurrent left inguinal hernia History of right bundle branch block Mild aortic stenosis by prior echocardiogram Syncope Abnormal electrocardiogram Preoperative cardiovascular examination Anxiety Former smoker Atherosclerosis of arteries Trejo phlebectatica paraplantaris Left inguinal hernia Wears glasses Wears dentures Ambulates with cane Prostate disease Difficulty chewing Non-smoker History of edema History of irregular heartbeat Cardiology follow-up encounter History of echocardiogram History of stress test Essential hypertension Hypertension Home Medications ?Medication ?Instructions ?Recorded ?Last Taken ?Type aspirin 81 mg tablet,delayed 81 mg PO DAILY heart health 12/26/21 02/06/24 History release (Adult Low Dose Aspirin) omega-3 fatty acids 1,000 mg 1,000 mg PO DAILY supplement 12/26/21 02/06/24 History capsule (Super [place]-3) acetaminophen 325 mg tablet 650 mg (2 x 325 mg) PO Q6H PRN PRN 02/06/24 02/06/24 Rx Pain 1-10 Or Fever >100.7 #0 tabs sennosides 8.6 mg-docusate sodium 2 tab PO BID PRN PRN Constipation 02/06/24 Unknown Rx 50 mg tablet (Stimulant Laxative #0 tabs Plus) tamsulosin 0.4 mg capsule 0.4 mg PO DAILY@1730 prostate #0 02/06/24 02/05/24 Rx caps Petrolatum 33% [Eucerin Eqivalent] 1 applic topical QHS ##0 02/13/24 Unknown Rx calcium carbonate 500 mg (2.5 x 200 mg calcium (500 02/13/24 Unknown Rx mg)) PO BIDCM #0 tabs cholecalciferol (vitamin D3) 25 50 mcg (2 x 25 mcg (1,000 unit)) 02/13/24 Unknown Rx mcg (1,000 unit) tablet PO DAILY #0 tabs cholestyramine (with sugar) 4 gram 1 ea PO BIDAC #0 ea 02/13/24 Unknown Rx powder for susp in a packet food supplemt, lactose-reduced 120 ml PO TIDCM #0 mL 02/13/24 Unknown Rx 0.08 gram-1.5 kcal/mL oral liquid (Ensure Plus High Protein) mirtazapine 15 mg tablet (Remeron) 7.5 mg (1/2 x 15 mg) PO QHS #1 TAB 02/13/24 Unknown Rx morphine 2 mg/mL intravenous 1 mg (0.5 mL) IV Q3H PRN PRN pain 02/13/24 Unknown Rx syringe 1-10 1 day #0 mL naloxone 0.4 mg/mL injection 0.4 mg IV X1 PRN RR <10, 02/13/24 Unknown Rx solution unresponsiveness #1 mL nystatin 100,000 unit/mL oral 500,000 unit (5 mL) PO 4X/DAY #0 mL 02/13/24 Unknown Rx suspension Allergy/AdvReac Type Severity Reaction Status Date / Time No Known Allergies Allergy Verified 02/04/24 09:59 Family History unable to obtain Surgical History History of cataract extraction S/P inguinal hernia repair Hx of inguinal herniorrhaphy Social History Smoking Status: Former smoker alcohol intake: never substance use type: does not use caffeine: Yes Type: tea Review of Systems (Anesthesia) ROS Narrative System reviewed and no additional complaints, except as documented.
[2024-02-13 18:22] VITALS: BP 145/84; PULSE 90; RESP 18; TEMP 37.2; O2SAT 99
--- NOTE | 2024-02-13 20:06 | PCM.POST.ANE ---
Anesthesia: Postop Eval I Current Vital Signs Temperature: 99.7 F Pulse Rate: 78 Blood Pressure: 113/57 Respiratory Rate: 14 Pulse Ox: 93 Assessment Airway patent: Yes Spontaneous unlabored respirations: Yes nausea: No Vomiting: No Anesthesia Complication: No Fluid Hydration Crystalloid volume administer (ml): 700 Total IV fluid infused: 700 Progress Note Anesthesia document: Postop Eval 1 completed: Yes
[2024-02-13 20:07] VITALS: BP 113/57; PULSE 78; RESP 14; TEMP 37.6; O2SAT 93
--- NOTE | 2024-02-13 20:07 | PCM.POSTANE2 ---
Anesthesia Postop Eval I Sum Postop Eval Completion status Anesthesia document: Postop Eval 1 completed: Yes Anesthesia Postop Eval I Summary Anesthesia Postop Eval I Summary: Anesthesia Postop Eval I: Assessment Summary Airway patent Yes 02/13/24 20:07 Spontaneous unlabored Yes 02/13/24 20:07 respirations Mental status nausea No 02/13/24 20:07 Vomiting No 02/13/24 20:07 Anesthesia Postop Eval I: Fluid Summary Crystalloid volume administer 700 02/13/24 20:07 (ml) Colloids volume administered ( ml) Blood Product volume administered (ml) Total IV fluid infused 700 02/13/24 20:07 Anesthesia Postop Eval I: Summary Notes Anesthesia Complication No 02/13/24 20:07 Anesthesia Complication Comment: Post-operative progress note Anesthesia: Postop Eval II Evaluation Mental status: Awake Pain Level: 0 nausea: No Vomiting: No
--- NOTE | 2024-02-14 13:25 | PN_ITS ---
Subjective Subjective Patient return to acute rehab today after less than 24 hours in the hospital for incarcerated R femoral hernia. He underwent herniorrhaphy with Dr. Odonnell last evening. No post -op complications. He is afebrile. Most recent blood pressure is 104/68 with a heart rate of 80. He ate 75 to 100% of his breakfast and his lunch today. Last bowel movement recorded was 02/12/2024. All lab drawn this morning was personally reviewed. The white blood cell count is normal at 7.1. Hemoglobin is 11.2 which is up from 10.3 yesterday. Platelets are within normal limits. Sodium is normal at 140 and the potassium is stable at 4. The BUN is 23 today with a stable creatinine at 0.62. Calcium corrected for hypoalbuminemia is within normal limits. Recent Cortrosyn stimulation test was negative for adrenal insufficiency. TSH is mildly high. We denies lightheadedness, shortness of breath, chest pain, nausea/vomiting, suprapubic pain and calf pain. He tells me the pain in his right groin is much improved. He has not received anything for pain since prior to surgery last night. Objective Data Objective Data Vital Signs: Vital Signs Temp Pulse Resp BP Pulse Ox O2 Del Method 99.7 F H 78 14 113/57 L 93 Room Air 02/13/24 20:07 02/13/24 20:07 02/13/24 20:07 02/13/24 20:07 02/13/24 20:07 02/13/24 17:21 Oxygen Delivery Method Room Air Weight: 128 lb 15.527 oz Body Mass Index (BMI) 19.1 Intake & Output: Intake and Output for Last 24 Hours 02/12/24 02/13/24 02/14/24 23:59 23:59 23:59 Intake Total 1150 / 1150 2886.25 / 2886.25 Output Total 2550 / 2550 2800 / 2800 Balance -1400 / -1400 86.25 / 86.25 Medical Nutrition Assessment Dietitian: Malnutrition Criteria Met Start: 02/11/24 13:44 Freq: Status: Active Protocol: Document 02/11/24 13:44 ND (Rec: 02/11/24 13:48 ND [id number]) Nutrition Malnutrition Evidence of Malnutrition Exists Yes Malnutrition (severe): Chronic Evidenced By Suboptimal Energy Intake ( Moderate),Physical Changes ( Severe) Intake Problem Increased Nutrient Needs (specify) Etiology (protein) for wound healing Signs/Symptoms BLE posterior lower leg stasis ulcers Status Active Problem Clinical Problem Chronic Disease or Condition Related Malnutrition Etiology related to chronic condition Signs/Symptoms severe temporal, clavicular, buccal, thigh, calf muscle and fat wasting. 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 General Appearance: cooperative Resp normal respiratory effort and clear to auscultation bilaterally Effort and Inspection: Negative for tachypneic Cardio regular rate, regular rhythm and no gallops Cardio Narrative: No ectopy. GI normal to inspection, nondistended, normoactive bowel sounds and soft to palpation GI Narrative: No guarding with palpation of the abdomen. No sutures or christopher. Extremity no calf tenderness General Extremity: Negative for edema Skin Rashes: no rashes Wound Narrative: the wound is held together with surgical glue. There is no deniscence and no significant erythema around the incision. Neuro CN's II-XII intact bilaterally Neuro Narrative: Generalized weakness with no focal motor deficits. Moving all extremities. Psych Psych Narrative: Pleasant, cooperative, makes good eye contact when speaking with me, no agitation. Eating well and sleeping well at night. Tolerating Remeron with no adverse side effects. Assessment & Plan Assessment/Plan (1) Physical debility: (2) Incarcerated femoral hernia: (3) BPH w urinary obs/LUTS: (4) Presence of indwelling Retana catheter: (5) Generalized weakness: (6) Cognitive dysfunction: (7) Decubitus ulcer, stage II: QUALIFIERS: Pressure injury location: calf Laterality: right Q ualified Code(s): L89.892 - Pressure ulcer of other site, stage 2 (8) Stage I decubitus ulcer and pressure area: QUALIFIERS: Pressure injury location: back, unspecified location Qualified Code(s): L89.101 - Pressure ulcer of unspecified part of back, stage 1 (9) Orthostatic hypotension: (10) Postobstructive diuresis: (11) Dehydration: (12) Visual hallucinations: (13) Depression: QUALIFIERS: Depression Type: unspecified Qualified Code(s): F32.A - Depression, unspecified (14) Malnutrition: QUALIFIERS: Malnutrition type: protein-calorie malnutrition P rotein-calorie malnutrition severity: severe Qualified Code(s): E43 - Unspecified severe protein-calorie malnutrition (15) H/O hernia repair: PLAN: Plan 1. Continue therapy 2. Schedule Tylenol 1 g p.o. every 8 hours for the next few days and then transition to as needed. 3. Tramadol 25 mg p.o. every 6 hours as needed pain 4-10 not relieved with acetaminophen 4. Check orthostatic vital signs in the a.m. 5.. SCD's and MEY wraps for DVT prophylaxis. Charges/Coding Visit Charges Inpatient E&M: 05764 Subs Hosp L2
[2024-02-14] MEDS: NYSTATIN 500,000 UNIT/5 ML UDC 500000 UNIT PO ×3 (13:51→22:39)
[2024-02-14] MEDS: Acetaminophen 500 MG Tablet 1000 MG PO ×2 (13:51→22:39)
[2024-02-14] MEDS: Ensure Plus High Protein 120 ML LIQUID PO (17:21)
[2024-02-14] MEDS: Tamsulosin HCl 0.4 MG Capsule PO (17:21)
[2024-02-14] MEDS: Cholestyramine/Sucrose 4 GM/PACKET PO (17:21)
[2024-02-14 17:28] VITALS: BP 90/51; PULSE 84; RESP 16; TEMP 36.4; O2SAT 96
[2024-02-14] MEDS: Mirtazapine 15 MG Tablet 7.5 MG PO (22:39)
[2024-02-14] MEDS: Senna/Docusate Sodium 1 Tablet 2 TABLET PO (22:40)
[2024-02-14] MEDS: Petrolatum 33% Tube 1 APPLIC TOPICAL (23:08)
[2024-02-15 06:00] VITALS: BP 103/60; PULSE 83; RESP 18; TEMP 37.1; O2SAT 97; BMI 19.4
[2024-02-15] MEDS: Acetaminophen 500 MG Tablet 1000 MG PO ×3 (06:14→20:51)
[2024-02-15] MEDS: Cholestyramine/Sucrose 4 GM/PACKET PO ×2 (06:14→17:27)
[2024-02-15] MEDS: Omega-3 Acid Ethyl Esters 1 GM Capsule PO (08:49)
[2024-02-15] MEDS: Ensure Plus High Protein 120 ML LIQUID PO ×2 (08:50→11:00)
[2024-02-15] MEDS: NYSTATIN 500,000 UNIT/5 ML UDC 500000 UNIT PO ×2 (08:50→14:53)
[2024-02-15] MEDS: Aspirin E.C. 81 MG Tablet PO (08:50)
[2024-02-15] MEDS: Senna/Docusate Sodium 1 Tablet 2 TABLET PO ×2 (08:52→20:51)
[2024-02-15] MEDS: Cholecalciferol (VIT D3) 25 MCG TABLET (1,000 UNITS) PO (11:00)
[2024-02-15 14:00] VITALS: BP 105/57; BP 108/51; BP 114/60; PULSE 90; PULSE 97; PULSE 99
[2024-02-15] MEDS: Tamsulosin HCl 0.4 MG Capsule PO (17:27)
[2024-02-15 18:00] VITALS: BP 104/60; PULSE 91; RESP 61; TEMP 36.9; O2SAT 99
[2024-02-15] MEDS: Petrolatum 33% Tube 1 APPLIC TOPICAL (20:34)
[2024-02-15] MEDS: Mirtazapine 15 MG Tablet 7.5 MG PO (20:52)
[2024-02-16] MEDS: Cholestyramine/Sucrose 4 GM/PACKET PO ×2 (06:16→16:31)
[2024-02-16] MEDS: Acetaminophen 500 MG Tablet 1000 MG PO ×3 (06:16→21:00)
[2024-02-16 06:22] VITALS: BP 101/65; PULSE 64; RESP 15; TEMP 36.8; O2SAT 94; BMI 19.9
[2024-02-16] MEDS: Ensure Plus High Protein 120 ML LIQUID PO ×3 (08:57→16:39)
[2024-02-16] MEDS: Omega-3 Acid Ethyl Esters 1 GM Capsule PO (08:57)
[2024-02-16] MEDS: Aspirin E.C. 81 MG Tablet PO (08:57)
[2024-02-16] MEDS: Senna/Docusate Sodium 1 Tablet 2 TABLET PO ×2 (08:57→20:59)
[2024-02-16] MEDS: Cholecalciferol (VIT D3) 25 MCG TABLET (1,000 UNITS) PO (08:58)
[2024-02-16] MEDS: Tamsulosin HCl 0.4 MG Capsule PO (16:31)
[2024-02-16 17:14] VITALS: BP 91/51; PULSE 84; RESP 17; TEMP 36.9; O2SAT 97
[2024-02-16] MEDS: Petrolatum 33% Tube 1 APPLIC TOPICAL (20:58)
[2024-02-16] MEDS: Mirtazapine 15 MG Tablet 7.5 MG PO (20:59)
[2024-02-17 06:00] VITALS: BP 107/62; PULSE 87; RESP 16; TEMP 36.8; O2SAT 96; BMI 18.9; BMI 19.1
[2024-02-17] MEDS: Cholestyramine/Sucrose 4 GM/PACKET PO ×2 (06:31→16:53)
[2024-02-17] MEDS: Acetaminophen 500 MG Tablet 1000 MG PO ×3 (06:31→21:17)
[2024-02-17] MEDS: Omega-3 Acid Ethyl Esters 1 GM Capsule PO (08:23)
[2024-02-17] MEDS: Aspirin E.C. 81 MG Tablet PO (08:23)
[2024-02-17] MEDS: Senna/Docusate Sodium 1 Tablet 2 TABLET PO (08:24)
[2024-02-17] MEDS: Ensure Plus High Protein 120 ML LIQUID PO ×3 (08:25→16:53)
--- NOTE | 2024-02-17 08:57 | PN_ITS ---
Subjective Subjective Postoperative day #4-status post right femoral hernia repair [place] was seen on team rounds today. His son was present. Afebrile VSS -blood pressure at 5 PM tends to be on the low side. Last night it was 91/51 and on Saturday it was 90/51. Heart rates are within normal limits. Maintaining appropriate oxygen saturation on RA Oral intake - FOOD good FLUIDS good Weight is stable Discussed with nursing - no problems that need addressed Reviewed the THERAPY notes Medication list reviewed. Has not taken any tramadol since it was ordered on the . Pain is adequately controlled with acetaminophen 1 g p.o. every 8 hours. Wean denies pain, cephalgia, lightheadedness, cough, shortness of breath, nausea/vomiting/abdominal pain, dysuria and calf tenderness. He feels that he is getting stronger. He is very alert and sleeping less during the day. Objective Data Objective Data Vital Signs: Vital Signs Temp Pulse Resp BP Pulse Ox O2 Del Method 98.3 F 87 16 107/62 96 Room Air 02/17/24 06:00 02/17/24 06:00 02/17/24 06:00 02/17/24 06:00 02/17/24 06:00 02/17/24 06:00 Oxygen Delivery Method Room Air Weight: 129 lb 13.636 oz Body Mass Index (BMI) 19.1 Intake & Output: Intake and Output for Last 24 Hours 02/15/24 02/16/24 02/17/24 23:59 23:59 23:59 Intake Total 1530 / 1530 1330 / 1830 620 / 620 Output Total 475 / 475 1150 / 1650 1900 / 1900 Balance 1055 / 1055 180 / 180 -1280 / -1280 Medical Nutrition Assessment Dietitian: Malnutrition Criteria Met Start: 02/11/24 13:44 Freq: Status: Active Protocol: Document 02/15/24 10:57 RMA (Rec: 02/15/24 10:57 RMA [id number]) Nutrition Malnutrition Evidence of Malnutrition Exists Yes Malnutrition (severe): Chronic Evidenced By Suboptimal Energy Intake ( Moderate),Physical Changes ( Severe) Intake Problem Increased Nutrient Needs (specify) Etiology for protein related to wound healing Signs/Symptoms as evidenced by BLE posterior lower leg stasis ulcers, pressure injury to back Status Active Problem Clinical Problem Chronic Disease or Condition Related Malnutrition Etiology severe protein-calorie in the context of chronic disease related to inadequate energy intake and chewing difficulty/ dislikes dentures Signs/Symptoms as evidenced by severe temporal, clavicular, buccal, thigh, calf muscle and fat wasting. 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 Continue Ensure plus HP 3 x per day with medpass. Continue Sathish BID with breakfast and dinner to promote wound healing. Monitor weight status and adjust ONS as needed. Lab / Micro Data 02/20/24 07:16 02/20/24 07:16 Micro: Microbiology 02/07/24 20:24 Stool Stool Occult Blood (ARNULFO) - Final Physical Exam Const alert and no apparent distress General Appearance: cooperative Resp normal respiratory effort and clear to auscultation bilaterally Effort and Inspection: Negative for tachypneic Cardio regular rate, regular rhythm and no gallops Cardio Narrative: No ectopy. GI normal to inspection, nondistended, normoactive bowel sounds and soft to palpation GI Narrative: No guarding with palpation of the abdomen. No sutures or christopher. The incision is intact with no dehiscence, no erythema and no DC. Extremity no calf tenderness General Extremity: Negative for edema Skin Rashes: no rashes Neuro CN's II-XII intact bilaterally and no focal motor deficits Neuro Narrative: Generalized weakness.......getting stronger and is more alert and sleeping less during the day. Psych Psych Narrative: Pleasant, cooperative, makes good eye contact when speaking with me, no agitation. Eating well and sleeping well at night. Tolerating Remeron with no adverse side effects. Assessment & Plan Assessment/Plan (1) Physical debility: (2) Incarcerated femoral hernia: (3) BPH w urinary obs/LUTS: (4) Presence of indwelling Retana catheter: (5) Generalized weakness: (6) Cognitive dysfunction: (7) Decubitus ulcer, stage II: QUALIFIERS: Pressure injury location: calf Laterality: right Q ualified Code(s): L89.892 - Pressure ulcer of other site, stage 2 (8) Stage I decubitus ulcer and pressure area: QUALIFIERS: Pressure injury location: back, unspecified location Qualified Code(s): L89.101 - Pressure ulcer of unspecified part of back, stage 1 (9) Orthostatic hypotension: (10) Postobstructive diuresis: (11) Dehydration: (12) Visual hallucinations: (13) Depression: QUALIFIERS: Depression Type: unspecified Qualified Code(s): F32.A - Depression, unspecified (14) Malnutrition: QUALIFIERS: Malnutrition type: protein-calorie malnutrition P rotein-calorie malnutrition severity: severe Qualified Code(s): E43 - Unspecified severe protein-calorie malnutrition (15) H/O hernia repair: PLAN: Plan 1. Continue therapy 2. We discussed SNF at [facility] for continued therapy but, also discussed that the TEAM feels he needs more supervision at home that family can provide. He is also isolated at home and was not eating or caring for himself or doing much of anything but, sitting. He was very deconditioned at admission. [place] said he was fine with SNF at [facility]. 3. Dc is planned for 02/21 which is Saturday. LEN gave [place]'s son a list of SNF's [place] could potentially be discharged to and he will get back to her before with his decision. 4. Consider transition to PRN Tylenol tomorrow. 5. Check orthostatics in the AM.......He had orthostatics Saturday and they were negative BUT, he had been off Flomax for a few days. He was orthostatic prior to stopping the Flomax.......if he is orthostatic in the AM will DC the Flomax. He will follow up with urology and may need a TURP due to intolerance of FLomax. Charges/Coding Visit Charges Inpatient E&M: 93564 Subs Hosp L2
[2024-02-17] MEDS: Cholecalciferol (VIT D3) 25 MCG TABLET (1,000 UNITS) PO (11:25)
--- NOTE | 2024-02-17 12:48 | CASEMGMT ---
Social Work IDT met with patient and son for Team meeting. Discussed patient's progress in PT/OT/ST/SN. Educated to Medicare DC 02/21. IDT recommending SNF at [facility] for ongoing therapy, 22/10 care with ADLs and IADLs. SW empathized patient has thrived in this environment and having his basic needs being met. Pt and son agreed and are both agreeable to a SNF at [facility]. SW provided printed list of [facility] SNFs in [facility] including quality and resource data via [employer] Guide. Son to review with pt and notify this worker of preferences. SW will continue to follow. BABATUNDE MckinneyW
[2024-02-17 16:50] VITALS: BP 119/69; PULSE 97; RESP 18; TEMP 36.8; O2SAT 96
[2024-02-17] MEDS: Tamsulosin HCl 0.4 MG Capsule PO (17:52)
[2024-02-17] MEDS: Mirtazapine 15 MG Tablet 7.5 MG PO (21:17)
[2024-02-17] MEDS: Petrolatum 33% Tube 1 APPLIC TOPICAL (21:21)
[2024-02-18] MEDS: Acetaminophen 500 MG Tablet 1000 MG PO ×3 (05:13→21:56)
[2024-02-18 05:43] VITALS: BP 105/57; BP 114/58; BP 96/52; PULSE 83; PULSE 87; PULSE 97
[2024-02-18 05:44] VITALS: BP 114/58; PULSE 83; RESP 17; TEMP 36.1; O2SAT 95
[2024-02-18 05:48] VITALS: BMI 19.7
[2024-02-18] MEDS: Cholestyramine/Sucrose 4 GM/PACKET PO ×2 (07:02→17:57)
[2024-02-18] MEDS: Ensure Plus High Protein 120 ML LIQUID PO ×3 (08:08→16:59)
[2024-02-18] MEDS: Cholecalciferol (VIT D3) 25 MCG TABLET (1,000 UNITS) PO (08:08)
[2024-02-18] MEDS: Omega-3 Acid Ethyl Esters 1 GM Capsule PO (08:08)
[2024-02-18] MEDS: Aspirin E.C. 81 MG Tablet PO (08:08)
[2024-02-18] MEDS: Senna/Docusate Sodium 1 Tablet 2 TABLET PO ×2 (08:09→21:56)
--- NOTE | 2024-02-18 09:58 | PCM.PROGNOTE ---
Subjective Subjective Afebrile VSS - BP's are better and he seems to be tolerating the Flomax without any lightheadedness. the post obstructive diuresis is improving and he is better able to stay hydrated. Maintaining appropriate oxygen saturation on RA Oral intake - FOOD good FLUIDS good Discussed with nursing - no problems that need addressed. No longer having diarrhea/liquid stools. Had 2 BM's yesterday and 1 was formed. Reviewed the THERAPY notes Medication list reviewed. Sleeping well at night. Tolerating Remeron with no adverse side effects. Has not taken any tramadol since readmission to acute rehab following herniorrhaphy. [place] denies any pain. He also denies lightheadedness, nausea/vomiting, diarrhea/constipation, calf pain. Making good progress with therapy and is getting stronger. Objective Data Objective Data Vital Signs: Vital Signs Temp Pulse Resp BP Pulse Ox O2 Del Method 97.0 F L 83 17 114/58 L 95 Room Air 02/18/24 05:44 02/18/24 05:44 02/18/24 05:44 02/18/24 05:44 02/18/24 05:44 02/18/24 05:44 Oxygen Delivery Method Room Air Weight: 133 lb 6.075 oz Body Mass Index (BMI) 19.7 Intake & Output: Intake and Output for Last 24 Hours 02/16/24 02/17/24 02/18/24 23:59 23:59 23:59 Intake Total 1330 / 1830 1940 / 1940 850 / 850 Output Total 1150 / 1650 2950 / 2950 500 / 500 Balance 180 / 180 -1010 / -1010 350 / 350 Medical Nutrition Assessment Dietitian: Malnutrition Criteria Met Start: 02/11/24 13:44 Freq: Status: Active Protocol: Document 02/15/24 10:57 RMA (Rec: 02/15/24 10:57 RMA [id number]) Nutrition Malnutrition Evidence of Malnutrition Exists Yes Malnutrition (severe): Chronic Evidenced By Suboptimal Energy Intake ( Moderate),Physical Changes ( Severe) Intake Problem Increased Nutrient Needs (specify) Etiology for protein related to wound healing Signs/Symptoms as evidenced by BLE posterior lower leg stasis ulcers, pressure injury to back Status Active Problem Clinical Problem Chronic Disease or Condition Related Malnutrition Etiology severe protein-calorie in the context of chronic disease related to inadequate energy intake and chewing difficulty/ dislikes dentures Signs/Symptoms as evidenced by severe temporal, clavicular, buccal, thigh, calf muscle and fat wasting. 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 Continue Ensure plus HP 3 x per day with medpass. Continue Sathish BID with breakfast and dinner to promote wound healing. Monitor weight status and adjust ONS as needed. Lab / Micro Data 02/10/24 05:34 02/13/24 05:07 Micro: Microbiology 02/07/24 20:24 Stool Stool Occult Blood (ARNULFO) - Final Physical Exam Const alert and no apparent distress General Appearance: cooperative Resp normal respiratory effort and clear to auscultation bilaterally Effort and Inspection: Negative for tachypneic Cardio regular rate, regular rhythm and no gallops Cardio Narrative: No ectopy. GI normal to inspection, nondistended, normoactive bowel sounds and soft to palpation GI Narrative: No guarding with palpation of the abdomen. No sutures or christopher. The incision is intact with no dehiscence, no erythema and no DC. Extremity no calf tenderness General Extremity: Negative for edema Skin Rashes: no rashes Assessment & Plan Assessment/Plan (1) Physical debility: (2) Incarcerated femoral hernia: (3) BPH w urinary obs/LUTS: (4) Presence of indwelling Retana catheter: (5) Generalized weakness: (6) Cognitive dysfunction: (7) Decubitus ulcer, stage II: QUALIFIERS: Pressure injury location: calf Laterality: right Qualified Code(s): L89.892 - Pressure ulcer of other site, stage 2 (8) Stage I decubitus ulcer and pressure area: QUALIFIERS: Pressure injury location: back, unspecified location Qualified Code(s): L89.101 - Pressure ulcer of unspecified part of back, stage 1 (9) Orthostatic hypotension: (10) Postobstructive diuresis: (11) Dehydration: (12) Visual hallucinations: (13) Depression: QUALIFIERS: Depression Type: unspecified Qualified Code(s): F32.A - Depression, unspecified (14) Malnutrition: QUALIFIERS: Malnutrition type: protein-calorie malnutrition Protein-calorie malnutrition severity: severe Qualified Code(s): E43 - Unspecified severe protein-calorie malnutrition (15) H/O hernia repair: PLAN: Plan 1. Continue therapy 2. Check a BMP, CBC, mag and Phos on a.m. 3. Voiding trial on ? or wait for him to have a voiding trial in Dr. Stapleton's office hermann JEAN BAPTISTE? Charges/Coding Visit Charges Inpatient E&M: 19630 Subs Hosp L1
--- NOTE | 2024-02-18 14:47 | CASEMGMT ---
Social Work SW phoned son to offer assistance answering any questions and inquire about SNF FOC. Son did ask clarifying questions about length of stay at accepting SNF. Educated to Medicare benefit and copay coverage. Pt would admit skilled and that SNFs IDT, with pt and family ,would assist in making a determination for home vs LTC. Son expressed concern with pt changing his mind after initially staying he wants to be LTC but then wants to go home. SW educated to if home is sold and spend down for Medicaid, there are [facility] programs to assist with transitioning the pt back to the community. SW also offered that if additional supports are in place for pt at home, pt can return home, and that can be the deciding factor for successful community living or if pt will need LTC. Son agreed and stated he would like to use pt's money on care for assistance in the home, then if pt does need LTC, that can be arranged. SW agreed. SW did reiterate the recommendations from this stay are pt DC to a SNF for ongoing care. Son agreed and provided list of options: [facility], [facility], [facility]. SW to place referrals and update son on outcomes. SW sent referrals to SNFs via [facility]. Lyric Fraser, BABATUNDE HOODW
[2024-02-18] MEDS: Tamsulosin HCl 0.4 MG Capsule PO (16:58)
[2024-02-18 18:00] VITALS: BP 117/65; PULSE 81; RESP 16; TEMP 36.5; O2SAT 97
[2024-02-18] MEDS: Mirtazapine 15 MG Tablet 7.5 MG PO (21:56)
[2024-02-18] MEDS: Petrolatum 33% Tube 1 APPLIC TOPICAL (22:08)
[2024-02-18 22:15] VITALS: BP 92/54; PULSE 82; RESP 18; TEMP 36.6; O2SAT 96
[2024-02-19 04:30] VITALS: BMI 19.4
[2024-02-19] MEDS: Acetaminophen 500 MG Tablet 1000 MG PO ×3 (04:32→22:16)
[2024-02-19 04:50] VITALS: BMI 19.4
[2024-02-19 04:51] VITALS: BP 110/65; PULSE 84; RESP 18; TEMP 36.6; O2SAT 93
[2024-02-19] MEDS: Cholestyramine/Sucrose 4 GM/PACKET PO ×2 (07:50→16:30)
[2024-02-19] MEDS: Omega-3 Acid Ethyl Esters 1 GM Capsule PO (07:50)
[2024-02-19] MEDS: Aspirin E.C. 81 MG Tablet PO (07:50)
[2024-02-19] MEDS: Senna/Docusate Sodium 1 Tablet 2 TABLET PO ×2 (07:51→22:15)
[2024-02-19] MEDS: Menthol/Lanolin/Calamine/Znox 113 GM Tube 1 APPLIC TOPICAL ×2 (07:51→22:16)
[2024-02-19] MEDS: Cholecalciferol (VIT D3) 25 MCG TABLET (1,000 UNITS) PO (07:51)
[2024-02-19] MEDS: Ensure Plus High Protein 120 ML LIQUID PO ×3 (07:52→16:30)
--- NOTE | 2024-02-19 16:23 | CASEMGMT ---
Social Work [facility] and [facility] can accept. SW left VM with Deb at [facility] inquiring about acceptance. Lyric Fraser MAKEUP ARTISTRY INSTRUCTOR ESCORT PATIENTS
[2024-02-19] MEDS: Tamsulosin HCl 0.4 MG Capsule PO (16:30)
[2024-02-19 18:00] VITALS: BP 112/65; PULSE 80; RESP 18; TEMP 36.6; O2SAT 94
[2024-02-19 21:40] VITALS: PULSE 80; RESP 18; O2SAT 94
[2024-02-19] MEDS: Mirtazapine 15 MG Tablet 7.5 MG PO (22:15)
[2024-02-19] MEDS: Petrolatum 33% Tube 1 APPLIC TOPICAL (22:16)
[2024-02-20 06:00] VITALS: BMI 19.6
[2024-02-20] MEDS: Acetaminophen 500 MG Tablet 1000 MG PO ×3 (06:46→21:18)
[2024-02-20] MEDS: Cholestyramine/Sucrose 4 GM/PACKET PO ×2 (06:46→17:23)
[2024-02-20 07:42] LABS: Hematocrit 34.6 % (40-54); Hemoglobin 10.9 g/dL (13.0-16.5); Mean Corp Hgb Conc 31.5 g/dL (32-36); Mean Corpuscular Hgb 30.3 pg (27.0-32.0); Mean Corpuscular Volume 96.1 fL (80-94); Mean Platelet Vol. 9.4 fl (6.2-12.0); Platelet Count 271 K/mm3 (150-450); RBC Distribution Width CV 13.6 % (11.6-14.6); RBC Distribution Width SD 48.2 fl (35.1-43.9); White Blood Count 3.9 K/mm3 (4.4-11.0)
[2024-02-20 07:46] LABS: Anion Gap 4 (5-15); BUN 26 mg/dL (7-18); BUN/Creat Ratio 31.1 RATIO (10-20); Calcium,Total 8.8 mg/dL (8.5-10.1); Chloride 107 mmol/L (98-107); Creatinine, Serum 0.84 mg/dL (0.70-1.30); EST Glomerular Filtration Rate 93 mL/min (>60); Est Glom Filt Rate - Afr Amer 113 mL/min (>60); Estimated Creatinine Clearance 55.28 ml/min; Glucose 103 mg/dL (74-106); Magnesium 2.3 mg/dL (1.6-2.6); Potassium 4.4 mmol/L (3.5-5.1); Sodium Level 141 mmol/L (136-145)
[2024-02-20 08:08] VITALS: BP 101/51; PULSE 89; RESP 16; TEMP 36.7; O2SAT 95
[2024-02-20] MEDS: Menthol/Lanolin/Calamine/Znox 113 GM Tube 1 APPLIC TOPICAL ×2 (08:12→21:16)
[2024-02-20] MEDS: Senna/Docusate Sodium 1 Tablet 2 TABLET PO (08:12)
[2024-02-20] MEDS: Cholecalciferol (VIT D3) 25 MCG TABLET (1,000 UNITS) PO (08:12)
[2024-02-20] MEDS: Aspirin E.C. 81 MG Tablet PO (08:12)
[2024-02-20] MEDS: Omega-3 Acid Ethyl Esters 1 GM Capsule PO (08:12)
[2024-02-20] MEDS: Ensure Plus High Protein 120 ML LIQUID PO ×3 (08:13→17:23)
--- NOTE | 2024-02-20 11:25 | CASEMGMT ---
Social Work SW phoned son to notify that all SNFs can accept. Son stated [facility] is [facility]. Son can transport at ID. SW left with Deb at [facility]. Notified [facility] and [address] started. Plan: ID 02/21 to [facility], skilled Lyric Fraser, DIRECTOR FOOD SAFETY WIND TURBINE SERVICE TECHNICIAN
--- NOTE | 2024-02-20 16:45 | PN_ITS ---
Subjective Subjective Afebrile VSS - Maintaining appropriate oxygen saturation on RA Oral intake - FOOD good FLUIDS good Discussed with nursing - no problems that need addressed. Sleeping well at night. Very cooperative. Getting stronger. Reviewed the THERAPY notes Medication list reviewed. We denies lightheadedness, chest pain, shortness of breath, cough, nausea/vomiting/abdominal pain, right groin pain, suprapubic tenderness and calf tenderness. Urine in the Retana bag in the tubing is clear. He tells me the swelling in his foreskin has decreased significantly. Lab drawn this morning was personally reviewed. White blood cell count is mildly decreased at 3.9. Hemoglobin is stable at 10.9 and platelets are within normal limits. Sodium is 141 and the potassium is 4.4 and stable. The BUN is 26 with a creatinine of 0.84. Fasting glucose is normal. Calcium is normal at 8.8 now and the phosphorus is 3.0 with a magnesium of 2.3. Objective Data Objective Data Vital Signs: Vital Signs Temp Pulse Resp BP Pulse Ox O2 Del Method 98.1 F 89 16 101/51 L 95 Room Air 02/20/24 08:08 02/20/24 08:08 02/20/24 08:08 02/20/24 08:08 02/20/24 08:08 02/20/24 08:08 Oxygen Delivery Method Room Air Weight: 133 lb 4 oz Body Mass Index (BMI) 19.6 Intake & Output: Intake and Output for Last 24 Hours 02/18/24 02/19/24 02/20/24 23:59 23:59 23:59 Intake Total 1210 / 1210 1969 / 1969 790 / 790 Output Total 1100 / 1100 2350 / 2350 1375 / 1375 Balance 110 / 110 -380 / -380 -585 / -585 Medical Nutrition Assessment Dietitian: Malnutrition Criteria Met Start: 02/11/24 13:44 Freq: Status: Active Protocol: Document 02/15/24 10:57 RMA (Rec: 02/15/24 10:57 RMA [id number]) Nutrition Malnutrition Evidence of Malnutrition Exists Yes Malnutrition (severe): Chronic Evidenced By Suboptimal Energy Intake ( Moderate),Physical Changes ( Severe) Intake Problem Increased Nutrient Needs (specify) Etiology for protein related to wound healing Signs/Symptoms as evidenced by BLE posterior lower leg stasis ulcers, pressure injury to back Status Active Problem Clinical Problem Chronic Disease or Condition Related Malnutrition Etiology severe protein-calorie in the context of chronic disease related to inadequate energy intake and chewing difficulty/ dislikes dentures Signs/Symptoms as evidenced by severe temporal, clavicular, buccal, thigh, calf muscle and fat wasting. 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 Continue Ensure plus HP 3 x per day with medpass. Continue Sathish BID with breakfast and dinner to promote wound healing. Monitor weight status and adjust ONS as needed. Lab / Micro Data 02/20/24 07:16 02/20/24 07:16 Labs: Laboratory Results - last 24 hr 02/20/24 07:16: WBC 3.9 L, RBC 3.60 L, Hgb 10.9 L, Hct 34.6 L, MCV 96.1 H, MCH 30.3, MCHC 31.5 L, RDW Std Deviation 48.2 H, RDW Coeff of Vee 13.6, Plt Count 271, MPV 9.4, Sodium 141, Potassium 4.4, Chloride 107, Carbon Dioxide 30.0, A nion Gap 4 L, BUN 26 H, Creatinine 0.84, Estim Creat Clear Calc 55.28, Est GFR (MDRD) Af Amer 113, Est GFR (MDRD) Non-Af 93, BUN/Creatinine Ratio 31.1 H, Glucose 103, Calcium 8.8, Phosphorus 3.0, Magnesium 2.3 Micro: Microbiology 02/07/24 20:24 Stool Stool Occult Blood (ARNULFO) - Final Physical Exam Const alert and no apparent distress Constitutional Narrative: Does not appear to be in any pain. General Appearance: cooperative Chest Chest: symmetrical chest wall rise Resp normal respiratory effort and clear to auscultation bilaterally Resp Narrative: Breath sounds in the bases are better today. they were dimninshed last week Effort and Inspection: Negative for tachypneic Cardio regular rate, regular rhythm and no gallops Cardio Narrative: No ectopy. GI normal to inspection, nondistended, normoactive bowel sounds and soft to palpation GI Narrative: No guarding with palpation of the abdomen. No sutures or christopher. The incision is intact with no dehiscence, no erythema and no DC. Bladder / Kidney Exam: catheter in place urethral (The urine in the Retana bag and tubing is pale yellow and clear.) Back/Spine Back/Spine Narrative: There is a stage I decub over the mid thoracic vertebrae. It is painful to touch. Extremity no calf tenderness Extremity Narrative: He has mild pitting edema of the ankles only today with no pretibial pitting edema. Eliud wrap's are in place. He sits with his legs dependent most of the time. General Extremity: Negative for edema Skin Rashes: no rashes Wound Narrative: The right groin incision is intact with no chase-incisional erythema and no discharge. There is mild swelling around the incision but the swelling and the foreskin has significantly decreased in the past 2 days. Neuro oriented x3, CN's II-XII intact bilaterally, moves all extremities and no focal motor deficits Neuro Narrative: Generalized weakness.......getting stronger and is more alert and sleeping less during the day. Psych cooperative Psych Narrative: Calm/cooperative. HAs made a lot of progress since admission. No longer c/o seeing ticks on his scrotum or in his coffee or oatmeal. No agitation. Appearance: appropriate Assessment & Plan Assessment/Plan (1) Physical debility: (2) Incarcerated femoral hernia: (3) BPH w urinary obs/LUTS: (4) Presence of indwelling Retana catheter: (5) Generalized weakness: (6) Cognitive dysfunction: (7) Decubitus ulcer, stage II: QUALIFIERS: Pressure injury location: calf Laterality: right Q ualified Code(s): L89.892 - Pressure ulcer of other site, stage 2 (8) Stage I decubitus ulcer and pressure area: QUALIFIERS: Pressure injury location: back, unspecified location Qualified Code(s): L89.101 - Pressure ulcer of unspecified part of back, stage 1 (9) Orthostatic hypotension: (10) Postobstructive diuresis: (11) Dehydration: (12) Visual hallucinations: (13) Depression: QUALIFIERS: Depression Type: unspecified Qualified Code(s): F32.A - Depression, unspecified (14) Malnutrition: QUALIFIERS: Malnutrition type: protein-calorie malnutrition P rotein-calorie malnutrition severity: severe Qualified Code(s): E43 - Unspecified severe protein-calorie malnutrition (15) H/O hernia repair: (16) Leukopenia: PLAN: Etiology? This is new and he has no sx of a viral infection. Remeron is rarely associated (less than 1%) with leukopenia/cytopenias. PLAN: Plan 1. Continue therapy 2. Plan discharge to [facility] Saturday. 3. Will discharge him with a Retana catheter and have him follow-up for a voiding trial in the office with Dr. Nisa aranda postdischarge from rehab. 4. Recheck a CBC with differential in the a.m. - may need to DC Remeron if this persists. I have no other reason for Leukopenia Charges/Coding Visit Charges Inpatient E&M: 84216 Subs Hosp L1
[2024-02-20] MEDS: Tamsulosin HCl 0.4 MG Capsule PO (17:23)
[2024-02-20 18:00] VITALS: BP 97/61; PULSE 82; RESP 17; TEMP 37.1; O2SAT 97
[2024-02-20 20:30] VITALS: RESP 17; O2SAT 97
[2024-02-20] MEDS: Petrolatum 33% Tube 1 APPLIC TOPICAL (21:17)
[2024-02-20] MEDS: Mirtazapine 15 MG Tablet 7.5 MG PO (21:18)
[2024-02-21 06:00] VITALS: BP 123/71; PULSE 75; RESP 16; TEMP 36.8; O2SAT 96; BMI 19.2
[2024-02-21] MEDS: Cholestyramine/Sucrose 4 GM/PACKET PO ×2 (06:32→16:41)
[2024-02-21] MEDS: Acetaminophen 500 MG Tablet 1000 MG PO ×3 (06:32→20:58)
[2024-02-21 07:53] LABS: Absolute Lymphocyte Count 0.87 X10^3/uL (0.83-4.51); Absolute Neutrophil Count 1.8 X10^3/uL (2.0-7.7); Basophil# 0.04 X10^3/uL; Basophil% 1.2 % (0-1); Eosinophil# 0.21 X10^3/uL; Eosinophils% 6.3 % (0-5); Hematocrit 30.5 % (40-54); Hemoglobin 9.9 g/dL (13.0-16.5); Lymphocyte # 0.87 X10^3/ul (0.83-4.51); Mean Corp Hgb Conc 32.5 g/dL (32-36); Mean Corpuscular Volume 95.6 fL (80-94); Mean Platelet Vol. 9.5 fl (6.2-12.0); Monocyte# 0.39 X10^3/uL; Monocyte% 11.7 % (0-10); NRBC Flagged by Analyzer 0 % (0-5); Neutrophil # 1.82 X10^3/uL (2.7-7.7); Neutrophil % 54.5 % (47-70); Platelet Count 218 K/mm3 (150-450); RBC Distribution Width CV 13.5 % (11.6-14.6); RBC Distribution Width SD 47.6 fl (35.1-43.9); Red Blood Count 3.19 M/mm3 (4.6-6.2); White Blood Count 3.3 K/mm3 (4.4-11.0)
[2024-02-21] MEDS: Cholecalciferol (VIT D3) 25 MCG TABLET (1,000 UNITS) PO (08:35)
[2024-02-21] MEDS: Omega-3 Acid Ethyl Esters 1 GM Capsule PO (08:36)
[2024-02-21] MEDS: Senna/Docusate Sodium 1 Tablet 2 TABLET PO ×2 (08:36→20:58)
[2024-02-21] MEDS: Aspirin E.C. 81 MG Tablet PO (08:36)
[2024-02-21] MEDS: Menthol/Lanolin/Calamine/Znox 113 GM Tube 1 APPLIC TOPICAL ×2 (08:37→20:57)
[2024-02-21] MEDS: Ensure Plus High Protein 120 ML LIQUID PO ×3 (08:38→16:41)
--- NOTE | 2024-02-21 14:49 | PCM.TXEXTCAR ---
Diet Diet Order/Speech Therapy: 02/14/24 17:17 Diet: Regular - General Type of Dietary Supplement:: Sathish Diet Comments: 240 mL fruit punch Sathish at [facility] Routine Orders/Code Status Enema Type: Fleetz Enema Frequency: Daily PRN Suppository Type: Dulcolax 10mg Suppository Frequency: Daily PRN Change Retana Catheter: Do not change......he is to follow up in the office with Dr. Stapleton Routine Lab Work: CBC (1 week) and BMP (1 week) Code Status: Full Code DC O2, CPAP, BIPAP needs Additional Home O2 Discharge instructions: No Wound(s) LLE: Wound Type: Stasis Ulcer (healed) RLE: Wound Type: Stasis Ulcer (healed) back: Wound Type: Pressure Injury Right lower abdomen: Wound Type: Surgical Incision Therapies Weight Bearing: Full weight bearing Physical Therapy: Eval and Treat Occupational Therapy: Eval and Treat Speech Therapy: Eval and Treat Problem/Diagnosis (1) Physical debility: Status: Acute Code(s): R53.81 - Other malaise Plan: Due to generalized weakness/deconditioning and to NATALEE due to obstructive uropathy (2) Incarcerated femoral hernia: Status: Inactive Code(s): K41.30 - Unilateral femoral hernia, with obstruction, without gangrene, not specified as recurrent Plan: 02/13/24 had repair of the hernia by Dr. Odonnell. Will need to follow up with Dr. Odonnell post DC. (3) BPH w urinary obs/LUTS: Status: Acute Code(s): N40.1 - Benign prostatic hyperplasia with lower urinary tract symptoms; N13.8 - Other obstructive and reflux uropathy Plan: Tolerating Flomax at the time of DC from rehab. the Retana was difficult to insert and it is to remain in at DC. He should follow up with Dr. Stapleton in the office for a voiding trial within 2 weeks post DC. Urine in the Retana bag and tubing is clear at the time of DC from rehab. (4) Presence of indwelling Retana catheter: Status: Chronic Code(s): Z97.8 - Presence of other specified devices (5) Generalized weakness: Status: Chronic Code(s): R53.1 - Weakness (6) Cognitive dysfunction: Status: Acute Code(s): F09 - Unspecified mental disorder due to known physiological condition Plan: Acute on Chronic. WAs having some visual hallucinations at admission to the hospital but he was in acute renal failure. He has some trouble with memory chronically. He was depressed and isolated at admission to the hospital. Hallucinations resolved with improvement in kidney function and after starting and antidepressant. He is calm and cooperative and appropriate. No problem with agitation or aggression while on rehab. (7) Decubitus ulcer, stage II: Status: Resolved Code(s): L89.92 - Pressure ulcer of unspecified site, stage 2 Plan: Located on the posterior distal R calf. This is healed at the time of DC. (8) Stage I decubitus ulcer and pressure area: Status: Resolved Code(s): L89.91 - Pressure ulcer of unspecified site, stage 1 Plan: Located over the mid thoracic spine at admission to rehab and this has resolved. Avoid prolonged sitting in a chair and change positions frequently. (9) Orthostatic hypotension: Status: Resolved Code(s): I95.1 - Orthostatic hypotension Plan: Resolved with hydration. Blood pressure for the 48 hours prior to discharge has ranged from 97/61 to 123/71. Heart rate is within normal limits and he denies lightheadedness. (10) Postobstructive diuresis: Status: Resolved Code(s): R35.89 - Other polyuria Plan: Initially required intravenous fluids to keep him hydrated but he is currently maintaining his state of hydration without intravenous fluids. (11) Dehydration: Status: Resolved Code(s): E86.0 - Dehydration (12) Visual hallucinations: Status: Resolved Code(s): R44.1 - Visual hallucinations Plan: He had visual hallucinations for the first few days on rehab and I suspect this was due to the combined effects of NATALEE, dehydration, depression, isolation. Has not had hallucinations when I have talked to him for at least 1 week prior to DC. (13) Depression: Status: Chronic Code(s): F32.A - Depression, unspecified Plan: [place] had a poor appetite and was losing wt at admission to the hospital. He was living alone and felt very isolated. He had no motivation to do anything but, sit is a chair and he was not able to care for himself. He was having some delusions and visual hallucinations. He has thrived with people to talk with and interacting with staff. He is always cooperative and willing to do therapy. He is very happy to have someone to talk too. He is eating 75-100% of his food and he is sleeping well at night. He was started on Remeron 7.5 mg at early in the admission. Unfortunately he has developed Leukopenia which is a rare side effect of Remeron. Remeron was discontinued. WBC at DC is 3.3. HGB is stable at 9.9......it was 10.1 on 02/05/24 following hydration. Platelets are within normal limits. Stool for occult blood was negative. Would recheck the CBC in 1 week and if the WBC is noraml would consider starting another antidepressant. SSRI's can be associated with cytopenias so would consider possibly using Wellbutrin although this can lead to lead loss so this would need to be monitored. I think he would benefit from psychotherapy. Increased socialization has helped enormously with depression and though processes, (14) Malnutrition: Status: Acute Code(s): E46 - Unspecified protein-calorie malnutrition (15) H/O hernia repair: Status: Acute Code(s): Z98.890 - Other specified postprocedural states; Z87.19 - Personal history of other diseases of the digestive system Plan: Will need to follow up with Dr. Odonnell in the office post DC. Comment: 02/13/[address] Reyes Odonnell for incarcerated R femoral hernia. (16) Hypophosphatemia: Status: Resolved Code(s): E83.39 - Other disorders of phosphorus metabolism (17) Normochromic normocytic anemia: Status: Inactive Code(s): D64.9 - Anemia, unspecified Plan: Stable. TSH is normal. Stool is heme negative. PSA and CEA are normal. Cortrosyn stim test negative for adrenal insufficiency.B12 is normal. (18) Vitamin D deficiency: Status: Acute Code(s): E55.9 - Vitamin D deficiency, unspecified Plan: Calcium normalized with calcium and Vitamin D supplementation. Plan 1. Transfer to [facility] for additional skilled therapy. I think he would benefit from assisted living or an ECF retirement. 2. Follow up with Dr. Stapleton within 2 weeks post DC for a voiding trial in the office. would continue to maintain the [place] since it was a difficult placement. suspect he will need a TURP. 3. Recheck a CBC and a BMP in 1 week. If Leukopenia has resolved would consider restarting an antidepressant. The elderly tend to do better with SSRIs but SSRIs can all be associated with cytopenias. An alternative would be Wellbutrin but would need to monitor his oral intake as this can suppress appetite. 4. Follow-up with Dr. Odonnell for hernia 5. Needs a FWW for ambulation. 6. Would benefit from psychotherapy for depression. Allergies/Procedures Done in Hospital Allergies No Known Allergies Allergy (Verified 02/04/24 09:59) Procedures: - (Repair of incarcerated R femoral hernia on 02/13/[address] Odonnell. ) Type of Care/Length of Stay Estimated LOS: Convalescent Care Less Than 30 days Type of Care Needed: Skilled Rehab Potential: Good Prognosis: Good Additional Orders/Day of Discharge H&P will serve as current which was dated: 02/07/24 Day of Discharge: 02/22/24 Dietary and Speech Recommendations Dietitian Recommendations/Changes: Continue regular diet. Continue Ensure plus HP 3 x per day with medpass. Continue Sathish BID with breakfast and dinner to promote wound healing. Monitor weight status and adjust ONS as needed. Follow Up Care Please Follow Up With: Matthew Stapleton MD When: within 2 weeks of DC from rehab for a voiding trial in the office. Please Follow Up With: Wesley Odonnell MD When: in 1 month Discharge Plan Admission Admit Date/Time: 02/06/24 15:05 Primary Reason for Your Visit: Debility due to generalized weakness/NATALEE/Hydronephrosis Attending Provider: Randi Belle Primary Care Provider: Siena Santana Consulting Providers: Wesley Odonnell Discharge Orders/Prescriptions Prescriptions: New calcium carbonate 200 mg calcium (500 mg) Tablet,Chewable 500 mg PO BIDCM Qty: 0 0RF cholestyramine (with sugar) 4 gram Powder In Packet 1 ea PO BIDAC Qty: 0 0RF cholecalciferol (vitamin D3) 25 mcg (1,000 unit) Tablet 50 mcg PO DAILY Qty: 0 0RF morphine 2 mg/mL Syringe 1 mg IV Q3H PRN PRN (Reason: pain 1-10) 1 Days Qty: 0 0RF Ensure Plus High Protein 0.08 gram-1.5 kcal/mL Liquid 120 ml PO TIDCM Qty: 0 0RF nystatin 100,000 unit/mL Suspension 500,000 unit PO 4X/DAY Qty: 0 0RF naloxone 0.4 mg/mL Solution 0.4 mg IV X1 PRN (Reason: RR <10, unresponsiveness) Qty: 1 0RF Petrolatum 33% [Eucerin Eqivalent] 1 applic topical QHS Qty: 0 0RF mirtazapine [Remeron] 15 mg tablet 7.5 mg PO QHS Qty: 1 0RF Held aspirin [Adult Low Dose Aspirin] 81 mg tablet,delayed release (DR/EC) 81 mg PO DAILY Hold Instructions: N.p.o. for surgery omega-3 fatty acids [Super [place]-3] 1,000 mg capsule 1,000 mg PO DAILY Hold Instructions: Patient n.p.o. for surgery acetaminophen 325 mg Tablet 650 mg PO Q6H PRN PRN (Reason: Pain 1-10 Or Fever >100.7) Qty: 0 0RF Hold Instructions: NPO for surgery sennosides-docusate sodium [Stimulant Laxative Plus] 8.6-50 mg Tablet 2 tab PO BID PRN PRN (Reason: Constipation) Qty: 0 0RF Hold Instructions: N.p.o. for surgery tamsulosin 0.4 mg Capsule 0.4 mg PO DAILY@1730 Qty: 0 0RF Hold Instructions: On hold for orthostatic hypotension Referrals / Follow Up: Siena Santana MD [Primary Care Provider] - Matthew Stapleton MD [Med Staff - Active Staff] - Merrill Henderson MD [Non-Staff -Ordering Privileges] - Wesley Odonnell MD [Med Staff - Active Staff] - (7) Decubitus ulcer, stage II Qualifiers: Laterality: right Pressure injury location: calf Qualified Code(s): L89.892 - Pressure ulcer of other site, stage 2 (8) Stage I decubitus ulcer and pressure area Qualifiers: Pressure injury location: back, unspecified location Qualified Code(s): L89.101 - Pressure ulcer of unspecified part of back, stage 1 (13) Depression Qualifiers: Depression Type: unspecified Qualified Code(s): F32.A - Depression, unspecified (14) Malnutrition Qualifiers: Malnutrition type: protein-calorie malnutrition Protein-calorie malnutrition severity: severe Qualified Code(s): E43 - Unspecified severe protein-calorie malnutrition
--- NOTE | 2024-02-21 15:35 | PCM.DC.SUM ---
Providers Date of Admission: 02/06/24 Date of Discharge: 02/22/24 Primary Care Physician: Siena Santana MD Consultations 02/13/24 15:25 Consult: General Surgery Routine Consulting Provider: Wesley Odonnell Reason for Consult: suspected incarcerated R inguinal hernia EMERGENT Consult: Yes MD Notified: Yes Date Notified: 02/13/24 Time Notified: 15:26 Method of Notification: Verbal Reason For Visit: Debility/recurrent R inguinal hernia Diagnosis Discharge Diagnosis (1) Physical debility: Status: Acute Code(s): R53.81 - Other malaise Plan: Due to generalized weakness/deconditioning and to NATALEE due to obstructive uropathy (2) Incarcerated femoral hernia: Status: Inactive Code(s): K41.30 - Unilateral femoral hernia, with obstruction, without gangrene, not specified as recurrent Plan: 02/13/24 had repair of the hernia by Dr. Odonnell. Will need to follow up with Dr. Odonnell post DC. (3) BPH w urinary obs/LUTS: Status: Acute Code(s): N40.1 - Benign prostatic hyperplasia with lower urinary tract symptoms; N13.8 - Other obstructive and reflux uropathy Plan: Tolerating Flomax at the time of DC from rehab. the Retana was difficult to insert and it is to remain in at DC. He should follow up with Dr. Stapleton in the office for a voiding trial within 2 weeks post DC. Urine in the Retana bag and tubing is clear at the time of DC from rehab. (4) Presence of indwelling Retana catheter: Status: Chronic Code(s): Z97.8 - Presence of other specified devices (5) Generalized weakness: Status: Chronic Code(s): R53.1 - Weakness (6) Cognitive dysfunction: Status: Acute Code(s): F09 - Unspecified mental disorder due to known physiological condition Plan: Acute on Chronic. WAs having some visual hallucinations at admission to the hospital but he was in acute renal failure. He has some trouble with memory chronically. He was depressed and isolated at admission to the hospital. Hallucinations resolved with improvement in kidney function and after starting and antidepressant. He is calm and cooperative and appropriate. No problem with agitation or aggression while on rehab. (7) Decubitus ulcer, stage II: Status: Resolved Code(s): L89.92 - Pressure ulcer of unspecified site, stage 2 Qualifiers: Laterality: right Pressure injury location: calf Qualified Code(s): L89.892 - Pressure ulcer of other site, stage 2 Plan: Located on the posterior distal R calf. This is healed at the time of DC. (8) Stage I decubitus ulcer and pressure area: Status: Resolved Code(s): L89.91 - Pressure ulcer of unspecified site, stage 1 Qualifiers: Pressure injury location: back, unspecified location Qualified Code(s): L89.101 - Pressure ulcer of unspecified part of back, stage 1 Plan: Located over the mid thoracic spine at admission to rehab and this has resolved. Avoid prolonged sitting in a chair and change positions frequently. (9) Orthostatic hypotension: Status: Resolved Code(s): I95.1 - Orthostatic hypotension Plan: Resolved with hydration. Blood pressure for the 48 hours prior to discharge has ranged from 97/61 to 123/71. Heart rate is within normal limits and he denies lightheadedness. (10) Postobstructive diuresis: Status: Resolved Code(s): R35.89 - Other polyuria Plan: Initially required intravenous fluids to keep him hydrated but he is currently maintaining his state of hydration without intravenous fluids. (11) Dehydration: Status: Resolved Code(s): E86.0 - Dehydration (12) Visual hallucinations: Status: Resolved Code(s): R44.1 - Visual hallucinations Plan: He had visual hallucinations for the first few days on rehab and I suspect this was due to the combined effects of NATALEE, dehydration, depression, isolation. Has not had hallucinations when I have talked to him for at least 1 week prior to DC. (13) Depression: Status: Chronic Code(s): F32.A - Depression, unspecified Qualifiers: Depression Type: unspecified Qualified Code(s): F32.A - Depression, unspecified Plan: [place] had a poor appetite and was losing wt at admission to the hospital. He was living alone and felt very isolated. He had no motivation to do anything but, sit is a chair and he was not able to care for himself. He was having some delusions and visual hallucinations. He has thrived with people to talk with and interacting with staff. He is always cooperative and willing to do therapy. He is very happy to have someone to talk too. He is eating 75-100% of his food and he is sleeping well at night. He was started on Remeron 7.5 mg at Hs early in the admission. Unfortunately he has developed Leukopenia which is a rare side effect of Remeron. Remeron was discontinued. WBC at DC is 3.3. HGB is stable at 9.9......it was 10.1 on 02/05/24 following hydration. Platelets are within normal limits. Stool for occult blood was negative. Would recheck the CBC in 1 week and if the WBC is noraml would consider starting another antidepressant. SSRI's can be associated with cytopenias so would consider possibly using Wellbutrin although this can lead to lead loss so this would need to be monitored. I think he would benefit from psychotherapy. Increased socialization has helped enormously with depression and though processes, (14) Malnutrition: Status: Acute Code(s): E46 - Unspecified protein-calorie malnutrition Qualifiers: Malnutrition type: protein-calorie malnutrition Protein-calorie malnutrition severity: severe Qualified Code(s): E43 - Unspecified severe protein-calorie malnutrition (15) H/O hernia repair: Status: Acute Code(s): Z98.890 - Other specified postprocedural states; Z87.19 - Personal history of other diseases of the digestive system Plan: Will need to follow up with Dr. Odonnell in the office post DC. (16) Hypophosphatemia: Status: Resolved Code(s): E83.39 - Other disorders of phosphorus metabolism (17) Normochromic normocytic anemia: Status: Inactive Code(s): D64.9 - Anemia, unspecified Plan: Stable. TSH is normal. Stool is heme negative. PSA and CEA are normal. Cortrosyn stim test negative for adrenal insufficiency.B12 is normal. (18) Vitamin D deficiency: Status: Acute Code(s): E55.9 - Vitamin D deficiency, unspecified Plan: Calcium normalized with calcium and Vitamin D supplementation. Plan 1. Transfer to [facility] for additional skilled therapy. I think he would benefit from assisted living or an ECF group home. 2. Follow up with Dr. Stapleton within 2 weeks post DC for a voiding trial in the office. would continue to maintain the [place] since it was a difficult placement. suspect he will need a TURP. 3. Recheck a CBC and a BMP in 1 week. If Leukopenia has resolved would consider restarting an antidepressant. The elderly tend to do better with SSRIs but SSRIs can all be associated with cytopenias. An alternative would be Wellbutrin but would need to monitor his oral intake as this can suppress appetite. 4. Follow-up with Dr. Odonnell for hernia 5. Needs a FWW for ambulation. 6. Would benefit from psychotherapy for depression. Medications at Discharge Home Medications aspirin 81 mg tablet,delayed release (Adult Low Dose Aspirin) 81 mg PO DAILY heart health 12/26/21 omega-3 fatty acids 1,000 mg capsule (Super [place]-3) 1,000 mg PO DAILY supplement 12/26/21 acetaminophen 325 mg tablet 650 mg (2 x 325 mg) PO Q6H PRN PRN Pain 1-10 Or Fever >100.7 #0 tabs 02/06/24 sennosides 8.6 mg-docusate sodium 50 mg tablet (Stimulant Laxative Plus) 2 tab PO BID PRN PRN Constipation #0 tabs 02/06/24 tamsulosin 0.4 mg capsule 0.4 mg PO DAILY@1730 prostate #0 caps 02/06/24 Petrolatum 33% [Eucerin Eqivalent] 1 applic topical QHS ##0 02/13/24 calcium carbonate 500 mg (2.5 x 200 mg calcium (500 mg)) PO BIDCM #0 tabs 02/13/24 cholecalciferol (vitamin D3) 25 mcg (1,000 unit) tablet 50 mcg (2 x 25 mcg (1,000 unit)) PO DAILY #0 tabs 02/13/24 cholestyramine (with sugar) 4 gram powder for susp in a packet 1 ea PO BIDAC #0 ea 02/13/24 food supplemt, lactose-reduced 0.08 gram-1.5 kcal/mL oral liquid (Ensure Plus High Protein) 120 ml PO TIDCM #0 mL 02/13/24 mirtazapine 15 mg tablet (Remeron) 7.5 mg (1/2 x 15 mg) PO QHS #1 TAB 02/13/24 morphine 2 mg/mL intravenous syringe 1 mg (0.5 mL) IV Q3H PRN PRN pain 1-10 1 day #0 mL 02/13/24 naloxone 0.4 mg/mL injection solution 0.4 mg IV X1 PRN RR <10, unresponsiveness #1 mL 02/13/24 nystatin 100,000 unit/mL oral suspension 500,000 unit (5 mL) PO 4X/DAY #0 mL 02/13/24 Hospital Course Summary of Care Provided Hospital Course: WASHINGTON SEPULVEDA, is a 83 YO M with a PMH of HTN, venous stasis ulcers of the LE's and prostate disease who presented to the ED at [facility] on 02/04/24 c/o severe abdominal pain which had been present for a few weeks but it was getting worse. In the ED he was diagnosed with NATALEE (creat was 3.1) due to obstructive uropathy. CT scan of the abdomen and pelvis showed a marked degree of distention of the urinary bladder, prostatic enlargement with indentation at the bladder base and a moderate degree of bilateral hydronephrosis and hydroureter. There was a 2.9 cm cyst in the posterior lower midportion of the right kidney. Visualization of the lumbar spine show diffuse degenerative changes with a heterogeneous appearance of the bones suspicious for metastatic disease. The abdominal pain resolved with placement of a Retana catheter. He was admitted to the hospitalist service. A total PSA was checked and was normal at 2.7. While in the hospital he was seen in consultation by Dr. Stapleton from urology who recommended discharging with a Retana catheter in place and follow-up in his office as an outpatient for a voiding trial and possible TURP. He was transferred to the acute inpt rehab unit at [facility] on 02/06/24 for 3 hours of therapy daily to strengthen/rehabilitate so that he can return home. At presentation to rehab [place] was quite depressed. He had been refusing to eat at home and he was not motivated to do anything but, sit in his chair. His memory was poor. He had developed a stage II decubitus ulcer on the posterior distal right calf from not moving. He also had a stage I decubitus ulcer over the mid thoracic spine. These both resolved prior to discharge from rehab. He was diagnosed with malnutrition by the dietitian and supplements were started. He was started on Remeron 7.5 mg nightly and had no obvious adverse side effects. He had been having some visual hallucinations at presentation to the hospital and was seeing ticks in his oatmeal and on his scrotum. the ticks were actually scabs on the scrotum due to sitting in wet undergarments from overflow urinary incontinence. He was in ARF at admission to the hospital due to obstructive uropathy. He is not having hallucinations at DC from rehab. I suspect the hallucinations were due to the combined effects of dehydration, acute kidney injury, depression and isolation. B12 and TSH were checked to R/O hypothyroidism and B12 deficiency is contributing to the memory loss/hallucinations. These were both normal. PSA and CEA were normal. Adrenal function was normal. On 02/13/24 in the afternoon [place] started c/o severe R groin pain. On physical exam he was noted to have a hard mass in the R inguinal area that was not reducible. It was very painful to touch and he had pain radiating into the R scrotum/R testicle. He was seen in consult by Dr. Odonnell who recommended surgery to repair. Permission was obtained from [place] and his son Chad. He was taken to surgery on the evening of 02/13/24 for repair of an incarcerated R femoral hernia. The following day he was transferred back to inpt rehab. [place] had no post op complications. At the time of DC from rehab the incision is intact with no dehiscence, no chase-incisional erythema and no discharge. There is some swelling in the right groin and the swelling of the foreskin but this is improving daily. He denies any pain in his groin at the time of discharge. [place] has done very well on rehab and he is getting progressively stronger. He is eating 75-100% of all his meals and he is sleeping well at night. He has not been agitated or aggressive. He is very cooperative and is always willing to do therapy. He no longer has any visual hallucinations. He is pleasant and talkative. I think the increased socialization has probably done more for him than the Remeron. [place] has told me a number of times that he just wants someone to talk to. He lives alone and has assistance from his son and dtr but, he is alone most of the time. He is being transferred to the [facility] for additional therapy. The helped the family with a medicaid application and they are considering placement in an assisted living facility or an ECF. Washington is OK with this plan. Unfortunately [place] developed mild leukopenia prior to DC from rehab. On 01/20/2024 his white blood cell count had dropped from 7.1-3.9. This was rechecked on 02/21/2024 and the white blood cell count is 3.3. He has no viral symptoms. I suspect it may be the Remeron causing the leukopenia. This is a rare complication occurring in less than 1% of people but I do not have another reason for the leukopenia. Remeron was discontinued. Would recheck a CBC and a BMP in 1 week to see if the leukopenia has resolved with discontinuation of the Remeron. If it has not would consider referral to hematology/oncology. If it has resolved would consider restarting an antidepressant. All SSRI's have a possible SE of cytopenias so may want to consider Wellbutrin. Would need to monitor for decreased appetite with Wellbutrin. would avoid TCA's due to the urine retention and potential for sedation. [place] will need to follow-up with Dr. Candido Stapleton post discharge from rehab for a voiding trial in the office. He is tolerating Flomax at discharge with no lightheadedness. He has an occasional systolic in the 90s but he is asymptomatic. Urine in the Retana bag and tubing at discharge is clear and he is afebrile. He will also need to follow-up with Dr. Odonnell for ythe hernia. He had the R femoral hernia repaired but, he also has a hernia on the Left. Physical Exam Const alert and no apparent distress Constitutional Narrative: Does not appear to be in any pain. He is pleasant and makes good eye contact with me when we are talking. General Appearance: cooperative, comfortable, well kempt and well developed; Negative for in distress or anxious HEENT head/scalp atraumatic HEENT Narrative: Pupils are equal round reactive to light and accommodation. Extraocular muscles are intact. There is no evidence of thrush. The neck is supple without any rigidity. Carotids have brisk upstroke and good pulse volume bilaterally. He is hard of hearing. Chest Chest: symmetrical chest wall rise Resp normal respiratory effort and clear to auscultation bilaterally Resp Narrative: Lungs are clear to auscultation with no crackles or wheezes. Effort and Inspection: able to speak in complete sentences; Negative for tachypneic Cardio regular rate, regular rhythm, no murmurs, no rub and no gallops Cardio Narrative: No ectopy. No tachycardia no bradycardia. GI normal to inspection, nondistended, normoactive bowel sounds and soft to palpation GI Narrative: No guarding with palpation of the abdomen. No sutures or christopher. The incision is intact with no dehiscence, no erythema and no DC. He has some swelling in the right groin which I suspect is related to recent surgery in a patient with low albumin/malnutrition. There is some swelling of the foreskin but no significant swelling of the scrotum. He has no pain with palpation. Urine in the Retana bag is clear. Bladder / Kidney Exam: catheter in place urethral (The urine in the Retana bag and tubing is pale yellow and clear.) Back/Spine Back/Spine Narrative: There is a stage I decub over the mid thoracic vertebrae. It is painful to touch. Extremity no calf tenderness Extremity Narrative: The 3-4+ pitting edema of the lower extremities has resolved with compression and elevation. General Extremity: Negative for edema Skin Rashes: no rashes Wound Narrative: The right groin incision is intact with no chase-incisional erythema and no discharge. There is mild swelling around the incision but the swelling and the foreskin has significantly decreased in the past 2 days. A stage II decubitus ulcer present on the right distal posterior calf secondary to sitting in his chair without moving has healed. No stage I decubitus on his back and the back is nontender to palpation now. Neuro oriented x3, CN's II-XII intact bilaterally, moves all extremities and no focal motor deficits Neuro Narrative: Generalized weakness.......getting stronger and is more alert and sleeping less during the day. Psych cooperative Psych Narrative: Calm/cooperative. HAs made a lot of progress since admission. No longer c/o seeing ticks on his scrotum or in his coffee or oatmeal. No agitation. Appearance: appropriate Medical Records Data Medical Nutrition Assessment Dietitian: Malnutrition Criteria Met Start: 02/11/24 13:44 Freq: Status: Active Protocol: Document 02/15/24 10:57 RMA (Rec: 02/15/24 10:57 RMA [id number]) Nutrition Malnutrition Evidence of Malnutrition Exists Yes Malnutrition (severe): Chronic Evidenced By Suboptimal Energy Intake ( Moderate),Physical Changes ( Severe) Intake Problem Increased Nutrient Needs (specify) Etiology for protein related to wound healing Signs/Symptoms as evidenced by BLE posterior lower leg stasis ulcers, pressure injury to back Status Active Problem Clinical Problem Chronic Disease or Condition Related Malnutrition Etiology severe protein-calorie in the context of chronic disease related to inadequate energy intake and chewing difficulty/ dislikes dentures Signs/Symptoms as evidenced by severe temporal, clavicular, buccal, thigh, calf muscle and fat wasting. 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 BMI 19.0 Status Active Problem Recommendation Dietitian Recommendations/Changes Continue regular diet. Continue Ensure plus HP 3 x per day with medpass. Continue Sathish BID with breakfast and dinner to promote wound healing. Monitor weight status and adjust ONS as needed. Weight / BMI Weight Weight: 130 lb 1.164 oz Body Mass Index (BMI) 19.2 ABG / Lab / Microbiology Data 02/21/24 07:25 02/20/24 07:16 Laboratory: Laboratory Results - last 24 hr 02/21/24 07:25: WBC 3.3 L, RBC 3.19 L, Hgb 9.9 L, Hct 30.5 L, MCV 95.6 H, MCH 31.0, MCHC 32.5, RDW Std Deviation 47.6 H, RDW Coeff of Vee 13.5, Plt Count 218, MPV 9.5, Immature Gran % (Auto) 0.300, Neut % (Auto) 54.5, Lymph % (Auto) 26.0, Gilchrist % (Auto) 11.7 H, Eos % (Auto) 6.3 H, Baso % (Auto) 1.2 H, Absolute Neuts (auto) 1.8 L, Absolute Lymphs (auto) 0.87, Nucleated RBC % 0 Microbiology: Microbiology 02/07/24 20:24 Stool Stool Occult Blood (ARNULFO) - Final D/C Instructions DC O2, CPAP, BIPAP Needs Additional Home O2 Discharge instructions: No DC home with Oxygen: No Please Follow Up With: Matthew Stapleton MD Meaningful Use Info Meaningful Use Meaningful Use Diagnoses (Choose all that apply): None applicable Ischemic Stroke Statin Dosing Therapy Reference: STATIN DOSE THERAPY REFERENCE: * Patients > 75 years receive moderate or high dose statin therapy. * Patients 75 years or YOUNGER should receive HIGH intensity statin dose unless contraindicated. You will be required to document reason for non-treatment if statin daily dose does not meet guidelines. HIGH DOSE STATIN THERAPY DAILY Atorvastatin > than or = to 40 mg Rosuvastatin > than or = to 20 mg Amlodipine + Atorvastatin > than or = to 2.5/40 mg Ezetimibe + Simvastatin 10/80 mg Simvastatin 80mg Discharge Plan Admission Admit Date/Time: 02/06/24 15:05 Primary Reason for Your Visit: Debility due to generalized weakness/NATALEE/Hydronephrosis Attending Provider: Randi Belle Primary Care Provider: Siena Santana Consulting Providers: Wesley Odonnell Discharge Orders/Prescriptions Prescriptions: New calcium carbonate 200 mg calcium (500 mg) Tablet,Chewable 500 mg PO BIDCM Qty: 0 0RF cholestyramine (with sugar) 4 gram Powder In Packet 1 ea PO BIDAC Qty: 0 0RF cholecalciferol (vitamin D3) 25 mcg (1,000 unit) Tablet 50 mcg PO DAILY Qty: 0 0RF morphine 2 mg/mL Syringe 1 mg IV Q3H PRN PRN (Reason: pain 1-10) 1 Days Qty: 0 0RF Ensure Plus High Protein 0.08 gram-1.5 kcal/mL Liquid 120 ml PO TIDCM Qty: 0 0RF nystatin 100,000 unit/mL Suspension 500,000 unit PO 4X/DAY Qty: 0 0RF naloxone 0.4 mg/mL Solution 0.4 mg IV X1 PRN (Reason: RR <10, unresponsiveness) Qty: 1 0RF Petrolatum 33% [Eucerin Eqivalent] 1 applic topical QHS Qty: 0 0RF mirtazapine [Remeron] 15 mg tablet 7.5 mg PO QHS Qty: 1 0RF Held aspirin [Adult Low Dose Aspirin] 81 mg tablet,delayed release (DR/EC) 81 mg PO DAILY Hold Instructions: N.p.o. for surgery omega-3 fatty acids [Super [place]-3] 1,000 mg capsule 1,000 mg PO DAILY Hold Instructions: Patient n.p.o. for surgery acetaminophen 325 mg Tablet 650 mg PO Q6H PRN PRN (Reason: Pain 1-10 Or Fever >100.7) Qty: 0 0RF Hold Instructions: NPO for surgery sennosides-docusate sodium [Stimulant Laxative Plus] 8.6-50 mg Tablet 2 tab PO BID PRN PRN (Reason: Constipation) Qty: 0 0RF Hold Instructions: N.p.o. for surgery tamsulosin 0.4 mg Capsule 0.4 mg PO DAILY@1730 Qty: 0 0RF Hold Instructions: On hold for orthostatic hypotension Referrals / Follow Up: Siena Santana MD [Primary Care Provider] - Matthew Stapleton MD [Med Staff - Active Staff] - Merrill Henderson MD [Non-Staff -Ordering Privileges] - Wesley Odonnell MD [Med Staff - Active Staff] - Charges/Coding Visit Charges Inpatient E&M: 46754 Disch Hosp >30min
--- NOTE | 2024-02-21 16:15 | CASEMGMT ---
Social Work- SW completed 7000 for pt d/c. Plan: [facility] RAJIV Scherer
[2024-02-21] MEDS: Tamsulosin HCl 0.4 MG Capsule PO (16:41)
[2024-02-21 17:57] VITALS: BP 118/68; PULSE 87; RESP 16; TEMP 36.4; O2SAT 99
[2024-02-21] MEDS: Petrolatum 33% Tube 1 APPLIC TOPICAL (20:58)
[2024-02-22] MEDS: Acetaminophen 500 MG Tablet 1000 MG PO (05:36)
[2024-02-22] MEDS: Cholestyramine/Sucrose 4 GM/PACKET PO (05:37)
[2024-02-22 05:42] VITALS: BP 119/78; PULSE 83; RESP 17; TEMP 36.9; O2SAT 95; BMI 18.6
[2024-02-22] MEDS: Omega-3 Acid Ethyl Esters 1 GM Capsule PO (08:24)
[2024-02-22] MEDS: Menthol/Lanolin/Calamine/Znox 113 GM Tube 1 APPLIC TOPICAL (08:24)
[2024-02-22] MEDS: Senna/Docusate Sodium 1 Tablet 2 TABLET PO (08:24)
[2024-02-22] MEDS: Ensure Plus High Protein 120 ML LIQUID PO ×2 (08:24→11:11)
[2024-02-22] MEDS: Aspirin E.C. 81 MG Tablet PO (08:24)
[2024-02-22] MEDS: Cholecalciferol (VIT D3) 25 MCG TABLET (1,000 UNITS) PO (08:25)
--- NOTE | 2024-02-22 13:46 | NURSING ---
Report called to nurse Mely
== END 2024-02-22 14:04 | disposition skilled nursing facility (03) | DRG 987 ==
PROVIDERS: Admitting Provider Internal Medicine; PCP Family Medicine; Visit Provider Internal Medicine
DX: N17.9 Acute kidney failure, unspecified (principal); E43 Unspecified severe protein-calorie malnutrition; G93.40 Encephalopathy, unspecified; K41.30 Unilateral femoral hernia, with obstruction, without gangrene, not specified as recurrent; J90 Pleural effusion, not elsewhere classified; N13.4 Hydroureter; Z68.1 Body mass index [BMI] 19.9 or less, adult; N13.8 Other obstructive and reflux uropathy; L89.892 Pressure ulcer of other site, stage 2; L89.101 Pressure ulcer of unspecified part of back, stage 1; J44.9 Chronic obstructive pulmonary disease, unspecified; F32.A Depression, unspecified; I10 Essential (primary) hypertension; E83.39 Other disorders of phosphorus metabolism; E88.09 Other disorders of plasma-protein metabolism, not elsewhere classified; I95.1 Orthostatic hypotension; K40.90 Unilateral inguinal hernia, without obstruction or gangrene, not specified as recurrent; E83.51 Hypocalcemia; F09 Unspecified mental disorder due to known physiological condition; R44.1 Visual hallucinations; E55.9 Vitamin D deficiency, unspecified; N40.1 Benign prostatic hyperplasia with lower urinary tract symptoms; N28.1 Cyst of kidney, acquired; N50.82 Scrotal pain; Z87.891 Personal history of nicotine dependence; R33.8 Other retention of urine; Z79.82 Long term (current) use of aspirin; Z79.899 Other long term (current) drug therapy; Z97.8 Presence of other specified devices; N39.490 Overflow incontinence
CPT/HCPCS: 36415; 71046; 72072; 72100; 80048; 80053; 82274; 82306; 82378; 82533; 82607; 83036; 83735; 83880; 83970; 84100; 84443; 85025; 85027; 88302; 92507; 92523; 93005; 94668; 97110; 97112; 97116; 97129; 97130; 97162; 97166; 97530; 97535; 97803; 99221; A4216; G0378; J0834

== ENCOUNTER 2024-02-13 20:04 | Observation (INO) | payer MEDICARE, SELFPAY ==
[2024-02-13] VITALS (9 sets, daily range): BP systolic 93–124; BP diastolic 48–73; PULSE 74–88; RESP 16; TEMP 36.8–37.7; O2SAT 94–100; BMI 19.5
--- NOTE | 2024-02-13 | HERN_PTH ---
PATIENT: CHINTAN SEPULVEDA LOC: MS3 U#:[id number] AGE/SX: 83/M ROOM: CA312 RE02/13/[address]: Dr. Wesley Odonnell MD : 1940 BED: 1 DIS: 02/14/2024 SPEC #: [id number] RECD: 02/14/24 09:09 STATUS: THAO [place] #: [id number] ALEE: 02/13/24 00:[address]: Wesley Odonnell DEPT: SURGICAL PATHOLOGY RECD BY: Kristen Segura ENTERED: 02/14/24 10:21 SP TYPE: Hernia OTHR DR: Siena Santana MD Tissues: HERNIA Procedures: Surgery Specimen Level II HEADER OPERATION: Femoral hernia repair PRE-OP DIAGNOSIS: Incarcerated right groin hernia, femoral hernia TISSUE SUBMITTED: Hernia sac MICROSCOPIC DIAGNOSIS Hernia sac: A piece of fibroadipose and fibroconnective tissue, consistent with hernia sac with chronic inflammation and reactive changes. SJ.mr 02/17/2024 MICROSCOPIC DESCRIPTION Slides are reviewed. GROSS DESCRIPTION Received in fixative is one container labeled with the patient's name and designated Hernia sac. The specimen consists of a piece of pink congested adipose tissue measuring 5.5 x 2.0 x 2.0cm. Sections do not reveal any mass lesions. Environmental Systems Coordinator sections are submitted in one cassette. 02/14/2024 TC:5 CPT:85061
--- NOTE | 2024-02-13 18:13 | EKG12_ITS ---
Test Reason : PRE-OP Blood Pressure : */* mmHG Vent. 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
[2024-02-13] MEDS: Cefazolin 2 GM in Syringe IV (19:00)
--- NOTE | 2024-02-13 20:21 | OP.PCM_ITS ---
Problems Associated Problem List Diagnoses (1) Severe groin pain: (2) Incarcerated right inguinal hernia: Operative Report (Standard) Operative Information Surgery/Procedure Performed: Open repair of incarcerated right femoral hernia Surgeon: Wesley Odonnell Date of Procedure: 02/13/24 Procedure Start Time: 19:15 Procedure Stop Time: 19:51 Pre-Operative Diagnosis: Incarcerated right groin hernia Post-Operative Diagnosis: Incarcerated right femoral hernia Select all DRAINS/GRAFTS/IMPLANTS that apply: None Type of Anesthesia: General and Local Special Medications: 2 g Ancef IV Estimated Blood Loss: 5 mL Specimen collected: Yes Description of specimen(s) removed: Femoral hernia sac Description of surgery: The patient is an 83-year-old male who was on the acute rehab unit. Earlier today he developed significant pain and swelling in the right groin. I was contacted to evaluate for possible strangulated/incarcerated hernia. On my initial evaluation, he indeed had a right groin hernia that was nonreducible. The seem to be fat-containing and seemed slightly more lateral and inferior than a typical inguinal hernia so there was suspicion for femoral hernia versus inguinal hernia. Regardless of the type of hernia, I recommended open surgical repair to be performed this evening. This was discussed with his family. Patient was discharged from rehab facility and transferred to surgery. We discussed the details of the planned procedure including risks benefits and alternatives. 2 g of Ancef were prescribed preoperatively. Patient was brought to the operating room. He was placed supine on the operative table with arms outstretched on arm boards. General endotracheal anesthesia was induced. The groin was prepped and draped in the usual sterile manner. About a 5 cm incision was made parallel to the inguinal ligament. Bovie electrocautery was then used to dissect down through subcutaneous tissues down to the level of the hernia. The hernia sac was identified and was dissected down to its fascial defect. The fascial defect seems to be around 5 to 7 mm in size. At this point it was reduced. Based on its appearance below the inguinal ligament, this was clearly a femoral hernia. The hernia sac was excised and sent to pathology. The fascial defect was closed in a [id number] manner using 0 Nurolon. 2 separate [id number]'s were used to close the fascial defect. 2-0 Vicryl was then used to reapproximate Fito's fascia. 3-0 Vicryl was used to reapproximate subdermal layer. 4-0 Monocryl was then used to run in the skin for skin closure. Skin glue was applied as dressing. He was awakened from anesthesia and taken to recovery in good condition. A STAFF SERVICES MANAGER was utilized as a title i instructional assistant. His role included assistance with positioning and prepping the patient. He also was involved in retraction and assisted for part of the closure. Surgical Findings: Chronic appearing right femoral hernia Sand Car Worker parts sales representative: Yes Biometrics Specialist: Russel Pérez Tasks completed by commercial escrow assistant: Closing Additional automotive service assistant?: No Complications Complications: No Admit VTE Documentation VTE Present on Admission: No VTE Mechan Device Prophylaxis: SCD's VTE Pharm Prophylaxis ordered?: No Procedures Digestive [id number]: Other Procedure See Notes ([id number])
[2024-02-13] MEDS: Mirtazapine 15 MG Tablet 7.5 MG PO (21:45)
[2024-02-13] MEDS: Famotidine 20 MG Tablet PO (21:45)
[2024-02-14 01:10] VITALS: BP 112/65; PULSE 80; RESP 16; TEMP 37.1; O2SAT 95
[2024-02-14 05:36] VITALS: BP 135/68; PULSE 79; RESP 16; TEMP 36.7; O2SAT 98
[2024-02-14] MEDS: Acetaminophen 325 MG Tablet 650 MG PO (05:49)
[2024-02-14 06:06] LABS: Absolute Lymphocyte Count 1.25 X10^3/uL (0.83-4.51); Absolute Neutrophil Count 4.8 X10^3/uL (2.0-7.7); Basophil# 0.06 X10^3/uL; Basophil% 0.9 % (0-1); Eosinophil# 0.18 X10^3/uL; Eosinophils% 2.6 % (0-5); Hematocrit 34.5 % (40-54); Hemoglobin 11.2 g/dL (13.0-16.5); Lymphocyte # 1.25 X10^3/ul (0.83-4.51); Lymphocyte % 17.7 % (19-41); Mean Corp Hgb Conc 32.5 g/dL (32-36); Mean Corpuscular Hgb 31.2 pg (27.0-32.0); Mean Corpuscular Volume 96.1 fL (80-94); Mean Platelet Vol. 9.2 fl (6.2-12.0); Monocyte# 0.71 X10^3/uL; Monocyte% 10.1 % (0-10); NRBC Flagged by Analyzer 0 % (0-5); Neutrophil # 4.83 X10^3/uL (2.7-7.7); Neutrophil % 68.4 % (47-70); Platelet Count 271 K/mm3 (150-450); RBC Distribution Width CV 13.9 % (11.6-14.6); RBC Distribution Width SD 48.6 fl (35.1-43.9); Red Blood Count 3.59 M/mm3 (4.6-6.2); White Blood Count 7.1 K/mm3 (4.4-11.0)
[2024-02-14 06:25] LABS: Anion Gap 2 (5-15); BUN 23 mg/dL (7-18); BUN/Creat Ratio 36.9 RATIO (10-20); Calcium,Total 8.3 mg/dL (8.5-10.1); Chloride 109 mmol/L (98-107); Creatinine, Serum 0.62 mg/dL (0.70-1.30); EST Glomerular Filtration Rate 130 mL/min (>60); Est Glom Filt Rate - Afr Amer 158 mL/min (>60); Estimated Creatinine Clearance 58.33 ml/min; Glucose 92 mg/dL (74-106); Sodium Level 140 mmol/L (136-145)
--- NOTE | 2024-02-14 07:49 | PN.SURG_ITS ---
Subjective Subjective Patient is a 83-year-old male who underwent repair of incarcerated right femoral hernia last evening. He is doing well this morning. He is in good spirits he has really minimal if any pain. No issues overnight Objective Data Objective Data Vital Signs: Vital Signs Temp Pulse Resp BP Pulse Ox O2 Del Method 98.1 F 79 16 135/68 H 98 Room Air 02/14/24 05:36 02/14/24 05:36 02/14/24 05:36 02/14/24 05:36 02/14/24 05:36 02/14/24 05:36 Oxygen Delivery Method Room Air Weight: 132 lb 4.438 oz Body Mass Index (BMI) 19.5 Intake & Output: Intake and Output for Last 24 Hours 02/12/24 02/13/24 02/14/24 23:59 23:59 23:59 Intake Total 270 / 270 100 / 100 Output Total 255 / 255 250 / 250 Balance -150 / -150 Lab / Micro Data 02/14/24 05:44 02/14/24 05:44 Labs: Laboratory Results - last 24 hr 02/14/24 05:44: WBC 7.1, RBC 3.59 L, Hgb 11.2 L, Hct 34.5 L, MCV 96.1 H, MCH 31.2, MCHC 32.5, RDW Std Deviation 48.6 H, RDW Coeff of Vee 13.9, Plt Count 271, MPV 9.2, Immature Gran % (Auto) 0.300, Neut % (Auto) 68.4, Lymph % (Auto) 17.7 L , Faulkner % (Auto) 10.1 H, Eos % (Auto) 2.6, Baso % (Auto) 0.9, Absolute Neuts (auto) 4.8, Absolute Lymphs (auto) 1.25, Nucleated RBC % 0, Sodium 140, Potassium 4.0, Chloride 109 H, Carbon Dioxide 29.0, Anion Gap 2 L, BUN 23 H, C reatinine 0.62 L, Estim Creat Clear Calc 58.33, Est GFR (MDRD) Af Amer 158, Est GFR (MDRD) Non-Af 130, BUN/Creatinine Ratio 36.9 H, Glucose 92, Calcium 8.3 L Physical Exam Narrative He is awake and alert. No acute distress. Incision and surgical site are clean dry and intact Assessment & Plan Assessment/Plan (1) Femoral hernia: PLAN: Plan The patient is a 83-year-old male postoperative day #1 from an incarcerated femoral hernia repair surgery. He is doing great from my standpoint. He came from the acute rehab side of the hospital. Other than pain control which is really minimal, he has no further surgical issues. He can be transferred to rehab today Charges/Coding Visit Charges Inpatient E&M: 75413 Init Hosp L2
[2024-02-14] MEDS: Ensure Plus High Protein 120 ML LIQUID PO (08:11)
[2024-02-14] MEDS: Famotidine 20 MG Tablet PO (08:11)
[2024-02-14 08:31] VITALS: BP 104/68; PULSE 80; RESP 16; TEMP 36.6
--- NOTE | 2024-02-14 09:14 | CASEMGMT ---
Discharge Planning A list of SNF providers including quality and resource use data and consistent with the patient's preferred geographic region, medical needs, and insurance network was created in [facility] Guide.? This list was provided to the SW. Carolin Giron Discharge Planning Asst.
--- NOTE | 2024-02-14 10:05 | CASEMGMT ---
Social Work- SW spoke with [facility], who will accept pt back. Pt has discharge. LEN faxed documentation to [facility]. Bedside RN advised. Pt notified. RAJIV Scherer
--- NOTE | 2024-02-14 10:18 | DS.PCM_ITS ---
Providers Date of Admission: 02/13/24 Date of Discharge: 02/14/24 Primary Care Physician: Siena Santana MD Reason For Visit: FEMORAL HERNIA Diagnosis Discharge Diagnosis (1) Femoral hernia: Status: Acute Code(s): K41.90 - Unilateral femoral hernia, without obstruction or gangrene, not specified as recurrent Plan The patient is a 83-year-old male postoperative day #1 from an incarcerated femoral hernia repair surgery. He is doing great from my standpoint. He came from the acute rehab side of the hospital. Other than pain control which is really minimal, he has no further surgical issues. He can be transferred to rehab today Medications at Discharge Home Medications aspirin 81 mg tablet,delayed release (Adult Low Dose Aspirin) 81 mg PO DAILY heart health 12/26/21 omega-3 fatty acids 1,000 mg capsule (Super [place]-3) 1,000 mg PO DAILY supplement 12/26/21 acetaminophen 325 mg tablet 650 mg (2 x 325 mg) PO Q6H PRN PRN Pain 1-10 Or Fever >100.7 #0 tabs 02/06/24 sennosides 8.6 mg-docusate sodium 50 mg tablet (Stimulant Laxative Plus) 2 tab PO BID PRN PRN Constipation #0 tabs 02/06/24 tamsulosin 0.4 mg capsule 0.4 mg PO DAILY@1730 prostate #0 caps 02/06/24 Petrolatum 33% [Eucerin Eqivalent] 1 applic topical QHS ##0 02/13/24 calcium carbonate 500 mg (2.5 x 200 mg calcium (500 mg)) PO BIDCM #0 tabs 02/13/24 cholecalciferol (vitamin D3) 25 mcg (1,000 unit) tablet 50 mcg (2 x 25 mcg (1,000 unit)) PO DAILY #0 tabs 02/13/24 cholestyramine (with sugar) 4 gram powder for susp in a packet 1 ea PO BIDAC #0 ea 02/13/24 food supplemt, lactose-reduced 0.08 gram-1.5 kcal/mL oral liquid (Ensure Plus High Protein) 120 ml PO TIDCM #0 mL 02/13/24 mirtazapine 15 mg tablet (Remeron) 7.5 mg (1/2 x 15 mg) PO QHS #1 TAB 02/13/24 morphine 2 mg/mL intravenous syringe 1 mg (0.5 mL) IV Q3H PRN PRN pain 1-10 1 day #0 mL 02/13/24 naloxone 0.4 mg/mL injection solution 0.4 mg IV X1 PRN RR <10, unresponsiveness #1 mL 02/13/24 nystatin 100,000 unit/mL oral suspension 500,000 unit (5 mL) PO 4X/DAY #0 mL 02/13/24 Hospital Course Operations - (Open right femoral hernia repair) Summary of Care Provided Minutes Spent on Discharge: 15 Hospital Course: Patient is an 83-year-old male who was admitted to the acute rehab unit at [facility]. He acutely developed right groin pain yesterday afternoon. This was thought to be an incarcerated hernia. A surgical consult was obtained and I agreed. I suspected this was likely a femoral hernia. He was brought to the operating room last evening and underwent an open femoral hernia repair. He tolerated this well he had an unremarkable overnight hospital course. His pain has been well-controlled. He should be appropriate to return to rehab today. This was discussed with the physician in charge of the rehab facility. Physical Exam Narrative He is awake and alert. No acute distress. Right femoral/groin incision appears unremarkable. No signs of erythema or infection. No evidence of hernia recurrence or persistence Weight / BMI Weight Weight: 132 lb 4.438 oz Body Mass Index (BMI) 19.5 ABG / Lab / Microbiology Data 02/14/24 05:44 02/14/24 05:44 Laboratory: Laboratory Results - last 24 hr 02/14/24 05:44: WBC 7.1, RBC 3.59 L, Hgb 11.2 L, Hct 34.5 L, MCV 96.1 H, MCH 31.2, MCHC 32.5, RDW Std Deviation 48.6 H, RDW Coeff of Vee 13.9, Plt Count 271, MPV 9.2, Immature Gran % (Auto) 0.300, Neut % (Auto) 68.4, Lymph % (Auto) 17.7 L , Archer % (Auto) 10.1 H, Eos % (Auto) 2.6, Baso % (Auto) 0.9, Absolute Neuts (auto) 4.8, Absolute Lymphs (auto) 1.25, Nucleated RBC % 0, Sodium 140, Potassium 4.0, Chloride 109 H, Carbon Dioxide 29.0, Anion Gap 2 L, BUN 23 H, C reatinine 0.62 L, Estim Creat Clear Calc 58.33, Est GFR (MDRD) Af Amer 158, Est GFR (MDRD) Non-Af 130, BUN/Creatinine Ratio 36.9 H, Glucose 92, Calcium 8.3 L D/C Instructions Discharge Diet: No restrictions Discharge Activity: Return to Normal Activity and May Shower Ice area for (Minutes): 30 Weight Bearing Status: Full weight bearing Lifting Restricted to (Lbs): 20 Lifting Restrictions: Avoid lifting more than 20 pounds for the next 4 weeks. Call your doctor if your incision/area has: Continuous Slow Oozing, Sudden Increased Bleeding, Increased Pain/ Swelling, Increased Redness, Foul Smelling Discharge and Swelling at the incision site Call your doctor if you observe: Fever of 101 or Higher and Change in Color Remove Dressing in: leave until fall off Cleanse incision/area with: Soap & Water Additional Dressing/Incision Instructions: Incision has superglue. This will dissolve in about 2 to 3 weeks Please Follow Up With: Wesley Odonnell MD When: In 2 weeks Meaningful Use Info Meaningful Use Meaningful Use Diagnoses (Choose all that apply): None applicable Ischemic Stroke Statin Dosing Therapy Reference: STATIN DOSE THERAPY REFERENCE: * Patients > 75 years receive moderate or high dose statin therapy. * Patients 75 years or YOUNGER should receive HIGH intensity statin dose unless contraindicated. You will be required to document reason for non-treatment if statin daily dose does not meet guidelines. HIGH DOSE STATIN THERAPY DAILY Atorvastatin > than or = to 40 mg Rosuvastatin > than or = to 20 mg Amlodipine + Atorvastatin > than or = to 2.5/40 mg Ezetimibe + Simvastatin 10/80 mg Simvastatin 80mg Discharge Plan Admission Admit Date/Time: 02/13/24 20:04 Primary Reason for Your Visit: Incarcerated right femoral hernia repair Attending Provider: Wesley Odonnell Primary Care Provider: Sinea Santana Discharge Orders/Prescriptions Prescriptions: No Action aspirin [Adult Low Dose Aspirin] 81 mg tablet,delayed release (DR/EC) 81 mg PO DAILY omega-3 fatty acids [Super [place]-3] 1,000 mg capsule 1,000 mg PO DAILY acetaminophen 325 mg Tablet 650 mg PO Q6H PRN PRN (Reason: Pain 1-10 Or Fever >100.7) Qty: 0 0RF sennosides-docusate sodium [Stimulant Laxative Plus] 8.6-50 mg Tablet 2 tab PO BID PRN PRN (Reason: Constipation) Qty: 0 0RF tamsulosin 0.4 mg Capsule 0.4 mg PO DAILY@1730 Qty: 0 0RF calcium carbonate 200 mg calcium (500 mg) Tablet,Chewable 500 mg PO BIDCM Qty: 0 0RF cholestyramine (with sugar) 4 gram Powder In Packet 1 ea PO BIDAC Qty: 0 0RF cholecalciferol (vitamin D3) 25 mcg (1,000 unit) Tablet 50 mcg PO DAILY Qty: 0 0RF morphine 2 mg/mL Syringe 1 mg IV Q3H PRN PRN (Reason: pain 1-10) 1 Days Qty: 0 0RF Ensure Plus High Protein 0.08 gram-1.5 kcal/mL Liquid 120 ml PO TIDCM Qty: 0 0RF nystatin 100,000 unit/mL Suspension 500,000 unit PO 4X/DAY Qty: 0 0RF naloxone 0.4 mg/mL Solution 0.4 mg IV X1 PRN (Reason: RR <10, unresponsiveness) Qty: 1 0RF Petrolatum 33% [Eucerin Eqivalent] 1 applic topical QHS Qty: 0 0RF mirtazapine [Remeron] 15 mg tablet 7.5 mg PO QHS Qty: 1 0RF Referrals / Follow Up: Siena Santana MD [Primary Care Provider] - Disposition Disposition (needs filled in before D/C Order can be placed): Acute Care Hospital [facility] Charges/Coding Visit Charges Inpatient E&M: 25385 Disch Hosp
--- NOTE | 2024-02-14 11:25 | NURSING ---
Report called to Rehab floor. Pt being transferred
--- NOTE | 2024-02-18 07:56 | HP.PCM_ITS ---
HPI - General General Date of Admission: 02/13/24 Date of Service: 02/18/24 Chief Complaint: Incarcerated right femoral hernia HPI Narrative CHINTAN SEPULVEDA, is a 83 M who presents with right groin pain. Patient was currently admitted to inpatient rehab facility and developed acute onset of pain and bulge in the right groin. A surgical consult was obtained. Please see consultation previously dictated. Patient was found to have an incarcerated right groin hernia. This was unable to be reduced [facility] Medical History Compression fracture of T12 vertebra Osteopenia determined by x-ray BPH w urinary obs/LUTS Normochromic normocytic anemia COPD (chronic obstructive pulmonary disease) Nicotine dependence, chewing tobacco, in remission Recurrent left inguinal hernia History of right bundle branch block Mild aortic stenosis by prior echocardiogram Syncope Abnormal electrocardiogram Preoperative cardiovascular examination Anxiety Former smoker Atherosclerosis of arteries Trejo phlebectatica paraplantaris Left inguinal hernia Wears glasses Wears dentures Ambulates with cane Prostate disease Difficulty chewing Non-smoker History of edema History of irregular heartbeat Cardiology follow-up encounter History of echocardiogram History of stress test Essential hypertension Hypertension Home Medications ?Medication ?Instructions ?Recorded ?Last Taken ?Type aspirin 81 mg tablet,delayed 81 mg PO DAILY heart health 12/26/21 02/06/24 History release (Adult Low Dose Aspirin) omega-3 fatty acids 1,000 mg 1,000 mg PO DAILY supplement 12/26/21 02/06/24 History capsule (Super [place]-3) acetaminophen 325 mg tablet 650 mg (2 x 325 mg) PO Q6H PRN PRN 02/06/24 02/06/24 Rx Pain 1-10 Or Fever >100.7 #0 tabs sennosides 8.6 mg-docusate sodium 2 tab PO BID PRN PRN Constipation 02/06/24 Unknown Rx 50 mg tablet (Stimulant Laxative #0 tabs Plus) tamsulosin 0.4 mg capsule 0.4 mg PO DAILY@1730 prostate #0 02/06/24 02/05/24 Rx caps Petrolatum 33% [Eucerin Eqivalent] 1 applic topical QHS ##0 02/13/24 Unknown Rx calcium carbonate 500 mg (2.5 x 200 mg calcium (500 02/13/24 Unknown Rx mg)) PO BIDCM #0 tabs cholecalciferol (vitamin D3) 25 50 mcg (2 x 25 mcg (1,000 unit)) 02/13/24 Unknown Rx mcg (1,000 unit) tablet PO DAILY #0 tabs cholestyramine (with sugar) 4 gram 1 ea PO BIDAC #0 ea 02/13/24 Unknown Rx powder for susp in a packet food supplemt, lactose-reduced 120 ml PO TIDCM #0 mL 02/13/24 Unknown Rx 0.08 gram-1.5 kcal/mL oral liquid (Ensure Plus High Protein) mirtazapine 15 mg tablet (Remeron) 7.5 mg (1/2 x 15 mg) PO QHS #1 TAB 02/13/24 Unknown Rx morphine 2 mg/mL intravenous 1 mg (0.5 mL) IV Q3H PRN PRN pain 02/13/24 Unknown Rx syringe 1-10 1 day #0 mL naloxone 0.4 mg/mL injection 0.4 mg IV X1 PRN RR <10, 02/13/24 Unknown Rx solution unresponsiveness #1 mL nystatin 100,000 unit/mL oral 500,000 unit (5 mL) PO 4X/DAY #0 mL 02/13/24 Unknown Rx suspension Allergy/AdvReac Type Severity Reaction Status Date / Time No Known Allergies Allergy Verified 02/04/24 09:59 Surgical History H/O hernia repair History of cataract extraction S/P inguinal hernia repair Hx of inguinal herniorrhaphy Social History Smoking Status: Former smoker alcohol intake: never substance use type: does not use caffeine: Yes Type: tea ROS Constitutional Constitutional: Reports systems reviewed and no addt'l complaints, except as documented Eyes Eyes: Reports systems reviewed and no addt'l complaints, except as documented ENT HEENT: Reports systems reviewed and no addt'l complaints, except as documented Cardiovascular Cardiovascular: Reports systems reviewed and no addt'l complaints, except as documented Respiratory/Chest Respiratory/Chest: Reports systems reviewed and no addt'l complaints, except as documented Gastrointestinal Gastrointestinal: Reports systems reviewed and no addt'l complaints, except as documented Vital Signs Vital Signs Vital Signs: Weight Weight: 132 lb 4.438 oz Body Mass Index (BMI) 19.5 Physical Exam Narrative He is awake and alert. Mild distress secondary to right groin pain. Evaluation of the right groin reveals a nonreducible hernia. Based on location this was most likely femoral although inguinal hernia was also a possibility Results Lab / Micro Data 02/14/24 05:44 02/14/24 05:44 Assessment & Plan Assessment/Plan (1) Incarcerated femoral hernia: PLAN: Plan 83-year-old male with an incarcerated femoral hernia. I have recommended open repair. We discussed the details of the planned procedure and he wishes to proceed. This will occur when an OR becomes available Charges/Coding Visit Charges Inpatient E&M: 20411 Init Hosp L3
== END 2024-02-14 11:29 | disposition short-term general hospital (02) ==
LOC: MS3 21:04
PROVIDERS: Admitting Provider Surgery; PCP Family Medicine; Referring Provider Surgery; Visit Provider Surgery
PROC: (CPT 49553; principal; 2024-02-13 18:45)
DX: K41.30 Unilateral femoral hernia, with obstruction, without gangrene, not specified as recurrent (principal); J44.9 Chronic obstructive pulmonary disease, unspecified; Z87.891 Personal history of nicotine dependence; N40.1 Benign prostatic hyperplasia with lower urinary tract symptoms; N13.8 Other obstructive and reflux uropathy; I10 Essential (primary) hypertension; Z79.899 Other long term (current) drug therapy; Z79.82 Long term (current) use of aspirin
CPT/HCPCS: 49553; 00830; 36415; 80048; 85025; 88302; 93005; 99221; G0378

== ENCOUNTER 2024-04-28 14:59 | Outpatient (RCR) | payer MEDICARE, SELFPAY | END 2024-04-29 13:22 | disposition home or self-care (01) | LOC: WC 14:59 | PROVIDERS: PCP Family Medicine; Referring Provider Family Medicine; Visit Provider Surgery | DX: Z09 Encounter for follow-up examination after completed treatment for conditions other than malignant neoplasm (principal) ==

== ENCOUNTER 2024-05-06 12:15 | Observation (INO) | payer MEDICARE, SELFPAY ==
--- NOTE | 2024-04-22 10:26 | PAT.ANE_ITS ---
Pre-Assessment Diagnosis/Proposed Procedure Planned Operative Procedure(s): TURP Anesthesia History Anesthesia History - senior corporate strategy manager: Anesthesia History - senior corporate strategy manager Hx Hospitalization Yes: 01/2024 ON REHAB FLOOR/ 04/22/24 09:27 THEN AT [facility] FOR 1 MONTH Any Problems With Anesthesia No 04/22/24 09:27 Cholinesterase deficiency No 04/22/24 09:27 You/Your Family Experience No 04/22/24 09:27 fever (hyperthermia) with Relationship Recent Exposure to Contagious No 03/01/22 07:03 Disease Does patient have nerve No 04/22/24 09:27 stimulator Patient instructed to have device shut off --Does patient have Pacemaker or ICD? When Was Last Pacemaker Check QUESTION #4 FULL TEXT: You/Your Family Experience fever (hyperthermia) with Anesthesia Last Oral Intake Last Oral intake: Last Oral Intake NPO since Meds taken in AM with sips of water? Meds patient instructed to take am of surgery PONV PONV - senior corporate strategy manager: PONV - senior corporate strategy manager Female No 04/22/24 09:27 HX of Motion Sickness No 04/22/24 09:27 HX of N/V After Surgery No 04/22/24 09:27 Non-Smoker Yes 04/22/24 09:27 Duration of Surgery greater Yes 04/22/24 09:27 than 60 minutes Number of Risk Factors 2 04/22/24 09:27 PONV Score Moderate Risk 04/22/24 09:27 Height & Weight Height & Weight: Anesthesia: Height & Weight Height 5 ft 9 in 02/15/24 10:43 Respiratory Assessment Respiratory Assessment - senior corporate strategy manager: Respiratory Tract Infection Hx - senior corporate strategy manager Hx Respiratory Tract Infection No 04/22/24 09:27 STOP Sleep Apnea STOP Sleep Apnea - senior corporate strategy manager: STOP Sleep Apnea - senior corporate strategy manager Hx Hypertension No 04/22/24 09:27 Hx Sleep Apnea No 04/22/24 09:27 CPAP BIPAP Do you snore loudly (louder No 04/22/24 09:27 than talking or can be heard Do you often feel tired/ No 04/22/24 09:27 fatigued/ sleepy during daytime? Has anyone observed you stop No 04/22/24 09:27 breathing during sleep? STOP Results Negative 04/22/24 09:27 QUESTION #5 FULL TEXT : Do you snore loudly (louder than talking or can be heard through closed doors)? 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 Specify any problems Hx of Preganancy in last 3 N/A 04/22/24 09:27 Months Nurse Filling Out Transfusion DSCHRIBER 04/22/24 09:27 & Questions: Date: 04/22/24 04/22/24 09:27 Time: 09:31 04/22/24 09:27 Patient unable to answer at this time (ie. confused, unrespo /Reproduction History /Reproductive History - senior corporate strategy manager: /Reproductive Hx- senior corporate strategy manager Hx Now No 04/22/24 09:27 Gestational Age (in weeks): EDC: Hx Hx Para Hx Section SAB No 04/22/24 09:27 PFSH Medical History Depression Abrasion Arthritis Indwelling urethral catheter present Back pain Femoral hernia Compression fracture of T12 vertebra Osteopenia determined by x-ray BPH w urinary obs/LUTS Nicotine dependence, chewing tobacco, in remission Normochromic normocytic anemia History of right bundle branch block Mild aortic stenosis by prior echocardiogram Anxiety Former smoker Atherosclerosis of arteries Trejo phlebectatica paraplantaris Left inguinal hernia Wears glasses Wears dentures Ambulates with cane Prostate disease History of edema History of irregular heartbeat Cardiology follow-up encounter History of echocardiogram History of stress test Preoperative cardiovascular examination Abnormal electrocardiogram Essential hypertension Recurrent left inguinal hernia Syncope Hypertension COPD (chronic obstructive pulmonary disease) Home Medications ?Medication ?Instructions ?Recorded ?Last Taken ?Type aspirin 81 mg tablet,delayed 81 mg PO DAILY heart health 12/26/21 02/06/24 History release (Adult Low Dose Aspirin) omega-3 fatty acids 1,000 mg 1,000 mg PO DAILY supplement 12/26/21 02/06/24 History capsule (Super [place]-3) calcium carbonate 500 mg (2.5 x 200 mg calcium (500 02/13/24 Unknown Rx mg)) PO BIDCM #0 tabs cholecalciferol (vitamin D3) 25 50 mcg (2 x 25 mcg (1,000 unit)) 02/13/24 Unknown Rx mcg (1,000 unit) tablet PO DAILY #0 tabs cholestyramine (with sugar) 4 gram 1 ea PO BIDAC #0 ea 02/13/24 Unknown Rx powder for susp in a packet food supplemt, lactose-reduced 120 ml PO TIDCM #0 mL 02/13/24 Unknown Rx 0.08 gram-1.5 kcal/mL oral liquid (Ensure Plus High Protein) mirtazapine 15 mg tablet (Remeron) 7.5 mg (1/2 x 15 mg) PO QHS #1 TAB 02/13/24 Unknown Rx acetaminophen 650 mg 650 mg PO Q12H PRN pain 04/22/24 Unknown History tablet,extended release (Tylenol Arthritis Pain) tamsulosin 0.4 mg capsule 0.4 mg PO QHS prostate 04/22/24 Unknown History Allergy/AdvReac Type Severity Reaction Status Date / Time No Known Allergies Allergy Verified 04/22/24 09:19 Surgical History H/O hernia repair History of cataract extraction S/P inguinal hernia repair Hx of inguinal herniorrhaphy Social History Smoking Status: Former smoker alcohol intake: never substance use type: does not use caffeine: Yes Type: tea Prior Cardiac Testing/Procedures Prior Cardiac Testing/Procedures: Echocardiogram (EF 75%, Hyperdynamic on exam, no valvular disease; 11/20) and Stress Test (Rest and stress SPECT Cardiolite nuclear imaging demonstrate relative uniform tracer uptake and myocardial perfusion appearing within normal limits.) Addt'l Information Additional Findings: EKG sinus with 1st degree AV block Audit: Pertinent Findings Pertinent Findings EKG Perinent findings: 1st degree AV Block, incomplete right bundle branch block, Normal Sinus Echo (EF%) pertinent findings: 75% hyperdynamic 11/20 Additional pertinent findings: Patient underwent hernia repair in 02/22 without issue. Negative cardiac work up in 11/20. METS are 3-4 with prostate CA. Would proceed with Surgery. Recommendation Anesthesia Recommendation Anesthesia recommendation: OPTIMIZED for anesthesia (Patient underwent hernia repair in 02/22 without issue. Negative cardiac work up in 11/20. METS are 3-4 with prostate CA. Would proceed with Surgery. )
[2024-05-06] VITALS (12 sets, daily range): BP systolic 90–151; BP diastolic 55–77; PULSE 60–74; RESP 15–18; TEMP 36–36.6; O2SAT 96–100; BMI 19.5; BMI 19.6
--- NOTE | 2024-05-06 09:40 | PCM.PRE.AN2 ---
ASA Classification* ASA Classification ASA Classification: 2 Assessment & Plan Anesthesia* Anesthesia Assessment Anesthesia Assessment: Discussed sedation and/or anesthesia options, risks, benefits, and alternatives with patient/parents/legal guardian/POA. Questions invited. The patient/parents/legal guardian/POA seems to understand and agrees to proceed with anesthesia plan. Reviewed the physical assessment, medical history, allergy history and patient home medications list prior to surgery/procedure/anesthetic and documented any changes. Performed airway and anesthesia risk assessments. Anesthesia Type Anesthesia Type: General Anesthesia Focused Assessment* Airway Assessment Mouth opens: >3 cm Mallampati Score: II Focused Labs Anesthesia Preop lab: CBC WBC 4.5 K/mm3 (4.4-11.0) 03/02/24 07:30 03/02/24 RBC 3.50 M/mm3 (4.6-6.2) L 03/02/24 07:30 03/02/24 Hgb 10.5 g/dL (13.0-16.5) L 03/02/24 07:30 03/02/24 Hct 33.6 % (40-54) L 03/02/24 07:30 03/02/24 Plt Count 253 K/mm3 (150-450) 03/02/24 07:30 03/02/24 CHEMISTRY Potassium 4.5 mmol/L (3.5-5.1) 03/02/24 07:30 03/02/24 Sodium 140 mmol/L (136-145) 03/02/24 07:30 03/02/24 Magnesium 2.3 mg/dL (1.6-2.6) 02/20/24 07:16 02/20/24 Phosphorus 3.0 mg/dL (2.5-4.9) 02/20/24 07:16 02/20/24 BUN 28 mg/dL (7-18) H 03/02/24 07:30 03/02/24 Creatinine 0.65 mg/dL (0.70-1.30) L 03/02/24 07:30 03/02/24 Glucose 88 mg/dL (74-106) 03/02/24 07:30 03/02/24 TSH 2.720 uIU/mL (0.358-3.740) 02/07/24 06:06 02/07/24 COAG Pre-Assessment Diagnosis/Proposed Procedure Planned Operative Procedure(s): TURP Anesthesia History Anesthesia History - identity management consultant: Anesthesia History - identity management consultant Hx Hospitalization Yes: 01/2024 ON REHAB FLOOR/ 04/22/24 09:27 [facility] Any Problems With Anesthesia No 04/22/24 09:27 Cholinesterase deficiency No 04/22/24 09:27 You/Your Family Experience No 04/22/24 09:27 fever (hyperthermia) with Relationship Recent Exposure to Contagious No 03/01/22 07:03 Disease Does patient have nerve No 04/22/24 09:27 stimulator Patient instructed to have device shut off --Does patient have Pacemaker or ICD? When Was Last Pacemaker Check QUESTION #4 FULL TEXT: You/Your Family Experience fever (hyperthermia) with Anesthesia Last Oral Intake Last Oral intake: Last Oral Intake NPO since Meds taken in AM with sips of water? Meds patient instructed to take am of surgery PONV PONV - identity management consultant: PONV - identity management consultant Female No 04/22/24 09:27 HX of Motion Sickness No 04/22/24 09:27 HX of N/V After Surgery No 04/22/24 09:27 Non-Smoker Yes 04/22/24 09:27 Duration of Surgery greater Yes 04/22/24 09:27 than 60 minutes Number of Risk Factors 2 04/22/24 09:27 PONV Score Moderate Risk 04/22/24 09:27 Height & Weight Height & Weight: Anesthesia: Height & Weight Height 5 ft 9 in 05/05/24 08:23 Weight: 63.503 kg 05/05/24 08:23 Respiratory Assessment Respiratory Assessment - identity management consultant: Respiratory Tract Infection Hx - identity management consultant Hx Respiratory Tract Infection No 04/22/24 09:27 STOP Sleep Apnea STOP Sleep Apnea - identity management consultant: STOP Sleep Apnea - identity management consultant Hx Hypertension No 04/22/24 09:27 Hx Sleep Apnea No 04/22/24 09:27 CPAP BIPAP Do you snore loudly (louder No 04/22/24 09:27 than talking or can be heard Do you often feel tired/ No 04/22/24 09:27 fatigued/ sleepy during daytime? Has anyone observed you stop No 04/22/24 09:27 breathing during sleep? STOP Results Negative 04/22/24 09:27 QUESTION #5 FULL TEXT : Do you snore loudly (louder than talking or can be heard through closed doors)? 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 Specify any problems Hx of Preganancy in last 3 N/A 04/22/24 09:27 Months Nurse Filling Out Transfusion DSCHRIBER 04/22/24 09:27 & Questions: Date: 04/22/24 04/22/24 09:27 Time: 09:31 04/22/24 09:27 Patient unable to answer at this time (ie. confused, unrespo /Reproduction History /Reproductive History - identity management consultant: /Reproductive Hx- identity management consultant Hx Now No 04/22/24 09:27 Gestational Age (in weeks): EDC: Hx Hx Para Hx Section SAB No 04/22/24 09:27 Active Medications Active Medications: Current Medications Generic Name Dose Route Start Last Admin Trade Name Freq PRN Reason Stop Dose Admin Sodium Chloride 1,000 mls @ 15 mls/hr 05/06/24 09:20 IV 05/11/24 22:39 .Q48H [facility] Protocol PFSH Medical History Depression Abrasion Arthritis Indwelling urethral catheter present Back pain Femoral hernia Compression fracture of T12 vertebra Osteopenia determined by x-ray BPH w urinary obs/LUTS Nicotine dependence, chewing tobacco, in remission Normochromic normocytic anemia History of right bundle branch block Mild aortic stenosis by prior echocardiogram Anxiety Former smoker Atherosclerosis of arteries Trejo phlebectatica paraplantaris Left inguinal hernia Wears glasses Wears dentures Ambulates with cane Prostate disease History of edema History of irregular heartbeat Cardiology follow-up encounter History of echocardiogram History of stress test Preoperative cardiovascular examination Abnormal electrocardiogram Essential hypertension Recurrent left inguinal hernia Syncope Hypertension COPD (chronic obstructive pulmonary disease) Home Medications ?Medication ?Instructions ?Recorded ?Last Taken ?Type aspirin 81 mg tablet,delayed 81 mg PO DAILY heart health 12/26/21 02/06/24 History release (Adult Low Dose Aspirin) omega-3 fatty acids 1,000 mg 1,000 mg PO DAILY supplement 12/26/21 02/06/24 History capsule (Super [place]-3) calcium carbonate 500 mg (2.5 x 200 mg calcium (500 02/13/24 Unknown Rx mg)) PO BIDCM #0 tabs cholecalciferol (vitamin D3) 25 50 mcg (2 x 25 mcg (1,000 unit)) 02/13/24 Unknown Rx mcg (1,000 unit) tablet PO DAILY #0 tabs cholestyramine (with sugar) 4 gram 1 ea PO BIDAC #0 ea 02/13/24 Unknown Rx powder for susp in a packet food supplemt, lactose-reduced 120 ml PO TIDCM #0 mL 02/13/24 Unknown Rx 0.08 gram-1.5 kcal/mL oral liquid (Ensure Plus High Protein) mirtazapine 15 mg tablet (Remeron) 7.5 mg (1/2 x 15 mg) PO QHS #1 TAB 02/13/24 Unknown Rx acetaminophen 650 mg 650 mg PO Q12H PRN pain 04/22/24 Unknown History tablet,extended release (Tylenol Arthritis Pain) tamsulosin 0.4 mg capsule 0.4 mg PO QHS prostate 04/22/24 Unknown History Allergy/AdvReac Type Severity Reaction Status Date / Time No Known Allergies Allergy Verified 04/22/24 09:19 Surgical History H/O hernia repair History of cataract extraction S/P inguinal hernia repair Hx of inguinal herniorrhaphy Social History Smoking Status: Former smoker alcohol intake: never substance use type: does not use caffeine: Yes Type: tea Review of Systems (Anesthesia) ROS Narrative System reviewed and no additional complaints, except as documented.
--- NOTE | 2024-05-06 10:42 | HP.PCM_ITS ---
[facility] - General General Date of Service: 05/06/24 Chief Complaint: Presents for transurethral section of the prostate HPI Narrative CHINTAN SEPULVEDA, is a 83 M who presents for transurethral section of the prostate for obstruction and BPH and enlargement. [facility] Medical History Depression Abrasion Arthritis Indwelling urethral catheter present Back pain Femoral hernia Compression fracture of T12 vertebra Osteopenia determined by x-ray BPH w urinary obs/LUTS Nicotine dependence, chewing tobacco, in remission Normochromic normocytic anemia History of right bundle branch block Mild aortic stenosis by prior echocardiogram Anxiety Former smoker Atherosclerosis of arteries Trejo phlebectatica paraplantaris Left inguinal hernia Wears glasses Wears dentures Ambulates with cane Prostate disease History of edema History of irregular heartbeat Cardiology follow-up encounter History of echocardiogram History of stress test Preoperative cardiovascular examination Abnormal electrocardiogram Essential hypertension Recurrent left inguinal hernia Syncope Hypertension COPD (chronic obstructive pulmonary disease) Home Medications ?Medication ?Instructions ?Recorded ?Last Taken ?Type aspirin 81 mg tablet,delayed 81 mg PO DAILY heart heal th 12/26/21 04/29/24 History release (Adult Low Dose Aspirin) omega-3 fatty acids 1,000 mg 1,000 mg PO DAILY supplem ent 12/26/21 05/05/24 History capsule (Super [place]-3) calcium carbonate 500 mg (2.5 x 200 mg calcium (500 02/13/24 05/05/24 Rx mg)) PO BIDCM #0 tabs cholecalciferol (vitamin D3) 25 50 mcg (2 x 25 mcg (1, 000 unit)) 02/13/24 05/05/24 Rx mcg (1,000 unit) tablet PO DAILY #0 tabs cholestyramine (with sugar) 4 gram 1 ea PO BIDAC #0 ea 02/13/24 05/05/24 Rx powder for susp in a packet food supplemt, lactose-reduced 120 ml PO TIDCM #0 mL 1 04/14/23 05/05/24 Rx 0.08 gram-1.5 kcal/mL oral liquid (Ensure Plus High Protein) mirtazapine 15 mg tablet (Remeron) 7.5 mg (1/2 x 15 mg ) PO QHS #1 TAB 02/13/24 05/05/24 Rx acetaminophen 650 mg 650 mg PO Q12H PRN pain 04/02 05/26 Unknown History tablet,extended release (Tylenol Arthritis Pain) tamsulosin 0.4 mg capsule 0.4 mg PO QHS prostate 04/2205/05/24 History Allergy/AdvReac Type Severity Reaction Status Date / Time No Known Allergies Allergy Verified 05/06/24 09:51 Surgical History H/O hernia repair History of cataract extraction S/P inguinal hernia repair Hx of inguinal herniorrhaphy Social History Smoking Status: Former smoker alcohol intake: never substance use type: does not use caffeine: Yes Type: tea Vital Signs Vital Signs Vital Signs: 05/06/24 09:52 05/06/24 09:52 Temperature 98 F Temperature Source Temporal Pulse Rate 62 Respiratory Rate 16 Respiratory Pattern Normal Blood Pressure 127/72 H Blood Pressure Mean 90 Blood Pressure Source Monitor Blood Pressure Position Semi-Fowlers Blood Pressure Location Right Arm Pulse Ox 99 Oxygen Delivery Method Room Air Weight Weight: 60 kg Body Mass Index (BMI) 19.5
[2024-05-06] MEDS: Cefazolin 2 GM in Syringe IV (11:16)
--- NOTE | 2024-05-06 11:30 | PROS_PTH ---
PATIENT: CHINTAN SEPULVEDA LOC: MS3 U#:[id number] AGE/SX: 83/M ROOM: [facility] RE05/06/[address]: Dr. Matthew Stapleton MD : [id number] BED: 1 DIS: 05/07/2024 SPEC #: [id number] RECD: 05/06/24 17:31 STATUS: THAO LALA #: [id number] ALEE: 05/06/24 11:[address]: Matthew Stapleton DEPT: SURGICAL PATHOLOGY RECD BY: Kristen Segura ENTERED: 05/07/24 07:30 SP TYPE: TURP OTHR DR: Siena Santana MD Tissues: Prostate, NOS Procedures: Surgery Specimen Level IV HEADER OPERATION: Cysto, transurethral, prostate PRE-OP DIAGNOSIS: Benign prostatic hyperplasia TISSUE SUBMITTED: Prostate tissue MICROSCOPIC DIAGNOSIS Prostate, transurethral resection: Benign prostatic hyperplasia, glandular and stromal type. Chronic inflammation. SJ.mr 05/08/2024 MICROSCOPIC DESCRIPTION Slides are reviewed. GROSS DESCRIPTION Received is one container labeled with the patient's name and designated prostate tissue. The specimen consists of multiple irregular fragments of pink-rios, rubbery, soft tissue that in aggregate weigh 18.7 gm and measure in aggregate 6 x 6 x 2.5 cm. A few fragments of blood clots are also noted. Junior Java Developer sections are submitted in ten cassettes. 05/07/2024 TC:5 CPT: 69939
--- NOTE | 2024-05-06 12:18 | PCM.DC ---
Discharge Instructions Diet Discharge Diet: No restrictions DC O2, CPAP, BIPAP needs Home O2 Discharge instructions: No Dressing / Incision Discharge Activity: Return to Normal Activity and May Not Drive (while taking narcotic pain medications.) Dressing / Incision Call your doctor if you observe: Fever of 101 or Higher Catheter: Retana to leg bag and Retana to large bag Drain: Gary Follow Up Care Please Follow Up With: Matthew Stapleton MD When: Call [phone] for an appointment Test Results: Test results from this visit will be discussed in further detail at your follow-up appointment, if applicable. Discharge Plan Admission Primary Reason for Your Visit: turp Attending Provider: Matthew Stapleton Primary Care Provider: Siena Santana Instructions Print Language: [place] Islander Discharge Orders/Prescriptions Prescriptions: New ciprofloxacin HCl [Cipro] 500 mg tablet 500 mg PO BID Qty: 10 0RF Continued omega-3 fatty acids [Super [place]-3] 1,000 mg capsule 1,000 mg PO DAILY calcium carbonate 200 mg calcium (500 mg) Tablet,Chewable 500 mg PO BIDCM Qty: 0 0RF cholestyramine (with sugar) 4 gram Powder In Packet 1 ea PO BIDAC Qty: 0 0RF cholecalciferol (vitamin D3) 25 mcg (1,000 unit) Tablet 50 mcg PO DAILY Qty: 0 0RF Ensure Plus High Protein 0.08 gram-1.5 kcal/mL Liquid 120 ml PO TIDCM Qty: 0 0RF mirtazapine [Remeron] 15 mg tablet 7.5 mg PO QHS Qty: 1 0RF acetaminophen [Tylenol Arthritis Pain] 650 mg tablet extended release 650 mg PO Q12H PRN (Reason: pain) tamsulosin 0.4 mg Capsule 0.4 mg PO QHS Held aspirin [Adult Low Dose Aspirin] 81 mg tablet,delayed release (DR/EC) 81 mg PO DAILY Hold Instructions: Resume on 05/20/24. Referrals / Follow Up: Siena Santana MD [Primary Care Provider] - Matthew Stapleton MD [Med Staff - Active Staff] - Disposition Disposition (needs filled in before D/C Order can be placed): Home, Self Care
--- NOTE | 2024-05-06 12:19 | OP.PCM_ITS ---
Operative Report (Standard) Operative Information Date of Procedure: 05/06/24 Pre-Operative Diagnosis: BPH with obstruction Post-Operative Diagnosis: The same Surgery/Procedure Performed: Transurethral section of prostate watch and clock maker and repairer: No Type of Anesthesia: General RN Documented Start/Stop Times: Operation Date: 05/06/24 11:30 Case Time Into Pre-Op 05/06/24 09:18 Out of Pre-Op 05/06/24 11:11 Anesthesia Start 05/06/24 11:16 Into Room 05/06/24 11:16 Procedure Start 05/06/24 11:31 Procedure End 05/06/24 12:11 Procedure Start Time: 11:31 Procedure Stop Time: 12:19 Select all DRAINS/GRAFTS/IMPLANTS that apply: Drains Drain details: 22 Tongan three-way Retana Estimated Blood Loss: 20 Specimen collected: Yes Description of specimen(s) removed: Prostate tissue Description of surgery: In the preoperative setting I discussed with the patient how the surgery would be done with expect afterwards. We discussed how a prostate resection is done and we discussed the risk of the surgery including, bleeding, infection, retrograde ejaculation, changes with ejaculation or intercourse,. We discussed the possibility that the resection of the prostate may not alleviate his urinary symptoms. We discussed the small risk of developing scar tissue along the urethral channel and strictures. We also discussed the chance of the prostate could grow back and he may need further surgery or treatment in the future for prostate problems. Patient was taken back to the operating room, timeout procedure was performed, he was identified and marked and placed on the operating room table. He underwent general anesthesia. He was placed in dorsolithotomy position. Penis and testicles were prepped and draped in usual sterile fashion. Went into the bladder using the visual obturator with a resectoscope. Once inside the bladder identified the right and left ureteral orifice. I then identified the prostate and the anatomy of the prostate. I marked out the area of the sphincter and the verumontanum was identified. I then proceeded with the prostate resection first resected the median lobe. And then resected the right lobe of the prostate. Then to resect the left lobe of the prostate. I then resected the apical tissue of the prostate. This was a complete resection of all obstructive tissue to improve voiding and relieve obstruction. I then made sure that there was no injury to the sphincter or the verumontanum was still intact. At the end of the resection all the chips were Ellik out of the bladder. I then identified the left and right ureteral orifice and these were confirmed to be in good position and effluxing and not injured. The resectoscope was removed, a 22 Tongan catheter was placed into the bladder on continuous irrigation. And the urine was fairly light pink color and draining normally. He was taken back to the PACU in good condition. CPT 05442 Surgical Findings: And large obstructive prostate Complications Complications: No Admit VTE Documentation VTE Present on Admission: No VTE Mechan Device Prophylaxis: SCD's VTE Pharm Prophylaxis ordered?: No
--- NOTE | 2024-05-06 12:30 | PCM.POST.ANE ---
Anesthesia: Postop Eval I Current Vital Signs Temperature: 97 F Pulse Rate: 68 Blood Pressure: 145/68 Respiratory Rate: 16 Pulse Ox: 100 Oxygen Delivery Method: Room Air Assessment Airway patent: Yes Spontaneous unlabored respirations: Yes Mental status: Awake and Calm nausea: No Vomiting: No Anesthesia Complication: No Fluid Hydration Crystalloid volume administer (ml): 600 Total IV fluid infused: 600 Progress Note Anesthesia document: Postop Eval 1 completed: Yes
--- NOTE | 2024-05-06 13:13 | POSTOPAN2_ITS ---
Anesthesia Postop Eval I Sum Postop Eval Completion status Anesthesia document: Postop Eval 1 completed: Yes Anesthesia Postop Eval I Summary Anesthesia Postop Eval I Summary: Anesthesia Postop Eval I: Assessment Summary Airway patent Yes 05/06/24 12:30 LEARNING CENTER COORDINATOR.[email or web address] Spontaneous unlabored Yes 05/06/24 12:30 LEARNING CENTER COORDINATOR.JRIV respirations Mental status Awake,Calm 05/06/24 12:30 LEARNING CENTER COORDINATOR.JRIV nausea No 05/06/24 12:30 LEARNING CENTER COORDINATOR.[email or web address] Vomiting No 05/06/24 12:30 LEARNING CENTER COORDINATOR.[email or web address] Anesthesia Postop Eval I: Fluid Summary Crystalloid volume administer 600 05/06/24 12:30 LEARNING CENTER COORDINATOR.JRIV (ml) Colloids volume administered ( ml) Blood Product volume administered (ml) Total IV fluid infused 600 05/06/24 12:30 LEARNING CENTER COORDINATOR.JRIV Anesthesia Postop Eval I: Summary Notes Anesthesia Complication No 05/06/24 12:30 LEARNING CENTER COORDINATOR.JRIV Anesthesia Complication Comment: Post-operative progress note Anesthesia: Postop Eval II Evaluation Mental status: Awake Pain Level: 0 nausea: No Vomiting: No
--- NOTE | 2024-05-06 13:13 | PCM.POSTANE2 ---
Anesthesia Postop Eval I Sum Postop Eval Completion status Anesthesia document: Postop Eval 1 completed: Yes Anesthesia Postop Eval I Summary Anesthesia Postop Eval I Summary: Anesthesia Postop Eval I: Assessment Summary Airway patent Yes 05/06/24 12:30 CANE FLUME CHUTE OPERATOR.[email or web address] Spontaneous unlabored Yes 05/06/24 12:30 CANE FLUME CHUTE OPERATOR.JRIV respirations Mental status Awake,Calm 05/06/24 12:30 CANE FLUME CHUTE OPERATOR.JRIV nausea No 05/06/24 12:30 CANE FLUME CHUTE OPERATOR.JRIV Vomiting No 05/06/24 12:30 CANE FLUME CHUTE OPERATOR.JRIV Anesthesia Postop Eval I: Fluid Summary Crystalloid volume administer 600 05/06/24 12:30 CANE FLUME CHUTE OPERATOR.JRIV (ml) Colloids volume administered ( ml) Blood Product volume administered (ml) Total IV fluid infused 600 05/06/24 12:30 CANE FLUME CHUTE OPERATOR.JRIV Anesthesia Postop Eval I: Summary Notes Anesthesia Complication No 05/06/24 12:30 CANE FLUME CHUTE OPERATOR.JRIV Anesthesia Complication Comment: Post-operative progress note Anesthesia: Postop Eval II Evaluation Mental status: Awake Pain Level: 0 nausea: No Vomiting: No
--- NOTE | 2024-05-06 15:43 | CASEMGMT ---
Addendum entered by Alda Bingham 05/06/24 16:03: Received confirmation from [facility] that they are active with SN, PT and OT and will accept pt back for services. Original Note: RN CM into pt room, pt sitting up in bed with son at bedside. Pt states he lives alone and uses a cane and walker upon ambulation depending on where he is. Pt also has a shower chair. Pt son lives close by and gets pt evening meals and checks in on him. Pt was at [facility] for rehab and dc'd to [facility]. Pt dc'd on Mar 20. Pt now has [facility] and therapy. Pt would like to resume this upon dc. Pt denies need for a list of options for HHC and would like to resume with [facility]. Pt denies any further homegoing needs. Pt has had a catheter at home already. Referral sent to [facility] with H&P and DC instructions via [email or web address].
[2024-05-06] MEDS: 0.9% Normal Saline (1000mL) 1,000 ML 125 ML IV (18:08)
[2024-05-06] MEDS: Ciprofloxacin 400 MG/200 ML BAG 200 MG IV (21:06)
[2024-05-06] MEDS: Docusate Sodium 100 MG Capsule 200 MG PO (21:08)
[2024-05-06] MEDS: Tamsulosin HCl 0.4 MG Capsule PO (21:08)
[2024-05-06] MEDS: Mirtazapine 15 MG Tablet 7.5 MG PO (21:08)
[2024-05-07] VITALS (9 sets, daily range): BP systolic 85–99; BP diastolic 42–63; PULSE 63–75; RESP 15–16; TEMP 36.5–36.6; O2SAT 94–99; BMI 19.6
[2024-05-07] MEDS: 0.9% Normal Saline (500mL Bag) 500 ML 999 ML IV (01:35)
[2024-05-07] MEDS: 0.9% Normal Saline (1000mL) 1,000 ML 125 ML IV (02:12)
[2024-05-07 07:01] LABS: Absolute Lymphocyte Count 1.02 X10^3/uL (0.83-4.51); Absolute Neutrophil Count 4.5 X10^3/uL (2.0-7.7); Basophil# 0.02 X10^3/uL; Basophil% 0.3 % (0-1); Eosinophil# 0.02 X10^3/uL; Eosinophils% 0.3 % (0-5); Hemoglobin 9.3 g/dL (13.0-16.5); Lymphocyte # 1.02 X10^3/ul (0.83-4.51); Lymphocyte % 16.9 % (19-41); Mean Corpuscular Hgb 28.7 pg (27.0-32.0); Mean Corpuscular Volume 92.6 fL (80-94); Mean Platelet Vol. 10.6 fl (6.2-12.0); Monocyte# 0.44 X10^3/uL; Monocyte% 7.3 % (0-10); NRBC Flagged by Analyzer 0 % (0-5); Neutrophil # 4.53 X10^3/uL (2.7-7.7); Neutrophil % 74.9 % (47-70); Platelet Count 199 K/mm3 (150-450); RBC Distribution Width CV 12.8 % (11.6-14.6); RBC Distribution Width SD 43.6 fl (35.1-43.9); Red Blood Count 3.24 M/mm3 (4.6-6.2); White Blood Count 6.1 K/mm3 (4.4-11.0)
--- NOTE | 2024-05-07 07:18 | PCM.PN.GU ---
Subjective Subjective Status post TURP urine is fairly clear irrigation port clamped he can go home with a Retana follow-up next week for Retana removal Objective Data Objective Data Vital Signs: Vital Signs Temp Pulse Resp BP Pulse Ox O2 Del Method 97.9 F 65 15 99/63 97 Room Air 05/07/24 05:27 05/07/24 05:27 05/07/24 05:27 05/07/24 05:27 05/07/24 05:27 05/07/24 05:27 Oxygen Delivery Method Room Air Weight: 60 kg Body Mass Index (BMI) 19.5 Intake & Output: Intake and Output for Last 24 Hours 05/05/24 05/06/24 05/07/24 23:59 23:59 23:59 Intake Total 220 / 220 1731.25 / 1731.25 Output Total 300 / 300 700 / 700 Balance -80 / -80 1031.25 / 1031.25 Lab / Micro Data 05/07/24 05:29 05/07/24 05:29 Labs: Laboratory Results - last 24 hr 05/07/24 05:29: WBC 6.1, RBC 3.24 L, Hgb 9.3 L, Hct 30.0 L, MCV 92.6, MCH 28.7, MCHC 31.0 L, RDW Std Deviation 43.6, RDW Coeff of Vee 12.8, Plt Count 199, MPV 10.6, Immature Gran % (Auto) 0.300, Neut % (Auto) 74.9 H, Lymph % (Auto) 16.9 L, [place] % (Auto) 7.3, Eos % (Auto) 0.3, Baso % (Auto) 0.3, Absolute Neuts (auto) 4.5, Absolute Lymphs (auto) 1.02, Nucleated RBC % 0
[2024-05-07 07:32] LABS: Anion Gap 2 (5-15); BUN 18 mg/dL (7-18); BUN/Creat Ratio 21.1 RATIO (10-20); Calcium,Total 8.2 mg/dL (8.5-10.1); Chloride 108 mmol/L (98-107); Creatinine, Serum 0.85 mg/dL (0.70-1.30); EST Glomerular Filtration Rate 91 mL/min (>60); Est Glom Filt Rate - Afr Amer 110 mL/min (>60); Glucose 92 mg/dL (74-106); Potassium 4.4 mmol/L (3.5-5.1); Sodium Level 140 mmol/L (136-145)
[2024-05-07] MEDS: Docusate Sodium 100 MG Capsule 200 MG PO (07:38)
[2024-05-07] MEDS: Ciprofloxacin 400 MG/200 ML BAG 200 MG IV (09:08)
== END 2024-05-07 12:03 | disposition home or self-care (01) ==
LOC: SDC 14:37 → MS3 14:37
PROVIDERS: Admitting Provider Urology; PCP Family Medicine; Referring Provider Urology; Visit Provider Urology
PROC: (CPT 52601; principal; 2024-05-06 11:20)
DX: N40.1 Benign prostatic hyperplasia with lower urinary tract symptoms (principal); J44.9 Chronic obstructive pulmonary disease, unspecified; Z87.891 Personal history of nicotine dependence; N13.8 Other obstructive and reflux uropathy; I10 Essential (primary) hypertension; I25.10 Atherosclerotic heart disease of native coronary artery without angina pectoris; Z79.82 Long term (current) use of aspirin; Z79.899 Other long term (current) drug therapy
CPT/HCPCS: 52601; 00914; 36415; 80048; 85025; 88305; 94668; 99221; G0378; J0744; J2405